=== PATIENT | female | born 1945 | race Caucasian/White ===

== ENCOUNTER → 2017-06-16 | Outpatient (CLI) | payer MEDICARE, OTHER ==
[~2017-06-16] MED LIST: ALLERGY MED OTC PO; ASPIR 8181 MG PO; ASPIRIN81 MG PO; ATORVASTATIN CA20 MG PO; CALTRATE PLUS1 EACH PO; FOLIC ACID20 MG PO; GABAPENTIN100 MG PO; HAIR, SKIN & N1 EACH PO; LASIX20 MG PO; MECLIZINE HCL12.5 MG PO; METOPROLOL TART25 MG PO; METOPROLOL TART50 MG PO; MUCUS PO; NEXIUM PO; NEXIUM40 MG PO; PLAVIX75 MG PO; PREDNISONE5 MG PO; SUPER B COMPLE150 MG PO; VITAMIN D-32000 UNIT PO
[2017-06-16 10:33] LABS: BASOPHILS # (AUTO) 0.1 (0.0-0.1); BASOPHILS % 0.3 % (0.0-1.0); EOSINOPHILS # (AUTO) 0.2 (0.0-0.4); EOSINOPHILS % 1.3 % (0.0-6.0); HEMATOCRIT 36.1 % (34.2-44.1); HEMOGLOBIN 12.6 g/dL (12.0-16.0); LYMPHOCYTES # (AUTO) 3.7 (1.0-3.2); LYMPHOCYTES % 21.3 % (18.0-39.1); MEAN CORPUSCULAR HEMOGLOBIN 33.3 pg (28-32); MEAN CORPUSCULAR HGB CONC 34.9 g/dL (31-35); MEAN CORPUSCULAR VOLUME 95.5 fL (81-99); MONOCYTES # (AUTO) 0.8 (0.2-0.8); MONOCYTES % 4.7 % (4.4-11.3); NEUTROPHILS # (AUTO) 12.5 (2.1-6.9); PLATELET COUNT 282 x10e3/uL (140-360); RED BLOOD COUNT 3.78 x10e6/uL (3.6-5.1); RED CELL DISTRIBUTION WIDTH 13.2 % (11.7-14.4)
== END ==
LOC: LAB 10:17
PROVIDERS: ATTEND Internal Medicine
DX: D72.829 Elevated white blood cell count, unspecified (principal)
CPT/HCPCS: 36415; 85025

== ENCOUNTER → 2017-10-28 | Outpatient (CLI) | payer MEDICARE, OTHER ==
[~2017-10-28] MED LIST changes: +SINCALIDE 3 MCG/VIAL INJ ONE
--- NOTE | 2017-10-28 19:54 | Diagnostic Imaging Report ---
Hepatobiliary Scan with Gallbladder Ejection Fraction Clinical information: 72 F with abdominal pain and bloating Report: Following intravenous administration of 6 millicuries of Tc-99m mebrofenin, dynamic images of the abdomen in the anterior projection were obtained through 30 minutes. Sincalide (CCK analog) 1.0 micrograms was administered intravenously over 30 minutes with additional imaging for determination of gallbladder ejection fraction. Perfusion to the liver is normal. Extraction of tracer from the blood pool by the liver parenchyma is normal. Tracer is seen promptly within the biliary tract. The gallbladder begins to fill by 8 minutes post-injection of tracer and fills adequately. Tracer is seen in the small bowel by 14 minutes. The gallbladder ejection fraction with administration of sincalide is 91% (normal greater than 40%). Impression: 1. Filling of the gallbladder excludes the diagnosis of acute cystic duct obstruction/acute cholecystitis. 2. Normal gallbladder ejection fraction of 91% does not support the clinical diagnosis of chronic cholecystitis/gallbladder dyskinesia. 3. Prior study of 05/07/2016 was also normal with a gallbladder ejection fraction of 88%. Signed by: Dr. Mattie Harper M.D. on 10/28/2017 7:50 PM
== END ==
LOC: MAMMO 10:14
PROVIDERS: ATTEND Internal Medicine
DX: Z12.31 Encounter for screening mammogram for malignant neoplasm of breast (principal); R14.0 Abdominal distension (gaseous)
CPT/HCPCS: 77067; 78227; A9537; J2805

== ENCOUNTER 2018-01-10 15:00 | Outpatient (RCR) | payer MEDICARE, OTHER ==
[~2018-01-10 15:00] MED LIST changes: -SINCALIDE 3 MCG/VIAL INJ ONE
[2018-01-19] MEDS ORDERED: PROLIA60 MG/1 ML SC (11:17)
== END 2018-01-20 ==
LOC: PT 15:00
PROVIDERS: ATTEND Specialist
DX: M25.551 Pain in right hip (principal); M71.551 Other bursitis, not elsewhere classified, right hip
CPT/HCPCS: 97110 ×7; 97162; G8978; G8979

== ENCOUNTER 2018-01-19 08:27 | Inpatient (IN) | payer MEDICARE, OTHER ==
[~2018-01-19] VITALS: Ht 160 cm; Wt 50.9 kg
--- OUTSIDE RECORDS SUMMARY | 2018-01-19 08:32 | XMS REPORT | Summary of Care ---
Author Organization Unknown Address Unknown Phone Unavailable Encounter SHIRA Jones(DOMINIC) [id number] Date(s): 03/31/14 - 03/31/14 [facility] [address] [place], [place] [id number] [place] [address] Discharge Diagnosis: Acute hip pain Discharge Disposition: Home Physician Attending: Leilani Cortes DO Reason for Visit PAIN Vital Signs 1 2 3 Most recent to oldest [Reference Range]: 160.02 cm (03/31/14 4:39 PM) Height 98.4 DegF (03/31/14 4:39 PM) Temperature Oral [96.4-99.1 DegF] 135 mmHg (03/31/14 9:48 PM) 125 mmHg (03/31/14 6:31 PM) 109 mmHg (03/31/14 4:39 PM) Systolic Blood Pressure [90-140 mmHg] 82 mmHg (03/31/14 9:48 PM) 69 mmHg (03/31/14 6:31 PM) 68 mmHg (03/31/14 4:39 PM) Diastolic Blood Pressure [60-90 mmHg] 18 BRMIN (03/31/14 9:48 PM) 18 BRMIN (03/31/14 6:31 PM) 20 BRMIN (03/31/14 4:39 PM) Respiratory Rate [14-20 BRMIN] 74 bpm (03/31/14 9:48 PM) 96 bpm (03/31/14 4:39 PM) Peripheral Pulse Rate [60-100 bpm] 40.909 kg (03/31/14 4:39 PM) Weight 15.98 m2 (03/31/14 4:39 PM) Body Mass Index Problem List Condition Effective Dates Status Health Status Informant Accelerated Active essential hypertension(Confirm ed) Arthritis(Confirmed) Resolved Atherosclerosis(Conf Active irmed) COPD(Confirmed) Resolved COPD - Chronic Active obstructive pulmonary disease(Confirmed) Degenerative disc Active disease(Confirmed) Dizziness(Confirmed) Resolved Femur Resolved fracture(Confirmed)1 Fracture(Confirmed) Active History of - Active psoriasis(Confirmed) Hypertension(Confirm Resolved ed) Low back Active pain(Confirmed) Petit mal(Confirmed) Resolved Pneumothorax(Confirm Active ed) TIA(Confirmed) Active 1rt 5years ago Allergies, Adverse Reactions, Alerts Substance Reaction Severity Status NKDA Active Medications Bonnyman 10/325 oral tablet 1 tab, Route: PO, Drug Form: TAB, Dosing Weight 40.909, kg, ONCE, STAT, Start da te: 03/31/14 20:30:00, Stop date: 03/31/14 20:30:00 Start Date: 03/31/14 Stop Date: 03/31/14 Status: Completed tramadol 50 mg, 1 tab, Route: PO, Drug form: TAB, ONCE, Dosing Weight 40.909, kg, > 50 kg, Priority: STAT, Start date: 03/31/14 21:50:00, Stop date: 03/31/14 21:50:00 Notes: Not to exceed 400mg/day. (Same As: Ultram) Start Date: 03/31/14 Stop Date: 03/31/14 Status: Completed tramadol 50 mg oral tablet 50 mg=1 tab, PO, Q4H, as needed for pain, # 24 tab, 0 Refill(s) Start Date: 03/31/14 Status: Ordered Medications Administered During Your Visit No data available for this section Immunizations Vaccine Date Refusal Reason diphtheria/pertussis, acel/tetanus adult 02/28/14 diphtheria/pertussis, acel/tetanus adult 09/13/12 Hx pneumococcal vaccine 07/15/06 pneumococcal 23-valent vaccine 07/24/13 Social History Social History Type Response Alcohol Use: Current, Frequency: Daily Smoking Status Current every day smoker, Type: Cigarettes, Exposure to Tobacco Smoke None, Cigarette Smoking Last 365 Days Yes, Reg Smoking Cessation Counseling Yes1 11 pack/day
--- OUTSIDE RECORDS SUMMARY | 2018-01-19 08:32 | XMS REPORT | Summary of Care ---
Author Organization Unknown Address Unknown Phone Unavailable Encounter HQ Karen(DOMINIC) [id number] Date(s): 07/22/13 - 07/22/13 [facility] [address] Discharge Disposition: DC[facility] Physician Attending: Khang Jain MD Reason for Visit FALL Vital Signs 1 2 3 Most recent to oldest [Reference Range]: 160.02 cm (07/22/13 8:34 AM) Height 98.7 DegF (07/22/13 3:36 PM) 98.7 DegF (07/22/13 2:41 PM) 98.7 DegF (07/22/13 12:00 PM) Temperature Oral [96.4-99.1 DegF] 140 mmHg (07/22/13 3:36 PM) 145 mmHg *HI* (07/22/13 2:41 PM) 138 mmHg (07/22/13 1:45 PM) Systolic Blood Pressure [90-140 mmHg] 80 mmHg (07/22/13 3:36 PM) 85 mmHg (07/22/13 2:41 PM) 85 mmHg (07/22/13 1:45 PM) Diastolic Blood Pressure [60-90 mmHg] 18 BRMIN (07/22/13 3:36 PM) 16 BRMIN (07/22/13 2:41 PM) 16 BRMIN (07/22/13 1:45 PM) Respiratory Rate [14-20 BRMIN] 87 bpm (07/22/13 3:36 PM) 89 bpm (07/22/13 2:41 PM) 95 bpm (07/22/13 1:45 PM) Peripheral Pulse Rate [60-100 bpm] 39.545 kg (07/22/13 8:34 AM) Weight 15.44 m2 (07/22/13 8:34 AM) Body Mass Index Problem List Condition Effective Dates Status Health Status Informant Accelerated Active essential hypertension(Confirm ed) Atherosclerosis(Conf Active irmed) COPD(Confirmed) Resolved COPD - Chronic Active obstructive pulmonary disease(Confirmed) Degenerative disc Active disease(Confirmed) Dizziness(Confirmed) Resolved Femur Resolved fracture(Confirmed)1 Fracture(Confirmed) Active History of - Active psoriasis(Confirmed) Hypertension(Confirm Resolved ed) Low back Active pain(Confirmed) Petit mal(Confirmed) Resolved Pneumothorax(Confirm Active ed) TIA(Confirmed) Active 1rt 5years ago Allergies, Adverse Reactions, Alerts Substance Reaction Severity Status NKDA Active Medications morphine Sulfate 4 mg, 2 mL, Route: IVP, Drug form: INJ, ONCE, Dosing Weight 39.545, kg, Priority : STAT, Start date: 07/22/13 8:55:00, Stop date: 07/22/13 8:55:00 Notes: (Same as:MORPhine Sulfate) Start Date: 07/22/13 Stop Date: 07/22/13 Status: Completed morphine Sulfate 4 mg, Route: IVP, Drug form: INJ, ONCE, Dosing Weight 39.545, kg, Priority: STAT , Start date: 07/22/13 15:25:00, Stop date: 07/22/13 15:25:00 Start Date: 07/22/13 Stop Date: 07/22/13 Status: Completed Saline Flush 0.9% 5 mL, Route: IVP, Drug Form: INJ, Dosing Weight 39.545, kg, Q8H, PRN Line Flush, Start date: 07/22/13 9:55:00, Duration: 30 day, Stop date: 08/21/13 9:54:00, 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 Special Instructions: Administer at least once every 8 hours Notes: (Same as: BD Posiflush) Start Date: 07/22/13 Stop Date: 07/22/13 Status: Discontinued Zofran 4 mg, 2 mL, Route: IVP, Drug form: INJ, ONCE, Dosing Weight 39.545, kg, Priority : STAT, Start date: 07/22/13 8:55:00, Stop date: 07/22/13 8:55:00 Notes: (Same as: Zofran) Start Date: 07/22/13 Stop Date: 07/22/13 Status: Completed Zofran 4 mg, Route: IVP, Drug form: INJ, ONCE, Dosing Weight 39.545, kg, Priority: STAT , Start date: 07/22/13 15:26:00, Stop date: 07/22/13 15:26:00 Start Date: 07/22/13 Stop Date: 07/22/13 Status: Completed Results ELECTROLYTES Most recent to 1 oldest [Reference Range]: Sodium Lvl [135-145 135 mEq/L mEq/L] (07/22/13 8:46 AM) Potassium Lvl 4.0 mEq/L [3.5-5.1 mEq/L] (07/22/13 8:46 AM) Chloride Lvl [95-109 99 mEq/L mEq/L] (07/22/13 8:46 AM) CO2 [24-32 mEq/L] 27 mEq/L (07/22/13 8:46 AM) AGAP [10.0-20.0 13.0 mEq/L mEq/L] (07/22/13 8:46 AM) CHEM PANEL Most recent to 1 oldest [Reference Range]: Creatinine Lvl 0.6 mg/dL [0.5-1.4 mg/dL] (07/22/13 8:46 AM) eGFR 93 mL/min/1.73m2 1 *NA* (07/22/13 8:46 AM) BUN [7-22 mg/dL] 17 mg/dL (07/22/13 8:46 AM) B/C Ratio [6-25] 28 *HI* (07/22/13 8:46 AM) Glucose Lvl [70-99 81 mg/dL 2 mg/dL] (07/22/13 8:46 AM) Total Protein 6.5 g/dL [6.4-8.4 g/dL] (07/22/13 8:46 AM) Albumin Lvl [3.5-5.0 2.8 g/dL g/dL] *LOW* (07/22/13 8:46 AM) Globulin [2.0-4.0 3.7 g/dL g/dL] (07/22/13 8:46 AM) A/G Ratio [0.7-1.6] 0.8 (07/22/13 8:46 AM) Calcium Lvl 8.3 mg/dL [8.5-10.5 mg/dL] *LOW* (07/22/13 8:46 AM) Phosphorus [2.5-4.5 3.0 mg/dL mg/dL] (07/22/13 8:46 AM) Magnesium Lvl 1.4 mg/dL [1.8-2.4 mg/dL] *LOW* (07/22/13 8:46 AM) ALT [0-65 unit/L] 16 unit/L (07/22/13 8:46 AM) AST [0-37 unit/L] 12 unit/L (07/22/13 8:46 AM) Alk Phos [39-136 124 unit/L unit/L] (07/22/13 8:46 AM) Bili Total [0.2-1.3 0.3 mg/dL mg/dL] (07/22/13 8:46 AM) 1Result Comment: The eGFR is calculated using the CKD-EPI formula. In most young, healthy individuals the eGFR will be >90 mL/min/1.73m2. The eGFR declines with age. An eGFR of 60-89 may be normal in some populations, particularly the elderly, for whom the CKD-EPI formula has not been extensively validated. Use of the eGFR is not recommended in the following populations: Individuals with unstable creatinine concentrations, including patients and those with serious co-morbid conditions. Patients with extremes in muscle mass or diet. The data above are obtained from the National Kidney Disease Education Program ( NKDEP) which additionally recommends that when the eGFR is used in patients with extremes of body mass index for purposes of drug dosing, the eGFR should be mul tiplied by the estimated BMI. 2Interpretive Data: Adult reference range values reflect the clinical guidelines of the [place] [employer]. CARDIAC ENZYMES Most recent to 1 oldest [Reference Range]: Total CK [12-191 28 unit/L unit/L] (07/22/13 8:46 AM) CK MB [0.5-3.6 1.0 ng/mL ng/mL] (07/22/13 8:46 AM) CK MB Index 3.6 [0.0-2.5] *HI* (07/22/13 8:46 AM) Troponin-I <0.02 ng/mL [0.00-0.40 ng/mL] (07/22/13 8:46 AM) HEMATOLOGY Most recent to 1 oldest [Reference Range]: WBC [3.7-10.4 K/CMM] 11.2 K/CMM *HI* (07/22/13 8:46 AM) RBC [4.20-5.40 3.33 M/CMM M/CMM] *LOW* (07/22/13 8:46 AM) Hgb [12.0-16.0 g/dL] 11.5 g/dL *LOW* (07/22/13 8:46 AM) Hct [36.0-48.0 %] 34.6 % *LOW* (07/22/13 8:46 AM) MCV [81.0-99.0 fL] 104.0 fL *HI* (07/22/13 8:46 AM) MCH [27.0-31.0 pg] 34.5 pg *HI* (07/22/13 8:46 AM) MCHC [32.0-36.0 33.2 g/dL g/dL] (07/22/13 8:46 AM) RDW [11.5-14.5 %] 14.2 % (07/22/13 8:46 AM) Platelet [133-450 292 K/CMM K/CMM] (07/22/13 8:46 AM) MPV [7.4-10.4 fL] 7.8 fL (07/22/13 8:46 AM) Segs [45.0-75.0 %] 80.1 % *HI* (07/22/13 8:46 AM) Lymphocytes 16.6 % [20.0-40.0 %] *LOW* (07/22/13 8:46 AM) Monocytes [2.0-12.0 2.9 % %] (07/22/13 8:46 AM) Eosinophils [0.0-4.0 0.1 % %] (07/22/13 8:46 AM) Basophils [0.0-1.0 0.3 % %] (07/22/13 8:46 AM) Segs-Bands # 8.9 K/CMM [1.5-8.1 K/CMM] *HI* (07/22/13 8:46 AM) Lymphocytes # 1.8 K/CMM [1.0-5.5 K/CMM] (07/22/13 8:46 AM) Monocytes # [0.0-0.8 0.3 K/CMM K/CMM] (07/22/13 8:46 AM) Eosinophils # 0.0 K/CMM [0.0-0.5 K/CMM] (07/22/13 8:46 AM) Basophils # [0.0-0.2 0.0 K/CMM K/CMM] (07/22/13 8:46 AM) PT [12.0-14.7 11.4 seconds seconds] *LOW* (07/22/13 8:46 AM) INR [0.85-1.17] 0.83 3 *LOW* (07/22/13 8:46 AM) PTT [22.9-35.8 31.8 seconds 4 seconds] (07/22/13 8:46 AM) 3Interpretive Data: RECOMMENDED RANGES FOR PROTIME INR: 2.0-3.0 for most medical and surgical thromboembolic states. 2.5-3.5 for artificial heart valves and recurrent embolism. INR SHOULD BE USED ONLY FOR PATIENTS ON STABLE ANTICOAGULANT THERAPY. 4Interpretive Data: Heparin Therapeutic Range: 57 - 92 Seconds Medications Administered During Your Visit No data available for this section Immunizations Vaccine Date Refusal Reason diphtheria/pertussis, acel/tetanus adult 09/13/12 Hx pneumococcal vaccine 07/15/06 pneumococcal 23-valent vaccine 07/24/13 Procedures Procedure Type Body Site Date of Procedure Related Diagnosis Abdominal hysterectomy Social History Social History Type Response Alcohol Use: Current, Frequency: Daily Smoking Status Current every day smoker, Type: Cigarettes, Exposure to Tobacco Smoke None, Cigarette Smoking Last 365 Days Yes, Reg Smoking Cessation Counseling Yes1 11 pack/day
--- OUTSIDE RECORDS SUMMARY | 2018-01-19 08:32 | XMS REPORT | CCD ---
Author Author Auto Generated Organization [facility] Address Unknown Phone Unavailable Care Team Providers Care Typing Secretary Name Role Phone Luke Brothers CP Allergies, Adverse Reactions, Alerts Substance Reaction Status NKDA Active Problem List Condition Effective Dates Status Accelerated essential hypertension Active Atherosclerosis Active COPD - Chronic obstructive pulmonary disease Active Degenerative disc disease Active Fracture Active History of - psoriasis Active Hypertension Resolved Low back pain Active Pneumothorax Active TIA Active Medications Medication Instructions Start Date End Date Status thiamine 100 mg oral 100 mg, 1 tab, PO, Daily, 30 tab, 09/14/2012 Ordered tablet Substitution Allowed, TAB enoxaparin 40 mg, 0.4 mL, Route: SUB-Q, Drug 09/13/2012 09/14/2012 Discontinued form: INJ, [id number], Dosing Weight 42.1, kg, Start date: 09/13/12 13:00:00, Duration: 30 day, Stop date: 10/12/12 13:00:00 potassium chloride 40 mEq, 30 mL, Route: PO, Drug 09/14/2012 09/14/2012 Completed form: LIQ, ONCE, Dosing Weight 42.1, kg, Start date: 09/14/12 12:29:00, Stop date: 09/14/12 12:29:00 Sodium Chloride 0.9% 1,000 mL, Rate: 1,000 ml/hr, Infuse 09/13/2012 09/13/2012 Completed (Bolus) IV 1000 mL over: 1 hr, Route: IV, Dosing Weight 36.364 kg, Total Volume: 1,000, Priority: STAT, Start date: 09/13/12 0:32:00, Duration: 1 doses or times, Stop date: 09/13/12 1:31:00, Bolus Dose Bolus Dose ondansetron 4 mg, Route: IVP, ONCE, Dosing 09/13/2012 09/13/2012 Completed Weight 36.364, kg, Priority: STAT, Start date: 09/13/12 0:03:00, Stop date: 09/13/12 0:03:00 Saline Flush 0.9% 5 mL, Route: IVP, Drug Form: INJ, 09/13/2012 09/13/2012 Discontinued Dosing Weight 36.364, kg, PRN, PRN Line Flush, Start date: 09/13/12 0:03:00, Duration: 30 day, Stop date: 10/13/12 0:02:00 predniSONE 5 mg, 1 tab, Route: PO, Drug form: 09/13/2012 09/14/2012 Discontinued TAB, Breakfast, Dosing Weight 42.1, kg, Start date: 09/13/12 13:00:00, Duration: 30 day, Stop date: 10/13/12 8:00:00 tetanus/diphtheria/p 0.5 ml, Route: IM, Drug Form: INJ, 09/12/2012 09/13/2012 Completed ertussis, acel Dosing Weight 36.364, kg, ONCE, (Tdap) 5 units-2.5 Start date: 09/12/12 22:54:00, Stop units-18.5 mcg/0.5 date: 09/12/12 22:54:00 mL intramuscular suspensio lidocaine-epi 1 ml, Route: SUB-Q, Drug Form: INJ, 09/12/2012 09/13/2012 Completed 1%-[id number] Dosing Weight 36.364, kg, ONCE, STAT, Start date: 09/12/12 22:54:00, Stop date: 09/12/12 22:54:00 metoprolol extended 25 mg, 1 tab, Route: PO, Drug form: 09/14/2012 09/14/2012 Discontinued release ERTAB, Daily, Start date: 09/14/12 9:00:00, Duration: 30 day, Stop date: 10/13/12 9:00:00 multivitamin 1 tab, Route: PO, Drug Form: TAB, 09/13/2012 09/14/2012 Discontinued Dosing Weight 42.1, kg, Daily, Start date: 09/13/12 13:00:00, Duration: 30 day, Stop date: 10/13/12 9:00:00 thiamine 100 mg, 1 tab, Route: PO, Drug 09/13/2012 09/14/2012 Discontinued form: TAB, Daily, Dosing Weight 42.1, kg, Start date: 09/13/12 13:00:00, Duration: 30 day, Stop date: 10/13/12 9:00:00 folic acid 1 mg, 1 tab, Route: PO, Drug form: 09/13/2012 09/14/2012 Discontinued TAB, Daily, Dosing Weight 42.1, kg, Start date: 09/13/12 13:00:00, Duration: 30 day, Stop date: 10/13/12 9:00:00 cyanocobalamin 2,000 microgram, 4 tab, Route: PO, 09/13/2012 09/14/2012 Discontinued Drug form: TAB, QPM, Dosing Weight 42.1, kg, Start date: 09/13/12 17:00:00, Duration: 30 day, Stop date: 10/12/12 17:00:00 aspirin 81 mg, 1 tab, Route: PO, Drug form: 09/13/2012 09/14/2012 Discontinued CHEWTAB, Dinner, Dosing Weight 42.1, kg, Start date: 09/13/12 17:00:00, Duration: 30 day, Stop date: 10/12/12 17:00:00 nitroglycerin 0.4 mg 0.4 mg, 1 tab, Route: SL, Drug 09/13/2012 09/14/2012 Discontinued sublingual tablet form: TAB, Q5Min, PRN Chest Pain, Start date: 09/13/12 20:06:00, Duration: 30 day, Stop date: 10/13/12 20:05:00 atropine 0.5 mg, 5 mL, Route: IVP, Drug 09/13/2012 09/14/2012 Discontinued form: INJ, PRN, PRN Bradycardia, Start date: 09/13/12 20:06:00, Duration: 30 day, Stop date: 10/13/12 20:05:00 Tylenol 650 mg, 2 tab, Route: PO, Drug 09/13/2012 09/14/2012 Discontinued form: TAB, Q6H, Dosing Weight 42.1, kg, PRN Pain, Start date: 09/13/12 12:49:00, Duration: 30 day, Stop date: 10/13/12 12:48:00 Reading 5/325 oral 1 tab, Route: PO, Drug Form: TAB, 09/13/2012 09/14/2012 Discontinued tablet Dosing Weight 42.1, kg, Q6H, PRN Pain, Start date: 09/13/12 12:49:00, Duration: 30 day, Stop date: 10/13/12 12:48:00 Saline Flush 0.9% 5 ml, Route: IVP, Drug Form: INJ, 09/13/2012 09/14/2012 Discontinued Dosing Weight 36.364, kg, PRN, PRN Line Flush, Start date: 09/13/12 5:15:00, Duration: 30 day, Stop date: 10/13/12 5:14:00 Dextrose 5% with 1,000 mL, Rate: 125 ml/hr, Infuse 09/13/2012 09/14/2012 Discontinued 0.45% NaCl IV 1,000 over: 8 hr, Route: IV, Dosing mL Weight 36.364 kg, Total Volume: 1,000, Start date: 09/13/12 5:15:00, Duration: 30 day, Stop date: 10/13/12 5:14:00 ondansetron 4 mg, 2 mL, Route: IVP, Drug form: 09/13/2012 09/14/2012 Discontinued INJ, Q8H, Dosing Weight 36.364, kg, PRN Nausea & Vomiting, Start date: 09/13/12 5:15:00, Duration: 30 day, Stop date: 10/13/12 5:14:00 docusate 100 mg, 1 cap, Route: PO, Drug 09/13/2012 09/14/2012 Discontinued form: CAP, BID, Dosing Weight 36.364, kg, PRN Constipation, Start date: 09/13/12 5:15:00, Duration: 30 day, Stop date: 10/13/12 5:14:00 morphine Sulfate 2 mg, 1 mL, Route: IVP, Drug form: 09/13/2012 09/14/2012 Discontinued INJ, Q3H, Dosing Weight 36.364, kg, PRN Pain Score 4-6, Start date: 09/13/12 5:15:00, Duration: 30 day, Stop date: 10/13/12 5:14:00 Sodium Chloride 0.9% 1,000 mL, Rate: 1,000 ml/hr, Infuse 09/13/2012 09/13/2012 Completed (Bolus) IV 1000 mL over: 1 hr, Route: IV, Dosing Weight 36.364 kg, Total Volume: 1,000, Priority: STAT, Start date: 09/13/12 3:41:00, Duration: 1 doses or times, Stop date: 09/13/12 4:40:00, Bolus Dose Bolus Dose Immunizations Vaccine Date Status diphtheria/pertussis, acel/tetanus adult 09/13/2012 Auth (Verified) Hx pneumococcal vaccine 07/15/2006 Auth (Verified) Vital Signs Most recent to oldest [Reference Range]: 1 2 3 Height 160.02 cm (09/13/2012 05:00:00) 157.48 cm (09/12/2012 22:33:00) Temperature Oral [96.4-99.1 DegF] 97.9 DegF (09/14/2012 16:01:00) 97.6 DegF (09/14/2012 11:39:00) 98.7 DegF (09/14/2012 08:10:00) Systolic Blood Pressure [90-140 mmHg] 126 mmHg (09/14/2012 16:01:00) 124 mmHg (09/14/2012 11:39:00) 130 mmHg (09/14/2012 08:10:00) Diastolic Blood Pressure [60-90 mmHg] 72 mmHg (09/14/2012 16:01:00) 69 mmHg (09/14/2012 11:39:00) 73 mmHg (09/14/2012 08:10:00) Respiratory Rate [14-20 BRMIN] 18 BRMIN (09/14/2012 16:01:00) 18 BRMIN (09/14/2012 11:39:00) 16 BRMIN (09/14/2012 08:35:00) Peripheral Pulse Rate [60-100 bpm] 71 bpm (09/14/2012 16:01:00) 67 bpm (09/14/2012 11:39:00) 65 bpm (09/14/2012 08:10:00) Weight 42.1 kg (09/13/2012 05:00:00) 36.364 kg (09/12/2012 22:33:00) Results URINALYSIS Most recent to oldest [Reference Range]: 1 2 UA Turbidity [Clear] Clear (09/13/2012 01:50:00) UA Color [Yellow] Yellow *NA* (09/13/2012 01:50:00) UA pH [5.0-8.0] 6.0 (09/13/2012 01:50:00) UA Spec Grav [<=1.030] <=1.005 *NA* (09/13/2012 01:50:00) UA Glucose [Negative] Negative (09/13/2012 01:50:00) UA Blood [Negative] Negative (09/13/2012 01:50:00) UA Ketones [Negative] Negative *NA* (09/13/2012 01:50:00) UA Protein [Negative] Negative (09/13/2012 01:50:00) UA Urobilinogen [0.1-1.0 EU/dL] 0.2 EU/dL (09/13/2012 01:50:00) UA Bili [Negative] Negative *NA* (09/13/2012 01:50:00) UA Leuk Est [Negative] Negative (09/13/2012 01:50:00) UA Nitrite [Negative] Negative (09/13/2012 01:50:00) CHEMISTRY Most recent to oldest [Reference Range]: 1 2 Sodium Lvl [135-145 mEq/L] 142 mEq/L (09/14/2012 06:43:00) 140 mEq/L (09/13/2012 00:30:00) Potassium Lvl [3.5-5.1 mEq/L] 3.3 mEq/L *LOW* (09/14/2012 06:43:00) 4.6 mEq/L (09/13/2012 00:30:00) Chloride Lvl [95-109 mEq/L] 105 mEq/L (09/14/2012 06:43:00) 103 mEq/L (09/13/2012 00:30:00) CO2 [24-32 mEq/L] 29 mEq/L (09/14/2012 06:43:00) 25 mEq/L (09/13/2012 00:30:00) AGAP [10.0-20.0 mEq/L] 11.3 mEq/L (09/14/2012 06:43:00) 16.6 mEq/L (09/13/2012 00:30:00) Creatinine Lvl [0.5-1.4 mg/dL] 0.7 mg/dL (09/14/2012 06:43:00) 0.6 mg/dL (09/13/2012 00:30:00) eGFR 89 mL/min/1.73m2 1 *NA* (09/14/2012:43:00) 93 mL/min/1.73m2 2 *NA* (09/13/2012 00:30:00) BUN [7-22 mg/dL] 8 mg/dL (09/14/2012 06:43:00) 16 mg/dL (09/13/2012 00:30:00) B/C Ratio [6-25] 27 *HI* (09/13/2012 00:30:00) Glucose Lvl [70-99 mg/dL] 119 mg/dL 3 *HI* (09/14/2012 06:43:00) 94 mg/dL 4 (09/13/2012 00:30:00) Total Protein [6.4-8.4 g/dL] 6.7 g/dL (09/13/2012 00:30:00) Albumin Lvl [3.5-5.0 g/dL] 3.8 g/dL (09/13/2012 00:30:00) Globulin [2.0-4.0 g/dL] 2.9 g/dL (09/13/2012 00:30:00) A/G Ratio [0.7-1.6] 1.3 (09/13/2012 00:30:00) Calcium Lvl [8.5-10.5 mg/dL] 7.7 mg/dL *LOW* (09/14/2012:43:00) 8.7 mg/dL (09/13/2012 00:30:00) ALT [0-65 unit/L] 57 unit/L (09/13/2012 00:30:00) AST [0-37 unit/L] 59 unit/L *HI* (09/13/2012 00:30:00) Alk Phos [39-136 unit/L] 121 unit/L (09/13/2012 00:30:00) Bili Total [0.2-1.3 mg/dL] 0.6 mg/dL (09/13/2012 00:30:00) 1Result Comment: The eGFR is calculated using [...] be mul tiplied by the estimated BMI. 2Result Comment: The eGFR is calculated using the [...] be mul tiplied by the estimated BMI. 3Interpretive Data: Adult reference range values reflect the clinical guidelines of the [place] [employer]. 4Interpretive Data: Adult reference range values reflect the clinical guidelines of the [place] [employer]. HEMATOLOGY Most recent to oldest [Reference Range]: 1 2 WBC [3.7-10.4 K/CMM] 5.8 K/CMM (09/14/2012 06:43:00) 6.7 K/CMM (09/13/2012 00:30:00) RBC [4.20-5.40 M/CMM] 3.01 M/CMM *LOW* (09/14/2012 06:43:00) 3.92 M/CMM *LOW* (09/13/2012 00:30:00) Hgb [12.0-16.0 g/dL] 10.6 g/dL *LOW* (09/14/2012 06:43:00) 13.8 g/dL (09/13/2012 00:30:00) Hct [36.0-48.0 %] 32.1 % *LOW* (09/14/2012 06:43:00) 40.8 % (09/13/2012 00:30:00) MCV [81.0-99.0 fL] 106.5 fL *HI* (09/14/2012 06:43:00) 104.2 fL *HI* (09/13/2012 00:30:00) MCH [27.0-31.0 pg] 35.3 pg *HI* (09/14/2012 06:43:00) 35.1 pg *HI* (09/13/2012 00:30:00) MCHC [32.0-36.0 g/dL] 33.2 g/dL (09/14/2012 06:43:00) 33.7 g/dL (09/13/2012 00:30:00) RDW [11.5-14.5 %] 14.4 % (09/14/2012 06:43:00) 14.5 % (09/13/2012 00:30:00) Platelet [133-450 K/CMM] 165 K/CMM (09/14/2012 06:43:00) 254 K/CMM (09/13/2012 00:30:00) MPV [7.4-10.4 fL] 8.4 fL (09/14/2012 06:43:00) 8.9 fL (09/13/2012 00:30:00) Segs [45.0-75.0 %] 60.9 % (09/14/2012 06:43:00) 78.7 % *HI* (09/13/2012 00:30:00) Lymphocytes [20.0-40.0 %] 30.1 % (09/14/2012 06:43:00) 19.7 % *LOW* (09/13/2012 00:30:00) Monocytes [2.0-12.0 %] 7.8 % (09/14/2012 06:43:00) 1.2 % *LOW* (09/13/2012 00:30:00) Eosinophils [0.0-4.0 %] 1.0 % (09/14/2012 06:43:00) 0.4 % (09/13/2012 00:30:00) Basophils [0.0-1.0 %] 0.2 % (09/14/2012 06:43:00) 0.0 % (09/13/2012 00:30:00) Segs-Bands # [1.5-8.1 K/CMM] 3.5 K/CMM (09/14/2012 06:43:00) 5.2 K/CMM (09/13/2012 00:30:00) Lymphocytes # [1.0-5.5 K/CMM] 1.7 K/CMM (09/14/2012 06:43:00) 1.3 K/CMM (09/13/2012 00:30:00) Monocytes # [0.0-0.8 K/CMM] 0.4 K/CMM (09/14/2012 06:43:00) 0.1 K/CMM (09/13/2012 00:30:00) Eosinophils # [0.0-0.5 K/CMM] 0.1 K/CMM (09/14/2012 06:43:00) 0.0 K/CMM (09/13/2012 00:30:00) Basophils # [0.0-0.2 K/CMM] 0.0 K/CMM (09/14/2012 06:43:00) 0.0 K/CMM (09/13/2012 00:30:00) PT [12.0-14.7 seconds] 11.8 seconds *LOW* (09/13/2012 00:30:00) INR [0.85-1.17] 0.85 5 (09/13/2012 00:30:00) PTT [22.9-35.8 seconds] 28.7 seconds 6 (09/13/2012 00:30:00) 5Interpretive Data: RECOMMENDED RANGES FOR PROTIME INR: 2.0-3.0 for most medical and surgical thromboembolic states. 2.5-3.5 for artificial heart valves and recurrent embolism. INR SHOULD BE USED ONLY FOR PATIENTS ON STABLE ANTICOAGULANT THERAPY. 6Interpretive Data: Heparin Therapeutic Range: 57 - 92 Seconds
--- OUTSIDE RECORDS SUMMARY | 2018-01-19 08:32 | XMS REPORT | Summary of Care ---
Author Organization Unknown Address Unknown Phone Unavailable Encounter SHIRA Jones(DOMINIC) [id number] Date(s): 02/28/14 - 03/01/14 [facility] [address] [place], [place] [id number] [place] [address] Discharge Diagnosis: Fall Discharge Diagnosis: Nasal laceration Discharge Disposition: Home Physician Attending: Angel Jose MD Reason for Visit FALL Vital Signs Most recent to 1 2 oldest [Reference Range]: Height 160.02 cm (02/28/14 9:43 PM) Temperature Oral 97.7 DegF 97.5 DegF [96.4-99.1 DegF] (03/01/14 12:00 AM) (02/28/14 9:43 PM) Systolic Blood 108 mmHg 96 mmHg Pressure [90-140 (03/01/14 12:00 AM) (02/28/14 9:43 PM) mmHg] Diastolic Blood 66 mmHg 60 mmHg Pressure [60-90 (03/01/14 12:00 AM) (02/28/14 9:43 PM) mmHg] Respiratory Rate 18 BRMIN 18 BRMIN [14-20 BRMIN] (03/01/14 12:00 AM) (02/28/14 9:43 PM) Peripheral Pulse 71 bpm 76 bpm Rate [60-100 bpm] (03/01/14 12:00 AM) (02/28/14 9:43 PM) Weight 50 kg (02/28/14 9:43 PM) Body Mass Index 19.53 m2 (02/28/14 9:43 PM) Problem List Condition Effective Dates Status Health [...] Substance Reaction Severity Status NKDA Active Medications Tylenol 650 mg, 2 tab, Route: PO, Drug form: TAB, ONCE, Dosing Weight 50, kg, Priority: STAT, Start date: 02/28/14 22:39:00, Stop date: 02/28/14 22:39:00 Notes: Do not exceed 4 gm/day. (Same as: Tylenol) Start Date: 02/28/14 Stop Date: 02/28/14 Status: Completed Medications Administered During Your Visit No data [...]
--- OUTSIDE RECORDS SUMMARY | 2018-01-19 08:32 | XMS REPORT | Summary of Care ---
Author Organization Unknown Address Unknown Phone Unavailable Encounter HQ Karen(DOMINIC) [id number] Date(s): 07/22/13 - 07/27/[address] Discharge Disposition: DC/DISC TO REHAB Physician Attending: Mega Clarke MD Physician Admitting: Mega Clarke MD Physician_Referring: Jason Hernandez MD Reason for Visit PELVIC FRACUTRE W/ACETABULAR INVOLVEMENT Vital Signs 1 2 3 Most recent to oldest [Reference Range]: 160.02 cm (07/22/13 10:24 PM) 160.02 cm (07/22/13 4:32 PM) Height 98.1 DegF (07/27/13 7:58 PM) 98.1 DegF (07/27/13 4:20 PM) 97.2 DegF (07/27/13 3:30 AM) Temperature Oral [96.4-99.1 DegF] 117 mmHg (07/27/13 7:58 PM) 109 mmHg (07/27/13 4:20 PM) 120 mmHg (07/27/13 11:59 AM) Systolic Blood Pressure [90-140 mmHg] 62 mmHg (07/27/13 7:58 PM) 69 mmHg (07/27/13 4:20 PM) 71 mmHg (07/27/13 11:59 AM) Diastolic Blood Pressure [60-90 mmHg] 18 BRMIN (07/27/13 7:58 PM) 18 BRMIN (07/27/13 4:20 PM) 18 BRMIN (07/27/13 11:59 AM) Respiratory Rate [14-20 BRMIN] 101 bpm *HI* (07/27/13 7:58 PM) 86 bpm (07/27/13 4:20 PM) 80 bpm (07/27/13 11:59 AM) Peripheral Pulse Rate [60-100 bpm] 39.545 kg (07/22/13 10:24 PM) 36.364 kg (07/22/13 4:32 PM) Weight 15.44 m2 (07/22/13 10:24 PM) 14.2 m2 (07/22/13 4:32 PM) Body Mass Index Problem List Condition [...] Substance Reaction Severity Status NKDA Active Medications acetaminophen 650 mg, 20.3 mL, Route: PO, Drug form: LIQ, Q4H, Dosing Weight 39.545, kg, PRN F ever, Start date: 07/22/13 22:46:00, Duration: 30 day, Stop date: 08/21/13 22:45 :00 Notes: Max whzmostwjsjqm=2902kg/day (4 gm/day). (Same as: Tylenol) Start Date: 07/22/13 Stop Date: 07/27/13 Status: Discontinued acetaminophen-hydrocodone 325 mg-10 mg oral tablet 1 tab, Route: PO, Drug Form: TAB, Dosing Weight 39.545, kg, Q4H, PRN Pain Score 4-6, Start date: 07/22/13 22:46:00, Duration: 30 day, Stop date: 08/21/13 22:45: 00 Notes: Do not exceed 4gm/day of acetaminophen. (Same as: [place] 325/10) Start Date: 07/22/13 Stop Date: 07/27/13 Status: Discontinued acetaminophen-hydrocodone 325 mg-10 mg oral tablet 1 tab, PO, Q4H, Pain Score 4-6, # 24 tab, 0 Refill(s) Start Date: 07/27/13 Status: Ordered acetaminophen-hydrocodone 325 mg-5 mg oral tablet 1 tab, Route: PO, Drug Form: TAB, Dosing Weight 39.545, kg, Q4H, PRN Pain Score 1-3, Start date: 07/22/13 22:46:00, Duration: 30 day, Stop date: 08/21/13 22:45: 00 Notes: (Same as: [place] 325/5) Do not exceed 4gm/day of acetaminophen. Start Date: 07/22/13 Stop Date: 07/27/13 Status: Discontinued acetaminophen-hydrocodone 325 mg-5 mg oral tablet 1 tab, PO, Q4H, Pain Score 1-3, # 24 tab, 0 Refill(s) Start Date: 07/27/13 Status: Ordered aspirin 81 mg, 1 tab, Route: PO, Drug form: CHEWTAB, Daily, Dosing Weight 39.545, kg, St art date: 07/23/13 9:00:00, Duration: 30 day, Stop date: 08/21/13 9:00:00 Notes: Take with food. Start Date: 07/23/13 Stop Date: 07/27/13 Status: Discontinued atorvastatin 20 mg oral tablet 20 mg=1 tab, PO, Bedtime, # 30 tab, 0 Refill(s) Start Date: 07/27/13 Stop Date: 08/26/13 Status: Ordered benzonatate 100 mg oral capsule 100 mg=1 cap, PO, TID, Cough, # 15 cap, 0 Refill(s) Start Date: 07/27/13 Stop Date: 08/01/13 Status: Ordered calcium-vitamin D 500 mg-400 intl units oral tablet, chewable 1 tab, Route: CHEW, Drug Form: CHEWTAB, Dosing Weight 39.545, kg, BID, NOW, Star t date: 07/24/13 9:28:00, Duration: 30 day, Stop date: 08/23/13 9:00:00 Notes: (calcium carbonate-vit D 500mg-400unit chew TAB) Same as: [place] 500+D Start Date: 07/24/13 Stop Date: 07/27/13 Status: Discontinued calcium-vitamin D 500 mg-400 intl units oral tablet, chewable 1 tab, CHEW, BID, # 60 tab, 0 Refill(s) Start Date: 07/27/13 Stop Date: 08/26/13 Status: Ordered cyanocobalamin 2,000 microgram, 2 tab, Route: PO, Drug form: TAB, Daily, Dosing Weight 39.545, kg, Start date: 07/23/13 9:00:00, Duration: 30 day, Stop date: 08/21/13 9:00:00 Notes: (Same As: Vitamin B-12) Start Date: 07/23/13 Stop Date: 07/27/13 Status: Discontinued DuoNeb inhalation solution 3 ml, Route: INHALATION, Drug Form: SOLN, Dosing Weight 39.545, kg, PRN, PRN Res piratory Protocol, Start date: 07/22/13 22:52:00, Duration: 30 day, Stop date: 0 08/21/13 22:51:00 Notes: (Same as: Duoneb) Start Date: 07/22/13 Stop Date: 07/27/13 Status: Discontinued DuoNeb inhalation solution 3 mL, INHALATION, PRN, Respiratory Protocol, # 90 mL, 0 Refill(s) Start Date: 07/27/13 Stop Date: 08/26/13 Status: Ordered enoxaparin 40 mg, 0.4 mL, Route: SUB-Q, Drug form: INJ, [id number], Dosing Weight 39.545, kg, Start date: 07/22/13 23:00:00, Duration: 30 day, Stop date: 08/20/13 23:00:00 Notes: (Same as: Lovenox) Start Date: 07/22/13 Stop Date: 07/27/13 Status: Discontinued ergocalciferol 50,000 IntlUnit, 1 cap, Route: PO, Drug form: CAP, QThu, Dosing Weight 39.545, k g, Start date: 07/27/13 8:00:00, Duration: 30 day, Stop date: 08/23/13 9:00:00 Notes: (Same as: Vitamin D) "Do Not Crush" Start Date: 07/27/13 Stop Date: 07/27/13 Status: Discontinued ergocalciferol 50,000 IntlUnit, 1 cap, Route: PO, Drug form: CAP, Daily, Dosing Weight 39.545, kg, Start date: 07/26/13 9:00:00, Duration: 30 day, Stop date: 08/24/13 9:00:00 Notes: (Same as: Vitamin D) "Do Not Crush" Start Date: 07/26/13 Stop Date: 07/27/13 Status: Discontinued folic acid 1 mg, 1 tab, Route: PO, Drug form: TAB, Daily, Dosing Weight 39.545, kg, Start d ate: 07/23/13 9:00:00, Duration: 30 day, Stop date: 08/21/13 9:00:00 Notes: (Same as: Folvite) Start Date: 07/23/13 Stop Date: 07/27/13 Status: Discontinued glycerin adult rectal suppository 1 supp, Route: PA, Drug Form: SUPP, Dosing Weight 39.545, kg, Daily, PRN Constip ation, Start date: 07/26/13 4:52:00, Duration: 30 day, Stop date: 08/25/13 4:51: 00 Start Date: 07/26/13 Stop Date: 07/27/13 Status: Discontinued lactulose 10 g/15 mL oral syrup 10 gm, 15 mL, Route: PO, Drug Form: SYRP, Dosing Weight 39.545, kg, Daily, Start date: 07/25/13 16:34:00, Duration: 30 day, Stop date: 08/24/13 9:00:00 Notes: (Same as:Chronulac) Start Date: 07/25/13 Stop Date: 07/27/13 Status: Discontinued Lipitor 20 mg, 1 tab, Route: PO, Drug form: TAB, Bedtime, Dosing Weight 39.545, kg, Star t date: 07/23/13 21:00:00, Duration: 30 day, Stop date: 08/21/13 21:00:00 Notes: (Same As: Lipitor) Start Date: 07/23/13 Stop Date: 07/27/13 Status: Discontinued magnesium sulfate 2 gm, 50 mL, Route: IVPB, Drug form: INJ, Q2H, Dosing Weight 39.545, kg, Total d ose=6 gm, Start date: 07/24/13 8:00:00, Duration: 3 doses or times, Stop date: 0 07/24/13 12:00:00 Start Date: 07/24/13 Stop Date: 07/24/13 Status: Completed molasses 240 mL, Route: PA, Drug Form: SYRP, Dosing Weight 39.545, kg, ONCE, Milk of Mola sses Enema, Start date: 07/26/13 15:15:00, Duration: 1 doses or times, Stop date : 07/26/13 15:15:00 Notes: (Same as:Molasses) Start Date: 07/26/13 Stop Date: 07/26/13 Status: Completed morphine Sulfate 4 mg, 1 mL, Route: IVP, Drug form: INJ, ONCE, Dosing Weight 36.364, kg, Priority : STAT, Start date: 07/22/13 19:39:00, Stop date: 07/22/13 19:39:00 Notes: (Same as:MORPhine Sulfate) Start Date: 07/22/13 Stop Date: 07/22/13 Status: Completed morphine Sulfate 2 mg, 1 mL, Route: IVP, Drug form: INJ, Q3H, Dosing Weight 39.545, kg, PRN Pain, Start date: 07/22/13 22:46:00, Duration: 30 day, Stop date: 08/21/13 22:45:00, pain 7-10 Notes: (Same as:MORPhine Sulfate) Start Date: 07/22/13 Stop Date: 07/27/13 Status: Discontinued multivitamin 1 tab, Route: PO, Drug Form: TAB, Dosing Weight 39.545, kg, Daily, Start date: 0 07/23/13 9:00:00, Duration: 30 day, Stop date: 08/21/13 9:00:00 Notes: (Same as:Thera) Take with food. Start Date: 07/23/13 Stop Date: 07/27/13 Status: Discontinued Omnipaque 350mg/ml 86 mL, Route: IVP, Drug Form: SOLN, Dosing Weight 36.364, kg, ONCALL, STAT, Star t date: 07/22/13 19:09:00, Duration: 1 doses or times, Dose=2.2ml/kg, Max dose= 100ml -- "To be infused by Radiology Staff ONLY" Special Instructions: Dose=2.2ml/kg, Max tukn=445bl -- "To be infused by Radiol ogy Staff ONLY" Start Date: 07/22/13 Stop Date: 07/22/13 Status: Completed ondansetron 4 mg, 2 mL, Route: IVP, Drug form: INJ, Q8H, Dosing Weight 39.545, kg, PRN Nause a & Vomiting, Start date: 07/22/13 22:46:00, Duration: 30 day, Stop date: 08/21/13 22:45:00 Notes: (Same as: Zofran) Start Date: 07/22/13 Stop Date: 07/27/13 Status: Discontinued pneumococcal 23-valent vaccine 0.5 ml, Route: IM, Drug Form: INJ, Daily, Start date: 07/23/13 9:00:00, Duration : 1 doses or times, Stop date: 07/23/13 9:00:00 Notes: (Same as: Pneumovax 23) Refrigerate Start Date: 07/23/13 Stop Date: 07/23/13 Status: Completed predniSONE 5 mg, 1 tab, Route: PO, Drug form: TAB, Daily, Dosing Weight 39.545, kg, Start d ate: 07/23/13 9:00:00, Duration: 30 day, Stop date: 08/21/13 9:00:00 Notes: Take with food. Start Date: 07/23/13 Stop Date: 07/27/13 Status: Discontinued Reglan 5 mg oral tablet 5 mg, 1 tab, Route: PO, Drug form: TAB, ONCE, Dosing Weight 39.545, kg, Start da te: 07/26/13 4:52:00, Stop date: 07/26/13 4:52:00 Notes: (Same as: Reglan) Take 30 min before meals Start Date: 07/26/13 Stop Date: 07/26/13 Status: Completed senna 8.6 mg, 1 tab, Route: PO, Drug Form: TAB, Dosing Weight 39.545, kg, BID, Start d ate: 07/26/13 9:00:00, Duration: 30 day, Stop date: 08/24/13 17:00:00 Notes: (Same as: Senokot) Start Date: 07/26/13 Stop Date: 07/27/13 Status: Discontinued Sodium Chloride 0.9% IV 1,000 mL + M.V.I.-12 10 mL Daily + folic acid IV 1 mg Da shahbaz + thiamine IV 1 1,000 mL, Rate: 100 ml/hr, Infuse over: 10.1 hr, Route: IV, Dosing Weight 39.545 kg, Total Volume: 1,011.2, Start date: 07/22/13 23:33:00, Duration: 10 hr, Stop date: 07/23/13 9:32:00 Start Date: 07/22/13 Stop Date: 07/23/13 Status: Completed Tessalon Perles 100 mg, 1 cap, Route: PO, Drug form: CAP, TID, Dosing Weight 39.545, kg, PRN Cou gh, Start date: 07/25/13 14:52:00, Duration: 30 day, Stop date: 08/24/13 14:51:0 0 Notes: (Same As: Tessalon Perles)"Do Not Crush" Start Date: 07/25/13 Stop Date: 07/27/13 Status: Discontinued thiamine 100 mg, 1 tab, Route: PO, Drug form: TAB, Daily, Dosing Weight 39.545, kg, Start date: 07/23/13 9:00:00, Duration: 30 day, Stop date: 08/21/13 9:00:00 Notes: (Same As: Vitamin B1) Start Date: 07/23/13 Stop Date: 07/27/13 Status: Discontinued thiamine 100 mg oral tablet 100 mg=1 tab, PO, Daily, # 7 tab, 0 Refill(s) Start Date: 07/27/13 Stop Date: 08/03/13 Status: Ordered Vitamin D 50,000 intl units oral capsule 50,000 IntlUnit=1 cap, PO, qWeek, # 8 cap, 0 Refill(s) Start Date: 07/27/13 Status: Ordered Zofran 4 mg, 2 mL, Route: IVP, Drug form: INJ, ONCE, Dosing Weight 36.364, kg, Priority : STAT, Start date: 07/22/13 19:39:00, Stop date: 07/22/13 19:39:00 Notes: (Same as: Zofran) Start Date: 07/22/13 Stop Date: 07/22/13 Status: Completed Results BLOOD BANK RESULTS Most recent to 1 2 oldest [Reference Range]: ABO/Rh O POS *Unknown* (07/22/13 8:12 PM) Antibody Scrn Negative (07/22/13 8:12 PM) ELECTROLYTES Most recent to 1 2 oldest [Reference Range]: Sodium Lvl [135-145 139 mEq/L 134 mEq/L mEq/L] (07/25/13 1:07 AM) *LOW* (07/22/13 8:11 PM) Potassium Lvl 3.5 mEq/L 4.6 mEq/L 1 [3.5-5.1 mEq/L] (07/25/13 1:07 AM) (07/22/13 8:11 PM) Chloride Lvl [95-109 97 mEq/L 100 mEq/L mEq/L] (07/25/13 1:07 AM) (07/22/13 8:11 PM) CO2 [24-32 mEq/L] 30 mEq/L 30 mEq/L (07/25/13 1:07 AM) (07/22/13 8:11 PM) AGAP [10.0-20.0 15.5 mEq/L 8.6 mEq/L mEq/L] (07/25/13 1:07 AM) *LOW* (07/22/13 8:11 PM) 1Result Comment: slight hemolysis CHEM PANEL Most recent to 1 2 oldest [Reference Range]: Creatinine Lvl 0.5 mg/dL 0.5 mg/dL [0.5-1.4 mg/dL] (07/25/13 1:07 AM) (07/22/13 8:11 PM) eGFR 98 mL/min/1.73m2 2 98 mL/min/1.73m2 3 *NA* *NA* (07/25/13 1:07 AM) (07/22/13 8:11 PM) BUN [7-22 mg/dL] 12 mg/dL 15 mg/dL (07/25/13 1:07 AM) (07/22/13 8:11 PM) Glucose Lvl [70-99 70 mg/dL 4 95 mg/dL 5 mg/dL] (07/25/13 1:07 AM) (07/22/13 8:11 PM) Calcium Lvl 8.5 mg/dL 8.3 mg/dL [8.5-10.5 mg/dL] (07/25/13 1:07 AM) *LOW* (07/22/13 8:11 PM) Phosphorus [2.5-4.5 3.4 mg/dL mg/dL] (07/24/13 3:13 AM) Magnesium Lvl 1.9 mg/dL 1.3 mg/dL [1.8-2.4 mg/dL] (07/25/13 1:07 AM) *LOW* (07/24/13 3:13 AM) Lactic Acid Lvl 0.7 mMol/L [0.5-2.2 mMol/L] (07/22/13 8:11 PM) Vitamin D, 25-OH, <13 ng/mL 6 Total [30-100 ng/mL] *LOW* (07/24/13 3:13 AM) AlkPhos Bone 23.0 microgram/Liter 7 [5.6-29.0 *NA* microgram/Liter] (07/24/13 3:13 AM) 2Result Comment: The eGFR is calculated using [...] be mul tiplied by the estimated BMI. 3Result Comment: The eGFR is calculated using the [...] be mul tiplied by the estimated BMI. 4Interpretive Data: Adult reference range values reflect the clinical guidelines of the [place] [employer]. 5Interpretive Data: Adult reference range values reflect the clinical guidelines of the [place] [employer]. 6Interpretive Data: Reference range is based on recommendations in the Endocrine Society Clinical Practice Guideline (J Clin Endocrinol Metab 2011;96:8824-3566) 7Result Comment: Test Performed at: [facility] [id number] [place] [address] Gricelda Serna MD, PhD THYROID PANEL Most recent to 1 2 oldest [Reference Range]: TSH [0.360-3.740 2.730 uIU/mL uIU/mL] (07/24/13 3:13 AM) PARATHYROID PROFILE Most recent to 1 2 oldest [Reference Range]: PTH Intact 25.7 pg/mL [11.1-79.5 pg/mL] (07/24/13 3:13 AM) URINE CHEM Most recent to 02 22 oldest [Reference Range]: U N-Telopeptide 69 8 (NTx) *NA* (07/24/13 2:00 AM) U Creat mg/dL 110 mg/dL 9 [20-320 mg/dL] *NA* (07/24/13 2:00 AM) 8Result Comment: Adult Female Reference Range for Collagen Cross- Linked N-Telopeptide (NTx), Random Urine Premenopausal: 4-64 nmol BCE/mmol creat Results are primarily used for monitoring the response to therapy. A value within the premenopausal reference range does not rule out osteoporosis nor the need for therapy. 9Result Comment: Test Performed at: [facility] [id number] [place] [address] Gricelda Serna MD, PhD IMMUNOLOGY Most recent to 1 2 oldest [Reference Range]: [facility]-Hep C Ab Negative [Negative] *NA* (07/26/13 6:00 AM) HEMATOLOGY Most recent to 1 2 oldest [Reference Range]: WBC [3.7-10.4 K/CMM] 14.7 K/CMM 11.4 K/CMM *HI* *HI* (07/25/13 1:07 AM) (07/22/13 8:24 PM) RBC [4.20-5.40 3.22 M/CMM 3.26 M/CMM M/CMM] *LOW* *LOW* (07/25/13 1:07 AM) (07/22/13 8:24 PM) Hgb [12.0-16.0 g/dL] 11.2 g/dL 11.3 g/dL *LOW* *LOW* (07/25/13 1:07 AM) (07/22/13 8:24 PM) Hct [36.0-48.0 %] 33.5 % 33.1 % *LOW* *LOW* (07/25/13 1:07 AM) (07/22/13 8:24 PM) MCV [81.0-99.0 fL] 104.2 fL 101.7 fL *HI* *HI* (07/25/13 1:07 AM) (07/22/13 8:24 PM) MCH [27.0-31.0 pg] 34.8 pg 34.6 pg *HI* *HI* (07/25/13 1:07 AM) (07/22/13 8:24 PM) MCHC [32.0-36.0 33.4 g/dL 34.0 g/dL g/dL] (07/25/13 1:07 AM) (07/22/13 8:24 PM) RDW [11.5-14.5 %] 13.4 % 13.0 % (07/25/13 1:07 AM) (07/22/13 8:24 PM) Platelet [133-450 260 K/CMM 229 K/CMM K/CMM] (07/25/13 1:07 AM) (07/22/13 8:24 PM) MPV [7.4-10.4 fL] 8.2 fL 7.6 fL (07/25/13 1:07 AM) (07/22/13 8:24 PM) Segs [45.0-75.0 %] 84.6 % 84.0 % *HI* *HI* (07/25/13 1:07 AM) (07/22/13 8:24 PM) Lymphocytes 9.5 % 10.5 % [20.0-40.0 %] *LOW* *LOW* (07/25/13 1:07 AM) (07/22/13 8:24 PM) Monocytes [2.0-12.0 5.3 % 4.1 % %] (07/25/13 1:07 AM) (07/22/13 8:24 PM) Eosinophils [0.0-4.0 0.3 % 0.5 % %] (07/25/13 1:07 AM) (07/22/13 8:24 PM) Basophils [0.0-1.0 0.3 % 0.9 % %] (07/25/13 1:07 AM) (07/22/13 8:24 PM) Segs-Bands # 12.4 K/CMM 9.5 K/CMM [1.5-8.1 K/CMM] *HI* *HI* (07/25/13 1:07 AM) (07/22/13 8:24 PM) Lymphocytes # 1.4 K/CMM 1.2 K/CMM [1.0-5.5 K/CMM] (07/25/13 1:07 AM) (07/22/13 8:24 PM) Monocytes # [0.0-0.8 0.8 K/CMM 0.5 K/CMM K/CMM] (07/25/13 1:07 AM) (07/22/13 8:24 PM) Eosinophils # 0.1 K/CMM [0.0-0.5 K/CMM] (07/22/13 8:24 PM) Basophils # [0.0-0.2 0.1 K/CMM K/CMM] (07/22/13 8:24 PM) Macrocyte [None 2+ 1+ Seen] *ABN* *ABN* (07/25/13 1:07 AM) (07/22/13 8:24 PM) Plt Morph Normal (07/22/13 8:24 PM) PT [12.0-14.7 11.8 seconds seconds] *LOW* (07/22/13 8:11 PM) INR [0.85-1.17] 0.87 10 (07/22/13 8:11 PM) PTT [22.9-35.8 28.6 seconds 11 seconds] (07/22/13 8:11 PM) 10Interpretive Data: RECOMMENDED RANGES FOR PROTIME INR: 2.0-3.0 for most medical and surgical thromboembolic states. 2.5-3.5 for artificial heart valves and recurrent embolism. INR SHOULD BE USED ONLY FOR PATIENTS ON STABLE ANTICOAGULANT THERAPY. 11Interpretive Data: Heparin Therapeutic Range: 57 - 92 [...] Reg Smoking Cessation Counseling Yes1 11 pack/day Assessment and Plan Extracted from: Title: Ortho Progress Note Author: Viet Oglesby MD Date: 07/27/13 Stable on floor. No new issues LLE: - SILT - 2+DP - +EHLFHL - no pain in hip at rest, pain with ROM A/P: 68 yo F with L inf ramus, acetabular, and S2 fractures - new films show satisfactory alignment- she will be managed nonop - we will continue to monitor this patient while in house Addendum Follow up with Dr. Valverde 7-10 days after discharge. by Viet Oglesby MD on 07/27/2013 11:33 Extracted from: Title: [facility] H&P Author: Mahamed Edwards DO Date: 07/22/13 Date of admission: 07/22/13 Reason for admission: L acetabular fracture CC: I couldn't walk today Attending: Gricelda Sims HPI: Patient is a 68 year old C female with PMH psoriatic arthritis, COPD, TIA, HTN, seizure disorder and a history of malignant melanoma who presented to ED 2/2 inability to walk and was found to have a L acetabular fracture. Patient states she fell approximately 2 weeks ago and since that time has been using a walker to ambulate. Patient is unsure how she fell, but has a history of dizzy spells. Patietn denies LOC. Since that fall, patient has had L buttocks pain that is constant and rated @ 3/10, however, significantly worse when ambulating or moving. On day of admission, patient states she was unable to ambulate so she came to ED. Gen: no fatigue, weakness, fever or chills, 40 lb weight loss over 18 months Skin: no skin, hair or nail changes Head: no headache, nausea, vomiting or trauma Eyes: no visual changes Ears: no changes in hearing, no tinnitues Mouth/throat/neck: no bleeding gums, hoarseness or sore throat Cardiac: no angina, palpitations, RAPHAEL, orthopnea, PND or edema Respiratory: + SOB (chronic), no wheezing, cough, hemoptysis or sputum production GI: no change in appetite, no N/V, no indigestion, no dysphagia, no changes in bowel habits : no frequency, hesitancy, urgency, polyuria, polydypsia, nocturia or hematiuria MELANIA: pain L hip, decreased ROM L leg Neuro: no loss in sensation, no numbness / tingling / weakness Heme: no easy bruising / bleeding, no petechiae, no purpura Endo: no heat / cold intolerance, no excessive sweating, no polyuria / polydipsia Psych: no change in mood, no anxiety, no depression, no changes in memory PMH: psoriatic arthritis COPD TIA HTN Seizure disorder melanoma PSH: Hysterectomy L hip replacement lumpectomy fibroid removal All: NKDA Social: Frequent EtOH 1 ppd x 58 years no drug use FH: Mom - breast CA Meds: See MAR Patient is largely non-comopliant with medications PE: VitalsTmp(F)Tmp(C)[id number] 07/22 19:23 154/83---[id number] 2.0L/m--- 07/22 19:02 140/78---[id number]------ 07/22 17:42 127/[id number]------ 07/22 17:16 135/80---[id number]------ 07/22 16:3298.036.35vvzk168/82---[id number]------ 24 Hr Tmax: 98.0F (36.67c) at 07/22 16:3224 Hr Tmin: 98.0F (36.67c) at 07/22 16:32 36 Hr Tmax: 98.0F (36.67c) at 07/22 16:3236 Hr Tmin: 98.0F (36.67c) at 07/22 16:32 Vital Signs are the last 5 in the past 48 hours. Weights are the last 5 in 60 days, plus initial. Gen: NAD, A&O x 3, cachectic Head: NC/AT Eyes: PERRLA, EOMI, no icterus Mouth: dry MM, poor dentition, no E/E Heart: RRR, no R/G/M Lungs: CTAB, no W/R/R Abd: soft / NT / ND, + BS Ext: no C/C/E, LLE painful with active / passive ROM Neuro: CN 2-12 grossly intact Skin: lesion on R hip which patient states is due to psoriatic arthritis 36hr Labs 07/23 2023 WBC11.4 H RBC3.26 L Hgb11.3 L Hct33.1 L TJT388.7 H MCH34.6 H MCHC34.0 RDW13.0 Rhrjbreq376 MPV7.6 Segs84.0 H Monocytes4.1 Fsepucudzoj99.5 L Eosinophils0.5 Basophils0.9 Segs-Bands #9.5 H Lymphocytes #1.2 Monocytes #0.5 Eosinophils #0.1 Basophils #0.1 Plt MorphNormal Macrocyte1+ 07/23 2011 ABO/RhO POS Antibody ScrnNegative 07/22 2010 Temp Ven37.0 pH Ven7.36 pCO2 Ven53 H pO2 Ven66 H HCO3 Ven30 H BE Ven3 H O2 Sat Ven91.9 H 07/22 2010 Glucose Lvl95 BUN15 Creatinine Lvl0.5 Sodium Ult610 L Potassium Lvl4.6 Chloride Bll687 CO230 AGAP8.6 L Calcium Lvl8.3 L eGFR98 Lactic Acid Lvl0.7 PT11.8 L INR0.87 PTT28.6 There are reticulonodular opacities in the left upper lobe, right upper lobe described on the prior CAT scan in the setting of severe emphysema. Nonemergent chest ct without contrast is recommended to evaluate. The heart and pulmonary vasculature are normal. There is no pneumothorax, the pulmonary vasculature is normal. IMPRESSION: 1. Osteopenia. 2. There is no acute osseous abnormality of the left knee. 3. Chondrocalcinosis. 4. There is no acute abnormality of the left femur. 5. Previous left total hip arthroplasty. 6. Advanced atherosclerosis. Comminuted left inferior pubic rami fracture is noted. The left superior pubic rami appears intact. A medial left acetabular wall fracture is noted of undetermined age. There is a left hip replacement. There is generalized osteopenia. Impacted left inferior pubic rami fracture is noted with comminution. There is fracture of the left medial wall of the acetabulum. Left superior pubic rami, bilateral pubic rami appear preserved. No definite right hip abnormality is identified. IMPRESSION: 1. Left inferior pubic rami fracture. 2. Left medial acetabular wall fracture. 3. Left hip placement. 4. Bladder distention. 5. L4-L5 spondylosis. IMPRESSION: 1. Redemonstration of a left inferior pubic rami comminuted fracture and anterior column acetabular wall fracture. The patient is status post left total hip arthroplasty. 2. Acute sacral fracture involving the anterior cortex of S2, best seen on sagittal images. 3. Acute T11 vertebral wedge fracture on chronic degenerative disc disease at T10-T11. 4. L4-L5 spondylosis. 5. Grossly severely distended bladder. 6. Nonspecific circumferential thickening of the gastric antum wall. 7. Low density lesion in the posterior right lobe of the liver and within the spleen are simple cysts. 8. Sigmoid colon diverticulosis without diverticulitis. 9. Emphysematous changes within the lungs. 10. Severe atherosclerotic disease involving the infrarenal aorta in a aortoiliac distribution. A/P: Patient is a 68 year old C female with PMH psoriatic arthritis, COPD, TIA, HTN, seizure disorder and a history of malignant melanoma who is admitted for L acetabular fracture. 1) L acetabular fracture / inferior pubic rami fracture- ortho is unsure @ this time whether or not there will be a surgical intervention, however, at this time it appears unlikely. Will keep patient NPO and F/U ortho recs in AM after staffed. 2) Reticulonodular opacities in Left and right upper lobe - patient will need outpatient chest CT. 3) Acute pain 2/2 trauma - norco / morphine PRN 4) COPD without evidence of excacerbation - duonebs PRN. 5) History of TIA v CVA - ASA / statin for secondary prevention of stroke. 6) Alcohol abuse - MVI / folic acid / thiamine daily in addition to banana bag. 7) History of seizures - not currently on AED. Continue to monitor DVT ppx - lovenox Anticipated LOS is 1-2 MN, however, if patient has surgery, LOS > 3 MN MHUTS is primary. Please page [phone] with any further questions. Addendum Weight loss - outpatient PAP / mammogram by Mahamed Edwards DO on 07/22/2013 23:40 Addendum I have seen and examined the patient. I agree with the history, physical, and plan as by stated below by Dr. Edwards. Tricia, Patient has a pathological fracture likely secondary to osteoporosis. Will order bone Mega Tanvir turnover markers. Patient will likely need calcium and vitamin D. Non operative per MD on ortho. PT/OT. Pain control. 07/23/2013 14:18
--- OUTSIDE RECORDS SUMMARY | 2018-01-19 08:32 | XMS REPORT | Continuity of Care Document ---
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---ATHEROSCLE Active 01/29/2016 [facility] CCL/RIGHT LEG PRODUCTION OR PLANT ENGINEER/DX: I70.25---ATHEROSCL Active 01/21/2016 [facility] Discharge Diagnosis: Acute hip pain 03/31/2014 04/02/2014 [facility] PAIN Active 03/31/2014 [facility] Discharge Diagnosis: Fall 02/28/2014 03/03/2014 [facility] Discharge Diagnosis: Nasal laceration 02/28/2014 03/03/2014 [facility] FALL Active 02/28/2014 [facility] PELVIC FRACUTRE W/ACETABULAR INVOLVEMENT Active 07/22/2013 [facility] HYPOTENSION Active 09/12/2012 [facility] RIB FX W/ PNEUMOTHORAX, ACUTE ALCOHOL INTOXICATION Active 09/30/2011 [facility] HEAD LACERATION Active 09/30/2011 [facility] 185 Active 09/22/2011 [facility] Accelerated essential hypertension [facility] COPD - Chronic [facility] disease [facility]10[facility] Degenerative [facility] disease Active [facility]/10[facility] D[facility]iness [facility]/10[facility] Femur fracture<sup>1</sup> Resolved Problem 06/10/2017 [facility] of - [facility] Hypertension Resolved Problem 06/10/2017 [facility] Low back pain Active Problem 06/10/2017 [facility] Petit mal Resolved Problem 06/10/2017 [facility] Pneumothorax Active Problem 06/10/2017 [facility] TIA Active Problem 06/10/2017 [facility] Accelerated essential hypertension Active Problem 09/16/2012 [facility] COPD - Chronic obstructive pulmonary disease Active Problem 09/16/2012 [place] Fract[place] Active Problem 09/16/2012 [facility] Pneumothorax Active Problem 09/16/2012 [facility] Atherosclerosis Active Problem 04/02/2014 [facility] Fracture Active Problem 04/02/2014 [facility] Atherosclerosis Active Problem 09/16/2012 [facility] Degenerative disc disease Active Problem 09/16/2012 [facility] History of - psoriasis Active Problem 09/16/2012 [facility] Hypertension Resolved Problem 09/16/2012 [facility] Low back pain Active Problem 09/16/2012 [facility] TIA Active Problem 09/16/2012 [facility] NONE Active [facility] FX EIGHT/MORE RIB-CLOSED Active [facility] HYPOTENSION NEC Active [facility] PELVIC FRACTURE NEC-CLOS Active [facility] Medications Medication Details Route Status Patient Instructions Ordering Provider Order Date Source Folic Acid 0.8 mg, 2 tab, Route: PO, Drug form: TAB, Daily, Dosing Weight 48.636, kg, Start date: 02/06/16 9:00:00 JUKEBOX CHECKER, Duration: 30 day, Stop date: 03/06/16 9:00:00 JUKEBOX CHECKER Inactive 02/06/2016 [facility] Esomeprazole 40 mg, 1 cap, Route: PO, Drug form: ECCAP, Daily, Dosing Weight 48.636, kg, Start date: 02/06/16 9:00:00 JUKEBOX CHECKER, Duration: 30 day, Stop date: 03/06/16 9:00:00 CSTNotes: (Same as: NexIUM) "Do Not Crush" Non-Formulary Inactive 02/06/2016 [facility] Vitamin B 12 2,000 microgram, 2 tab, Route: PO, Drug form: TAB, Daily, Dosing Weight 48.636, kg, Start date: 02/06/16 9:00:00 JUKEBOX CHECKER, Duration: 30 day, Stop date: 03/06/16 9:00:00 CSTNotes: (Same As: Vitamin B-12) Inactive 02/06/2016 [facility] Plavix 75 mg, 1 tab, Route: PO, Drug form: TAB, Daily, Dosing Weight 48.636, kg, Start date: 02/06/16 9:00:00 JUKEBOX CHECKER, Duration: 30 day, Stop date: 03/06/16 9:00:00 CSTNotes: (Same As: Plavix) Inactive 02/06/2016 [facility] Aspirin 81 mg, 1 tab, Route: PO, Drug form: ECTAB, Daily, Dosing Weight 48.636, kg, Start date: 02/06/16 9:00:00 JUKEBOX CHECKER, Duration: 30 day, Stop date: 03/06/16 9:00:00 CSTNotes: Do not crush or chew. (Same As: Ecotrin) Inactive 02/06/2016 [facility] atorvastatin 40 mg, 1 tab, Route: PO, Drug form: TAB, Bedtime, Dosing Weight 48.636, kg, Start date: 02/05/16 21:00:00 JUKEBOX CHECKER, Duration: 30 day, Stop date: 03/05/16 21:00:00 CSTNotes: (Same as: Lipitor) No Longer Active 02/06/2016 [facility] Saline Flush 0.9% 10 ml, Route: IVP, Drug Form: INJ, Dosing Weight 48.636, kg, Q12H, Start date: 02/05/16 21:00:00 JUKEBOX CHECKER, Duration: 30 day, Stop date: 03/06/16 9:00:00 CSTNotes: (Same as: BD Posiflush) No Longer Active 02/06/2016 [facility] Saline Flush 0.9% 10 ml, Route: IVP, Drug Form: INJ, Dosing Weight 48.636, kg, PRN, PRN Line Flush, Start date: 02/05/16 14:05:00 JUKEBOX CHECKER, Duration: 30 day, Stop date: 03/06/16 14:04:00 CSTNotes: (Same as: BD Posiflush) No Longer Active 02/05/2016 [facility] Nitroglycerin 0.4 mg, 1 tab, Route: SL, Drug form: TAB, Q5Min, Dosing Weight 48.636, kg, PRN Chest Pain, Start date: 02/05/16 14:05:00 JUKEBOX CHECKER, Duration: 3 doses or times, Stop date: Limited # of timesNotes: (Same as: Nitroquick, Nitrostat) "Do Not Crush" Sublingual tablet No Longer Active 02/05/2016 [facility] Acetaminophen 325 MG / Hydrocodone Bitartrate 5 MG Oral Tablet 1 tab, Route: PO, Drug Form: TAB, Dosing Weight 48.636, kg, Q4H, PRN Pain Score 4-6, Start date: 02/05/16 14:05:00 JUKEBOX CHECKER, Duration: 30 day, Stop date: 03/06/16 14:04:00 CSTNotes: (Same as: [place] 325/5) Do not exceed 4gm/day of acetaminophen. No Longer Active 02/05/2016 [facility] Morphine 2 mg, 1 mL, Route: IVP, Drug form: INJ, Q2H, Dosing Weight 48.636, kg, PRN Pain Score 4-6, Start date: 02/05/16 14:05:00 JUKEBOX CHECKER, Duration: 30 day, Stop date: 03/06/16 14:04:00 CSTNotes: (Same as:MORPhine Sulfate) No Longer Active 02/05/2016 [facility] Sodium Chloride 0.154 MEQ/ML Injectable Solution 250 mL, Infuse Over: 1 hr, Route: IV, ONCALL, Priority: Routine, Dosing Weight 48.636 kg, Start date: 02/05/16 9:00:00 JUKEBOX CHECKER, Duration: 1 doses or times Inactive 02/05/2016 [facility] Sodium Chloride 0.154 MEQ/ML Injectable Solution 750 mL, Rate: 75 ml/hr, Infuse over: 10 hr, Route: IV, Dosing Weight 48.636 kg, Total Volume: 750, Start date: 02/05/16 8:39:00 JUKEBOX CHECKER, Duration: 24 hr, Stop date: 02/06/16 8:38:00 JUKEBOX CHECKER No Longer Active 02/05/2016 [facility] Prednisone 2.5 mg, 1 tab, Route: PO, Drug form: TAB, Daily, Dosing Weight 46.818, kg, Start date: 01/30/16 9:00:00 JUKEBOX CHECKER, Duration: 30 day, Stop date: 02/28/16 9:00:00 CSTNotes: Take with food. Inactive 01/30/2016 [facility] Vitamin B 12 2,000 microgram, 2 tab, Route: PO, Drug form: TAB, Daily, Dosing Weight 46.818, kg, Start date: 01/30/16 9:00:00 JUKEBOX CHECKER, Duration: 30 day, Stop date: 02/28/16 9:00:00 CSTNotes: (Same As: Vitamin B-12) Inactive 01/30/2016 [facility] Folic Acid 0.8 mg, 2 tab, Route: PO, Drug form: TAB, Daily, Dosing Weight 46.818, kg, Start date: 01/30/16 9:00:00 JUKEBOX CHECKER, Duration: 30 day, Stop date: 02/28/16 9:00:00 JUKEBOX CHECKER Inactive 01/30/2016 [facility] Esomeprazole 40 mg, Route: PO, Drug form: ECCAP, Daily, Dosing Weight 46.818, kg, Start date: 01/30/16 9:00:00 JUKEBOX CHECKER, Duration: 30 day, Stop date: 02/28/16 9:00:00 JUKEBOX CHECKER No Longer Active 01/30/2016 [facility] Plavix 75 mg, 1 tab, Route: PO, Drug form: TAB, Daily, Dosing Weight 46.818, kg, Start date: 01/30/16 9:00:00 JUKEBOX CHECKER, Duration: 30 day, Stop date: 02/28/16 9:00:00 CSTNotes: (Same As: Plavix) Inactive 01/30/2016 [facility] Aspirin 81 mg, 1 tab, Route: PO, Drug form: CHEWTAB, Daily, Dosing Weight 46.818, kg, Start date: 01/30/16 9:00:00 JUKEBOX CHECKER, Duration: 30 day, Stop date: 02/28/16 9:00:00 CSTNotes: Take with food. Inactive 01/30/2016 [facility] atorvastatin 40 mg, 1 tab, Route: PO, Drug form: TAB, Bedtime, Dosing Weight 46.818, kg, Start date: 01/29/16 21:00:00 JUKEBOX CHECKER, Duration: 30 day, Stop date: 02/27/16 21:00:00 CSTNotes: (Same as: Lipitor) No Longer Active 01/30/2016 [facility] Docusate Sodium 100 MG Oral Capsule 100 mg, 1 cap, Route: PO, Drug form: CAP, Q12H, Dosing Weight 46.818, kg, Start date: 01/29/16 21:00:00 JUKEBOX CHECKER, Duration: 30 day, Stop date: 02/28/16 9:00:00 CSTNotes: (Same as: Colace) (Do Not Crush) No Longer Active 01/30/2016 [facility] Protonix 40 mg, 1 tab, Route: PO, Drug form: ECTAB, Before Dinner, Start date: 01/29/16 16:30:00 JUKEBOX CHECKER, Duration: 30 day, Stop date: 02/27/16 16:30:00 CSTNotes: Tablet should not be chewed or crushed. (Same as: Protonix) No Longer Active 01/29/2016 [facility] Nitroglycerin 0.4 mg, 1 tab, Route: SL, Drug form: TAB, Q5Min, Dosing Weight 46.818, kg, PRN Chest Pain, Start date: 01/29/16 10:49:00 JUKEBOX CHECKER, Duration: 3 doses or times, Stop date: 01/29/16 17:00:00 CSTNotes: (Same as:Nitroquick, Nitrostat) "Do Not Crush" Sublingual tablet Inactive 01/29/2016 [facility] Ondansetron 4 mg, 1 tab, Route: PO, Drug form: TAB, Q8H, Dosing Weight 46.818, kg, PRN Nausea & Vomiting, Start date: 01/29/16 10:49:00 JUKEBOX CHECKER, Duration: 30 day, Stop date: 02/28/16 10:48:00 CSTNotes: (Same as: Zofran) No Longer Active 01/29/2016 [facility] Sodium Chloride 0.154 MEQ/ML Injectable Solution 750 mL, Rate: 75 ml/hr, Infuse over: 10 hr, Route: IV, Dosing Weight 46.818 kg, Total Volume: 750, Start date: 01/29/16 10:49:00 JUKEBOX CHECKER, Duration: 10 hr, Stop date: 01/29/16 20:48:00 JUKEBOX CHECKER Inactive 01/29/2016 [facility] Esomeprazole 40 MG Enteric Coated Capsule 40 mg=1 cap, PO, Daily, # 90 cap, 0 Refill(s) Active 01/29/2016 [facility] clopidogrel 75 MG Oral Tablet [Plavix] 75 mg=1 tab, PO, Daily, # 90 tab, 0 Refill(s) Active 01/29/2016 [facility] predniSONE 2.5 mg oral tablet 2.5 mg=1 tab, PO, Daily, # 10 tab, 0 Refill(s) Active 01/29/2016 [facility] gabapentin 100 MG Oral Capsule 100 mg=1 cap, PO, PRN, 0 Refill(s) Active 01/29/2016 [facility] 1 ML denosumab 60 MG/ML Prefilled Syringe [Prolia] 60 mg=1 mL, SUB-Q, ONCE, Repeat every 6 months, # 1 mL, 0 Refill(s) Active 01/29/2016 [facility] atorvastatin 40 mg oral tablet 40 mg=1 tab, PO, Bedtime, # 90 tab, 1 Refill(s) Active 01/29/2016 [facility] sodium chloride 0.9% 1000 ml INJ 1,000 mL 1,000 mL, Rate: 75 ml/hr, Infuse over: 13.3 hr, Route: IV, Dosing Weight 46.818 kg, Total Volume: 1,000, Start date: 01/29/16 6:44:00 JUKEBOX CHECKER, Duration: 30 day, Stop date: 02/28/16 6:43:00 JUKEBOX CHECKER No Longer Active 01/29/2016 [facility] Tramadol 50 mg, 1 tab, Route: PO, Drug form: TAB, ONCE, Dosing Weight 40.909, kg, > 50 kg, Priority: STAT, Start date: 03/31/14 21:50:00, Stop date: 03/31/14 21:50:00Notes: Not to exceed 400mg/day. (Same As: Ultram) Inactive 04/01/2014 [facility] tramadol hydrochloride 50 MG Oral Tablet 50 mg=1 tab, PO, Q4H, as needed for pain, # 24 tab, 0 Refill(s) Active 04/01/2014 [facility] Acetaminophen 325 MG / Hydrocodone Bitartrate 10 MG Oral Tablet [[place] 10/325] 1 tab, Route: PO, Drug Form: TAB, Dosing Weight 40.909, kg, ONCE, STAT, Start date: 03/31/14 20:30:00, Stop date: 03/31/14 20:30:00 Inactive 04/01/2014 [facility] Tylenol 650 mg, 2 tab, Route: PO, Drug form: TAB, ONCE, Dosing Weight 50, kg, Priority: STAT, Start date: 02/28/14 22:39:00, Stop date: 02/28/14 22:39:00Notes: Do not exceed 4 gm/day. (Same as: Tylenol) Inactive 03/01/2014 [facility] thiamine 100 mg oral tablet 100 mg=1 tab, PO, Daily, # 7 tab, 0 Refill(s) Active 07/27/2013 [facility] Vitamin D 50,000 intl units oral capsule 50,000 IntlUnit=1 cap, PO, qWeek, # 8 cap, 0 Refill(s) Active 07/27/2013 [facility] Calcium Carbonate 1250 MG / Cholecalciferol 400 UNT Chewable Tablet 1 tab, CHEW, BID, # 60 tab, 0 Refill(s) Active 07/27/2013 [facility] benzonatate 100 mg oral capsule 100 mg=1 cap, PO, TID, Cough, # 15 cap, 0 Refill(s) Active 07/27/2013 [facility] atorvastatin 20 mg oral tablet 20 mg=1 tab, PO, Bedtime, # 30 tab, 0 Refill(s) Active 07/27/2013 [facility] Albuterol 0.833 MG/ML / Ipratropium [place] 0.167 MG/ML Inhalant Solution [DuoNeb] 3 mL, INHALATION, PRN, Respiratory Protocol, # 90 mL, 0 Refill(s) Active 07/27/2013 [facility] Acetaminophen 325 MG / Hydrocodone Bitartrate 5 MG Oral Tablet 1 tab, PO, Q4H, Pain Score 1-3, # 24 tab, 0 Refill(s) Active 07/27/2013 [facility] Acetaminophen 325 MG / Hydrocodone Bitartrate 10 MG Oral Tablet 1 tab, PO, Q4H, Pain Score 4-6, # 24 tab, 0 Refill(s) Active 07/27/2013 [facility] Vitamin D 50,000 IntlUnit, 1 cap, Route: PO, Drug form: CAP, QThu, Dosing Weight 39.545, kg, Start date: 07/27/13 8:00:00, Duration: 30 day, Stop date: 08/23/13 9:00:00Notes: (Same as: Vitamin D) "Do Not Crush" Inactive 07/27/2013 [facility] molasses 240 mL, Route: NM, Drug Form: SYRP, Dosing Weight 39.545, kg, ONCE, Milk of Molasses Enema, Start date: 07/26/13 15:15:00, Duration: 1 doses or times, Stop date: 07/26/13 15:15:00Notes: (Same as:Mola sses) Inactive 07/26/2013 [facility] Vitamin D 50,000 IntlUnit, 1 cap, Route: PO, Drug form: CAP, Daily, Dosing Weight 39.545, kg, Start date: 07/26/13 9:00:00, Duration: 30 day, Stop date: 08/24/13 9:00:00Notes: (Same as: Vitamin D) "Do Not Crush" No Longer Active 07/26/2013 [facility] sennosides, MCFP 8.6 mg, 1 tab, Route: PO, Drug Form: TAB, Dosing Weight 39.545, kg, BID, Start date: 07/26/13 9:00:00, Duration: 30 day, Stop date: 08/24/13 17:00:00Notes: (Same as: Senokot) No Longer Active 07/26/2013 [facility] Glycerin 1610 MG Rectal Suppository 1 supp, Route: NM, Drug Form: SUPP, Dosing Weight 39.545, kg, Daily, PRN Constipation, Start date: 07/26/13 4:52:00, Duration: 30 day, Stop date: 08/25/13 4:51:00 No Longer Active 07/26/2013 [facility] Metoclopramide 5 MG Oral Tablet [Reglan] 5 mg, 1 tab, Route: PO, Drug form: TAB, ONCE, Dosing Weight 39.545, kg, Start date: 07/26/13 4:52:00, Stop date: 07/26/13 4:52:00Notes: (Same as: Reglan) Take 30 min before meals Inactive 07/26/2013 [facility] Lactulose 667 MG/ML Oral Solution 10 gm, 15 mL, Route: PO, Drug Form: SYRP, Dosing Weight 39.545, kg, Daily, Start date: 07/25/13 16:34:00, Duration: 30 day, Stop date: 08/24/13 9:00:00Notes: (Same as:Chronulac) No Longer Active 07/25/2013 [facility] Tessalon Perles 100 mg, 1 cap, Route: PO, Drug form: CAP, TID, Dosing Weight 39.545, kg, PRN Cough, Start date: 07/25/13 14:52:00, Duration: 30 day, Stop date: 08/24/13 14:51:00Notes: (Same As: Tessalon Perles) "Do Not Crush" No Longer Active 07/25/2013 [facility] Calcium Carbonate 1250 MG / Cholecalciferol 400 UNT Chewable Tablet 1 tab, Route: CHEW, Drug Form: CHEWTAB, Dosing Weight 39.545, kg, BID, NOW, Start date: 07/24/13 9:28:00, Duration: 30 day, Stop date: 08/23/13 9:00:00Notes: (calcium carbonate-vit D 500mg-400unit chew TAB) Same as: Oscal 500+D No Longer Active 07/24/2013 [facility] Magnesium Sulfate 2 gm, 50 mL, Route: IVPB, Drug form: INJ, Q2H, Dosing Weight 39.545, kg, Total dose=6 gm, Start date: 07/24/13 8:00:00, Duration: 3 doses or times, Stop date: 07/24/13 12:00:00 Inactive 07/24/2013 [facility] Lipitor 20 mg, 1 tab, Route: PO, Drug form: TAB, Bedtime, Dosing Weight 39.545, kg, Start date: 07/23/13 21:00:00, Duration: 30 day, Stop date: 08/21/13 21:00:00Notes: (Same As: Lipitor) No Longer Active 07/24/2013 [facility] Thiamine 100 mg, 1 tab, Route: PO, Drug form: TAB, Daily, Dosing Weight 39.545, kg, Start date: 07/23/13 9:00:00, Duration: 30 day, Stop date: 08/21/13 9:00:00Notes: (Same As: Vitamin B1) No Longer Active 07/23/2013 [facility] Folic Acid 1 mg, 1 tab, Route: PO, Drug form: TAB, Daily, Dosing Weight 39.545, kg, Start date: 07/23/13 9:00:00, Duration: 30 day, Stop date: 08/21/13 9:00:00Notes: (Same as: Folvite) No Longer Active 07/23/2013 [facility] Ascorbic Acid / Biotin / Folic Acid / Niacin / pantothenate / pyridoxine / Riboflavin / Thiamine / Vitamin B 12 1 tab, Route: PO, Drug Form: TAB, Dosing Weight 39.545, kg, Daily, Start date: 07/23/13 9:00:00, Duration: 30 day, Stop date: 08/21/13 9:00:00Notes: (Same as:Thera) Take with food. No Longer Active 07/23/2013 [facility] pneumococcal capsular polysaccharide type 1 vaccine / pneumococcal capsular polysaccharide type 10A vaccine / pneumococcal capsular polysaccharide type 11A vaccine / pneumococcal capsular polysaccharide type 12F vaccine / pneumococcal capsular polysacchar 0.5 ml, Route: IM, Drug Form: INJ, Daily, Start date: 07/23/13 9:00:00, Duration: 1 doses or times, Stop date: 07/23/13 9:00:00Notes: (Same as: Pneumovax 23) Refrigerate Inactive 07/23/2013 [facility] Prednisone 5 mg, 1 tab, Route: PO, Drug form: TAB, Daily, Dosing Weight 39.545, kg, Start date: 07/23/13 9:00:00, Duration: 30 day, Stop date: 08/21/13 9:00:00Notes: Take with food. No Longer Active 07/23/2013 [facility] Vitamin B 12 2,000 microgram, 2 tab, Route: PO, Drug form: TAB, Daily, Dosing Weight 39.545, kg, Start date: 07/23/13 9:00:00, Duration: 30 day, Stop date: 08/21/13 9:00:00Notes: (Same As: Vitamin B-12) No Longer Active 07/23/2013 [facility] Aspirin / Calcium Carbonate 81 mg, 1 tab, Route: PO, Drug form: CHEWTAB, Daily, Dosing Weight 39.545, kg, Start date: 07/23/13 9:00:00, Duration: 30 day, Stop date: 08/21/13 9:00:00Notes: Take with food. No Longer Active 07/23/2013 [facility] Sodium Chloride 0.154 MEQ/ML Injectable Solution 1,000 mL, Rate: 100 ml/hr, Infuse over: 10.1 hr, Route: IV, Dosing Weight 39.545 kg, Total Volume: 1,011.2, Start date: 07/22/13 23:33:00, Duration: 10 hr, Stop date: 07/23/13 9:32:00 No Longer Active 07/23/2013 [facility] Enoxaparin 40 mg, 0.4 mL, Route: SUB-Q, Drug form: INJ, [id number], Dosing Weight 39.545, kg, Start date: 07/22/13 23:00:00, Duration: 30 day, Stop date: 08/20/13 23:00:00Notes: (Same as: Lovenox) No Longer Active 07/23/2013 [facility] Albuterol 0.833 MG/ML / Ipratropium [place] 0.167 MG/ML Inhalant Solution [DuoNeb] 3 ml, Route: INHALATION, Drug Form: SOLN, Dosing Weight 39.545, kg, PRN, PRN Respiratory Protocol, Start date: 07/22/13 22:52:00, Duration: 30 day, Stop date: 08/21/13 22:51:00Notes: (Same as: Duoneb) No Longer Active 07/23/2013 [facility] Acetaminophen 325 MG / Hydrocodone Bitartrate 10 MG Oral Tablet 1 tab, Route: PO, Drug Form: TAB, Dosing Weight 39.545, kg, Q4H, PRN Pain Score 4-6, Start date: 07/22/13 22:46:00, Duration: 30 day, Stop date: 08/21/13 22:45:00Notes: Do not exceed 4gm/day of acetaminophen. (Same as: [place] 325/10) No Longer Active 07/23/2013 [facility] Ondansetron 4 mg, 2 mL, Route: IVP, Drug form: INJ, Q8H, Dosing Weight 39.545, kg, PRN Nausea & Vomiting, Start date: 07/22/13 22:46:00, Duration: 30 day, Stop date: 08/21/13 22:45:00Notes: (Same as: Zofran) No Longer Active 07/23/2013 [facility] Morphine 2 mg, 1 mL, Route: IVP, Drug form: INJ, Q3H, Dosing Weight 39.545, kg, PRN Pain, Start date: 07/22/13 22:46:00, Duration: 30 day, Stop date: 08/21/13 22:45:00, pain 7-10Notes: (Same as:MORPhine Sulfate) No Longer Active 07/23/2013 [facility] Acetaminophen 650 mg, 20.3 mL, Route: PO, Drug form: LIQ, Q4H, Dosing Weight 39.545, kg, PRN Fever, Start date: 07/22/13 22:46:00, Duration: 30 day, Stop date: 08/21/13 22:45:00Notes: Max [id number]/day (4 gm/day). (Same as: Tylenol) No Longer Active 07/23/2013 [facility] Acetaminophen 325 MG / Hydrocodone Bitartrate 5 MG Oral Tablet 1 tab, Route: PO, Drug Form: TAB, Dosing Weight 39.545, kg, Q4H, PRN Pain Score 1-3, Start date: 07/22/13 22:46:00, Duration: 30 day, Stop date: 08/21/13 22:45:00Notes: (Same as: [place] 325/5) Do not exceed 4gm/day of acetaminophen. No Longer Active 07/23/2013 [facility] Zofran 4 mg, 2 mL, Route: IVP, Drug form: INJ, ONCE, Dosing Weight 36.364, kg, Priority: STAT, Start date: 07/22/13 19:39:00, Stop date: 07/22/13 19:39:00Notes: (Same as: Zofran) Inactive 07/23/2013 [facility] Morphine 4 mg, 1 mL, Route: IVP, Drug form: INJ, ONCE, Dosing Weight 36.364, kg, Priority: STAT, Start date: 07/22/13 19:39:00, Stop date: 07/22/13 19:39:00Notes: (Same as:MORPhine Sulfate) Inactive 07/23/2013 [facility] Iohexol 86 mL, Route: IVP, Drug Form: SOLN, Dosing Weight 36.364, kg, ONCALL, STAT, Start date: 07/22/13 19:09:00, Duration: 1 doses or times, Dose=2.2ml/kg, Max [id number] -- "To be infused by Radiology Staff ONLY"Special Instructions: Dose=2.2ml/kg, Max [id number] -- "To be infused by Radiology Staff ONLY" Inactive 07/23/2013 [facility] Zofran 4 mg, Route: IVP, Drug form: INJ, ONCE, Dosing Weight 39.545, kg, Priority: STAT, Start date: 07/22/13 15:26:00, Stop date: 07/22/13 15:26:00 Inactive 07/22/2013 [facility] Morphine 4 mg, Route: IVP, Drug form: INJ, ONCE, Dosing Weight 39.545, kg, Priority: STAT, Start date: 07/22/13 15:25:00, Stop date: 07/22/13 15:25:00 Inactive 07/22/2013 [facility] Saline Flush 0.9% 5 mL, Route: IVP, Drug Form: INJ, Dosing Weight 39.545, kg, Q8H, PRN Line Flush, Start date: 07/22/13 9:55:00, Duration: 30 day, Stop date: 08/21/13 9:54:00, Administer at least once every 8 hoursSpe cial Instructions: Administer at least once every 8 hoursNotes: (Same as: BD Posiflush) Inactive 07/22/2013 [facility] Zofran 4 mg, 2 mL, Route: IVP, Drug form: INJ, ONCE, Dosing Weight 39.545, kg, Priority: STAT, Start date: 07/22/13 8:55:00, Stop date: 07/22/13 8:55:00Notes: (Same as: Zofran) Inactive 07/22/2013 [facility] Morphine 4 mg, 2 mL, Route: IVP, Drug form: INJ, ONCE, Dosing Weight 39.545, kg, Priority: STAT, Start date: 07/22/13 8:55:00, Stop date: 07/22/13 8:55:00Notes: (Same as:MORPhine Sulfate) Inactive 07/22/2013 [facility] thiamine 100 mg oral tablet 100 mg, 1 tab, PO, Daily, 30 tab, Substitution Allowed, TAB PO Active [facility] [place] 09/14/2012 [facility] potassium chloride 40 mEq, 30 mL, Route: PO, Drug form: LIQ, ONCE, Dosing Weight 42.1, kg, Start date: 09/14/12 12:29:00, Stop date: 09/14/12 12:29:00 PO No Longer Active [facility] [place] 09/14[place]2012 [facility] metoprolol extended release 25 mg, 1 tab, Route: PO, Drug form: ERTAB, Daily, Start date: 09/14/12 9:00:00, Duration: 30 day, Stop date: 10/13/12 9:00:00 PO No Longer Active [facility] [place] 09/14/2012 [facility] nitroglycerin 0.4 mg sublingual tablet 0.4 mg, 1 tab, Route: SL, Drug form: TAB, Q5Min, PRN Chest Pain, Start date: 09/13/12 20:06:00, Duration: 30 day, Stop date: 10/13/12 20:05:00 SL No Longer Active [facility] [place] 09/14/2012 [facility] atropine 0.5 mg, 5 mL, Route: IVP, Drug form: INJ, PRN, PRN Bradycardia, Start date: 09/13/12 20:06:00, Duration: 30 day, Stop date: 10/13/12 20:05:00 IVP No Longer Active [facility] [place] 09/14/2012 [facility] cyanocobalamin 2,000 microgram, 4 tab, Route: PO, Drug form: TAB, QPM, Dosing Weight 42.1, kg, Start date: 09/13/12 17:00:00, Duration: 30 day, Stop date: 10/12/12 17:00:00 PO No Longer Active [facility] 09/13/2012 [facility] aspirin 81 mg, 1 tab, Route: PO, Drug form: CHEWTAB, Dinner, Dosing Weight 42.1, kg, Start date: 09/13/12 17:00:00, Duration: 30 day, Stop date: 10/12/12 17:00:00 PO No Longer Active [facility]ir 09/13/2012 [facility] enoxaparin 40 mg, 0.4 mL, Route: SUB-Q, Drug form: INJ, [id number], Dosing Weight 42.1, kg, Start date: 09/13/12 13:00:00, Duration: 30 day, Stop date: 10/12/12 13:00:00 SUB-Q No Longer Active [facility] 09/13/2012 [facility] predniSONE 5 mg, 1 tab, Route: PO, Drug form: TAB, Breakfast, Dosing Weight 42.1, kg, Start date: 09/13/12 13:00:00, Duration: 30 day, Stop date: 10/13/12 8:00:00 PO No Longer Active [facility] 09/13/2012 [facility] multivitamin 1 tab, Route: PO, Drug Form: TAB, Dosing Weight 42.1, kg, Daily, Start date: 09/13/12 13:00:00, Duration: 30 day, Stop date: 10/13/12 9:00:00 PO No Longer Active [facility]ir 09/13/2012 [facility] thiamine 100 mg, 1 tab, Route: PO, Drug form: TAB, Daily, Dosing Weight 42.1, kg, Start date: 09/13/12 13:00:00, Duration: 30 day, Stop date: 10/13/12 9:00:00 PO No Longer Active Nasir 09/13/2012 [facility] folic acid 1 mg, 1 tab, Route: PO, Drug form: TAB, Daily, Dosing Weight 42.1, kg, Start date: 09/13/12 13:00:00, Duration: 30 day, Stop date: 10/13/12 9:00:00 PO No Longer Active [facility] 09/13/2012 [facility] Tylenol 650 mg, 2 tab, Route: PO, Drug form: TAB, Q6H, Dosing Weight 42.1, kg, PRN Pain, Start date: 09/13/12 12:49:00, Duration: 30 day, Stop date: 10/13/12 12:48:00 PO No Longer Active Nasir 09/13/2012 [facility] [place] 5/325 oral tablet 1 tab, Route: PO, Drug Form: TAB, Dosing Weight 42.1, kg, Q6H, PRN Pain, Start date: 09/13/12 12:49:00, Duration: 30 day, Stop date: 10/13/12 12:48:00 PO No Longer Active Nasir 09/13/2012 [facility] Saline Flush 0.9% 5 ml, Route: IVP, Drug Form: INJ, Dosing Weight 36.364, kg, PRN, PRN Line Flush, Start date: 09/13/12 5:15:00, Duration: 30 day, Stop date: 10/13/12 5:14:00 IVP No Longer Active [place] 09/13/2012 [facility] Dextrose 5% with 0.45% NaCl IV 1,000 mL 1,000 mL, Rate: 125 ml/hr, Infuse over: 8 hr, Route: IV, Dosing Weight 36.364 kg, Total Volume: 1,000, Start date: 09/13/12 5:15:00, Duration: 30 day, Stop date: 10/13/12 5:14:00 IV No Longer Active [place] 09/13/2012 [facility] ondansetron 4 mg, 2 mL, Route: IVP, Drug form: INJ, Q8H, Dosing Weight 36.364, kg, PRN Nausea & Vomiting, Start date: 09/13/12 5:15:00, Duration: 30 day, Stop date: 10/13/12 5:14:00 IVP No Longer Active [place] 09/13/2012 [facility] docusate 100 mg, 1 cap, Route: PO, Drug form: CAP, BID, Dosing Weight 36.364, kg, PRN Constipation, Start date: 09/13/12 5:15:00, Duration: 30 day, Stop date: 10/13/12 5:14:00 PO No Longer Active [place] 09/13/2012 [facility] morphine Sulfate 2 mg, 1 mL, Route: IVP, Drug form: INJ, Q3H, Dosing Weight 36.364, kg, PRN Pain Score 4-6, Start date: 09/13/12 5:15:00, Duration: 30 day, Stop date: 10/13/12 5:14:00 [facility] Sodium Chloride 0.9% (Bolus) IV 1000 mL 1,000 mL, Rate: 1,000 ml/hr, Infuse over: 1 hr, Route: IV, Dosing Weight 36.364 kg, Total Volume: 1,000, Priority: STAT, Start date: 09/13/12 3:41:00, Duration: 1 doses or times, Stop date: 09/13/12 4:40:00, Bolus DoseBolus Dose IV No Longer Active Ava 09/13/2012 [facility] Sodium Chloride 0.9% (Bolus) IV 1000 mL 1,000 mL, Rate: 1,000 ml/hr, Infuse over: 1 hr, Route: IV, Dosing Weight 36.364 kg, Total Volume: 1,000, Priority: STAT, Start date: 09/13/12 0:32:00, Duration: 1 doses or times, Stop date: 09/13/12 1:31:00, Bolus DoseBolus Dose IV No Longer Active Ava 09/13/2012 [facility] ondansetron 4 mg, Route: IVP, ONCE, Dosing Weight 36.364, kg, Priority: STAT, Start date: 09/13/12 0:03:00, Stop date: 09/13/12 0:03:00 IVP No Longer Active Ava 09/13/2012 [facility] Saline Flush 0.9% 5 mL, Route: IVP, Drug Form: INJ, Dosing Weight 36.364, kg, PRN, PRN Line Flush, Start date: 09/13/12 0:03:00, Duration: 30 day, Stop date: 10/13/12 0:02:00 [facility] [place] [facility] tetanus/diphtheria/pertussis, acel (Tdap) 5 units-2.5 units-18.5 mcg/0.5 mL intramuscular suspensio 0.5 ml, Route: IM, Drug Form: INJ, Dosing Weight 36.364, kg, ONCE, Start date: 09/12/12 22:54:00, Stop date: 09/12/12 22:54:00 IM No Longer Active Rice 09/13/2012 [facility] lidocaine-epi 1%-1:[id number] 1 ml, Route: SUB-Q, Drug Form: INJ, Dosing Weight 36.364, kg, ONCE, STAT, Start date: 09/12/12 22:54:00, Stop date: 09/12/12 22:54:00 SUB-Q No Longer Active [facility] 09/13/2012 [facility] [place] 5/325 oral tablet 1-2 tab, PO, Q4-6H, PRN, 30 tab, Pain, Substitution Allowed, Maintenance PO Active [facility] 10/12/2011 [facility] Lovenox 40 mg, 0.4 mL, Route: SUB-Q, Drug form: INJ, Q24H, kg, Start date: 10/10/11 12:00:00, Duration: 30 day, Stop date: 11/08/11 12:00:00 SUB-Q No Longer Active [facility] 10/10/2011 [facility] Dulcolax Laxative 5 mg, 1 tab, Route: PO, Drug form: ECTAB, Q6H, kg, PRN Constipation, Start date: 10/07/11 10:35:00, Duration: 30 day, Stop date: 11/06/11 10:34:00 PO No Longer Active [facility] 10/07/2011 [facility] Xopenex 0.63 mg, 3 mL, Route: NEB, Drug form: SOLN, RQ4H, PRN Shortness of breath, Priority: Routine, Start date: 10/02/11 14:21:00, Duration: 30 day, Stop date: 11/01/11 14:20:00 NEB No Longer Active [facility] 10/02/2011 [facility] Vitamin B1 100 mg, 1 tab, Route: PO, Drug form: TAB, Daily, Start date: 10/02/11 9:00:00, Duration: 30 day, Stop date: 10/31/11 9:00:00 PO No Longer Active [place] 10/02/2011 [facility] predniSONE 5 mg, 1 tab, Route: PO, Drug form: TAB, Daily, Start date: 10/02/11 9:00:00, Duration: 30 day, Stop date: 10/31/11 9:00:00 PO No Longer Active [place] 10/02/2011 [facility] multivitamin 1 tab, Route: PO, Drug Form: TAB, Daily, Start date: 10/02/11 9:00:00, Duration: 30 day, Stop date: 10/31/11 9:00:00 PO No Longer Active [place] 10/02/2011 [facility] folic acid 1 mg oral tablet 1 mg, 1 tab, Route: PO, Drug form: TAB, Daily, Start date: 10/02/11 9:00:00, Duration: 30 day, Stop date: 10/31/11 9:00:00 PO No Longer Active [place] 10/02/2011 [facility] predniSONE 5 mg, 1 tab, Route: PO, Drug form: TAB, ONCE, Start date: 10/01/11 18:32:00, Stop date: 10/01/11 18:32:00 [facility] Ativan 1 mg, 0.5 mL, Route: IV, Drug form: INJ, Q6H, PRN Agitation, Start date: 10/01/11 18:28:00, Duration: 30 day, Stop date: 10/31/11 18:27:00 [facility] hydrALAZINE 10 mg, 0.5 mL, Route: IVP, Drug form: INJ, Q6H, PRN Elevated BP, Start date: 10/01/11 18:10:00, Duration: 30 day, Stop date: 10/31/11 18:09:00 IVP [facility] Mucinex 1,200 mg, PO, QID, Substitution Allowed PO Active 10/01/2011 [facility] Vitamin B-12 1000 mcg oral tablet 2,000 microgram, 2 tab, PO, Daily, Substitution Allowed PO Active 10/01/2011 [facility] folic acid 0.8 mg, PO, Daily, Substitution Allowed PO Active 10/01/2011 [facility] aspirin 81 mg, PO, Daily, Substitution Allowed PO Active 10/01/2011 [facility] predniSONE 5 mg oral tablet 5 mg, 1 tab, PO, Daily, Substitution Allowed [facility] metoprolol 25 mg oral tablet 25 mg, PO, Daily, Substitution Allowed PO Active 10/01/2011 [facility] morphine Sulfate 2 mg, 0.2 mL, Route: IVP, Drug form: INJ, Q3H, PRN Pain Score 4-6, Start date: 10/01/11 6:32:00, Stop date: 10/31/11 6:31:00 IVP No Longer Active [facility] 10/01/2011 [facility] ondansetron 4 mg, 2 mL, Route: IVP, Drug form: INJ, Q6H, PRN Nausea & Vomiting, Start date: 10/01/11 6:32:00, Duration: 30 day, Stop date: 10/31/11 6:31:00 IVP No Longer Active [facility] 10/01/2011 [facility] Sodium Chloride 0.9% IV 1,000 mL + folic acid IV 1 mg Daily + thiamine IV 100 mg Daily 1,000 mL, Rate: 100 ml/hr, Infuse over: 10 hr, Route: IV, Dosing Weight 39.091 kg, Total Volume: 1,001.2, Start date: 10/01/11 6:32:00, Duration: 3 day, Stop date: 10/04/11 6:31:00 IV No Longer Active [facility] 10/01/2011 [facility] cefazolin + Sodium Chloride 0.9% IV 100 mL 1 gm, Route: IVPB, ABXQ8H, Priority: STAT, Start date: 10/01/11 6:32:00, Stop date: 10/30/11 17:00:00 IVPB No Longer Active [facility] 10/01/2011 [facility] morphine Sulfate 2 mg, Route: IVP, ONCE, Start date: 10/01/11 5:55:00, Stop date: 10/01/11 5:55:00 IVP No Longer Active [facility] 10/01/2011 [facility] cefazolin 1 gm, Route: IVPB, ONCE, Priority: STAT, Start date: 10/01/11 4:32:00, Stop date: 10/01/11 4:32:00 IVPB No Longer Active [facility] 10/01/2011 [facility] lidocaine 1% 1 inj, Route: SUB-Q, ONCE, STAT, Start date: 10/01/11 1:53:00, Stop date: 10/01/11 1:53:00 SUB-Q No Longer Active [place] 10/01/2011 [facility] Sodium Chloride 0.9% (Bolus) IV 500 mL 500 mL, Rate: 500 ml/hr, Infuse over: 1 hr, Route: IV, Dosing Weight 39.091 kg, Total Volume: 500, Bolus Dose, Priority: STAT, Start date: 09/30/11 23:35:00, Duration: 1 doses or times, Stop date: 10/01/11 0:34:00 IV No Longer Active [place] 10/01/2011 [facility] Allergies, Adverse Reactions, Alerts Substance Category Reaction Severity Reaction type Status Date Reported Comments Source Immunizations Immunization Date Given Site Status Last Updated Comments Source diphtheria/pertussis, acel/tetanus adult 03/01/2014 Left deltoid completed [facility] pneumococcal 23-valent vaccine 07/24/2013 Left deltoid completed [place] [facility] diphtheria/pertussis, acel/tetanus adult 09/13/2012 Left gluteus medius completed [facility] diphtheria/pertussis, acel/tetanus adult 09/13/2012 completed Do [facility] Hx pneumococcal vaccine 07/15/2006 Left Arm completed [facility] Hx pneumococcal vaccine 07/15/2006 completed Ortiz [facility] Results Order Name Results Value Reference Range Date Interpretation Comments Source Pelvis w/wo contrast MRI Pelvis w/wo contrast MRI Exam: MRI pelvis with and without contrast Reason for Exam: R19.00 Intra-abdominal and pelvic swelling, mass and lump, unspecified site - R19.00 Intra-abdominal and pelvic swelling, mass and lump, unspecified site Comparison Exam: CT scan 07/22/2013 Technique: Multiplanar and multisequence imaging was performed of the pelvis. T1 and T2-weighted images were acquired with and without injection of 10 cc Dotarem IV. Discussion: Patient is status post hysterectomy and bilateral oophorectomy by history. No abnormal soft tissue masses or fluid collections seen within the pelvis. Bladder is unremarkable. No dilated loops of bowel. Scattered diverticuli seen within the large bowel, without evidence to suggest acute diverticulitis. No ventral or inguinal hernias identified. Patient is status post left hip arthroplasty, resulting in severe susceptibility artifact. Degenerative changes are seen at the L4/L5 level. Impression: 1. No abnormal soft tissue masses or fluid collections seen within the pelvis. No ventral or inguinal hernias identified. 2017 - - Read by: Jf Salgado MD Dictated Date/time: 03/07/17 09:04 Electronically Signed by: Jf Salgado MD 03/07/17 09:12 FINAL REPORT ANA Mathias HEMATOLOGY POC Activated Clotting Time 213 s 02/05/2016 [facility] HEMATOLOGY POC Activated Clotting Time 253 s 02/05/2016 [facility] HEMATOLOGY POC Activated Clotting Time 325 s 02/05/2016 [facility] BLOOD BANK RESULTS ABO/Rh O POS 02/05/2016 [facility] BLOOD BANK RESULTS Antibody Scrn Negative (02/05/16 6:47 AM) 02/05/2016 [facility] CHEM PANEL Magnesium Lvl 1.7 mg/dL 1.8 - 2.4 02/05/2016 [facility] CHEM PANEL eGFR 83 mL/min/1.73m2 02/05/2016 Result Comment: The eGFR is calculated using the [...] from the National Kidney Disease Education Program (NKDEP) which additionally recommends that when the eGFR is used in patients with extremes of body mass index for purposes of drug dosing, the eGFR should be multiplied by the estimated BMI. [facility] CHEM PANEL CO2 31 meq/L 24 - 32 02/05/2016 [facility] CHEM PANEL Potassium Lvl 3.5 meq/L 3.5 - 5.1 02/05/2016 [facility] CHEM PANEL Calcium Lvl 9.1 mg/dL 8.5 - 10.5 02/05/2016 [facility] CHEM PANEL Chloride Lvl 103 meq/L 95 - 109 02/05/2016 [facility] CHEM PANEL Sodium Lvl 143 meq/L 135 - 145 02/05/2016 [facility] CHEM PANEL Creatinine Lvl 0.73 mg/dL 0.50 - 1.40 02/05/2016 [facility] CHEM PANEL Glucose Lvl 123 mg/dL 70 - 99 02/05/2016 [facility] CHEM PANEL BUN 20 mg/dL 7 - 22 02/05/2016 [facility] CHEM PANEL AGAP 12.5 meq/L 10.0 - 20.0 02/05/2016 [facility] CHEM PANEL Phosphorus 3.7 mg/dL 2.5 - 4.5 02/05/2016 [facility] HEMATOLOGY PTT 30.5 s 22.9 - 35.8 02/05/2016 [facility] HEMATOLOGY PT 13.0 s 12.0 - 14.7 02/05/2016 [facility] HEMATOLOGY INR 0.96 0.85 - 1.17 02/05/2016 [facility] HEMATOLOGY Segs-Bands # 6.1 K/CMM 1.5 - 8.1 02/05/2016 [facility] HEMATOLOGY Basophils 0.8 % 0.0 - 1.0 02/05/2016 [facility] HEMATOLOGY Eosinophils # 0.2 K/CMM 0.0 - 0.5 02/05/2016 [facility] HEMATOLOGY Monocytes # 0.8 K/CMM 0.0 - 0.8 02/05/2016 [facility] HEMATOLOGY Lymphocytes # 2.9 K/CMM 1.0 - 5.5 02/05/2016 [facility] HEMATOLOGY Lymphocytes 29.1 % 20.0 - 40.0 02/05/2016 [facility] HEMATOLOGY Segs 60.6 % 45.0 - 75.0 02/05/2016 [facility] HEMATOLOGY Eosinophils 1.9 % 0.0 - 4.0 02/05/2016 [facility] HEMATOLOGY Monocytes 7.6 % 2.0 - 12.0 02/05/2016 [facility] HEMATOLOGY Basophils # 0.1 K/CMM 0.0 - 0.2 02/05/2016 [facility] HEMATOLOGY MPV 7.8 fL 7.4 - 10.4 02/05/2016 [facility] HEMATOLOGY MCH 33.2 pg 27.0 - 31.0 02/05/2016 [facility] HEMATOLOGY MCHC 34.0 g/dL 32.0 - 36.0 02/05/2016 [facility] HEMATOLOGY Platelet 319 K/CMM 133 - 450 02/05/2016 [facility] HEMATOLOGY RDW 13.2 % 11.5 - 14.5 02/05/2016 [facility] HEMATOLOGY Hct 37.2 % 36.0 - 48.0 02/05/2016 [facility] HEMATOLOGY MCV 97.5 fL 80.0 - 98.0 02/05/2016 [facility] HEMATOLOGY RBC 3.82 M/CMM 4.20 - 5.40 02/05/2016 [facility] HEMATOLOGY Hgb 12.7 g/dL 12.0 - 16.0 02/05/2016 [facility] HEMATOLOGY WBC 10.0 K/CMM 3.7 - 10.4 02/05/2016 [facility] CHEM PANEL eGFR 93 mL/min/1.73m2 01/30/2016 Result Comment: The eGFR is calculated using the [...] from the National Kidney Disease Education Program (NKDEP) which additionally recommends that when the eGFR is used in patients with extremes of body mass index for purposes of drug dosing, the eGFR should be multiplied by the estimated BMI. [facility] CHEM PANEL Creatinine Lvl 0.57 mg/dL 0.50 - 1.40 01/30/2016 [facility] HEMATOLOGY Hgb 11.4 g/dL 12.0 - 16.0 01/30/2016 [facility] HEMATOLOGY Hct 33.1 % 36.0 - 48.0 01/30/2016 [facility] BLOOD BANK RESULTS Antibody Scrn Negative (01/29/16 7:04 AM) 01/29/2016 [facility] BLOOD BANK RESULTS ABO/Rh O POS 01/29/2016 [facility] CHEM PANEL Phosphorus 3.4 mg/dL 2.5 - 4.5 01/29/2016 [facility] CHEM PANEL Magnesium Lvl 1.5 mg/dL 1.8 - 2.4 01/29/2016 [facility] ELECTROLYTES AGAP 12.4 meq/L 10.0 - 20.0 01/29/2016 [facility] ELECTROLYTES eGFR 84 mL/min/1.73m2 01/29/2016 Result Comment: The eGFR is calculated using the [...] from the National Kidney Disease Education Program (NKDEP) which additionally recommends that when the eGFR is used in patients with extremes of body mass index for purposes of drug dosing, the eGFR should be multiplied by the estimated BMI. [facility] ELECTROLYTES Calcium Lvl 9.0 mg/dL 8.5 - 10.5 01/29/2016 [facility] ELECTROLYTES CO2 29 meq/L 24 - 32 01/29/2016 [facility] ELECTROLYTES Sodium Lvl 141 meq/L 135 - 145 01/29/2016 [facility] ELECTROLYTES BUN 19 mg/dL 7 - 22 01/29/2016 [facility] ELECTROLYTES Creatinine Lvl 0.72 mg/dL 0.50 - 1.40 01/29/2016 [facility] ELECTROLYTES Potassium Lvl 3.4 meq/L 3.5 - 5.1 01/29/2016 [facility] ELECTROLYTES Chloride Lvl 103 meq/L 95 - 109 01/29/2016 [facility] ELECTROLYTES Glucose Lvl 114 mg/dL 70 - 99 01/29/2016 [facility] [facility] HEMATOLOGY MPV 7.7 fL 7.4 - 10.4 01/29/2016 [facility] HEMATOLOGY Platelet 280 K/CMM 133 - 450 01/29/2016 [facility] HEMATOLOGY MCH 33.3 pg 27.0 - 31.0 01/29/2016 [facility] HEMATOLOGY MCV 97.8 fL 80.0 - 98.0 01/29/2016 [facility] HEMATOLOGY Hct 38.8 % 36.0 - 48.0 01/29/2016 [facility] HEMATOLOGY MCHC 34.1 g/dL 32.0 - 36.0 01/29/2016 [facility] HEMATOLOGY RDW 13.3 % 11.5 - 14.5 01/29/2016 [facility] HEMATOLOGY WBC 9.0 K/CMM 3.7 - 10.4 01/29/2016 [facility] HEMATOLOGY Hgb 13.2 g/dL 12.0 - 16.0 01/29/2016 [facility] HEMATOLOGY RBC 3.96 M/CMM 4.20 - 5.40 01/29/2016 [facility] HEMATOLOGY PTT 28.1 s 22.9 - 35.8 01/29/2016 [facility] HEMATOLOGY PT 12.7 s 12.0 - 14.7 01/29/2016 [facility] HEMATOLOGY INR 0.93 0.85 - 1.17 01/29/2016 [facility] HEMATOLOGY Eosinophils 2.2 % 0.0 - 4.0 01/29/2016 [facility] HEMATOLOGY Monocytes 6.5 % 2.0 - 12.0 01/29/2016 [facility] HEMATOLOGY Basophils 0.5 % 0.0 - 1.0 01/29/2016 [facility] HEMATOLOGY Segs-Bands # 5.3 K/CMM 1.5 - 8.1 01/29/2016 [facility] HEMATOLOGY Eosinophils # 0.2 K/CMM 0.0 - 0.5 01/29/2016 [facility] HEMATOLOGY Monocytes # 0.6 K/CMM 0.0 - 0.8 01/29/2016 [facility] HEMATOLOGY Lymphocytes # 2.9 K/CMM 1.0 - 5.5 01/29/2016 [facility] HEMATOLOGY Lymphocytes 32.0 % 20.0 - 40.0 01/29/2016 [facility] HEMATOLOGY Segs 58.8 % 45.0 - 75.0 01/29/2016 [facility] Spine lumbar 2 or 3 views DX Spine lumbar 2 or 3 views DX EXAM: LUMBAR SPINE 2 VIEWS DATE: Mar 31, 2014 08:24:00 PM INDICATION: Backache COMPARISON: CT abdomen pelvis 07/22/2013. TECHNIQUE: AP and lateral radiographs of the lumbar spine FINDINGS: No lumbar spine fracture, malalignment or other bony abnormality is identified. Anterior wedge compression deformity of the T11 vertebral body is again seen. Grade 1 anterolisthesis of S1 over S2 is again seen. L4-L5 advanced degenerative disc disease is seen. L3-S1 facet arthropathy is noted. The bones are diffusely osteopenic. Vascular calcifications are present. The soft tissues are unremarkable. IMPRESSION: 1.No acute fracture or malalignment SL: 03/31/2014 - - Read by: Cami Emerson MD Dictated Date/time: 03/31/14 20:29 Electronically Signed by: Cami Emerson MD 03/31/14 20:31 FINAL REPORT [facility] Hip wo contrast CT Hip wo contrast CT EXAM: CT Hip without contrast DATE: Mar 31, 2014 07:45:00 PM INDICATION: Pain from a fall COMPARISON: CT abdomen pelvis 07/22/2013. Pelvis x-ray 07/26/2013. TECHNIQUE: Multiple images axial images of the pelvis and right hip are done without contrast administration. Axial, coronal, and sagittal reformats are provided. FINDINGS: No acute fracture or malalignment is seen. Healed fractures of the left inferior pubic ramus and left medial acetabular wall are seen. Minimal grade 1 anterolisthesis of S1 over S2 is again seen with a chronic fracture of the S2 anterior cortex. Right hip joint space narrowing is seen with subchondral sclerosis and cystic changes. The right hip joint is maintained. A small right hip joint effusion is present. Bilateral sacroiliac joints are symmetric. No widening of the symphysis pubis is seen. Images of the pelvis demonstrate sigmoid colon diverticula without evidence of diverticulitis. The imaged large and small bowel are normal in caliber. The appendix is normal. The urinary bladder is grossly within normal limits. No lymphadenopathy is seen. No free air or fluid is identified. Vascular calcium present. IMPRESSION: 1. No acute fracture or malalignment. 2. 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 Small right hip joint effusion, new since prior examination. 3. Chronic fractures of the medial acetabular wall, anterior column, inferior pubic ramus, and S2 level seen 4. Sigmoid colon diverticulosis without diverticulitis SL: 03/31/2014 - - Read by: Cami Emerson MD Dictated Date/time: 03/31/14 20:58 Electronically Signed by: Cami Emerson MD 03/31/14 21:08 FINAL REPORT [facility] Spine cervical wo contrast CT Spine cervical wo contrast CT CT CERVICAL SPINE WITHOUT CONTRAST: CLINICAL HISTORY: Cervical pain after trauma. TECHNIQUE AND FINDINGS: Multiple contiguous transaxial noncontrast CT images were obtained through the cervical spine. Additionally, sagittal and coronal reformatted images were prepared. COMPARISON: No prior similar examinations are available for comparison. Mild cervical hyperlordosis is seen along with mild to moderate spondylosis, facet arthrosis, and uncovertebral hypertrophy. No acute fracture, dislocation, or focal osseous lesion is appreciated. Small well-corticated osseous densities seen at the atlantodental joint appear to represent old avulsion fractures or degenerative change considering lack of soft tissue thickening. Moderate spinal canal narrowing and moderate to severe neural foraminal narrowing at C5-C6. The prevertebral soft tissue thickness is normal. Pleural/parenchymal scarring in both lung apices. IMPRESSION: Negative cervical spine. SL:17 02/28/2014 - - Read by: Edi Washburn MD Dictated Date/time: 02/28/14 23:31 Electronically Signed by: Edi Washburn MD 02/28/14 23:35 FINAL REPORT [facility] Brain wo contrast CT Brain wo contrast CT CT Head no Contrast: COMPARISON: 07/22/2013 CLINICAL HX: Head trauma, fall TECHNIQUE: Contiguous transaxial images of the brain were performed without administration of IV contrast. FINDINGS: There is no evidence for parenchymal bleed, extra-axial collections, intracranial masses or midline shift. No displaced fractures of the calvarium or other significant bony abnormality is noted. There is moderate cerebral atrophy. Encephalomalacia is present in the left posterior parietal lobe. Areas of old ischemic change are visualized subcortical white matter of the left parietal lobe adjacent to the basal ganglion. Decreased attenuation in the periventricular white matter is likely related to chronic ischemic change from small vessel disease. No acute infarct is evident. The visualized paranasal sinuses and the mastoids are clear. IMPRESSION: No significant acute brain abnormality is noted. No significant change from previous study of 07/22/2013 SL:13 02/28/2014 - - Read by: Chilo Burns MD Dictated Date/time: 02/28/14 23:11 Electronically Signed by: Chlio Burns MD 02/28/14 23:14 FINAL REPORT [facility] Pelvis, 3 views Pelvis, 3 views EXAM: Pelvis, 3 views DATE: 07/26/2013 at 1324 hours CLINICAL INDICATION: Fracture COMPARISON: Pelvis CT from 07/22/2013 and pelvis radiograph from 07/22/2013 TECHNIQUE: AP, oblique, inlet and outlet views of the pelvis. FINDINGS: There is a left hip arthroplasty, unchanged in position. Again noted are nondisplaced fractures involving the left medial acetabulum and left inferior pubic ramus. The bones are osteopenic. Atherosclerotic calcifications are present. IMPRESSION: Unchanged left anterior column acetabular wall and left inferior pubic ramus fractures. 07/26/2013 - - This report was dictated by a Staffing Coordinator/Fellow. I have personally reviewed the images as well as the Resident's interpretation and agree with the findings. Read by: Angel Eid MD Resident: Angel Eid MD Dictated Date/time: 07/26/13 15:43 Electronically Signed by: Noel Johnson MD 07/26/13 17:17 FINAL REPORT [facility] Pelvis, 3 views Pelvis, 3 views EXAM: Pelvis, 3 views DATE: 07/26/2013 at 1324 hours CLINICAL INDICATION: Fracture COMPARISON: Pelvis CT from 07/22/2013 and pelvis radiograph from 07/22/2013 TECHNIQUE: AP, oblique, inlet and outlet views of the pelvis. FINDINGS: There is a left hip arthroplasty, unchanged in position. Again noted are nondisplaced fractures involving the left medial acetabulum and left inferior pubic ramus. The bones are osteopenic. Atherosclerotic calcifications are present. IMPRESSION: Unchanged left anterior column acetabular wall and left inferior pubic ramus fractures. 07/26/2013 - - This report was dictated by a Staffing Coordinator/Fellow. I have personally reviewed the images as well as the Resident's interpretation and agree with the findings. Read by: Angel Eid MD Resident: Angel Eid MD Dictated Date/time: 07/26/13 15:43 Electronically Signed by: Noel Johnson MD 07/26/13 17:17 FINAL REPORT [facility] IMMUNOLOGY Thornton-Hep C Ab Negative *NA* (07/26/13 6:00 AM) Negative 07/26/2013 [facility] CHEM PANEL Magnesium Lvl 1.9 mg/dL 1.8 - 2.4 07/25/2013 [facility] CHEM PANEL eGFR 98 mL/min/1.73m2 07/25/2013 2Result Comment: The eGFR is calculated using [...] from the National Kidney Disease Education Program (NKDEP) which additionally recommends that when the eGFR is used in patients with extremes of body mass index for purposes of drug dosing, the eGFR should be multiplied by the estimated BMI. [facility] CHEM PANEL Calcium Lvl 8.5 mg/dL 8.5 - 10.5 07/25/2013 [facility] CHEM PANEL CO2 30 meq/L 24 - 32 07/25/2013 [facility] CHEM PANEL Chloride Lvl 97 meq/L 95 - 109 07/25/2013 [facility] CHEM PANEL Potassium Lvl 3.5 meq/L 3.5 - 5.1 07/25/2013 [facility] CHEM PANEL Sodium Lvl 139 meq/L 135 - 145 07/25/2013 [facility] CHEM PANEL BUN 12 mg/dL 7 - 22 07/25/2013 [facility] CHEM PANEL Creatinine Lvl 0.5 mg/dL 0.5 - 1.4 07/25/2013 [facility] CHEM PANEL Glucose Lvl 70 mg/dL 70 - 99 07/25/2013 4Interpretive Data: Adult reference range values reflect the clinical guidelines of the [place] [employer]. [facility] CHEM PANEL AGAP 15.5 meq/L 10.0 - 20.0 07/25/2013 [facility] HEMATOLOGY Macrocyte 2+ *ABN* (07/25/13 1:07 AM) None Seen 07/25/2013 [facility] HEMATOLOGY Monocytes # 0.8 K/CMM 0.0 - 0.8 07/25/2013 [facility] HEMATOLOGY Segs-Bands # 12.4 K/CMM 1.5 - 8.1 07/25/2013 [facility] HEMATOLOGY Lymphocytes # 1.4 K/CMM 1.0 - 5.5 07/25/2013 [facility] HEMATOLOGY Basophils 0.3 % 0.0 - 1.0 07/25/2013 [facility] HEMATOLOGY Segs 84.6 % 45.0 - 75.0 07/25/2013 [facility] HEMATOLOGY Eosinophils 0.3 % 0.0 - 4.0 07/25/2013 [facility] HEMATOLOGY Monocytes 5.3 % 2.0 - 12.0 07/25/2013 [facility] HEMATOLOGY Lymphocytes 9.5 % 20.0 - 40.0 07/25/2013 [facility] HEMATOLOGY MCHC 33.4 g/dL 32.0 - 36.0 07/25/2013 [facility] HEMATOLOGY Hgb 11.2 g/dL 12.0 - 16.0 07/25/2013 [facility] HEMATOLOGY Hct 33.5 % 36.0 - 48.0 07/25/2013 [facility] HEMATOLOGY RBC 3.22 M/CMM 4.20 - 5.40 07/25/2013 [facility] HEMATOLOGY WBC 14.7 K/CMM 3.7 - 10.4 07/25/2013 [facility] HEMATOLOGY RDW 13.4 % 11.5 - 14.5 07/25/2013 [facility] HEMATOLOGY Platelet 260 K/CMM 133 - 450 07/25/2013 [facility] HEMATOLOGY MPV 8.2 fL 7.4 - 10.4 07/25/2013 [facility] HEMATOLOGY MCV 104.2 fL 81.0 - 99.0 07/25/2013 [facility] HEMATOLOGY MCH 34.8 pg 27.0 - 31.0 07/25/2013 [facility] CHEM PANEL Vitamin D, 25-OH, Total null 30 - 100 07/24/2013 6Interpretive Data: Reference range is based on recommendations in the Endocrine Society Clinical Practice Guideline (J Clin Endocrinol Metab 2011;96:2218-4615) [facility] CHEM PANEL AlkPhos Bone 23.0 ug/L 5.6 - 29.0 07/24/2013 7Result Comment: Test Performed at: [facility] [id number] [place] [id number] Gricelda Serna MD, PhD [facility] CHEM PANEL Magnesium Lvl 1.3 mg/dL 1.8 - 2.4 07/24/2013 [facility] CHEM PANEL Phosphorus 3.4 mg/dL 2.5 - 4.5 07/24/2013 [facility] PARATHYROID PROFILE PTH Intact 25.7 pg/mL 11.1 - 79.5 07/24/2013 [facility] THYROID PANEL TSH 2.730 uIU/mL 0.360 - 3.740 07/24/2013 [facility] URINE CHEM U N-Telopeptide (NTx) 69 07/24/2013 8Result Comment: Adult Female Reference Range for Collagen Cross- Linked N-Telopeptide (NTx), Random Urine Premenopausal: 4-64 nmol BCE/mmol creat Results are primarily used for monitoring the response to therapy. A value within the premenopausal reference range does not rule out osteoporosis nor the need for therapy. [facility] URINE CHEM U Creat mg/dL 110 mg/dL 20 - 320 07/24/2013 9Result Comment: Test Performed at: [facility] [id number] [place] [id number] Gricelda Serna MD, PhD [facility] HEMATOLOGY Lymphocytes # 1.2 K/CMM 1.0 - 5.5 07/23/2013 [facility] HEMATOLOGY Monocytes # 0.5 K/CMM 0.0 - 0.8 07/23/2013 [facility] HEMATOLOGY Macrocyte 1+ *ABN* (07/22/13 8:24 PM) None Seen 07/23/2013 [facility] HEMATOLOGY Plt Morph Normal (07/22/13 8:24 PM) 07/23/2013 [facility] HEMATOLOGY Segs 84.0 % 45.0 - 75.0 07/23/2013 [facility] HEMATOLOGY Lymphocytes 10.5 % 20.0 - 40.0 07/23/2013 [facility] HEMATOLOGY Eosinophils 0.5 % 0.0 - 4.0 07/23/2013 [facility] HEMATOLOGY Monocytes 4.1 % 2.0 - 12.0 07/23/2013 [facility] HEMATOLOGY Segs-Bands # 9.5 K/CMM 1.5 - 8.1 07/23/2013 [facility] HEMATOLOGY Basophils 0.9 % 0.0 - 1.0 07/23/2013 [facility] HEMATOLOGY Basophils # 0.1 K/CMM 0.0 - 0.2 07/23/2013 [facility] HEMATOLOGY Eosinophils # 0.1 K/CMM 0.0 - 0.5 07/23/2013 [facility] HEMATOLOGY MPV 7.6 fL 7.4 - 10.4 07/23/2013 [facility] HEMATOLOGY Platelet 229 K/CMM 133 - 450 07/23/2013 [facility] HEMATOLOGY RDW 13.0 % 11.5 - 14.5 07/23/2013 [facility] HEMATOLOGY MCH 34.6 pg 27.0 - 31.0 07/23/2013 [facility] HEMATOLOGY MCHC 34.0 g/dL 32.0 - 36.0 07/23/2013 [facility] HEMATOLOGY Hgb 11.3 g/dL 12.0 - 16.0 07/23/2013 [facility] HEMATOLOGY RBC 3.26 M/CMM 4.20 - 5.40 07/23/2013 [facility] HEMATOLOGY MCV 101.7 fL 81.0 - 99.0 07/23/2013 [facility] HEMATOLOGY Hct 33.1 % 36.0 - 48.0 07/23/2013 [facility] HEMATOLOGY WBC 11.4 K/CMM 3.7 - 10.4 07/23/2013 [facility] BLOOD BANK RESULTS Antibody Scrn Negative (07/22/13 8:12 PM) 07/23/2013 [facility] BLOOD BANK RESULTS ABO/Rh O POS 07/23/2013 [facility] CHEM PANEL Lactic Acid Lvl 0.7 mMol/L 0.5 - 2.2 07/23/2013 [facility] ELECTROLYTES AGAP 8.6 meq/L 10.0 - 20.0 07/23/2013 [facility] ELECTROLYTES eGFR 98 mL/min/1.73m2 07/23/2013 3Result Comment: The eGFR is calculated using [...] from the National Kidney Disease Education Program (NKDEP) which additionally recommends that when the eGFR is used in patients with extremes of body mass index for purposes of drug dosing, the eGFR should be multiplied by the estimated BMI. [facility] ELECTROLYTES Sodium Lvl 134 meq/L 135 - 145 07/23/2013 [facility] ELECTROLYTES Potassium Lvl 4.6 meq/L 3.5 - 5.1 07/23/2013 1Result Comment: slight hemolysis [facility] ELECTROLYTES Chloride Lvl 100 meq/L 95 - 109 07/23/2013 [facility] ELECTROLYTES CO2 30 meq/L 24 - 32 07/23/2013 [facility] ELECTROLYTES Creatinine Lvl 0.5 mg/dL 0.5 - 1.4 07/23/2013 [facility] ELECTROLYTES Glucose Lvl 95 mg/dL 70 - 99 07/23/2013 5Interpretive Data: Adult reference range values reflect the clinical guidelines of the [place] [employer]. [facility] ELECTROLYTES BUN 15 mg/dL 7 - 22 07/23/2013 [facility] ELECTROLYTES Calcium Lvl 8.3 mg/dL 8.5 - 10.5 07/23/2013 [facility] HEMATOLOGY PTT 28.6 s 22.9 - 35.8 07/23/2013 11Interpretive Data: Heparin Therapeutic Range: 57 - 92 Seconds [facility] HEMATOLOGY PT 11.8 s 12.0 - 14.7 07/23/2013 [facility] HEMATOLOGY INR 0.87 0.85 - 1.17 07/23/2013 10Interpretive Data: RECOMMENDED RANGES FOR PROTIME INR: 2.0-3.0 for most medical and surgical thromboembolic states. 2.5-3.5 for artificial heart valves and recurrent embolism. INR SHOULD BE USED ONLY FOR PATIENTS ON STABLE ANTICOAGULANT THERAPY. [facility] Spine thoracic wo contrast CT Spine thoracic wo contrast CT EXAM: CT THORACIC SPINE WITHOUT CONTRAST DATE: 2013-07-22 23:09:00 INDICATION: Fracture COMPARISON: Chest abdomen pelvis CT of September 13, 2012, abdomen/pelvis CT of 07/22/2013 at 1855 hours TECHNIQUE: Volumetric acquisition of the thoracic spine is obtained without contrast. 2mm axial, sagittal and coronal reconstructions are provided. FINDINGS: There is a T11 burst compression fracture, with up to approximately 30% anterior vertebral body height loss compared with the posterior cortex, unchanged from the abdomen/pelvis CT of 07/22/2013 by my measurement. This is new from 2012. There is 3 mm retropulsion at this level. No additional acute bony abnormality is identified. Remaining vertebral body heights are overall preserved, with multilevel Schmorl's nodes unchanged from 2013. Posterior disc osteophyte complexes are most evident at the midthoracic spine. There is no posterior element fracture, interspinous or facet widening. There are scattered vascular calcifications of aorta. There are interstitial and nodular opacities at the right lung apex, unchanged from multiple prior examinations. There is no pneumothorax. Emphysematous changes are present. IMPRESSION: Acute or subacute T11 burst compression fracture with up to 30% anterior vertebral body height loss and 3 mm retropulsion, new from 2013. No additional acute bony abnormality identified. 07/22/2013 - - Read by: Britney Moreira MD Dictated Date/time: 07/23/13 07:49 Electronically Signed by: Britney Moreira MD 07/23/13 09:32 FINAL REPORT [facility] Femur series Femur series EXAM: LEFT KNEE 3 VIEWS EXAM: LEFT FEMUR 2 VIEWS DATE: Jul 22, 2013 07:36:00 PM INDICATION: Pain from a fall COMPARISON: None. TECHNIQUE: AP, lateral and oblique radiographs of the left knee FINDINGS: The bones are osteopenic. The left knee appears intact. Chondrocalcinosis is present greatest in the lateral compartment. There is narrowing of the medial compartment associated with some marginal sclerosis of the articular surface of the femoral condyle and the medial tibial plateau. Advanced atherosclerotic calcification is present within the common femoral artery and popliteal artery as well as arteries below the trifurcation of the left lower extremity. No effusion is identified. The patient has undergone previous left total hip arthroplasty. The hardware appears intact. The left femur appears intact. IMPRESSION: 1. Osteopenia. 2. There is no acute osseous abnormality of the left knee. 3. Chondrocalcinosis. 4. There is no acute abnormality of the left femur. 5. Previous left total hip arthroplasty. 6. Advanced atherosclerosis. 07/22/2013 - - Read by: Bita Brooks MD Dictated Date/time: 07/22/13 19:42 Electronically Signed by: Bita Brooks MD 07/22/13 19:46 FINAL REPORT [facility] Knee 3 views Knee 3 views EXAM: LEFT KNEE 3 VIEWS EXAM: LEFT FEMUR 2 VIEWS DATE: Jul 22, 2013 07:36:00 PM INDICATION: Pain from a fall COMPARISON: None. TECHNIQUE: AP, lateral and oblique radiographs of the left knee FINDINGS: The bones are osteopenic. The left knee appears intact. Chondrocalcinosis is present greatest in the lateral compartment. There is narrowing of the medial compartment associated with some marginal sclerosis of the articular surface of the femoral condyle and the medial tibial plateau. Advanced atherosclerotic calcification is present within the common femoral artery and popliteal artery as well as arteries below the trifurcation of the left lower extremity. No effusion is identified. The patient has undergone previous left total hip arthroplasty. The hardware appears intact. The left femur appears intact. IMPRESSION: 1. Osteopenia. 2. There is no acute osseous abnormality of the left knee. 3. Chondrocalcinosis. 4. There is no acute abnormality of the left femur. 5. Previous left total hip arthroplasty. 6. Advanced atherosclerosis. 07/22/2013 - - Read by: Bita Brooks MD Dictated Date/time: 07/22/13 19:42 Electronically Signed by: Bita Brooks MD 07/22/13 19:46 FINAL REPORT [facility] Abdomen/Pelvis w IV contrast CT Abdomen/Pelvis w IV contrast CT EXAM: CT ABDOMEN WITH IV CONTRAST EXAM: CT PELVIS WITH IV CONTRAST DATE: Jul 22, 2013 07:11:00 PM INDICATION: Trauma, multiple recent falls over last week. TECHNIQUE: Following intravenous administration of 86 cc of Visipaque, CT of the abdomen and pelvis was performed. Oral contrast was not administered. Sagittal and coronal reformations were provided. 3-D reconstructions were provided. COMPARISON: CT pelvis without contrast 07/22/2013 at 1056 hours. FINDINGS: LOWER LUNGS: Emphysematous changes are present in the lower lungs. No pleural effusion is seen. The heart appears normal. LIVER AND BILIARY SYSTEM: The liver is normal in size and attenuation. Focal fatty infiltration is present adjacent to the falciform ligament. A hypodense subcentimeter lesion within the posterior right lobe of the liver is likely a simple cyst. The gallbladder is normal. SPLEEN: Small subcentimeter hypodense lesion likely represents a simple cyst. PANCREAS: Normal, with mild pancreatic ductal dilation. ADRENAL GLANDS: Normal. KIDNEYS, URETERS, AND BLADDER: The kidneys and ureters are normal. The bladder is grossly distended. BOWEL: There is mild thickening of the gastric antrum. Loops of small bowel appear normal. Diverticulosis is present in the sigmoid colon without evidence of diverticulitis. APPENDIX: Not visualized but no secondary signs of appendicitis are present. PERITONEAL CAVITY: No free intraperitoneal or fluid is identified. Normal. ABDOMINAL WALL: Normal. OSSEOUS STRUCTURES: A left inferior pubic rami comminuted fracture is present. The medial wall of the left acetabulum is fractured. A left total hip arthroplasty is in place. No there are lucencies identified. Diffuse osteopenia is present. On the sagittal images, there is a cortical step- off of the anterior S2 vertebral body representing a sacral fracture. L4-L5 spondylosis is again seen. A T11 wedge fracture likely acute or subacute ,given recent falls, is present . There is less than 15 % loss of vertebral body height. This is superimposed on T10-T11 degenerative disease. Coccyx angular deformity is likely chronic. Dr. Smart notified of these findings. IMPRESSION: 1. Redemonstration of a left inferior pubic rami comminuted fracture and anterior column acetabular wall fracture. The patient is status post left total hip arthroplasty. 2. Acute sacral fracture involving the anterior cortex of S2. 3. Acute/ subacute T11 vertebral wedge fracture superimposed on chronic degenerative disc disease at T10-T11. 4. L4-L5 spondylosis. 5. Grossly severely distended bladder. 6. Nonspecific circumferential thickening of the gastric antral wall. 7. Low density lesion in the posterior right lobe of the liver and within the spleen are simple cysts. 8. Sigmoid colon diverticulosis without diverticulitis. 9. Emphysematous changes within the lungs. 10. Severe atherosclerotic disease involving the infrarenal aorta and in an aortoiliac distribution. 07/22/2013 - - This report was dictated by a Staffing Coordinator/Fellow. I have personally reviewed the images as well as the Resident's interpretation and agree with the findings. Read by: Steven Foley MD Resident: Steven Foley MD Dictated Date/time: 07/22/13 20:05 Electronically Signed by: Bita Brooks MD 07/22/13 23:52 FINAL REPORT [facility] Brain wo contrast CT Brain wo contrast CT CT SCAN OF THE BRAIN DATE: 07/22/2013 at 6:54 p.m. Comparison studies: 09/12/2012. CLINICAL INFORMATION: Confusion. TECHNIQUE: Routine axial images of the brain were obtained in the unenhanced mode. FINDINGS: The brain is morphologically normal. Low density encephalomalacia is again noted with the left occipital pole consistent with an old left [employer]AV[employer]CRIPT [employer]INEER territory infarct. There are no acute hemorrhages or infarcts. The aguilera/white interfaces are otherwise well defined. Low density is noted within the periventricular and subcortical white matter consistent with chronic small vessel ischemic disease. There is prominence of the cortical sulci, fissures, cisterns and ventricles consistent with cortical atrophy appropriate for the patient's age of 68 years. There are no mass lesions or extra-axial collections. There are no acute bony abnormalities. The calvarium is intact. Atherosclerotic calcification is noted within the kerns of the vertebral and cavernous internal carotid arteries bilaterally. IMPRESSION: 1. No acute intracranial abnormality. 2. 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 3. White matter hypodensity consistent with chronic small vessel ischemic disease. 4. Age-related volume loss. 5. Arterial atherosclerosis. 07/22/2013 - - Read by: Javier Bowers MD Dictated Date/time: 07/23/13 02:08 Electronically Signed by: Javier Bowers MD 07/23/13 02:12 FINAL REPORT [facility] CARDIAC ENZYMES CK MB Index 3.6 0.0 - 2.5 07/22/2013 [facility] CARDIAC ENZYMES Total CK 28 unit/L 12 - 191 07/22/2013 [facility] CARDIAC ENZYMES Troponin-I null 0.00 - 0.40 07/22/2013 [facility] CARDIAC ENZYMES CK MB 1.0 ng/mL 0.5 - 3.6 07/22/2013 [facility] CHEM PANEL eGFR 93 mL/min/1.73m2 07/22/2013 1Result Comment: The eGFR is calculated using [...] from the National Kidney Disease Education Program (NKDEP) which additionally recommends that when the eGFR is used in patients with extremes of body mass index for purposes of drug dosing, the eGFR should be multiplied by the estimated BMI. [facility] CHEM PANEL ALT 16 unit/L 0 - 65 07/22/2013 [facility] CHEM PANEL AST 12 unit/L 0 - 37 07/22/2013 [facility] CHEM PANEL Alk Phos 124 unit/L 39 - 136 07/22/2013 [facility] CHEM PANEL B/C Ratio 28 6 - 25 07/22/2013 [facility] CHEM PANEL Globulin 3.7 g/dL 2.0 - 4.0 07/22/2013 [facility] CHEM PANEL A/G Ratio 0.8 0.7 - 1.6 07/22/2013 [facility] CHEM PANEL Bili Total 0.3 mg/dL 0.2 - 1.3 07/22/2013 [facility] CHEM PANEL AGAP 13.0 meq/L 10.0 - 20.0 07/22/2013 [facility] CHEM PANEL Sodium Lvl 135 meq/L 135 - 145 07/22/2013 [facility] CHEM PANEL Calcium Lvl 8.3 mg/dL 8.5 - 10.5 07/22/2013 [facility] CHEM PANEL Total Protein 6.5 g/dL 6.4 - 8.4 07/22/2013 [facility] CHEM PANEL Albumin Lvl 2.8 g/dL 3.5 - 5.0 07/22/2013 [facility] CHEM PANEL CO2 27 meq/L 24 - 32 07/22/2013 [facility] CHEM PANEL Chloride Lvl 99 meq/L 95 - 109 07/22/2013 [facility] CHEM PANEL Potassium Lvl 4.0 meq/L 3.5 - 5.1 07/22/2013 [facility] CHEM PANEL Creatinine Lvl 0.6 mg/dL 0.5 - 1.4 07/22/2013 [facility] CHEM PANEL BUN 17 mg/dL 7 - 22 07/22/2013 [facility] CHEM PANEL Glucose Lvl 81 mg/dL 70 - 99 07/22/2013 2Interpretive Data: Adult reference range values reflect the clinical guidelines of the [place] [employer]. [facility] CHEM PANEL Magnesium Lvl 1.4 mg/dL 1.8 - 2.4 07/22/2013 [facility] CHEM PANEL Phosphorus 3.0 mg/dL 2.5 - 4.5 07/22/2013 [facility] HEMATOLOGY Monocytes # 0.3 K/CMM 0.0 - 0.8 07/22/2013 [facility] HEMATOLOGY Lymphocytes # 1.8 K/CMM 1.0 - 5.5 07/22/2013 [facility] HEMATOLOGY Basophils # 0.0 K/CMM 0.0 - 0.2 07/22/2013 [facility] HEMATOLOGY Eosinophils # 0.0 K/CMM 0.0 - 0.5 07/22/2013 [facility] HEMATOLOGY Segs 80.1 % 45.0 - 75.0 07/22/2013 [facility] Lymphocytes 16.6 % 20.0 - 40.0 07/22/2013 [facility] Eosinophils 0.1 % 0.0 - 4.0 07/22/2013 [facility] Monocytes 2.9 % 2.0 - 12.0 07/22/2013 [facility] Basophils 0.3 % 0.0 - 1.0 07/22/2013 [facility] Segs-Bands # 8.9 K/CMM 1.5 - 8.1 07/22/2013 [facility] WBC 11.2 K/CMM 3.7 - 10.4 07/22/2013 [facility] RBC 3.33 M/CMM 4.20 - 5.40 07/22/2013 [facility] Hgb 11.5 g/dL 12.0 - 16.0 07/22/2013 [facility] RDW 14.2 % 11.5 - 14.5 07/22/2013 [facility] Platelet 292 K/CMM 133 - 450 07/22/2013 [facility] MPV 7.8 fL 7.4 - 10.4 07/22/2013 [facility] Hct 34.6 % 36.0 - 48.0 07/22/2013 [facility] MCV 104.0 fL 81.0 - 99.0 07/22/2013 [facility] MCH 34.5 pg 27.0 - 31.0 07/22/2013 [facility] MCHC 33.2 g/dL 32.0 - 36.0 07/22/2013 [facility] PTT 31.8 s 22.9 - 35.8 07/22/2013 4Interpretive Data: Heparin Therapeutic Range: 57 - 92 Seconds [facility] INR 0.83 0.85 - 1.17 07/22/2013 3Interpretive Data: RECOMMENDED RANGES FOR PROTIME INR: 2.0-3.0 for most medical and surgical thromboembolic states. 2.5-3.5 for artificial heart valves and recurrent embolism. INR SHOULD BE USED ONLY FOR PATIENTS ON STABLE ANTICOAGULANT THERAPY. [facility] HEMATOLOGY PT 11.4 s 12.0 - 14.7 07/22/2013 [facility] Pelvis wo IV contrast CT Pelvis wo IV contrast CT PROCEDURE: Pelvis wo contrast CT REASON FOR EXAM: See Clinic Indication CLINICAL INFORMATION Abdominal pain, acute COMPARISON: CAT scan 09/13/2012. 10/01/2011. There is a complete left hip replacement. There is a comminuted impacted fracture of the left inferior pubic rami in the setting of generalized osteopenia. Fracture of the left medial acetabular wall is noted. The right inferior pubic rami, pubic symphysis, bilateral superior pubic rami are preserved. L4-L5 spondylosis. The bladder is markedly distended. Sigmoid diverticulosis is incompletely visualized. Streak artifact from the patient's hip replacement limits evaluation of detail. IMPRESSION: 1. Left inferior pubic rami fracture. 2. Left medial acetabular wall fracture. 3. Left hip placement. 4. Bladder distention. 5. L4-L5 spondylosis. SL: 07/22/2013 - - Read by: Naresh Boo MD Dictated Date/time: 07/22/13 11:56 Electronically Signed by: Naresh Boo MD 07/22/13 12:22 FINAL REPORT [facility] Pelvis AP Pelvis AP PROCEDURE: Pelvis AP REASON FOR EXAM: See Clinic Indication CLINICAL INFORMATION Fracture COMPARISON: CAT scan 09/13/2012. Impacted left inferior pubic rami fracture is noted with comminution. There is fracture of the left medial wall of the acetabulum. Left superior pubic rami, bilateral pubic rami appear preserved. No definite right hip abnormality is identified. These findings were communicated to Dr. Hernandez at 10:46 a.m. SL: 07/22/2013 - - Read by: Naresh Boo MD Dictated Date/time: 07/22/13 10:41 Electronically Signed by: Naresh Boo MD 07/22/13 10:47 FINAL REPORT [facility] Chest 1view Chest 1view PROCEDURE: Chest 1view REASON FOR EXAM: See Clinic Indication CLINICAL INFORMATION Chest pain COMPARISON: 09/2011 multiple x-rays. CAT scan 08/2012. There are reticulonodular opacities in the left upper lobe, right upper lobe described on the prior CAT scan in the setting of severe emphysema. Nonemergent chest ct without contrast is recommended to evaluate. The heart and pulmonary vasculature are normal. There is no pneumothorax, the pulmonary vasculature is normal. These findings were communicated to Dr. Hernandez at 10:46 a.m. SL: 07/22/2013 - - Read by: Naresh Boo MD Dictated Date/time: 07/22/13 10:38 Electronically Signed by: Naresh Boo MD 07/22/13 10:48 FINAL REPORT [facility] Hip min 2 views Hip min 2 views PROCEDURE: Hip min 2 views REASON FOR EXAM: See Clinic Indication CLINICAL INFORMATION Pain, Trauma COMPARISON: None. Two views left. Comminuted left inferior pubic rami fracture is noted. The left superior pubic rami appears intact. A medial left acetabular wall fracture is noted of undetermined age. There is a left hip replacement. There is generalized osteopenia. These findings were communicated to Dr. Hernandez at 10:46 a.m. SL: 07/22/2013 - - Read by: Naresh Boo MD Dictated Date/time: 07/22/13 10:43 Electronically Signed by: Naresh Boo MD 07/22/13 10:47 FINAL REPORT [facility] CHEMISTRY AGAP 11.3 meq/L 10.0 - 20.0 09/14/2012 Normal [facility] CHEMISTRY Chloride Lvl 105 meq/L 95 - 109 09/14/2012 Normal [facility] CHEMISTRY Sodium Lvl 142 meq/L 135 - 145 09/14/2012 Normal [facility] CHEMISTRY Potassium Lvl 3.3 meq/L 3.5 - 5.1 09/14/2012 LOW [facility] CHEMISTRY eGFR 89 mL/min/1.73m2 09/14/2012 NA 1Result Comment: The eGFR is calculated using [...] from the National Kidney Disease Education Program (NKDEP) which additionally recommends that when the eGFR is used in patients with extremes of body mass index for purposes of drug dosing, the eGFR should be multiplied by the estimated BMI. [facility] CHEMISTRY BUN 8 mg/dL 7 - 22 09/14/2012 Normal [facility] CHEMISTRY Calcium Lvl 7.7 mg/dL 8.5 - 10.5 09/14/2012 LOW [facility] CHEMISTRY Creatinine Lvl 0.7 mg/dL 0.5 - 1.4 09/14/2012 Normal [facility] CHEMISTRY CO2 29 meq/L 24 - 32 09/14/2012 Normal [facility] CHEMISTRY Glucose Lvl 119 mg/dL 70 - 99 09/14/2012 [place] 3Interpretive Data: Adult reference range values reflect the clinical guidelines of the [place] [employer]. [facility] HEMATOLOGY Monocytes # 0.4 K/CMM 0.0 - 0.8 09/14/2012 Normal [facility] HEMATOLOGY Segs-Bands # 3.5 K/CMM 1.5 - 8.1 09/14/2012 Normal [facility] HEMATOLOGY Lymphocytes # 1.7 K/CMM 1.0 - 5.5 09/14/2012 Normal [facility] HEMATOLOGY Eosinophils # 0.1 K/CMM 0.0 - 0.5 09/14/2012 Normal [facility] HEMATOLOGY Basophils # 0.0 K/CMM 0.0 - 0.2 09/14/2012 Normal [facility] HEMATOLOGY Basophils 0.2 % 0.0 - 1.0 09/14/2012 Normal [facility] HEMATOLOGY Segs 60.9 % 45.0 - 75.0 09/14/2012 Normal [facility] HEMATOLOGY Monocytes 7.8 % 2.0 - 12.0 09/14/2012 Normal [facility] HEMATOLOGY Eosinophils 1.0 % 0.0 - 4.0 09/14/2012 Normal [facility] HEMATOLOGY Lymphocytes 30.1 % 20.0 - 40.0 09/14/2012 Normal [facility] HEMATOLOGY MCHC 33.2 g/dL 32.0 - 36.0 09/14/2012 Normal [facility] HEMATOLOGY MCH 35.3 pg 27.0 - 31.0 09/14/2012 HI [facility] HEMATOLOGY Platelet 165 K/CMM 133 - 450 09/14/2012 Normal [facility] HEMATOLOGY RDW 14.4 % 11.5 - 14.5 09/14/2012 Normal [facility] HEMATOLOGY MPV 8.4 fL 7.4 - 10.4 09/14/2012 Normal [facility] HEMATOLOGY Hct 32.1 % 36.0 - 48.0 09/14/2012 LOW [facility] HEMATOLOGY Hgb 10.6 g/dL 12.0 - 16.0 09/14/2012 LOW [facility] HEMATOLOGY MCV 106.5 fL 81.0 - 99.0 09/14/2012 HI [facility] HEMATOLOGY WBC 5.8 K/CMM 3.7 - 10.4 09/14/2012 Normal [facility] HEMATOLOGY RBC 3.01 M/CMM 4.20 - 5.40 09/14/2012 LOW [facility] URINALYSIS UA Urobilinogen 0.2 EU/dL 0.1 - 1.0 09/13/2012 Normal [facility] URINALYSIS UA Blood Negative (09/13/2012 01:50:00) Negative 09/13/2012 Normal [facility] URINALYSIS UA Nitrite Negative (09/13/2012 01:50:00) Negative 09/13/2012 Normal [facility] URINALYSIS UA Leuk Est Negative (09/13/2012 01:50:00) Negative 09/13/2012 Normal [facility] URINALYSIS UA Bili Negative *NA* (09/13/2012 01:50:00) Negative 09/13/2012 NA [facility] URINALYSIS UA pH 6.0 5.0 - 8.0 09/13/2012 Normal [facility] URINALYSIS UA Spec Grav null <=1.030 09/13/2012 NA [facility] URINALYSIS UA Color Yellow *NA* (09/13/2012 01:50:00) Yellow 09/13/2012 NA [facility] URINALYSIS UA Turbidity Clear (09/13/2012 01:50:00) Clear 09/13/2012 Normal [facility] URINALYSIS UA Ketones Negative *NA* (09/13/2012 01:50:00) Negative 09/13/2012 NA [facility] URINALYSIS UA Protein Negative (09/13/2012 01:50:00) Negative 09/13/2012 Normal [facility] URINALYSIS UA Glucose Negative (09/13/2012 01:50:00) Negative 09/13/2012 Normal [facility] CHEMISTRY Sodium Lvl 140 meq/L 135 - 145 09/13/2012 Normal [facility] CHEMISTRY Potassium Lvl 4.6 meq/L 3.5 - 5.1 09/13/2012 Normal [facility] CHEMISTRY Chloride Lvl 103 meq/L 95 - 109 09/13/2012 Normal [facility] CHEMISTRY eGFR 93 mL/min/1.73m2 09/13/2012 NA 2Result Comment: The eGFR is calculated using [...] from the National Kidney Disease Education Program (NKDEP) which additionally recommends that when the eGFR is used in patients with extremes of body mass index for purposes of drug dosing, the eGFR should be multiplied by the estimated BMI. [facility] CHEMISTRY Alk Phos 121 unit/L 39 - 136 09/13/2012 Normal [facility] CHEMISTRY ALT 57 unit/L 0 - 65 09/13/2012 Normal [facility] CHEMISTRY BUN 16 mg/dL 7 - 22 09/13/2012 Normal [facility] CHEMISTRY Creatinine Lvl 0.6 mg/dL 0.5 - 1.4 09/13/2012 Normal [facility] CHEMISTRY Calcium Lvl 8.7 mg/dL 8.5 - 10.5 09/13/2012 Normal [facility] CHEMISTRY Glucose Lvl 94 mg/dL 70 - 99 09/13/2012 Normal 4Interpretive Data: Adult reference range values reflect the clinical guidelines of the [place] [employer]. [facility] CHEMISTRY CO2 25 meq/L 24 - 32 09/13/2012 Normal [facility] CHEMISTRY Albumin Lvl 3.8 g/dL 3.5 - 5.0 09/13/2012 Normal [facility] CHEMISTRY AST 59 unit/L 0 - 37 09/13/2012 HI [facility] CHEMISTRY Bili Total 0.6 mg/dL 0.2 - 1.3 09/13/2012 Normal [facility] CHEMISTRY Total Protein 6.7 g/dL 6.4 - 8.4 09/13/2012 Normal [facility] CHEMISTRY B/C Ratio 27 6 - 25 09/13/2012 HI [facility] CHEMISTRY A/G Ratio 1.3 0.7 - 1.6 09/13/2012 Normal [facility] CHEMISTRY Globulin 2.9 g/dL 2.0 - 4.0 09/13/2012 Normal [facility] CHEMISTRY AGAP 16.6 meq/L 10.0 - 20.0 09/13/2012 Normal [facility] HEMATOLOGY MCH 35.1 pg 27.0 - 31.0 09/13/2012 HI [facility] HEMATOLOGY MCV 104.2 fL 81.0 - 99.0 09/13/2012 HI [facility] HEMATOLOGY RDW 14.5 % 11.5 - 14.5 09/13/2012 Normal [facility] HEMATOLOGY MCHC 33.7 g/dL 32.0 - 36.0 09/13/2012 Normal [facility] HEMATOLOGY Hct 40.8 % 36.0 - 48.0 09/13/2012 Normal [facility] HEMATOLOGY Hgb 13.8 g/dL 12.0 - 16.0 09/13/2012 Normal [facility] HEMATOLOGY RBC 3.92 M/CMM 4.20 - 5.40 09/13/2012 LOW [facility] HEMATOLOGY WBC 6.7 K/CMM 3.7 - 10.4 09/13/2012 Normal [facility] Platelet 254 K/CMM 133 - 450 09/13/2012 Normal [facility] HEMATOLOGY MPV 8.9 fL 7.4 - 10.4 09/13/2012 Normal [facility] PTT 28.7 s 22.9 - 35.8 09/13/2012 Normal 6Interpretive Data: Heparin Therapeutic Range: 57 - 92 Seconds [facility] HEMATOLOGY PT 11.8 s 12.0 - 14.7 09/13/2012 LOW [facility] HEMATOLOGY INR 0.85 0.85 - 1.17 09/13/2012 Normal 5Interpretive Data: RECOMMENDED RANGES FOR PROTIME INR: 2.0-3.0 for most medical and surgical thromboembolic states. 2.5-3.5 for artificial heart valves and recurrent embolism. INR SHOULD BE USED ONLY FOR PATIENTS ON STABLE ANTICOAGULANT THERAPY. [facility] HEMATOLOGY Segs-Bands # 5.2 K/CMM 1.5 - 8.1 09/13/2012 Normal [facility] HEMATOLOGY Lymphocytes # 1.3 K/CMM 1.0 - 5.5 09/13/2012 Normal [facility] HEMATOLOGY Monocytes # 0.1 K/CMM 0.0 - 0.8 09/13/2012 Normal [facility] HEMATOLOGY Eosinophils # 0.0 K/CMM 0.0 - 0.5 09/13/2012 Normal [facility] HEMATOLOGY Segs 78.7 % 45.0 - 75.0 09/13/2012 [facility] HEMATOLOGY Monocytes 1.2 % 2.0 - 12.0 09/13/2012 LOW [facility] HEMATOLOGY Lymphocytes 19.7 % 20.0 - 40.0 09/13/2012 [facility] HEMATOLOGY Basophils 0.0 % 0.0 - 1.0 09/13/2012 Normal [facility] HEMATOLOGY Eosinophils 0.4 % 0.0 - 4.0 09/13/2012 Normal [facility] HEMATOLOGY Basophils # 0.0 K/CMM 0.0 - 0.2 09/13/2012 [facility] Chest/Abdomen/Pelvis w contrast CT Chest/Abdomen/Pelvis w contrast CT I.. CT SCAN of the CHEST with contrast. II. CT SCAN of the ABDOMEN with contrast. III. CT SCAN of the PELVIS with contrast. HISTORY: Trauma to chest and abdomen, chest and abdominal pain. A CT scan of the chest, abdomen, and pelvis of 10/01/[address] SCAN OF THE CHEST WITH CONTRAST. Technique: Helical CT images were obtained from the thoracic inlet to the upper abdomen following the administration of nonionic iodinated intravenous contrast. Sagittal and coronal reconstructions were provided. FINDINGS: 1. No evidence of significant acute trauma to the chest. There is no pneumothorax or pulmonary contusion. There is no hemothorax. No rib fractures or other acute osseous abnormalities are seen. 2. Chronic changes. There are mild chronic interstitial changes and emphysematous changes. There are vague parenchymal opacities in the upper lobes, greater on the left, which are unchanged, probably representing postinflammatory scarring. There also a few tiny nodular densities bilaterally which are unchanged probably representing small granulomas. 3. No evidence of an active or acute process. There are no acute infiltrates or pleural effusions. 4. The heart is normal in size. There is no pericardial effusion. 5. Extensive atherosclerotic changes involving the thoracic aorta. There is no aneurysm or dissection. 6. Very small hiatal hernia. 7. Old healed left rib fractures are noted. There also mild degenerative changes in the thoracic spine and mild thoracic scoliosis, convexity to the right. II. CT SCAN OF THE ABDOMEN WITH CONTRAST. Technique: Helical CT images were obtained from the domes the diaphragms to the iliac crests following the administration of nonionic iodinated intravenous contrast. Oral contrast was not administered. III. CT SCAN OF THE PELVIS WITH CONTRAST Technique: Helical CT images were obtained from the iliac crests to the pubic symphysis following the administration of nonionic iodinated intravenous contrast. Oral contrast was not administered. Sagittal and coronal reconstructions were provided. FINDINGS: There is no evidence of free fluid, free intraperitoneal gas or other acute intra-abdominal process. Moderate diffuse fatty changes involving the liver. The liver is otherwise unremarkable per no focal lesions are seen. The spleen, pancreas, and adrenals are normal in appearance. The kidneys show good, symmetrical, excretion without hydronephrosis. There is a small hiatal hernia. There is extensive sigmoid diverticulosis. There is no evidence of diverticulitis. The gastrointestinal structures are otherwise unremarkable. In normal appendix was visualized. Evaluation of the gastrointestinal structures is limited due to lack of oral contrast. No abdominal masses, adenopathy, ascites, or fluid collections are seen. There are extensive atherosclerotic calcifications involving abdominal aorta. There is no aneurysm or dissection. The urinary bladder is distended. The osseous structures are intact. There are scattered degenerative changes in the lumbar spine degenerative disc disease greatest at L4-L5. Also noted is a left hip prosthesis. CONCLUSION: 1. No evidence of an acute intra-abdominal process. There is no evidence of significant intra-abdominal trauma. 2. Moderate diffuse fatty change involving the liver. 3. Small hiatal hernia. 4. Extensive sigmoid diverticulosis without evidence of diverticulitis. 5. Extensive atherosclerosis. 6. Distended urinary bladder. 7. Left hip prosthesis is noted. SL: 12 Jaden Breaux M.D. 09/13/2012 - - Read by: Jaden Breaux Dictated Date/time: 09/13/12 02:15 Electronically Signed by: Jaden Breaux MD 09/13/12 02:24 FINAL REPORT [facility] lumbar 2 or 3 views Spine lumbar 2 or 3 views LUMBAR SPINE (3 views) HISTORY: Low back pain , arthritis. TECHNIQUE: The lumbar spine was evaluated in frontal and lateral projections. A lateral coned-down view the lumbosacral junction was also performed. FINDINGS: There is normal alignment and lordosis of the lumbosacral spine. The vertebral bodies are normal in height. It there are no compression deformities or destructive lesions. There is advanced degenerative disease at L4-L5 with marked to space narrowing comment vacuum disc phenomenon, mild endplate sclerosis, and mild osteophyte formation. There is mild narrowing of the L2-L3 and L3-L4 disc spaces, probably related to degenerative changes. There is minimal spurring. The remainder the levels are unremarkable. Extensive opacifications are noted involving the abdominal aorta. On the lateral view, the upper portion of the left hip prosthesis is noted. CONCLUSION: 1. Advanced degenerative disc disease at L4-L5. 2. Mild narrowing of the L2-L3 and L3-L4 disc space with minimal osteophyte formation probably related to mild degenerative disc disease. 3. No other osteoarticular abnormalities are seen. 4. Atherosclerosis. 5. Left hip prosthesis is noted. SL: 12 Jaden Breaux M.D. 09/12/2012 - - Read by: Jaden Breaux Dictated Date/time: 09/13/12 00:14 Electronically Signed by: Jaden Breaux MD 09/13/12 00:17 FINAL REPORT [facility] Brain contrast CT Brain wo contrast CT CRANIAL CT without contrast HISTORY: Head Trauma, TECHNIQUE: Helical CT images were obtained from the foramen magnum to the vertex without the use of intravenous contrast. Comparison is made to 09/30/2011. FINDINGS: There is mild atrophy. There is otherwise normal appearance of the ventricular system and extraventricular CSF spaces. There are mild symmetrical areas of decreased attenuation in the periventricular white matter consistent with microangiopathic white matter changes. There is an old left occipital infarct with encephalomalacia. The appearance is unchanged the prior study. There is no evidence of an acute intracranial process. There is no evidence of mass, midline shift, hemorrhage, extra-axial fluid collection, acute infarction, or other focal abnormal attenuation within the brain parenchyma. There is no evidence of fracture involving the calvarium. The visualized sinuses and mastoids are clear. CONCLUSION: 1. Negative for an acute intracranial process. 2. Old left occipital infarct. 3. Mild atrophy. 4. Mild microangiopathic white matter changes. Coding: Brain wo contrast CT CPT Code: 75223 SL: 12 Jaden Breaux M.D. 09/12/2012 - - Read by: Jaden Breaux Dictated Date/time: 09/12/12 23:35 Electronically Signed by: Jaden Breaux MD 09/12/12 23:37 FINAL REPORT [facility] Spine cervical wo contrast CT Spine cervical wo contrast CT CT of the CERVICAL SPINE (without contrast) HISTORY: Injury, neck pain. A prior study of 09/30/2011 was reviewed. Technique: Helical CT images at 2.5 mm intervals were obtained from the skull base to the upper thoracic spine. Sagittal and coronal reconstructions were provided. FINDINGS: The prevertebral soft tissues are normal in appearance. There is no evidence of fracture, dislocation, or acute change. There are degenerative changes in the cervical spine. C1-C2: Unremarkable. C2-C3: Minimal degenerative disc disease. There is moderate left-sided facet disease. The neural foramina are patent. The spinal canal is widely patent. C3-C4: Minimal degenerative disc disease. There is mild degenerative facet disease bilaterally. The neural foramina are patent. The spinal canal is widely patent. C4-C5: Minimal degenerative disc disease. The there is mild degenerative facet disease. The neural foramina are patent. The spinal canal is widely patent. C5-C6: Moderate degenerative disease per there is disc space narrowing and mild anterior and posterior osteophyte formation. There is minimal degenerative facet disease. There is mild to moderate narrowing of the neural foramina bilaterally. The spinal canal is normal in diameter. C6-C7: Mild degenerative disc disease. There is mild to space narrowing and mild spurring. The neural foramina are patent. The spinal canal is normal in diameter. There is no evidence of spinal stenosis. There are no destructive lesions. Mild pleural and parenchymal scarring is noted in the apices of the lungs. CONCLUSION: 1. No evidence of fracture or acute change involving the cervical spine. 2. Degenerative changes as described above. SL: 12 Jaden Breaux M.D. 09/12/2012 - - Read by: Jaden Breaux Dictated Date/time: 09/13/12 00:18 Electronically Signed by: Jaden Breaux MD 09/13/12 00:24 FINAL REPORT [facility] HEMATOLOGY Basophils # 0.0 K/CMM 0.0 - 0.2 10/07/2011 Normal [facility] HEMATOLOGY Monocytes # 0.5 K/CMM 0.0 - 0.8 10/07/2011 Normal [facility] Eosinophils # 0.1 K/CMM 0.0 - 0.5 10/07/2011 Normal [facility] Segs-Bands # 2.5 K/CMM 1.5 - 8.1 10/07/2011 Normal [facility] HEMATOLOGY Basophils 0.6 % 0.0 - 1.0 10/07/2011 Normal [facility] HEMATOLOGY Lymphocytes # 2.0 K/CMM 1.0 - 5.5 10/07/2011 Normal [facility] HEMATOLOGY Monocytes 10.1 % 2.0 - 12.0 10/07/2011 Normal [facility] HEMATOLOGY Lymphocytes 38.1 % 20.0 - 40.0 10/07/2011 Normal [facility] HEMATOLOGY Segs 49.5 % 45.0 - 75.0 10/07/2011 Normal [facility] HEMATOLOGY Eosinophils 1.7 % 0.0 - 4.0 10/07/2011 Normal [facility] HEMATOLOGY Platelet 202 K/CMM 133 - 450 10/07/2011 Normal [facility] HEMATOLOGY MPV 7.6 fL 7.4 - 10.4 10/07/2011 Normal [facility] HEMATOLOGY RDW 14.5 % 11.5 - 14.5 10/07/2011 Normal [facility] HEMATOLOGY MCHC 33.5 g/dL 32.0 - 36.0 10/07/2011 Normal [facility] HEMATOLOGY MCH 34.8 pg 27.0 - 31.0 10/07/2011 [facility] HEMATOLOGY WBC 5.1 K/CMM 3.7 - 10.4 10/07/2011 Normal [facility] HEMATOLOGY Hct 33.7 % 36.0 - 48.0 10/07/2011 LOW [facility] HEMATOLOGY MCV 104.1 fL 81.0 - 99.0 10/07/2011 [facility] HEMATOLOGY RBC 3.24 M/CMM 4.20 - 5.40 10/07/2011 LOW [facility] HEMATOLOGY Hgb 11.3 g/dL 12.0 - 16.0 10/07/2011 LOW [facility] CHEMISTRY AST 21 unit/L 0 - 37 10/03/2011 Normal [facility] CHEMISTRY Bili Total 0.4 mg/dL 0.2 - 1.3 10/03/2011 Normal [facility] CHEMISTRY Alk Phos 62 unit/L 39 - 136 10/03/2011 Normal [facility] CHEMISTRY ALT 17 unit/L 0 - 65 10/03/2011 Normal [facility] CHEMISTRY Total Protein 4.9 g/dL 6.4 - 8.4 10/03/2011 LOW [facility] CHEMISTRY Albumin Lvl 2.4 g/dL 3.5 - 5.0 10/03/2011 LOW [facility] CHEMISTRY Calcium Lvl 7.8 mg/dL 8.5 - 10.5 10/03/2011 LOW [facility] CHEMISTRY Chloride Lvl 102 meq/L 95 - 109 10/03/2011 Normal [facility] CHEMISTRY Potassium Lvl 3.5 meq/L 3.5 - 5.1 10/03/2011 Normal [facility] CHEMISTRY CO2 28 meq/L 24 - 32 10/03/2011 Normal [facility] CHEMISTRY Sodium Lvl 138 meq/L 135 - 145 10/03/2011 Normal [facility] CHEMISTRY Creatinine Lvl 0.5 mg/dL 0.5 - 1.4 10/03/2011 Normal [facility] CHEMISTRY BUN 9 mg/dL 7 - 22 10/03/2011 Normal [facility] CHEMISTRY Glucose Lvl 104 mg/dL 70 - 99 10/03/2011 HI 1Interpretive Data: Adult reference range values reflect the clinical guidelines of the [place] [employer]. [facility] CHEMISTRY A/G Ratio 1.0 0.7 - 1.6 10/03/2011 Normal [facility] CHEMISTRY Globulin 2.5 g/dL 2.0 - 4.0 10/03/2011 Normal [facility] CHEMISTRY B/C Ratio 18 6 - 25 10/03/2011 Normal [facility] CHEMISTRY AGAP 11.5 meq/L 10.0 - 20.0 10/03/2011 Normal [facility] HEMATOLOGY Basophils # 0.0 K/CMM 0.0 - 0.2 10/03/2011 Normal [facility] HEMATOLOGY Eosinophils # 0.0 K/CMM 0.0 - 0.5 10/03/2011 Normal [facility] HEMATOLOGY Monocytes # 0.2 K/CMM 0.0 - 0.8 10/03/2011 Normal [facility] HEMATOLOGY Lymphocytes # 0.8 K/CMM 1.0 - 5.5 10/03/2011 LOW [facility] HEMATOLOGY Segs-Bands # 3.8 K/CMM 1.5 - 8.1 10/03/2011 Normal [facility] HEMATOLOGY Basophils 0.2 % 0.0 - 1.0 10/03/2011 Normal [facility] HEMATOLOGY Eosinophils 1.0 % 0.0 - 4.0 10/03/2011 Normal [facility] HEMATOLOGY Monocytes 3.9 % 2.0 - 12.0 10/03/2011 Normal [facility] HEMATOLOGY Lymphocytes 17.1 % 20.0 - 40.0 10/03/2011 LOW [facility] HEMATOLOGY Segs 77.8 % 45.0 - 75.0 10/03/2011 HI [facility] HEMATOLOGY MPV 7.4 fL 7.4 - 10.4 10/03/2011 Normal [facility] HEMATOLOGY Platelet 153 K/CMM 133 - 450 10/03/2011 Normal [facility] HEMATOLOGY MCH 35.1 pg 27.0 - 31.0 10/03/2011 [facility] HEMATOLOGY RDW 14.4 % 11.5 - 14.5 10/03/2011 Normal [facility] HEMATOLOGY MCHC 33.8 g/dL 32.0 - 36.0 10/03/2011 Normal [facility] HEMATOLOGY Hct 33.9 % 36.0 - 48.0 10/03/2011 LOW [facility] HEMATOLOGY MCV 104.0 fL 81.0 - 99.0 10/03/2011 [facility] HEMATOLOGY Hgb 11.4 g/dL 12.0 - 16.0 10/03/2011 LOW [facility] HEMATOLOGY RBC 3.26 M/CMM 4.20 - 5.40 10/03/2011 LOW [facility] HEMATOLOGY WBC 4.9 K/CMM 3.7 - 10.4 10/03/2011 Normal [facility] CHEMISTRY AGAP 13.9 meq/L 10.0 - 20.0 10/01/2011 Normal [facility] CHEMISTRY CO2 28 meq/L 24 - 32 10/01/2011 Normal [facility] CHEMISTRY Calcium Lvl 8.7 mg/dL 8.5 - 10.5 10/01/2011 Normal [facility] CHEMISTRY BUN 11 mg/dL 7 - 22 10/01/2011 Normal [facility] CHEMISTRY Glucose Lvl 83 mg/dL 70 - 99 10/01/2011 Normal 2Interpretive Data: Adult reference range values reflect the clinical guidelines of the [place] [employer]. [facility] CHEMISTRY Creatinine Lvl 0.7 mg/dL 0.5 - 1.4 10/01/2011 Normal [facility] CHEMISTRY Sodium Lvl 142 meq/L 135 - 145 10/01/2011 Normal [facility] CHEMISTRY Potassium Lvl 3.9 meq/L 3.5 - 5.1 10/01/2011 Normal [facility] CHEMISTRY Chloride Lvl 104 meq/L 95 - 109 10/01/2011 Normal [facility] CHEMISTRY Etoh (%) 0.271 % 10/01/2011 CRIT 4Interpretive Data: Negative Range: <0.003% Toxic Range: >0.25% [facility] CHEMISTRY Ethanol Lvl 271 mg/dL 10/01/2011 CRIT 6Interpretive Data: Negative Range: <3 mg/dL Toxic Range: >250 mg/dL [facility] HEMATOLOGY PTT 26.9 s 22.9 - 35.8 10/01/2011 Normal 8Interpretive Data: Heparin Therapeutic Range: 57 - 92 Seconds [facility] HEMATOLOGY PT 11.3 s 12.0 - 14.7 10/01/2011 LOW [facility] HEMATOLOGY INR 0.80 0.85 - 1.17 10/01/2011 LOW 7Interpretive Data: RECOMMENDED RANGES FOR PROTIME INR: 2.0-3.0 for most medical and surgical thromboembolic states. 2.5-3.5 for artificial heart valves and recurrent embolism. INR SHOULD BE USED ONLY FOR PATIENTS ON STABLE ANTICOAGULANT THERAPY. [facility] HEMATOLOGY WBC 6.7 K/CMM 3.7 - 10.4 10/01/2011 Normal [facility] HEMATOLOGY Hct 39.5 % 36.0 - 48.0 10/01/2011 Normal [facility] HEMATOLOGY MCV 104.8 fL 81.0 - 99.0 10/01/2011 HI [facility] HEMATOLOGY MCH 35.0 pg 27.0 - 31.0 10/01/2011 [facility] HEMATOLOGY RBC 3.77 M/CMM 4.20 - 5.40 10/01/2011 LOW [facility] HEMATOLOGY Hgb 13.2 g/dL 12.0 - 16.0 10/01/2011 Normal [facility] HEMATOLOGY MPV 8.1 fL 7.4 - 10.4 10/01/2011 Normal [facility] MCHC 33.4 g/dL 32.0 - 36.0 10/01/2011 Normal [facility] HEMATOLOGY RDW 14.7 % 11.5 - 14.5 10/01/2011 [facility] HEMATOLOGY Platelet 188 K/CMM 133 - 450 10/01/2011 Normal [facility] HEMATOLOGY Lymphocytes # 2.6 K/CMM 1.0 - 5.5 10/01/2011 Normal [facility] HEMATOLOGY Segs-Bands # 3.7 K/CMM 1.5 - 8.1 10/01/2011 Normal [facility] HEMATOLOGY Eosinophils # 0.1 K/CMM 0.0 - 0.5 10/01/2011 Normal [facility] HEMATOLOGY Monocytes 4.9 % 2.0 - 12.0 10/01/2011 Normal [facility] HEMATOLOGY Lymphocytes 38.2 % 20.0 - 40.0 10/01/2011 Normal [facility] HEMATOLOGY Monocytes # 0.3 K/CMM 0.0 - 0.8 10/01/2011 Normal [facility] HEMATOLOGY Basophils # 0.0 K/CMM 0.0 - 0.2 10/01/2011 Normal [facility] HEMATOLOGY Basophils 0.3 % 0.0 - 1.0 10/01/2011 Normal [facility] HEMATOLOGY Segs 55.6 % 45.0 - 75.0 10/01/2011 Normal [facility] HEMATOLOGY Eosinophils 1.0 % 0.0 - 4.0 10/01/2011 Normal [facility] Vital Signs Vital Sign Value Date Comments Source Systolic (mm Hg) 125 02/06/2016 [facility] Diastolic (mm Hg) 62 02/06/2016 [facility] Systolic (mm Hg) 111 02/06/2016 [facility] Diastolic (mm Hg) 62 02/06/2016 [facility] Systolic (mm Hg) 120 02/05/2016 [facility] Diastolic (mm Hg) 58 02/05/2016 [facility] Temperature Oral (F) 98.0 F 02/05/2016 [facility] BMI Calculated 20.26 02/05/2016 [facility] Weight 48.636 02/05/2016 [facility] Height 154.94 cm 02/05/2016 [facility] Systolic (mm Hg) 116 01/30/2016 [facility] Diastolic (mm Hg) 59 01/30/2016 [facility] Systolic (mm Hg) 116 01/30/2016 [facility] Diastolic (mm Hg) 61 01/30/2016 [facility] Systolic (mm Hg) 115 01/30/2016 [facility] Diastolic (mm Hg) 55 01/30/2016 [facility] Temperature Oral (F) 98.1 F 01/30/2016 [facility] Height 152.4 cm 01/29/2016 [facility] Weight 46.818 01/29/2016 [facility] BMI Calculated 20.16 01/29/2016 [facility] Heart Rate 74 04/01/2014 [facility] Rate 18 04/01/2014 [facility] Systolic (mm Hg) 135 04/01/2014 [facility] Diastolic (mm Hg) 82 04/01/2014 [facility] Rate 18 04/01/2014 [facility] Systolic (mm Hg) 125 04/01/2014 [facility] Diastolic (mm Hg) 69 04/01/2014 [facility] Diastolic (mm Hg) 68 03/31/2014 [facility] Heart Rate 96 03/31/2014 [facility] Rate 20 03/31/2014 [facility] Temperature Oral (F) 98.4 F 03/31/2014 [facility] Systolic (mm Hg) 109 03/31/2014 [facility] Height 160.02 cm 03/31/2014 [facility] BMI Calculated 15.98 03/31/2014 [facility] Weight 40.909 03/31/2014 [facility] Heart Rate 71 03/01/2014 [facility] Respitory Rate 18 03/01/2014 [facility] Temperature Oral (F) 97.7 F 03/01/2014 [facility] Systolic (mm Hg) 108 03/01/2014 [facility] Diastolic (mm Hg) 66 03/01/2014 [facility] Respitory Rate 18 03/01/2014 [facility] Systolic (mm Hg) 96 03/01/2014 [facility] Diastolic (mm Hg) 60 03/01/2014 [facility] Heart Rate 76 03/01/2014 [facility] Temperature Oral (F) 97.5 F 03/01/2014 [facility] Weight 50 03/01/2014 [facility] BMI Calculated 19.53 03/01/2014 [facility] Height 160.02 cm 03/01/2014 [facility] Diastolic (mm Hg) 62 07/28/2013 [facility] Systolic (mm Hg) 117 07/28/2013 [facility] Heart Rate 101 07/28/2013 [facility] Temperature Oral (F) 98.1 F 07/28/2013 [facility] Respitory Rate 18 07/28/2013 [facility] Systolic (mm Hg) 109 07/27/2013 [facility] Diastolic (mm Hg) 69 07/27/2013 [facility] Heart Rate 86 07/27/2013 [facility] Temperature Oral (F) 98.1 F 07/27/2013 [facility] Respitory Rate 18 07/27/2013 [facility] Heart Rate 80 07/27/2013 [facility] Systolic (mm Hg) 120 07/27/2013 [facility] Respitory Rate 18 07/27/2013 [facility] Diastolic (mm Hg) 71 07/27/2013 [facility] Temperature Oral (F) 97.2 F 07/27/2013 [facility] BMI Calculated 15.44 07/23/2013 [facility] Height 160.02 cm 07/23/2013 [facility] Weight 39.545 07/23/2013 [facility] Weight 36.364 07/22/2013 [facility] Height 160.02 cm 07/22/2013 [facility] BMI Calculated 14.2 07/22/2013 [facility] Temperature Oral (F) 98.7 F 07/22/2013 [facility] Diastolic (mm Hg) 80 07/22/2013 [facility] Respitory Rate 18 07/22/2013 [facility] Heart Rate 87 07/22/2013 [facility] Systolic (mm Hg) 140 07/22/2013 [facility] Respitory Rate 16 07/22/2013 [facility] Heart Rate 89 07/22/2013 [facility] Temperature Oral (F) 98.7 F 07/22/2013 [facility] Systolic (mm Hg) 145 07/22/2013 [facility] Diastolic (mm Hg) 85 07/22/2013 [facility] Heart Rate 95 07/22/2013 [facility] Respitory Rate 16 07/22/2013 [facility] Diastolic (mm Hg) 85 07/22/2013 [facility] Systolic (mm Hg) 138 07/22/2013 [facility] Temperature Oral (F) 98.7 F 07/22/2013 [facility] BMI Calculated 15.44 07/22/2013 [facility] Height 160.02 cm 07/22/2013 [facility] Weight 39.545 07/22/2013 [facility] Heart Rate 71 09/14/2012 [facility] Systolic (mm Hg) 126 09/14/2012 [facility] Respitory Rate 18 09/14/2012 [facility] Diastolic (mm Hg) 72 09/14/2012 [facility] Temperature Oral (F) 97.9 F 09/14/2012 [facility] Respitory Rate 18 09/14/2012 [facility] Systolic (mm Hg) 124 09/14/2012 [facility] Heart Rate 67 09/14/2012 [facility] Diastolic (mm Hg) 69 09/14/2012 [facility] Temperature Oral (F) 97.6 F 09/14/2012 [facility] Respitory Rate 16 09/14/2012 [facility] Systolic (mm Hg) 130 09/14/2012 [facility] Diastolic (mm Hg) 73 09/14/2012 [facility] Heart Rate 65 09/14/2012 [facility] Temperature Oral (F) 98.7 F 09/14/2012 [facility] Weight 42.1 09/13/2012 [facility] Height 160.02 cm 09/13/2012 [facility] Weight 36.364 09/13/2012 [facility] Height 157.48 cm 09/13/2012 [facility] Temperature Oral (F) 97.7 F 10/12/2011 [facility] Heart Rate 75 10/12/2011 [facility] Systolic (mm Hg) 113 10/12/2011 [facility] Diastolic (mm Hg) 71 10/12/2011 [facility] Rate 18 10/12/2011 [facility] Diastolic (mm Hg) 78 10/12/2011 [facility] Systolic (mm Hg) 127 10/12/2011 [facility] Rate 18 10/12/2011 [facility] Heart Rate 68 10/12/2011 [facility] Temperature Oral (F) 97.6 F 10/12/2011 [facility] Diastolic (mm Hg) 72 10/12/2011 [facility] Temperature Oral (F) 97.5 F 10/12/2011 [facility] Systolic (mm Hg) 126 10/12/2011 [facility] Respitory Rate 17 10/12/2011 [facility] Heart Rate 66 10/12/2011 [facility] Height 62 10/01/2011 [facility] Weight 35.710 10/01/2011 [facility] Height 157.48 cm 10/01/2011 [facility] Height 160.02 cm 10/01/2011 [facility] Weight 39.091 10/01/2011 [facility] Encounters Location Location Details Encounter Type Encounter Number Reason For Visit Attending Provider ADM Date DC Date Status Source [facility] Inpatient [id number] [facility] 10/01/2011 10/12/2011 Active [facility] Outpatient [id number] 185 [facility] 10/15/2011 10/15/2011 Active [facility] Inpatient [id number] [facility] 09/13/2012 09/14/2012 Active [facility] [id number] Khang Jain 07/22/2013 07/22/2013 [facility] Inpatient [id number] Mega Sims Jr 07/22/2013 07/28/2013 [facility] [id number] Angel Jose 03/01/2014 03/01/2014 [facility] [id number] Leilani Cortes 03/31/2014 04/01/2014 [facility] Bedded Outpatient [id number] Abdirahman Bedolla 01/29/2016 01/30/2016 [facility] Bedded Outpatient [id number] Abdirahman Bedolla 02/05/2016 02/06/2016 [facility] [id number] Michael Hernandez 2017 03/05/2017 [facility] [place] Procedures Procedure Code Date Perfomer Comments Source Abdominal hysterectomy [id number] [facility] [place] Abdominal hysterectomy [id number] [facility] Abdominal hysterectomy [id number] [facility]
--- OUTSIDE RECORDS SUMMARY | 2018-01-19 08:32 | XMS REPORT | CCD ---
Author Author Auto Generated Organization [facility] Address Unknown Phone Unavailable Care Team Providers Care Shirring Tender Name Role Phone Nasim Padilla CP Allergies, Adverse Reactions, Alerts Substance Reaction Status NKDA Active Problem List Condition Effective Dates Status Accelerated essential hypertension Active COPD - Chronic obstructive pulmonary disease Active Fracture Active Pneumothorax Active
--- OUTSIDE RECORDS SUMMARY | 2018-01-19 08:32 | XMS REPORT | CCD ---
Author Author Auto Generated Organization [facility] Address Unknown Phone Unavailable Care Team Providers Care Rewinder Operator Helper Name Role Phone Nasim Padilla CP Allergies, Adverse Reactions, Alerts Substance Reaction Status NKDA Active Problem List Condition Effective Dates Status Accelerated essential hypertension Active COPD - Chronic obstructive pulmonary disease Active Fracture Active Pneumothorax Active Medications Medication Instructions Start Date End Date Status folic acid 0.8 mg, PO, Daily, Substitution 10/01/2011 Ordered Allowed aspirin 81 mg, PO, Daily, Substitution 10/01/2011 Ordered Allowed Vitamin B1 100 mg, 1 tab, Route: PO, Drug 10/02/2011 10/12/2011 Discontinued form: TAB, Daily, Start date: 10/02/11 9:00:00, Duration: 30 day, Stop date: 10/31/11 9:00:00 morphine Sulfate 2 mg, Route: IVP, ONCE, Start date: 10/01/2011 10/01/2011 Completed 10/01/11 5:55:00, Stop date: 10/01/11 5:55:00 morphine Sulfate 2 mg, 0.2 mL, Route: IVP, Drug 10/01/2011 10/12/2011 Discontinued form: INJ, Q3H, PRN Pain Score 4-6, Start date: 10/01/11 6:32:00, Stop date: 10/31/11 6:31:00 ondansetron 4 mg, 2 mL, Route: IVP, Drug form: 10/01/2011 10/12/2011 Discontinued INJ, Q6H, PRN Nausea & Vomiting, Start date: 10/01/11 6:32:00, Duration: 30 day, Stop date: 10/31/11 6:31:00 Ativan 1 mg, 0.5 mL, Route: IV, Drug form: 10/01/2011 10/12/2011 Discontinued INJ, Q6H, PRN Agitation, Start date: 10/01/11 18:28:00, Duration: 30 day, Stop date: 10/31/11 18:27:00 Dulcolax Laxative 5 mg, 1 tab, Route: PO, Drug form: 10/07/2011 10/12/2011 Discontinued ECTAB, Q6H, kg, PRN Constipation, Start date: 10/07/11 10:35:00, Duration: 30 day, Stop date: 11/06/11 10:34:00 Xopenex 0.63 mg, 3 mL, Route: NEB, Drug 10/02/2011 10/12/2011 Discontinued form: SOLN, RQ4H, PRN Shortness of breath, Priority: Routine, Start date: 10/02/11 14:21:00, Duration: 30 day, Stop date: 11/01/11 14:20:00 predniSONE 5 mg oral 5 mg, 1 tab, PO, Daily, 10/01/2011 Ordered tablet Substitution Allowed lidocaine 1% 1 inj, Route: SUB-Q, ONCE, STAT, 10/01/2011 10/01/2011 Completed Start date: 10/01/11 1:53:00, Stop date: 10/01/11 1:53:00 metoprolol 25 mg 25 mg, PO, Daily, Substitution 10/01/2011 Ordered oral tablet Allowed Lovenox 40 mg, 0.4 mL, Route: SUB-Q, Drug 10/10/2011 10/12/2011 Discontinued form: INJ, Q24H, kg, Start date: 10/10/11 12:00:00, Duration: 30 day, Stop date: 11/08/11 12:00:00 [place] 5/325 oral 1-2 tab, PO, Q4-6H, PRN, 30 tab, 10/12/2011 10/17/2011 Ordered tablet Pain, Substitution Allowed, Maintenance Sodium Chloride 0.9% 1,000 mL, Rate: 100 ml/hr, Infuse 10/01/2011 10/04/2011 Completed IV 1,000 mL + folic over: 10 hr, Route: IV, Dosing acid IV 1 mg Daily + Weight 39.091 kg, Total Volume: thiamine IV 100 mg 1,001.2, Start date: 10/01/11 Daily 6:32:00, Duration: 3 day, Stop date: 10/04/11 6:31:00 cefazolin 1 gm, Route: IVPB, ONCE, Priority: 10/01/2011 10/01/2011 Completed STAT, Start date: 10/01/11 4:32:00, Stop date: 10/01/11 4:32:00 cefazolin + Sodium 1 gm, Route: IVPB, ABXQ8H, 10/01/2011 10/04/2011 Discontinued Chloride 0.9% IV 100 Priority: STAT, Start date: mL 10/01/11 6:32:00, Stop date: 10/30/11 17:00:00 hydrALAZINE 10 mg, 0.5 mL, Route: IVP, Drug 10/01/2011 10/12/2011 Discontinued form: INJ, Q6H, PRN Elevated BP, Start date: 10/01/11 18:10:00, Duration: 30 day, Stop date: 10/31/11 18:09:00 predniSONE 5 mg, 1 tab, Route: PO, Drug form: 10/02/2011 10/12/2011 Discontinued TAB, Daily, Start date: 10/02/11 9:00:00, Duration: 30 day, Stop date: 10/31/11 9:00:00 Sodium Chloride 0.9% 500 mL, Rate: 500 ml/hr, Infuse 09/30/2011 10/01/2011 Completed (Bolus) IV 500 mL over: 1 hr, Route: IV, Dosing Weight 39.091 kg, Total Volume: 500, Bolus Dose, Priority: STAT, Start date: 09/30/11 23:35:00, Duration: 1 doses or times, Stop date: 10/01/11 0:34:00 predniSONE 5 mg, 1 tab, Route: PO, Drug form: 10/01/2011 10/01/2011 Completed TAB, ONCE, Start date: 10/01/11 18:32:00, Stop date: 10/01/11 18:32:00 Mucinex 1,200 mg, PO, QID, Substitution 10/01/2011 Ordered Allowed Vitamin B-12 1000 2,000 microgram, 2 tab, PO, Daily, 10/01/2011 Ordered mcg oral tablet Substitution Allowed multivitamin 1 tab, Route: PO, Drug Form: TAB, 10/02/2011 10/12/2011 Discontinued Daily, Start date: 10/02/11 9:00:00, Duration: 30 day, Stop date: 10/31/11 9:00:00 folic acid 1 mg oral 1 mg, 1 tab, Route: PO, Drug form: 10/02/2011 10/12/2011 Discontinued tablet TAB, Daily, Start date: 10/02/11 9:00:00, Duration: 30 day, Stop date: 10/31/11 9:00:00 Vital Signs Most recent to oldest [Reference Range]: 1 2 3 Height 62 inch (10/01/2011 06:46:01) Height 157.48 cm (10/01/2011 06:34:00) 160.02 cm (09/30/2011 23:08:00) Temperature Oral [96.4-99.1 DegF] 97.7 DegF (10/12/2011 12:00:00) 97.6 DegF (10/12/2011 08:00:00) 97.5 DegF (10/12/2011 04:00:00) Systolic Blood Pressure [90-140 mmHg] 113 mmHg (10/12/2011 12:00:00) 127 mmHg (10/12/2011 08:00:00) 126 mmHg (10/12/2011 04:00:00) Diastolic Blood Pressure [60-90 mmHg] 71 mmHg (10/12/2011 12:00:00) 78 mmHg (10/12/2011 08:00:00) 72 mmHg (10/12/2011 04:00:00) Respiratory Rate [14-20 BRMIN] 18 BRMIN (10/12/2011 12:00:00) 18 BRMIN (10/12/2011 08:00:00) 17 BRMIN (10/12/2011 04:00:00) Peripheral Pulse Rate [60-100 bpm] 75 bpm (10/12/2011 12:00:00) 68 bpm (10/12/2011 08:00:00) 66 bpm (10/12/2011 04:00:00) Weight 35.710 kg (10/01/2011 06:34:00) 39.091 kg (09/30/2011 23:08:00) Results CHEMISTRY Most recent to oldest [Reference Range]: 1 2 3 Sodium Lvl [135-145 mEq/L] 138 mEq/L (10/03/2011 12:03:00) 142 mEq/L (10/01/2011 00:01:00) Potassium Lvl [3.5-5.1 mEq/L] 3.5 mEq/L (10/03/2011 12:03:00) 3.9 mEq/L (10/01/2011 00:01:00) Chloride Lvl [95-109 mEq/L] 102 mEq/L (10/03/2011 12:03:00) 104 mEq/L (10/01/2011 00:01:00) CO2 [24-32 mEq/L] 28 mEq/L (10/03/2011 12:03:00) 28 mEq/L (10/01/2011 00:01:00) AGAP [10.0-20.0 mEq/L] 11.5 mEq/L (10/03/2011 12:03:00) 13.9 mEq/L (10/01/2011 00:01:00) Creatinine Lvl [0.5-1.4 mg/dL] 0.5 mg/dL (10/03/2011 12:03:00) 0.7 mg/dL (10/01/2011 00:01:00) BUN [7-22 mg/dL] 9 mg/dL (10/03/2011 12:03:00) 11 mg/dL (10/01/2011 00:01:00) B/C Ratio [6-25] 18 (10/03/2011 12:03:00) Glucose Lvl [70-99 mg/dL] 104 mg/dL 1 *HI* (10/03/2011 12:03:00) 83 mg/dL 2 (10/01/2011 00:01:00) Total Protein [6.4-8.4 g/dL] 4.9 g/dL *LOW* (10/03/2011 12:03:00) Albumin Lvl [3.5-5.0 g/dL] 2.4 g/dL *LOW* (10/03/2011 12:03:00) Globulin [2.0-4.0 g/dL] 2.5 g/dL (10/03/2011 12:03:00) A/G Ratio [0.7-1.6] 1.0 (10/03/2011 12:03:00) Calcium Lvl [8.5-10.5 mg/dL] 7.8 mg/dL *LOW* (10/03/2011 12:03:00) 8.7 mg/dL (10/01/2011 00:01:00) ALT [0-65 unit/L] 17 unit/L (10/03/2011 12:03:00) AST [0-37 unit/L] 21 unit/L (10/03/2011 12:03:00) Alk Phos [39-136 unit/L] 62 unit/L (10/03/2011 12:03:00) Bili Total [0.2-1.3 mg/dL] 0.4 mg/dL (10/03/2011 12:03:00) Etoh (%) .271 % 3, 4 *CRIT* (10/01/2011 00:01:00) Ethanol Lvl 271 mg/dL 5, 6 *CRIT* (10/01/2011 00:01:00) 1Interpretive Data: Adult reference range values reflect the clinical guidelines of the [place] [employer]. 2Interpretive Data: Adult reference range values reflect the clinical guidelines of the [place] [employer]. 3Result Comment: Critical Result(s) called to Joanna at 10/01/2011 01:15:13 CDT by sdd. Read back OK. 4Interpretive Data: Negative Range: <0.003% Toxic Range: >0.25% 5Result Comment: Critical Result(s) called to _Melonielulusanthosh at 10/01/2011 01:14:53 CDT by sdd. Read back OK. 6Interpretive Data: Negative Range: <3 mg/dL Toxic Range: >250 mg/dL HEMATOLOGY Most recent to oldest [Reference Range]: 1 2 3 WBC [3.7-10.4 K/CMM] 5.1 K/CMM (10/07/2011 05:44:00) 4.9 K/CMM (10/03/2011 12:03:00) 6.7 K/CMM (10/01/2011 00:01:00) RBC [4.20-5.40 M/CMM] 3.24 M/CMM *LOW* (10/07/2011 05:44:00) 3.26 M/CMM *LOW* (10/03/2011 12:03:00) 3.77 M/CMM *LOW* (10/01/2011 00:01:00) Hgb [12.0-16.0 g/dL] 11.3 g/dL *LOW* (10/07/2011 05:44:00) 11.4 g/dL *LOW* (10/03/2011 12:03:00) 13.2 g/dL (10/01/2011 00:01:00) Hct [36.0-48.0 %] 33.7 % *LOW* (10/07/2011 05:44:00) 33.9 % *LOW* (10/03/2011 12:03:00) 39.5 % (10/01/2011 00:01:00) MCV [81.0-99.0 fL] 104.1 fL *HI* (10/07/2011 05:44:00) 104.0 fL *HI* (10/03/2011 12:03:00) 104.8 fL *HI* (10/01/2011 00:01:00) MCH [27.0-31.0 pg] 34.8 pg *HI* (10/07/2011 05:44:00) 35.1 pg *HI* (10/03/2011 12:03:00) 35.0 pg *HI* (10/01/2011 00:01:00) MCHC [32.0-36.0 g/dL] 33.5 g/dL (10/07/2011 05:44:00) 33.8 g/dL (10/03/2011 12:03:00) 33.4 g/dL (10/01/2011 00:01:00) RDW [11.5-14.5 %] 14.5 % (10/07/2011 05:44:00) 14.4 % (10/03/2011 12:03:00) 14.7 % *HI* (10/01/2011 00:01:00) Platelet [133-450 K/CMM] 202 K/CMM (10/07/2011 05:44:00) 153 K/CMM (10/03/2011 12:03:00) 188 K/CMM (10/01/2011 00:01:00) MPV [7.4-10.4 fL] 7.6 fL (10/07/2011 05:44:00) 7.4 fL (10/03/2011 12:03:00) 8.1 fL (10/01/2011 00:01:00) Segs [45.0-75.0 %] 49.5 % (10/07/2011 05:44:00) 77.8 % *HI* (10/03/2011 12:03:00) 55.6 % (10/01/2011 00:01:00) Lymphocytes [20.0-40.0 %] 38.1 % (10/07/2011 05:44:00) 17.1 % *LOW* (10/03/2011 12:03:00) 38.2 % (10/01/2011 00:01:00) Monocytes [2.0-12.0 %] 10.1 % (10/07/2011 05:44:00) 3.9 % (10/03/2011 12:03:00) 4.9 % (10/01/2011 00:01:00) Eosinophils [0.0-4.0 %] 1.7 % (10/07/2011 05:44:00) 1.0 % (10/03/2011 12:03:00) 1.0 % (10/01/2011 00:01:00) Basophils [0.0-1.0 %] 0.6 % (10/07/2011 05:44:00) 0.2 % (10/03/2011 12:03:00) 0.3 % (10/01/2011 00:01:00) Segs-Bands # [1.5-8.1 K/CMM] 2.5 K/CMM (10/07/2011 05:44:00) 3.8 K/CMM (10/03/2011 12:03:00) 3.7 K/CMM (10/01/2011 00:01:00) Lymphocytes # [1.0-5.5 K/CMM] 2.0 K/CMM (10/07/2011 05:44:00) 0.8 K/CMM *LOW* (10/03/2011 12:03:00) 2.6 K/CMM (10/01/2011 00:01:00) Monocytes # [0.0-0.8 K/CMM] 0.5 K/CMM (10/07/2011 05:44:00) 0.2 K/CMM (10/03/2011 12:03:00) 0.3 K/CMM (10/01/2011 00:01:00) Eosinophils # [0.0-0.5 K/CMM] 0.1 K/CMM (10/07/2011 05:44:00) 0.0 K/CMM (10/03/2011 12:03:00) 0.1 K/CMM (10/01/2011 00:01:00) Basophils # [0.0-0.2 K/CMM] 0.0 K/CMM (10/07/2011 05:44:00) 0.0 K/CMM (10/03/2011 12:03:00) 0.0 K/CMM (10/01/2011 00:01:00) PT [12.0-14.7 seconds] 11.3 seconds *LOW* (10/01/2011 00:01:00) INR [0.85-1.17] 0.80 7 *LOW* (10/01/2011 00:01:00) PTT [22.9-35.8 seconds] 26.9 seconds 8 (10/01/2011 00:01:00) 7Interpretive Data: RECOMMENDED RANGES FOR PROTIME INR: 2.0-3.0 for most medical and surgical thromboembolic states. 2.5-3.5 for artificial heart valves and recurrent embolism. INR SHOULD BE USED ONLY FOR PATIENTS ON STABLE ANTICOAGULANT THERAPY. 8Interpretive Data: Heparin Therapeutic Range: 57 - 92 Seconds
--- OUTSIDE RECORDS SUMMARY | 2018-01-19 08:33 | XMS REPORT | Summary of Care ---
Author Author [facility] Organization [facility] Address Unknown Phone Unavailable Encounter HQ Saurabh_kayla(FIN) [id number] Date(s): 03/04/17 - 03/04/17 [facility] [address] [place] [phone] Discharge Disposition: Home or Self Care Attending Physician: Michael Ng MD Vital Signs No data available for this section Problem List Condition Effective Dates Status Health Status Informant Accelerated Active essential hypertension(Confirm ed) Arthritis(Confirmed) Resolved COPD(Confirmed) Resolved COPD - Chronic Active obstructive pulmonary disease(Confirmed) Degenerative disc Active disease(Confirmed) Dizziness(Confirmed) Resolved Femur Resolved fracture(Confirmed)1 History of - Active psoriasis(Confirmed) Hypertension(Confirm Resolved ed) Low back Active pain(Confirmed) Petit mal(Confirmed) Resolved Pneumothorax(Confirm Active ed) TIA(Confirmed) Active 1rt 5years ago Allergies, Adverse Reactions, Alerts Substance Reaction Severity Status NKDA Active Medications No data available for this section Results No data available for this section Immunizations Given and Recorded Vaccine Date Status Refusal Reason diphtheria/pertussis, acel/tetanus adult 02/28/14 Given diphtheria/pertussis, acel/tetanus adult 09/13/12 Given pneumococcal 23-valent vaccine 07/24/13 Given Hx pneumococcal vaccine 07/15/06 Given Procedures Procedure Date Related Diagnosis Body Site Status Abdominal hysterectomy Completed Social History Social History Type Response Alcohol Current, Frequency: Daily. Smoking Status Current every day smoker; Type: Cigarettes; Ready to change: No; Concerns about tobacco use in household: No; Exposure to Tobacco Smoke None; Cigarette Smoking Last 365 Days Yes; Reg Smoking Cessation Counseling Yes; Total pack years: 365; 1 entered on: 02/05/16 11 pack/day Assessment and Plan No data available for this section
--- OUTSIDE RECORDS SUMMARY | 2018-01-19 08:33 | XMS REPORT | Summary of Care ---
Author Author [facility] Organization [facility] Address Unknown Phone Unavailable Encounter SHIRA Jones(DOMINIC) [id number] Date(s): 02/05/16 - 02/05/16 [facility] [address] [employer] provided by [facility] [place] [address]- Discharge Disposition: Home or Self Care Attending Physician: Abdirahman Bedolla MD Admitting Physician: Abdirahman Bedolla MD Referring Physician: Abdirahman Bedolla MD Vital Signs 1 2 3 Most recent to oldest [Reference Range]: 154.94 cm (02/05/16 6:44 AM) Height 98.0 DegF (02/05/16 7:30 AM) Temperature Oral [96.4-99.1 DegF] 125/62 mmHg (02/05/16 7:00 PM) 111/62 mmHg (02/05/16 6:00 PM) 120/58 mmHg (02/05/16 5:00 PM) Blood Pressure [90-140/60-90 mmHg] 48.636 kg (02/05/16 6:44 AM) Weight 20.26 m2 (02/05/16 6:44 AM) Body Mass Index Problem List Condition [...] Substance Reaction Severity Status NKDA Active Medications acetaminophen-hydrocodone 325 mg-5 mg oral tablet 1 tab, Route: PO, Drug Form: TAB, Dosing Weight 48.636, kg, Q4H, PRN Pain Score 4-6, Start date: 02/05/16 14:05:00 ISO COORDINATOR, Duration: 30 day, Stop date: 03/06/16 14 :04:00 ISO COORDINATOR Notes: (Same as: [place] 325/5) Do not exceed 4gm/day of acetaminophen. Start Date: 02/05/16 Stop Date: 02/06/16 Status: Discontinued aspirin 81 mg, 1 tab, Route: PO, Drug form: ECTAB, Daily, Dosing Weight 48.636, kg, Star t date: 02/06/16 9:00:00 ISO COORDINATOR, Duration: 30 day, Stop date: 03/06/16 9:00:00 ISO COORDINATOR Notes: Do not crush or chew.(Same As: Ecotrin) Start Date: 02/06/16 Stop Date: 02/06/16 Status: Canceled atorvastatin 40 mg, 1 tab, Route: PO, Drug form: TAB, Bedtime, Dosing Weight 48.636, kg, Star t date: 02/05/16 21:00:00 ISO COORDINATOR, Duration: 30 day, Stop date: 03/05/16 21:00:00 CS T Notes: (Same as: Lipitor) Start Date: 02/05/16 Stop Date: 02/06/16 Status: Discontinued cyanocobalamin 2,000 microgram, 2 tab, Route: PO, Drug form: TAB, Daily, Dosing Weight 48.636, kg, Start date: 02/06/16 9:00:00 ISO COORDINATOR, Duration: 30 day, Stop date: 03/06/16 9:00 :00 ISO COORDINATOR Notes: (Same As: Vitamin B-12) Start Date: 02/06/16 Stop Date: 02/06/16 Status: Canceled esomeprazole 40 mg, 1 cap, Route: PO, Drug form: ECCAP, Daily, Dosing Weight 48.636, kg, Star t date: 02/06/16 9:00:00 ISO COORDINATOR, Duration: 30 day, Stop date: 03/06/16 9:00:00 ISO COORDINATOR Notes: (Same as: NexIUM)"Do Not Crush" Non-Formulary Start Date: 02/06/16 Stop Date: 02/06/16 Status: Canceled folic acid 0.8 mg, 2 tab, Route: PO, Drug form: TAB, Daily, Dosing Weight 48.636, kg, Start date: 02/06/16 9:00:00 ISO COORDINATOR, Duration: 30 day, Stop date: 03/06/16 9:00:00 ISO COORDINATOR Start Date: 02/06/16 Stop Date: 02/06/16 Status: Canceled morphine Sulfate 2 mg, 1 mL, Route: IVP, Drug form: INJ, Q2H, Dosing Weight 48.636, kg, PRN Pain Score 4-6, Start date: 02/05/16 14:05:00 ISO COORDINATOR, Duration: 30 day, Stop date: 03/06 14:04:00 ISO COORDINATOR Notes: (Same as:MORPhine Sulfate) Start Date: 02/05/16 Stop Date: 02/06/16 Status: Discontinued nitroglycerin SL Tab 0.4 mg, 1 tab, Route: SL, Drug form: TAB, Q5Min, Dosing Weight 48.636, kg, PRN C hest Pain, Start date: 02/05/16 14:05:00 ISO COORDINATOR, Duration: 3 doses or times, Stop d ate: Limited # of times Notes: (Same as:Nitroquick, Nitrostat)"Do Not Crush" Sublingual tablet Start Date: 02/05/16 Stop Date: 02/06/16 Status: Discontinued Plavix 75 mg, 1 tab, Route: PO, Drug form: TAB, Daily, Dosing Weight 48.636, kg, Start date: 02/06/16 9:00:00 ISO COORDINATOR, Duration: 30 day, Stop date: 03/06/16 9:00:00 ISO COORDINATOR Notes: (Same As: Plavix) Start Date: 02/06/16 Stop Date: 02/06/16 Status: Canceled Saline Flush 0.9% 10 ml, Route: IVP, Drug Form: INJ, Dosing Weight 48.636, kg, PRN, PRN Line Flush , Start date: 02/05/16 14:05:00 ISO COORDINATOR, Duration: 30 day, Stop date: 03/06/16 14:04 :00 ISO COORDINATOR Notes: (Same as: BD Posiflush) Start Date: 02/05/16 Stop Date: 02/06/16 Status: Discontinued Saline Flush 0.9% 10 ml, Route: IVP, Drug Form: INJ, Dosing Weight 48.636, kg, Q12H, Start date: 1 04/07/15 21:00:00 ISO COORDINATOR, Duration: 30 day, Stop date: 03/06/16 9:00:00 ISO COORDINATOR Notes: (Same as: BD Posiflush) Start Date: 02/05/16 Stop Date: 02/06/16 Status: Discontinued Sodium Chloride 0.9% (Bolus) IV 250 mL, Infuse Over: 1 hr, Route: IV, ONCALL, Priority: Routine, Dosing Weight 4 8.636 kg, Start date: 02/05/16 9:00:00 ISO COORDINATOR, Duration: 1 doses or times Start Date: 02/05/16 Stop Date: 02/05/16 Status: Completed sodium chloride 0.9% 1000 ml INJ 750 mL 750 mL, Rate: 75 ml/hr, Infuse over: 10 hr, Route: IV, Dosing Weight 48.636 kg, Total Volume: 750, Start date: 02/05/16 8:39:00 ISO COORDINATOR, Duration: 24 hr, Stop date: 02/06/16 8:38:00 ISO COORDINATOR Start Date: 02/05/16 Stop Date: 02/06/16 Status: Discontinued Results BLOOD BANK RESULTS 1 2 3 Most recent to oldest [Reference Range]: O POS *Unknown* (02/05/16 6:47 AM) ABO/Rh Negative (02/05/16 6:47 AM) Antibody Scrn ELECTROLYTES 1 2 3 Most recent to oldest [Reference Range]: 143 mEq/L (02/05/16 6:47 AM) Sodium Lvl [135-145 mEq/L] 3.5 mEq/L (02/05/16 6:47 AM) Potassium Lvl [3.5-5.1 mEq/L] 103 mEq/L (02/05/16 6:47 AM) Chloride Lvl [95-109 mEq/L] 31 mEq/L (02/05/16 6:47 AM) CO2 [24-32 mEq/L] 12.5 mEq/L (02/05/16 6:47 AM) AGAP [10.0-20.0 mEq/L] CHEM PANEL 1 2 3 Most recent to oldest [Reference Range]: 0.73 mg/dL (02/05/16 6:47 AM) Creatinine Lvl [0.50-1.40 mg/dL] 83 mL/min/1.73m2 1 *NA* (02/05/16 6:47 AM) eGFR 20 mg/dL (02/05/16 6:47 AM) BUN [7-22 mg/dL] 123 mg/dL *HI* (02/05/16 6:47 AM) Glucose Lvl [70-99 mg/dL] 9.1 mg/dL (02/05/16 6:47 AM) Calcium Lvl [8.5-10.5 mg/dL] 3.7 mg/dL (02/05/16 6:47 AM) Phosphorus [2.5-4.5 mg/dL] 1.7 mg/dL *LOW* (02/05/16 6:47 AM) Magnesium Lvl [1.8-2.4 mg/dL] 1Result Comment: The eGFR is calculated using [...] be mul tiplied by the estimated BMI. HEMATOLOGY 1 2 3 Most recent to oldest [Reference Range]: 10.0 K/CMM (02/05/16 6:47 AM) WBC [3.7-10.4 K/CMM] 3.82 M/CMM *LOW* (02/05/16 6:47 AM) RBC [4.20-5.40 M/CMM] 12.7 g/dL (02/05/16 6:47 AM) Hgb [12.0-16.0 g/dL] 37.2 % (02/05/16 6:47 AM) Hct [36.0-48.0 %] 97.5 fL (02/05/16 6:47 AM) MCV [80.0-98.0 fL] 33.2 pg *HI* (02/05/16 6:47 AM) MCH [27.0-31.0 pg] 34.0 g/dL (02/05/16 6:47 AM) MCHC [32.0-36.0 g/dL] 13.2 % (02/05/16 6:47 AM) RDW [11.5-14.5 %] 319 K/CMM (02/05/16 6:47 AM) Platelet [133-450 K/CMM] 7.8 fL (02/05/16 6:47 AM) MPV [7.4-10.4 fL] 60.6 % (02/05/16 6:47 AM) Segs [45.0-75.0 %] 29.1 % (02/05/16 6:47 AM) Lymphocytes [20.0-40.0 %] 7.6 % (02/05/16 6:47 AM) Monocytes [2.0-12.0 %] 1.9 % (02/05/16 6:47 AM) Eosinophils [0.0-4.0 %] 0.8 % (02/05/16 6:47 AM) Basophils [0.0-1.0 %] 6.1 K/CMM (02/05/16 6:47 AM) Segs-Bands # [1.5-8.1 K/CMM] 2.9 K/CMM (02/05/16 6:47 AM) Lymphocytes # [1.0-5.5 K/CMM] 0.8 K/CMM (02/05/16 6:47 AM) Monocytes # [0.0-0.8 K/CMM] 0.2 K/CMM (02/05/16 6:47 AM) Eosinophils # [0.0-0.5 K/CMM] 0.1 K/CMM (02/05/16 6:47 AM) Basophils # [0.0-0.2 K/CMM] 13.0 seconds (02/05/16 6:47 AM) PT [12.0-14.7 seconds] 0.96 (02/05/16 6:47 AM) INR [0.85-1.17] 213 seconds *NA* (02/05/16 2:04 PM) 253 seconds *NA* (02/05/16 1:08 PM) 325 seconds *NA* (02/05/16 11:43 AM) POC Activated Clotting Time 30.5 seconds (02/05/16 6:47 AM) PTT [22.9-35.8 seconds] Immunizations Given and Recorded Vaccine Date Status Refusal Reason diphtheria/pertussis, acel/tetanus adult 02/28/14 Given diphtheria/pertussis, acel/tetanus adult 09/13/12 Given Hx pneumococcal vaccine 07/15/06 Given pneumococcal 23-valent vaccine 07/24/13 Given Procedures Procedure Date Related Diagnosis Body Site Abdominal hysterectomy Social History Social History Type Response Alcohol Current, Frequency: Daily. Smoking Status Current every day smoker; Type: Cigarettes; Total pack years: 365; Ready to change: No; Concerns about tobacco use in household: No; Exposure to Tobacco Smoke None; Cigarette Smoking Last 365 Days Yes; Reg Smoking Cessation Counseling Yes1 11 pack/day Assessment and Plan No data available for this section
--- OUTSIDE RECORDS SUMMARY | 2018-01-19 08:33 | XMS REPORT ---
Author Author [facility] Address Unknown Phone Unavailable Care Team Providers Care Collector Of Aquarium Specimens Name Role Phone VIJAYA SOLORIO Unavailable Unavailable XIOMARA PETERSON Unavailable Unavailable Epifanio ROWE Unavailable Unavailable Problems This patient has no known problems. Allergies, Adverse Reactions, Alerts This patient has no known allergies or adverse reactions. Medications This patient has no known medications. Results Test Description Test Time Test Comments Text Results Atomic Results Result Comments HEPTOBILIARY W PHARM 2017-10-28 19:48:00 [place] [address] Patient Name: GUERO CASTELLANOS MR #: [id number] : 1945 Age/Sex: 72/F Req #: [id number] Adm Physician: Ordered by: VIJAYA SOLORIO MD Report #: [id number] Location: [facility] Room/Bed: Procedure: [id number] NM/HEPTOBILIARY W PHARM Exam Date: 10/28/17 Exam Time: 1110 REPORT STATUS: Signed Hepatobiliary Scan with Gallbladder Ejection Fraction Clinical information: 72 F with abdominal pain and bloating Report: Following intravenous administration of 6 millicuries of Tc-99m mebrofenin, dynamic images of the abdomen in the anterior projection were obtained through 30 minutes. Sincalide (CCK analog) 1.0 micrograms was administered intravenously over 30 minutes with additional imaging for determination of gallbladder ejection fraction. Perfusion to the liver is normal. Extraction of tracer from the blood pool by the liver parenchyma is normal. Tracer is seen promptly within the biliary tract. The gallbladder begins to fill by 8 minutes post-injection of tracer and fills adequately. Tracer is seen in the small bowel by 14 minutes. The gallbladder ejection fraction with administration of sincalide is 91% (normal greater than 40%). Impression: 1. Filling of the gallbladder excludes the diagnosis of acute cystic duct obstruction/acute cholecystitis. 2. Normal gallbladder ejection fraction of 91% does not support the clinical diagnosis of chronic cholecystitis/gallbladder dyskinesia. 3. Prior study of 05/07/2016 was also normal with a gallbladder ejection fraction of 88%. Signed by: Dr. Marilee Harper M.D. on 10/28/2017 7:50 PM Dictated By: MARILEE HARPER MD 49 Transcribed By: THIAGO on 10/28/171949 COPY TO: VIJAYA SOLORIO MD MAMMOGRAPHY DIGITAL SCR BILAT 2017-10-28 11:18:00 [place] [address] Patient Name: GUERO CASTELLANOS MR #: [id number] : 1945 Age/Sex: 72/F Req #: [id number] Adm Physician: Ordered by: VIJAYA SOLORIO MD Report #: [id number] Location: MAMMO Room/Bed: Procedure: [id number] MG/MAMMOGRAPHY DIGITAL SCR BILAT Exam Date: 10/28/17 Exam Time: 1019 REPORT STATUS: Signed #[id number] - [id number] #BILATERAL DIGITAL SCREENING MAMMOGRAM WITH CAD: 10/28/2017 CLINICAL: Routine screening. Comparison is made to exam dated: 12/10/2015 mammogram - [facility]. The tissue of both breasts is extremely dense, which lowers the sensitivity of mammography. Current study was also evaluated with a Computer Aided Detection (CAD) system. No new significant masses, calcifications, or other findings are seen in either breast. There are benign calcifications in both breasts. IMPRESSION: BENIGN There is no mammographic evidence of malignancy. A 1 year screening mammogram is recommended. The patient will be notified by letter of the results. Radha Thayer M.D. ks/:11/01/2017 10:45:28 Compliance Representative Dealer: Marilee PEOPLES(R)([place]), [facility] letter sent: Normal Exam Mammogram BI-RADS: 2 Benign Dictated By: RADHA THAYER MD 1045 Transcribed By: COREEN on 11/01/17 1045 COPY TO: VIJAYA SOLORIO MD SMALL BOWEL SERIES [place] [address] Patient Name: GUERO CASTELLANOS MR #: [id number] : 1945 Age/Sex: 71/F Req #: [id number] Adm Physician: Ordered by: XIOMARA PETERSON MD Report #: [id number] Location: DX Room/Bed: Procedure: [id number] DX/SMALL BOWEL SERIES Exam Date: 12/13/16 Exam Time: 1120 REPORT STATUS: Signed PROCEDURE: SMALL BOWEL SERIES INDICATION: Abdominal pain; bloating COMPARISON: None. TECHNIQUE: Single contrast small bowel follow-through was performed through 2 hours. Spot images were obtained. Fluoroscopy time: 0.3 min; Cumulative air kerma: 0.3 min. FINDINGS: Shower Attendant: Normal bowel gas pattern. Left hip arthroplasty. Degenerative change of the right hip. Degenerative disc disease. Multifocal arterial atherosclerosis. Small bowel follow-through. Total transit time is 2 hours. Small bowel mucosal contour, caliber and transit time are normal. No conspicuous ulcer, fistula or stenosis. Incidental imaging of the sigmoid demonstrates moderate diverticulosis. CONCLUSION: 1. Normal small bowel follow-through. 2. Moderate diverticulosis. Dictated by: Christine Bolivar M.D. on 12/13/2016 at 14:15 Electronically approved by: Christine Bolivar M.D. on 12/13/2016 at 14:15 Dictated By: CHRISTINE BOLIVAR MD 141 Transcribed By: RUBEN on 12/13/16 1415 COPY TO: XIOMARA PETERSON MD US PELVIS COMPLETE NON OB [place] [address] Patient Name: GUERO CASTELLANOS MR #: [id number] : 1945 Age/Sex: 71/F Req #: [id number] Adm Physician: Ordered by: XIOMARA PETERSON MD Report #: [id number] Location: Room/Bed: Procedure: [id number] US/US PELVIS COMPLETE NON OB Exam Date: 12/09/16 Exam Time: 1500 REPORT STATUS: Signed PROCEDURE: PELVIC ULTRASOUND COMPARISON: CT abdomen/pelvis 11/15/16. INDICATIONS: Abdominal Pain, Bloating TECHNIQUE: Transabdominal ultrasound the pelvis was performed utilizing grayscale transverse and sagittal images. No endovaginal images were obtained. FINDINGS: UTERUS: Absent RIGHT OVARY: Not visualized LEFT OVARY: Not visualized ADNEXA: No mass. BLADDER: Normal. There is no free fluid within the pelvis. CONCLUSION: Hysterectomy. No sonographic findings to correspond to the soft tissue mass in the right pelvis identified on CT. Consider further evaluation of the pelvis with MRI. Dictated by: Catracho Burroughs M.D. on 12/09/2016 at 16:06 Electronically approved by: Catracho Burroughs M.D. on 12/09/2016 at 16:06 Dictated By: CATRACHO BURROUGHS MD 05 Transcribed By: RUBEN on 12/09/161605 COPY TO: XIOMARA PETERSON MD CT MAXIO FAC/PARANAS WO [place] [address] Patient Name: GUERO CASTELLANOS MR #: [id number] : 1945 Age/Sex: 71/F Req #: [id number] Adm Physician: Ordered by: CARIDAD CHUA, ISRRAEL CHUA Report #: [id number] Location: CT Room/Bed: Procedure: [id number] CT/CT MAXIO FAC/PARANAS WO Exam Date: Exam Time: REPORT STATUS: Signed History: Sinusitis Comparison studies: None Technique: Axial images were obtained through the paranasal sinuses. Coronal and sagittal images reconstructed from the axial data. Intravenous contrast: None Findings: Anterior paranasal sinuses: Secretions at the right posterior ethmoid air cells and mild mucosal thickening at the bilateral maxillary sinuses inferior aspect. The remaining paranasal sinuses are clear bilaterally including the ostiomeatal units, frontonasal and sphenoethmoidal recesses. Other: Nasal vestibule and cavity: Patent Nasal septum: At midline. Agger Nasi: Clear bilaterally. Turbinates: Aerated bilaterally. Vincent cells: None Lamina papyracea: Intact. Cribriform plate: Symmetric, 5 mm below the level of the fovea ethmoidalis. Olfactory recesses: Clear Optic nerves: Not dehiscent Onodi cells: None Sphenoid sinuses: Mild mucosal thickening of the left sphenoid sinus. The lateral recesses are aerated. Sphenoid septum: Towards the left. Internal carotid arteries: Do not bulge into the sphenoid sinuses. from the sphenoid sinuses by 1 mm bone septum. Orbits: No abnormalities. Bones: No abnormalities. Temporal bones: No abnor malities. Periapical lucency at the left maxillary lateral incisor secondary to periodontal disease. Partially visualized degenerative changes at the atlantoaxial joint and mild grade 1 anterolisthesis of C4 over C5. IMPRESSION: 1. Mild nonspecific inflammatory changes of the left sphenoid sinus, bilateral maxillary sinuses and right posterior ethmoid air cells. The remaining paranasal sinuses shows no significant inflammatory changes 2. Periodontal disease at the left maxillary lateral incisor Signed by: DR Leonard Asher M.D. on 11/15/2016 5:15 PM Dictated By: LEONARD POON MD 14 Transcribed By: THIAGO on 11/15/161714 COPY TO: ISRRAEL MCLEAN CT ABDOMEN/PELVIS [place] [address] Patient Name: GUERO CASTELLANOS MR #: [id number] : 1945 Age/Sex: 71/F Req #: [id number] Adm Physician: Ordered by: XIOMARA PETERSON MD Report #: [id number] Location: CT Room/Bed: Procedure: [id number] CT/CT ABDOMEN/PELVIS W Exam Date: 11/15/16 Exam Time: 1544 REPORT STATUS: Signed PROCEDURE: CT ABDOMEN AND PELVIS WITH CONTRAST TECHNIQUE: The abdomen and pelvis were scanned utilizing a multidetector helical scanner from the diaphragm to the lesser trochanter after the IV administration of 100 cc of Isovue 370 and the oral administration of water. Coronal and sagittal multiplanar reformations were obtained. COMPARISON: MRI of the abdomen from 05/07/2016. CT of the abdomen and pelvis from 04/22/2015. INDICATIONS: ABDOMINAL PAIN FINDINGS: LOWER THORAX: Focally dilated airways in the lingula, partially visualized. HEPATOBILIARY: Diffuse hepatic steatosis. Subcentimeter hypodensity in hepatic segment (series 2, image 20) is stable and probably represents a cyst. Otherwise no focal hepatic lesions. No biliary ductal dilatation. Mild enhancement of the wall of the gallbladder fundus without wall thickening or pericholecystic fluid. This is unchanged. SPLEEN: No splenomegaly. Subcentimeter hypodensity in the superior aspect of the spleen is indeterminate, but probably represents a small cyst or hemangioma. PANCREAS: Pancreatic atrophy, but no pancreatic ductal dilatation. Unchanged 1.1 cm hypodensity in the distal pancreatic body/tail. The other previously described pancreatic lesions were better seen on MRI. ADRENALS: No adrenal nodules. KIDNEYS/URETERS: No hydronephrosis, stones, or solid mass lesions. PELVIC ORGANS/BLADDER: Evaluation of the pelvis is limited by streak artifact from left hip arthroplasty. The uterus is absent. There is a 3.0 x 2.4 cm soft tissue mass in the right hemipelvis (series 2, image 54) which is unchanged since at least 04/22/2015 PERITONEUM / RETROPERITONEUM: No free air or fluid. LYMPH NODES: No lymphadenopathy. VESSELS: Severe atherosclerotic calcification of the aorta and its branches. GI TRACT: The previously described wall thickening of the distal gastric antrum and proximal duodenum has improved. Otherwise no wall thickening or distention. No evidence of bowel obstruction. There are numerous sigmoid diverticula without evidence of acute inflammation. The appendix is normal. BONES AND SOFT TISSUES: There has been a left hip hemiarthroplasty. Multilevel degenerative changes of the thoracic and lumbar spine. Healed fracture deformities of the bilateral ischia. Healed fracture deformity of the right posterior 11th rib. Patchy sclerosis in the right superior pubic ramus, right ischium, and right proximal femur, appearing similar to 04/22/2015. IMPRESSION: 1. The previously described wall thickening of the distal gastric antrum and proximal duodenum has improved. Otherwise no bowel wall thickening. No evidence of obstruction. 2. The uterus is absent. A 3.0 cm soft tissue mass in the right hemipelvis is unchanged since at least 04/22/2015 and may represent residual ovary. Consider pelvic ultrasound for further evaluation. 3. Unchanged 1.1 cm hypodensity of the distal pancreatic body/tail. The other previously described pancreatic lesions were better characterized on prior MRI. 4. Indeterminate patchy sclerosis of the right superior pubic ramus and right ischium. This is unchanged since 04/22/2015 and may be related to old trauma or possibly Paget's disease. Dictated by: Zuleima Baldwin M.D. on 11/15/2016 at 18:06 Electronically approved by: Zuleima Baldwin M.D. on 11/15/2016 at 18:06 Dictated By: ZULEIMA BALDWIN MD 05 Transcribed By: RUBEN on 11/15/161805 COPY TO: XIOMARA PETERSON MD CHEST 2 VIEWS [place] [address] Patient Name: GUERO CASTELLANOS MR #: [id number] : 1945 Age/Sex: 71/F Req #: [id number] Adm Physician: Ordered by: KURT ROWE MD Report #: [id number] Location: ER Room/Bed: Procedure: [id number] DX/CHEST 2 VIEWS Exam Date: 11/14/16 Exam Time: 1335 REPORT STATUS: Signed EXAMINATION: PA and lateral views of the chest. COMPARISON: AP chest 06/01/2015 CLINICAL HISTORY: Status post fall right chest pain DISCUSSION: Lines/tubes: None. Lungs: The lungs are hyperinflated, consistent with COPD changes. Stable mild prominence of the interstitial markings bilaterally, likely reflecting chronic interstitial changes. There is no evidence of consolidation or pulmonary edema. Pleura: There is no pleural effusion or pneumothorax. Heart and mediastinum: Cardiomediastinal silhouette is unremarkable. Pulmonary vasculature is normal. Bones and soft tissues: No acute bony abnormalities. Stable deformities of the left eighth, ninth and 10th ribs consistent with healed fractures IMPRESSION: COPD changes, without acute cardiopulmonary abnormalities. No acute bony abnormalities Signed by: Dr. Segun Atkinson M.D. on 11/14/2016 1:48 PM Dictated By: SEGUN ATKINSON MD 1348 Transcribed By: THIAGO on 11/14/16 1348 COPY TO: KURT ROWE MD
--- OUTSIDE RECORDS SUMMARY | 2018-01-19 08:33 | XMS REPORT | Summary of Care ---
Author Author [facility] Organization [facility] Address Unknown Phone Unavailable Encounter SHIRA Jones(DOMINIC) [id number] Date(s): 01/29/16 - 01/30/16 [facility] [address] [employer] provided by [facility] [place] [address]- Discharge Disposition: Home or Self Care Attending Physician: Abdirahman Bedolla MD Admitting Physician: Abdirahman Bedolla MD Referring Physician: Abdirahman Bedolla MD Vital Signs 1 2 3 Most recent to oldest [Reference Range]: 152.4 cm (01/29/16 6:41 AM) Height 98.1 DegF (01/29/16 6:00 PM) Temperature Oral [96.4-99.1 DegF] 116/59 mmHg (01/30/16 7:00 AM) 116/61 mmHg (01/30/16 3:30 AM) 115/55 mmHg (01/30/16 2:00 AM) Blood Pressure [90-140/60-90 mmHg] 46.818 kg (01/29/16 6:41 AM) Weight 20.16 m2 (01/29/16 6:41 AM) Body Mass Index Problem List Condition [...] Substance Reaction Severity Status NKDA Active Medications aspirin 81 mg, 1 tab, Route: PO, Drug form: CHE[place]AB, Daily, Dosing Weight 46.818, kg, St art date: 01/30/16 9:00:00 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 Start Date: 01/30/16 Stop Date: 01/30/16 Status: Discontinued atorvastatin 40 mg, 1 tab, Route: PO, Drug form: TAB, Bedtime, Dosing Weight 46.818, kg, Star t date: 01/29/16 21:00:00 [employer]ROLE[employer] ENGINEERING PROFESSOR, Duration: 30 day, Stop date: 02/27/16 21:00:00 CS T Notes: (Same as: Lipitor) Start Date: 01/29/16 Stop Date: 01/30/16 Status: Discontinued atorvastatin 40 mg oral tablet 40 mg=1 tab, PO, Bedtime, # 90 tab, 1 Refill(s) Start Date: 01/29/16 Status: Ordered cyanocobalamin 2,000 microgram, 2 tab, Route: PO, Drug form: TAB, Daily, Dosing Weight 46.818, kg, Start date: 01/30/16 9:00:00 PETROLEUM ENGINEERING PROFESSOR, Duration: 30 day, Stop date: 02/28/16 9:00 :00 [employer]ROLEUM ENGINEERING PROFESSOR Notes: (Same As: Vitamin B-12) Start Date: 01/30/16 Stop Date: 01/30/16 Status: Discontinued docusate sodium 100 mg oral capsule 100 mg, 1 cap, Route: PO, Drug form: CAP, Q12H, Dosing Weight 46.818, kg, Start date: 01/29/16 21:00:00 [employer]ROLEUM ENGINEERING PROFESSOR, Duration: 30 day, Stop date: 02/28/16 9:00:00 [employer]ROLEUM ENGINEERING PROFESSOR Notes: (Same as: Colace) (Do Not Crush) Start Date: 01/29/16 Stop Date: 01/30/16 Status: Discontinued esomeprazole 40 mg, Route: PO, Drug form: ECCAP, Daily, Dosing Weight 46.818, kg, Start date: 01/30/16 9:00:00 PETROLEUM ENGINEERING PROFESSOR, Duration: 30 day, Stop date: 02/28/16 9:00:00 PETROLEUM ENGINEERING PROFESSOR Start Date: 01/30/16 Stop Date: 01/29/16 Status: Discontinued esomeprazole 40 mg oral delayed release capsule 40 mg=1 cap, PO, Daily, # 90 cap, 0 Refill(s) Start Date: 01/29/16 Status: Ordered folic acid 0.8 mg, 2 tab, Route: PO, Drug form: TAB, Daily, Dosing Weight 46.818, kg, Start date: 01/30/16 9:00:00 PETROLEUM ENGINEERING PROFESSOR, Duration: 30 day, Stop date: 02/28/16 9:00:00 PETROLEUM ENGINEERING PROFESSOR Start Date: 01/30/16 Stop Date: 01/30/16 Status: Discontinued gabapentin 100 mg oral capsule 100 mg=1 cap, PO, PRN, 0 Refill(s) Start Date: 01/29/16 Status: Ordered nitroglycerin SL Tab 0.4 mg, 1 tab, Route: SL, Drug form: TAB, Q5Min, Dosing Weight 46.818, kg, PRN C hest Pain, Start date: 01/29/16 10:49:00 [employer]ROLE[employer] ENGINEERING PROFESSOR, Duration: 3 doses or times, Stop d ate: 01/29/16 17:00:00 [employer]ROLEUM ENGINEERING PROFESSOR Notes: (Same as:Nitroquick, Nitrostat)"Do Not Crush" Sublingual tablet Start Date: 01/29/16 Stop Date: 01/29/16 Status: Completed ondansetron 4 mg, 1 tab, Route: PO, Drug form: TAB, Q8H, Dosing Weight 46.818, kg, PRN Nause a & Vomiting, Start date: 01/29/16 10:49:00 [employer]ROLE[employer] ENGINEERING PROFESSOR, Duration: 30 day, Stop date: 02/28/16 10:48:00 PETROLEUM ENGINEERING PROFESSOR Notes: (Same as: Zofran) Start Date: 01/29/16 Stop Date: 01/30/16 Status: Discontinued Plavix 75 mg, 1 tab, Route: PO, Drug form: TAB, Daily, Dosing Weight 46.818, kg, Start date: 01/30/16 9:00:00 PETROLEUM ENGINEERING PROFESSOR, Duration: 30 day, Stop date: 02/28/16 9:00:00 PETROLEUM ENGINEERING PROFESSOR Notes: (Same As: Plavix) Start Date: 01/30/16 Stop Date: 01/30/16 Status: Discontinued Plavix 75 mg oral tablet 75 mg=1 tab, PO, Daily, # 90 tab, 0 Refill(s) Start Date: 01/29/16 Status: Ordered predniSONE 2.5 mg, 1 tab, Route: PO, Drug form: TAB, Daily, Dosing Weight 46.818, kg, Start date: 01/30/16 9:00:00 PETROLEUM ENGINEERING PROFESSOR, Duration: 30 day, Stop date: 02/28/16 9:00:00 PETROLEUM ENGINEERING PROFESSOR Notes: Take with food. Start Date: 01/30/16 Stop Date: 01/30/16 Status: Discontinued predniSONE 2.5 mg oral tablet 2.5 mg=1 tab, PO, Daily, # 10 tab, 0 Refill(s) Start Date: 01/29/16 Stop Date: 02/08/16 Status: Ordered Prolia 60 mg/mL subcutaneous solution 60 mg=1 mL, SUB-Q, ONCE, Repeat every 6 months, # 1 mL, 0 Refill(s) Start Date: 01/29/16 Status: Ordered Protonix 40 mg, 1 tab, Route: PO, Drug form: ECTAB, Before Dinner, Start date: 01/29/16 1 6:30:00 PETROLEUM ENGINEERING PROFESSOR, Duration: 30 day, Stop date: 02/27/16 16:30:00 PETROLEUM ENGINEERING PROFESSOR Notes: Tablet should not be chewed or crushed.(Same as: Protonix) Start Date: 01/29/16 Stop Date: 01/30/16 Status: Discontinued sodium chloride 0.9% 1000 ml INJ 1,000 mL 1,000 mL, Rate: 75 ml/hr, Infuse over: 13.3 hr, Route: IV, Dosing Weight 46.818 kg, Total Volume: 1,000, Start date: 01/29/16 6:44:00 PETROLEUM ENGINEERING PROFESSOR, Duration: 30 day, Sto p date: 02/28/16 6:43:00 PETROLEUM ENGINEERING PROFESSOR Start Date: 01/29/16 Stop Date: 01/30/16 Status: Discontinued sodium chloride 0.9% 1000 ml INJ 750 mL 750 mL, Rate: 75 ml/hr, Infuse over: 10 hr, Route: IV, Dosing Weight 46.818 kg, Total Volume: 750, Start date: 01/29/16 10:49:00 PETROLEUM ENGINEERING PROFESSOR, Duration: 10 hr, Stop date : 01/29/16 20:48:00 PETROLEUM ENGINEERING PROFESSOR Start Date: 01/29/16 Stop Date: 01/29/16 Status: Completed Results BLOOD BANK RESULTS Most recent to 1 2 oldest [Reference Range]: ABO/Rh O POS *Unknown* (01/29/16 7:04 AM) Antibody Scrn Negative (01/29/16 7:04 AM) ELECTROLYTES Most recent to 1 2 oldest [Reference Range]: Sodium Lvl [135-145 141 mEq/L mEq/L] (01/29/16 7:04 AM) Potassium Lvl 3.4 mEq/L [3.5-5.1 mEq/L] *LOW* (01/29/16 7:04 AM) Chloride Lvl [95-109 103 mEq/L mEq/L] (01/29/16 7:04 AM) CO2 [24-32 mEq/L] 29 mEq/L (01/29/16 7:04 AM) AGAP [10.0-20.0 12.4 mEq/L mEq/L] (01/29/16 7:04 AM) CHEM PANEL Most recent to 1 2 oldest [Reference Range]: Creatinine Lvl 0.57 mg/dL 0.72 mg/dL [0.50-1.40 mg/dL] (01/30/16 3:30 AM) (01/29/16 7:04 AM) eGFR 93 mL/min/1.73m2 1 84 mL/min/1.73m2 2 *NA* *NA* (01/30/16 3:30 AM) (01/29/16 7:04 AM) BUN [7-22 mg/dL] 19 mg/dL (01/29/16 7:04 AM) Glucose Lvl [70-99 114 mg/dL mg/dL] *HI* (01/29/16 7:04 AM) Calcium Lvl 9.0 mg/dL [8.5-10.5 mg/dL] (01/29/16 7:04 AM) Phosphorus [2.5-4.5 3.4 mg/dL mg/dL] (01/29/16 7:04 AM) Magnesium Lvl 1.5 mg/dL [1.8-2.4 mg/dL] *LOW* (01/29/16 7:04 AM) 1Result Comment: The eGFR is calculated [...] mul tiplied by the estimated BMI. HEMATOLOGY Most recent to 1 2 oldest [Reference Range]: WBC [3.7-10.4 K/CMM] 9.0 K/CMM (01/29/16 7:04 AM) RBC [4.20-5.40 3.96 M/CMM M/CMM] *LOW* (01/29/16 7:04 AM) Hgb [12.0-16.0 g/dL] 11.4 g/dL 13.2 g/dL *LOW* (01/29/16 7:04 AM) (01/30/16 3:30 AM) Hct [36.0-48.0 %] 33.1 % 38.8 % *LOW* (01/29/16 7:04 AM) (01/30/16 3:30 AM) MCV [80.0-98.0 fL] 97.8 fL (01/29/16 7:04 AM) MCH [27.0-31.0 pg] 33.3 pg *HI* (01/29/16 7:04 AM) MCHC [32.0-36.0 34.1 g/dL g/dL] (01/29/16 7:04 AM) RDW [11.5-14.5 %] 13.3 % (01/29/16 7:04 AM) Platelet [133-450 280 K/CMM K/CMM] (01/29/16 7:04 AM) MPV [7.4-10.4 fL] 7.7 fL (01/29/16 7:04 AM) Segs [45.0-75.0 %] 58.8 % (01/29/16 7:04 AM) Lymphocytes 32.0 % [20.0-40.0 %] (01/29/16 7:04 AM) Monocytes [2.0-12.0 6.5 % %] (01/29/16 7:04 AM) Eosinophils [0.0-4.0 2.2 % %] (01/29/16 7:04 AM) Basophils [0.0-1.0 0.5 % %] (01/29/16 7:04 AM) Segs-Bands # 5.3 K/CMM [1.5-8.1 K/CMM] (01/29/16 7:04 AM) Lymphocytes # 2.9 K/CMM [1.0-5.5 K/CMM] (01/29/16 7:04 AM) Monocytes # [0.0-0.8 0.6 K/CMM K/CMM] (01/29/16 7:04 AM) Eosinophils # 0.2 K/CMM [0.0-0.5 K/CMM] (01/29/16 7:04 AM) PT [12.0-14.7 12.7 seconds seconds] (01/29/16 7:04 AM) INR [0.85-1.17] 0.93 (01/29/16 7:04 AM) PTT [22.9-35.8 28.1 seconds seconds] (01/29/16 7:04 AM) Immunizations Given and Recorded Vaccine Date Status Refusal Reason diphtheria/pertussis, acel/tetanus adult 02/28/14 Given diphtheria/pertussis, acel/tetanus adult 09/13/12 Given Hx pneumococcal vaccine 07/15/06 Given pneumococcal 23-valent vaccine 07/24/13 Given Procedures Procedure Date Related Diagnosis Body Site Abdominal hysterectomy Social History Social History Type Response Alcohol Current, Frequency: Daily. Smoking Status Current every day smoker; Type: Cigarettes; Total pack years: 365; Exposure to Tobacco Smoke None; Cigarette Smoking Last 365 Days Yes; Reg Smoking Cessation Counseling Yes1 11 pack/day Assessment and Plan Extracted from: Title: BREAKER UNIT ASSEMBLER of the right SFA 99% Author: Sherif Cardozo MD PHD Date: 01/29/16 stenosis DATE OF PROCEDURE: PROCEDURES PERFORMED: 1. Third order selective angiography of the right lower extremity 2. Angiography of the left lower extremity 3. Directional atherectomy of the mid right SFA 95% ulcerated calcified lesion 4. Successful balloon angioplasty with paclitaxel coated balloon of the mid right SFA 5. Ultrasound-guided access to the left femoral artery INDICATION FOR PROCEDURE: Lifestyle limiting (<25 feet) claudication in bilateral lower extremities OPERATORS: Interventional cardiology attending: Graeme Still Interventional aquatic scientist: Sherif Pagan ACCESS: 6 Taiwanese left femoral artery Pre-Procedure Diagnosis: Lifestyle limiting (<25 feet) claudication in bilateral lower extremities Post-Procedure Diagnosis: Severe peripheral vascular disease as described below including 95% ulcerated calcified lesion in the right mid SFA and 3 subtotal critical stenosis in the proximal left SFA FLUORO TIME: 24.3 minutes RADIATION DOSE: 211.14 mGy TOTAL CONTRAST USED: 125 mls of Visipaque contrast IVFs: 500 cc NS CONCLUSIONS 1. Peripheral vascular disease as described below includin. Successful balloon angioplasty with paclitaxel coated balloon of the RECOMMENDATIONS 1. Aspirin 81 mg daily life-long 2. Clopidogrel 75 mg daily for at least 6 months 3. Aggressive risk factor modification DESCRIPTION OF THE PROCEDURE The risks, benefits and objectives of the procedure were discussed with Ms Kraus in details. Patient provided both verbal and written informed consent to proceed. Conscious sedation was provided with 2 mg of Versed IV and 50 g of fentanyl IV. Lidocaine 1% was used for local anesthesia. Utilizing modified Seldinger technique, 6 Taiwanese sheath was placed into the left femoral artery utilizing a micropuncture kit - under ultrasound guidance. IV heparin was given for anticoagulation. Next a 4 Taiwanese JUSTINE catheter was advanced into the descending aorta, right common iliac artery was engaged and was advanced into the right SFA. Then 4 Taiwanese JUSTINE was advanced into the distal right common femoral artery and angiogram was obtained with runoff to the foot. Next a 6 Taiwanese JUSTINE catheter was exchanged over the wire into the 6 Taiwanese 55 cm long sheath (both note 6 Taiwanese multipurpose catheter was also utilized for additional support in addition to a stiff angled Glidewire due to significant calcifications over the bilateral iliac arteries). Then Hi-Torque was per moderate support 300 cm wire was used to wire 95% ulcerated calcified mid SFA lesion as well as 60% slightly more distal SFA lesion. A wire was passed into the peroneal artery. Then 2.5 x 20 mm cross [id number]-tnym balloon was used to predilate 95% mid SFA lesion then 6 mm Spider FX embolic protection device was passed over the whisper wire into the distal popliteal artery. Then later whisper wire was removed. After this directional atherectomy device (Turbo-hawk) was advanced to the mid SFA lesions and few passes of the Turbo-hawk were performed to treat subtotal calcified mid SFA stenosis and then more distal 60% mid SFA lesion. After this 5.0 x 120 mm drug- coated balloon was used to treat mid SFA disease. Final angiographic images were obtained. There was a reduction of mid SFA stenosis to less than 10%. There was JOHN 3 flow distally through the previously occluded right popliteal and right tibialis posterior arteries. There was no evidence of dissection, perforation, or distal embolization. All catheters and guidewires were removed. At the end of the procedure long left femoral sheath was exchanged into the 6 Taiwanese arrow flex short sheath and left lower extremity arterial angiogram was obtained via the sheath. Then the sheath was sutured in place. It will be removed in the cath laboratory technician holding area once ACT is <160. FINDINGS (pre-intervention): Right Side: There was no significant obstructive lesions in the right common iliac, right common femoral artery however all vessels were significantly calcified. There was up to 95% ulcerated heavily calcified lesion at the mid SFA and there was another one up to 60% stenosis in the mid SFA distal to the first lesion. Right popliteal artery was patent. There was evidence of three-vessel runoff to the foot with up to 70% stenosis in the proximal anterior tibial artery Left Side: There was no significant obstructive lesions in the left common iliac, left common femoral artery however all vessels were significantly calcified. There was diffuse disease with 3 lesions up to 90% stenosis in the left superficial femoral artery Dr. Abdirahman Bedolla was present for the entire procedure and performed critical portions of the procedure.
--- OUTSIDE RECORDS SUMMARY | 2018-01-19 08:33 | XMS REPORT | Summary of Care ---
Author Author [facility] [place] Organization [facility] [place] Address Unknown Phone Unavailable Encounter HQ Karen(FIN) [id number] Date(s): 03/04/17 - 03/04/17 [facility] [place] [address] [place] [address] [phone] Encounter Diagnosis Other intra-abdominal and pelvic swelling, mass and lump (Final) - 03/09/17 Discharge Disposition: Home or Self Care Attending [...]
[2018-01-19] MEDS ORDERED: METHYLPREDNISOLONE SOD SUCC 125 MG/2ML VIAL IV NR (09:00)
[2018-01-19 09:09] LABS: BASOPHILS % 0.3 % (0.0-1.0); EOSINOPHILS # (AUTO) 0.1 (0.0-0.4); EOSINOPHILS % 0.7 % (0.0-6.0); HEMATOCRIT 36.1 % (34.2-44.1); HEMOGLOBIN 12.4 g/dL (12.0-16.0); LYMPHOCYTES # (AUTO) 1.4 (1.0-3.2); LYMPHOCYTES % 11.6 % (18.0-39.1); MEAN CORPUSCULAR HGB CONC 34.3 g/dL (31-35); MONOCYTES # (AUTO) 0.5 (0.2-0.8); MONOCYTES % 4.1 % (4.4-11.3); NEUTROPHILS % 82.8 % (38.7-80.0); PLATELET COUNT 270 x10e3/uL (140-360); RED BLOOD COUNT 3.76 x10e6/uL (3.6-5.1); RED CELL DISTRIBUTION WIDTH 13.2 % (11.7-14.4)
[2018-01-19 09:33] LABS: ALANINE AMINOTRANSFERASE 13 IU/L (0-55); ALBUMIN 3.4 g/dL (3.5-5.0); ALBUMIN/GLOBULIN RATIO 1.1 (0.8-2.0); ALKALINE PHOSPHATASE 72 IU/L (40-150); ANION GAP 14.2 mmol/L (8-16); BLOOD UREA NITROGEN 20 mg/dL (7-26); BUN/CREATININE RATIO 28 (6-25); CALCIUM 9.6 mg/dL (8.4-10.2); CARBON DIOXIDE 29 mmol/L (22-29); CHLORIDE 101 mmol/L (98-107); CREATINE KINASE 37 IU/L (29-168); CREATININE, SERUM 0.72 mg/dL (0.57-1.11); EST GLOMERULAR FILTRATION RATE > 60 ML/MIN (60-); GLUCOSE 148 mg/dL (74-118); POTASSIUM 3.2 mmol/L (3.5-5.1); SODIUM 141 mmol/L (136-145)
[2018-01-19] MEDS: ALBUTEROL/IPRATROPIUM 3 ML NEB NEB SCH ×5 (09:50→21:15)
--- NOTE | 2018-01-19 10:33 | Diagnostic Imaging Report ---
PROCEDURE: Frontal and lateral views of the chest. COMPARISON: Chest radiograph 11/14/16. INDICATIONS: CHRONIC OBSTRUCTIVE PULMONARY DISEASE, SHORTNESS OF BREATH FINDINGS: Lines/tubes: None. Lungs: The lungs are hyperinflated. Chronic interstitial opacities. Mild patchy bibasilar opacities. Pleura: There is no pleural effusion or pneumothorax. Heart and mediastinum: The cardiomediastinal silhouette is unchanged. Atherosclerotic aortic calcifications. Bones: No acute bony abnormality. Healed left sided rib fractures are again noted. IMPRESSION: Emphysematous changes of the lungs with chronic appearing interstitial opacities. Mild patchy bibasilar opacities, which could represent atelectasis or patchy pneumonia in the appropriate clinical context. Follow-up chest radiograph is suggested in 6-8 weeks. Dictated by: PORTIA GUERRA M.D. on 01/19/2018 at 10:42 Electronically approved by: PORTIA GUERRA M.D. on 01/19/2018 at 10:42
[2018-01-19] MEDS ORDERED: AZITHROMYCIN 500MG/NS 250 ML 250 ML IV SCH (11:15)
[2018-01-19] MEDS ORDERED: ASPIRIN 81 MG CHEW TAB PO ONE (11:15)
[2018-01-19] MEDS ORDERED: PROLIA60 MG/1 ML SC (11:17)
[2018-01-19] MEDS: NICOTINE 21 MG/EA PATCH TOP PRN (11:32)
[2018-01-19] MEDS: CEFTRIAXONE SOD 1 GM VIAL IV SCH (11:32)
[2018-01-19] MEDS: OSELTAMIVIR PHOSPHATE 75 MG CAP PO SCH ×2 (14:20→21:58)
[2018-01-19 16:42] LABS: CREATINE KINASE MB 1.8 ng/mL (0-5.0)
[2018-01-19 17:27] VITALS: BP 126/71
[2018-01-19 18:05] VITALS: BP 126/71
[2018-01-19 20:00] VITALS: BP 128/69
--- NOTE | 2018-01-19 20:18 | Consultation ---
DATE OF CONSULTATION: January 19, 2018 PULMONARY CONSULTATION REASON FOR THE CONSULT: Shortness of breath. HISTORY OF PRESENT ILLNESS: Ms. Kraus is a 72-year-old female. She presented with worsening shortness of breath going on for last few days. Patient received flu vaccine this year. She is a smoker. She has been a smoker for 50+ years. She denies any complaints of chest pain, nausea, vomiting. She reports that she was feeling weak, lethargic and short of breath; so, she decided to come to the emergency room. REVIEW OF SYSTEMS GENERAL: Was having fever and lethargy. HEAD: Denies any head trauma. ENT: Denies any earaches, nosebleeds, throat pain. CVS: Denies any chest pain. RESPIRATORY: Shortness of breath. GI: Denies any nausea or vomiting. REST OF THE REVIEW OF SYSTEMS: Negative except as in the HPI. PAST MEDICAL HISTORY 1. Hypertension. 2. Hyperlipidemia. 3. Coronary artery disease. FAMILY AND SOCIAL HISTORY: She is a smoker. She drinks 2 to 3 glasses of wine every day. PHYSICAL EXAMINATION VITAL SIGNS: Temperature 98.9, pulse of 102, blood pressure 126/71, respiratory rate of 18. HEENT: Head atraumatic, normocephalic. NECK: Supple. CHEST: Reduced air entry and occasional wheezing. HEART: S1/S2 audible. ABDOMEN: Soft, nontender, nondistended. EXTREMITIES: No clubbing, cyanosis or edema. NEUROLOGICALLY: Awake and alert. LABS: White count of 12,000; hemoglobin 12.4; platelets 270. CHEMISTRY: Sodium 141, potassium 3.2, chloride 101, BUN 20, creatinine 0.7. AST, ALT normal. CHEST X-RAY: I have reviewed the images. Showing emphysema, large lung volumes and possibility of pneumonia. ASSESSMENT/PLAN: Ms. Kraus is a 72-year-old female. She came in with shortness of breath. Her influenza test is positive. She is a smoker, wheezing. CURRENT PROBLEMS 1. Influenza. 2. Pneumonia. 3. Chronic obstructive pulmonary disease exacerbation. PLAN 1. Continue the patient on IV Rocephin and azithromycin. 2. Nebulizer treatment as ordered. 3. I will continue the patient on Tamiflu. 4. Oxygen as needed. 5. Will closely follow. 6. If the leukocytosis is getting worse, then consider adding staph coverage as the patient can have superimposed staph infection in influenza. 7. Will hold off on the steroids for now. Thank you for this consult. Job#: [id number] EV
[2018-01-20] VITALS (7 sets, daily range): BP systolic 124–141; BP diastolic 61–64
[2018-01-20 00:55] LABS: CREATINE KINASE MB 1.6 ng/mL (0-5.0)
[2018-01-20] MEDS: ALBUTEROL/IPRATROPIUM 3 ML NEB NEB SCH ×5 (01:40→19:15)
[2018-01-20 05:32] LABS: BASOPHILS % 0.1 % (0.0-1.0); HEMATOCRIT 31.1 % (34.2-44.1); HEMOGLOBIN 10.6 g/dL (12.0-16.0); LYMPHOCYTES # (AUTO) 1.8 (1.0-3.2); LYMPHOCYTES % 8.4 % (18.0-39.1); MEAN CORPUSCULAR HEMOGLOBIN 33.1 pg (28-32); MEAN CORPUSCULAR HGB CONC 34.1 g/dL (31-35); MEAN CORPUSCULAR VOLUME 97.2 fL (81-99); MONOCYTES # (AUTO) 0.7 (0.2-0.8); MONOCYTES % 3.6 % (4.4-11.3); NEUTROPHILS # (AUTO) 18.1 (2.1-6.9); NEUTROPHILS % 86.7 % (38.7-80.0); PLATELET COUNT 246 x10e3/uL (140-360); RED CELL DISTRIBUTION WIDTH 13.3 % (11.7-14.4)
[2018-01-20 06:04] LABS: ANION GAP 12.6 mmol/L (8-16); BLOOD UREA NITROGEN 23 mg/dL (7-26); BUN/CREATININE RATIO 33 (6-25); CALCIUM 9.4 mg/dL (8.4-10.2); CARBON DIOXIDE 29 mmol/L (22-29); CHLORIDE 103 mmol/L (98-107); EST GLOMERULAR FILTRATION RATE > 60 ML/MIN (60-); GLUCOSE 183 mg/dL (74-118); POTASSIUM 3.6 mmol/L (3.5-5.1); SODIUM 141 mmol/L (136-145)
[2018-01-20] MEDS: OSELTAMIVIR PHOSPHATE 75 MG CAP PO SCH ×2 (09:50→22:12)
[2018-01-20] MEDS: NICOTINE 21 MG/EA PATCH TOP PRN (10:01)
[2018-01-20] MEDS: CEFTRIAXONE SOD 1 GM VIAL IV SCH (11:42)
[2018-01-20] MEDS: PANTOPRAZOLE SOD 40 MG TABEC PO SCH (16:29)
[2018-01-20] MEDS: METHYLPREDNISOLONE SOD SUCC 40 MG/ML VIAL IV SCH ×2 (16:29→22:12)
[2018-01-20] MEDS: BENZONATATE 100 MG CAP PO PRN (16:29)
[2018-01-20] MEDS: AZITHROMYCIN 250MG/NS 100 ML 100 ML IV SCH (16:29)
[2018-01-20] MEDS ORDERED: NON-FORMULARY MEDICATION ([Nexium] 40 MG) PO SCH (17:00)
[2018-01-20] MEDS ORDERED: ATORVASTATIN 20 MG TAB PO SCH (21:00)
[2018-01-20] MEDS: ATORVASTATIN 40 MG TAB PO SCH (22:12)
--- NOTE | 2018-01-20 23:08 | Diagnostic Imaging Report ---
EXAM: CT CHEST WO INDICATION: COPD COMPARISON: None TECHNIQUE: Multidetector CT scanning of the chest was performed. Coronal and sagittal multiplanar reformations were obtained. Dose modulation, iterative reconstruction, and/or weight based adjustment of the mA/kV was utilized to reduce the radiation dose to as low as reasonably achievable. Routine protocol performed. IV Contrast: None CTDIvol has been reviewed. It is below the limits set by the Radiation Protocol Committee (RPC). FINDINGS: LUNGS AND AIRWAYS: The trachea and bronchi are patent. Moderate bilateral bronchial thickening. Moderate centrilobular emphysema. Bilateral septal thickening. Area of architectural distortion and linear consolidation with calcification in the left posterior upper lung. Mild scarring right upper lung. Mild bronchiectasis and groundglass opacities and scarring in the lingula. Right middle lobe groundglass opacities. Right lower lobe scattered groundglass opacities and tiny centrilobular nodules. Scattered basilar pleural scarring/atelectasis. PLEURA: No effusions or pneumothorax. HEART, MEDIASTINUM, VESSELS: The heart is within normal size limits. Atherosclerotic changes of the thoracic aorta without focal aneurysm. No mediastinal lymphadenopathy. UPPER ABDOMEN: Normal MUSCULOSKELETAL: Nonspecific areas of sclerosis throughout the sternum and several ribs, without aggressive appearance, possibly from old fractures. IMPRESSION: Emphysematous changes with acute versus chronic bronchitis/bronchiolitis. Biapical pleural parenchymal scarring, much larger on the left and with some nodular components. If no priors are available for comparison, follow-up CT of the chest is recommended in 3 months to monitor stability. Signed by: Dr. Latoya Bueno M.D. on 01/20/2018 11:05 PM
[2018-01-21] VITALS: BP 134/63
[2018-01-21 03:30] VITALS: BP 127/65
[2018-01-21] MEDS: ALBUTEROL/IPRATROPIUM 3 ML NEB NEB SCH ×6 (03:30→19:50)
[2018-01-21 05:15] LABS: BASOPHILS % 0.1 % (0.0-1.0); HEMATOCRIT 33.2 % (34.2-44.1); LYMPHOCYTES # (AUTO) 0.9 (1.0-3.2); LYMPHOCYTES % 6.6 % (18.0-39.1); MEAN CORPUSCULAR HEMOGLOBIN 32.5 pg (28-32); MEAN CORPUSCULAR HGB CONC 33.1 g/dL (31-35); MEAN CORPUSCULAR VOLUME 98.2 fL (81-99); MONOCYTES # (AUTO) 0.2 (0.2-0.8); MONOCYTES % 1.3 % (4.4-11.3); NEUTROPHILS # (AUTO) 12.6 (2.1-6.9); PLATELET COUNT 265 x10e3/uL (140-360); RED BLOOD COUNT 3.38 x10e6/uL (3.6-5.1); RED CELL DISTRIBUTION WIDTH 13.4 % (11.7-14.4)
[2018-01-21 05:43] LABS: ANION GAP 13.8 mmol/L (8-16); BLOOD UREA NITROGEN 25 mg/dL (7-26); BUN/CREATININE RATIO 36 (6-25); CALCIUM 9.3 mg/dL (8.4-10.2); CARBON DIOXIDE 29 mmol/L (22-29); CHLORIDE 102 mmol/L (98-107); CREATININE, SERUM 0.69 mg/dL (0.57-1.11); EST GLOMERULAR FILTRATION RATE > 60 ML/MIN (60-); GLUCOSE 165 mg/dL (74-118); POTASSIUM 3.8 mmol/L (3.5-5.1); SODIUM 141 mmol/L (136-145)
[2018-01-21] MEDS: METHYLPREDNISOLONE SOD SUCC 40 MG/ML VIAL IV SCH ×3 (06:09→21:08)
[2018-01-21 08:00] VITALS: BP 141/76
[2018-01-21] MEDS: PANTOPRAZOLE SOD 40 MG TABEC PO SCH ×2 (08:30→16:36)
[2018-01-21] MEDS ORDERED: NON-FORMULARY MEDICATION (Calcium Carb/Vit D3/Minerals (Caltrate Plus Tablet) 1 TAB) PO SCH (09:00)
[2018-01-21] MEDS ORDERED: CHOLECALCIFEROL PO SCH (09:00)
[2018-01-21] MEDS: NICOTINE 21 MG/EA PATCH TOP PRN (09:06)
[2018-01-21] MEDS: BENZONATATE 100 MG CAP PO PRN (09:06)
[2018-01-21] MEDS: CHOLECALCIFEROL 400 UNIT TAB PO SCH (09:06)
[2018-01-21] MEDS: ASPIRIN 81 MG CHEW TAB PO SCH (09:06)
[2018-01-21] MEDS: OSELTAMIVIR PHOSPHATE 75 MG CAP PO SCH ×2 (09:06→21:00)
[2018-01-21] MEDS: OYST-CAL-D 500MG TABLET PO SCH (09:06)
[2018-01-21] MEDS: CLOPIDOGREL BISULFATE 75 MG TAB PO SCH (09:06)
[2018-01-21 12:16] VITALS: BP 137/64
[2018-01-21] MEDS: CEFTRIAXONE SOD 1 GM VIAL IV SCH (12:17)
[2018-01-21] MEDS: AZITHROMYCIN 250MG/NS 100 ML 100 ML IV SCH (16:00)
[2018-01-21 16:38] VITALS: BP 129/65
[2018-01-21 20:00] VITALS: BP 139/64
[2018-01-21] MEDS: ATORVASTATIN 40 MG TAB PO SCH (21:00)
[2018-01-22] VITALS (7 sets, daily range): BP systolic 133–164; BP diastolic 60–76
[2018-01-22] MEDS: ALBUTEROL/IPRATROPIUM 3 ML NEB NEB SCH ×7 (03:05→23:00)
[2018-01-22 05:49] LABS: BASOPHILS % 0.1 % (0.0-1.0); HEMATOCRIT 32.8 % (34.2-44.1); HEMOGLOBIN 11.1 g/dL (12.0-16.0); LYMPHOCYTES # (AUTO) 1.3 (1.0-3.2); LYMPHOCYTES % 9.7 % (18.0-39.1); MEAN CORPUSCULAR HGB CONC 33.8 g/dL (31-35); MEAN CORPUSCULAR VOLUME 97.6 fL (81-99); MONOCYTES # (AUTO) 0.4 (0.2-0.8); MONOCYTES % 2.6 % (4.4-11.3); NEUTROPHILS # (AUTO) 11.8 (2.1-6.9); NEUTROPHILS % 86.1 % (38.7-80.0); PLATELET COUNT 286 x10e3/uL (140-360); RED BLOOD COUNT 3.36 x10e6/uL (3.6-5.1); RED CELL DISTRIBUTION WIDTH 13.2 % (11.7-14.4)
[2018-01-22] MEDS: METHYLPREDNISOLONE SOD SUCC 40 MG/ML VIAL IV SCH ×3 (05:54→22:21)
[2018-01-22 06:27] LABS: ANION GAP 11.7 mmol/L (8-16); BLOOD UREA NITROGEN 25 mg/dL (7-26); BUN/CREATININE RATIO 35 (6-25); CALCIUM 9.2 mg/dL (8.4-10.2); CARBON DIOXIDE 28 mmol/L (22-29); CHLORIDE 105 mmol/L (98-107); CREATININE, SERUM 0.71 mg/dL (0.57-1.11); EST GLOMERULAR FILTRATION RATE > 60 ML/MIN (60-); GLUCOSE 169 mg/dL (74-118); POTASSIUM 3.7 mmol/L (3.5-5.1); SODIUM 141 mmol/L (136-145)
[2018-01-22] MEDS: CLOPIDOGREL BISULFATE 75 MG TAB PO SCH (09:00)
[2018-01-22] MEDS: ASPIRIN 81 MG CHEW TAB PO SCH (09:00)
[2018-01-22] MEDS: OYST-CAL-D 500MG TABLET PO SCH (09:00)
[2018-01-22] MEDS: CHOLECALCIFEROL 400 UNIT TAB PO SCH (09:00)
[2018-01-22] MEDS: PANTOPRAZOLE SOD 40 MG TABEC PO SCH ×2 (09:00→17:55)
[2018-01-22] MEDS: OSELTAMIVIR PHOSPHATE 75 MG CAP PO SCH ×2 (09:00→21:05)
[2018-01-22] MEDS: CEFTRIAXONE SOD 1 GM VIAL IV SCH (12:25)
[2018-01-22] MEDS: AZITHROMYCIN 250MG/NS 100 ML 100 ML IV SCH (14:55)
[2018-01-22] MEDS: NICOTINE 21 MG/EA PATCH TOP PRN (14:55)
[2018-01-22] MEDS: ATORVASTATIN 40 MG TAB PO SCH (21:05)
[2018-01-23] VITALS (7 sets, daily range): BP systolic 127–168; BP diastolic 59–77
[2018-01-23] MEDS: ALBUTEROL/IPRATROPIUM 3 ML NEB NEB SCH ×7 (03:00→23:23)
[2018-01-23] MEDS: METHYLPREDNISOLONE SOD SUCC 40 MG/ML VIAL IV SCH ×2 (05:31→17:00)
[2018-01-23] MEDS: PANTOPRAZOLE SOD 40 MG TABEC PO SCH ×2 (09:34→16:20)
[2018-01-23] MEDS: ASPIRIN 81 MG CHEW TAB PO SCH (09:35)
[2018-01-23] MEDS: CLOPIDOGREL BISULFATE 75 MG TAB PO SCH (09:35)
[2018-01-23] MEDS: CHOLECALCIFEROL 400 UNIT TAB PO SCH (09:35)
[2018-01-23] MEDS: OYST-CAL-D 500MG TABLET PO SCH (09:35)
[2018-01-23] MEDS: OSELTAMIVIR PHOSPHATE 75 MG CAP PO SCH ×2 (09:35→22:15)
[2018-01-23] MEDS: CEFTRIAXONE SOD 1 GM VIAL IV SCH (13:25)
[2018-01-23] MEDS ORDERED: METHYLPREDNISOLONE SOD SUCC 40 MG/ML VIAL IV SCH (14:00)
[2018-01-23] MEDS: AZITHROMYCIN 250MG/NS 100 ML 100 ML IV SCH (16:20)
[2018-01-23] MEDS: ATORVASTATIN 40 MG TAB PO SCH (22:15)
[2018-01-24] VITALS: BP 129/61
[2018-01-24] MEDS: ALBUTEROL/IPRATROPIUM 3 ML NEB NEB SCH ×5 (03:15→20:00)
[2018-01-24 04:00] VITALS: BP 138/66
[2018-01-24 08:59] VITALS: BP 148/71
[2018-01-24] MEDS: CLOPIDOGREL BISULFATE 75 MG TAB PO SCH (09:50)
[2018-01-24] MEDS: ASPIRIN 81 MG CHEW TAB PO SCH (09:50)
[2018-01-24] MEDS: OSELTAMIVIR PHOSPHATE 75 MG CAP PO SCH (09:50)
[2018-01-24] MEDS: OYST-CAL-D 500MG TABLET PO SCH (09:50)
[2018-01-24] MEDS: PANTOPRAZOLE SOD 40 MG TABEC PO SCH ×2 (09:50→16:55)
[2018-01-24] MEDS: CHOLECALCIFEROL 400 UNIT TAB PO SCH (09:50)
[2018-01-24] MEDS: METHYLPREDNISOLONE SOD SUCC 40 MG/ML VIAL IV SCH (09:50)
[2018-01-24] MEDS: CEFTRIAXONE SOD 1 GM VIAL IV SCH (12:25)
[2018-01-24 13:56] VITALS: BP 161/75
[2018-01-24 16:47] VITALS: BP 125/60
[2018-01-24] MEDS: AZITHROMYCIN 250MG/NS 100 ML 100 ML IV SCH (16:55)
[2018-01-24] MEDS: VARENICLINE 1 MG TAB PO SCH (16:55)
[2018-01-24 20:00] VITALS: BP 140/64
[2018-01-24] MEDS: ATORVASTATIN 40 MG TAB PO SCH (21:38)
[2018-01-25] VITALS (7 sets, daily range): BP systolic 110–166; BP diastolic 57–77
[2018-01-25] MEDS: ALBUTEROL/IPRATROPIUM 3 ML NEB NEB SCH ×7 (03:00→23:00)
[2018-01-25] MEDS: VARENICLINE 1 MG TAB PO SCH (08:47)
[2018-01-25] MEDS: PANTOPRAZOLE SOD 40 MG TABEC PO SCH ×2 (08:47→16:57)
[2018-01-25] MEDS: OYST-CAL-D 500MG TABLET PO SCH (08:47)
[2018-01-25] MEDS: ASPIRIN 81 MG CHEW TAB PO SCH (08:47)
[2018-01-25] MEDS: CHOLECALCIFEROL 400 UNIT TAB PO SCH (08:47)
[2018-01-25] MEDS: CLOPIDOGREL BISULFATE 75 MG TAB PO SCH (08:47)
[2018-01-25] MEDS ORDERED: PREDNISONE 20 MG TAB PO SCH (09:00)
[2018-01-25] MEDS: CEFTRIAXONE SOD 1 GM VIAL IV SCH (11:55)
[2018-01-25] MEDS: AZITHROMYCIN 250MG/NS 100 ML 100 ML IV SCH (16:57)
[2018-01-25] MEDS: ATORVASTATIN 40 MG TAB PO SCH (20:41)
[2018-01-26 00:05] VITALS: BP 136/61
[2018-01-26] MEDS: ALBUTEROL/IPRATROPIUM 3 ML NEB NEB SCH ×5 (02:50→20:20)
[2018-01-26 05:19] VITALS: BP 154/72
[2018-01-26 07:47] VITALS: BP 138/63
[2018-01-26 08:15] VITALS: BP 145/68
[2018-01-26] MEDS ORDERED: PREDNISONE 20 MG TAB PO SCH (09:00)
[2018-01-26] MEDS ORDERED: PREDNISONE 10 MG TAB PO SCH (09:00)
[2018-01-26] MEDS: PANTOPRAZOLE SOD 40 MG TABEC PO SCH ×2 (09:34→16:57)
[2018-01-26] MEDS: VARENICLINE 1 MG TAB PO SCH (09:34)
[2018-01-26] MEDS: ASPIRIN 81 MG CHEW TAB PO SCH (09:34)
[2018-01-26] MEDS: OYST-CAL-D 500MG TABLET PO SCH (09:35)
[2018-01-26] MEDS: CHOLECALCIFEROL 400 UNIT TAB PO SCH (09:35)
[2018-01-26] MEDS: CLOPIDOGREL BISULFATE 75 MG TAB PO SCH (09:35)
[2018-01-26 12:00] VITALS: BP 138/63
[2018-01-26] MEDS: AZITHROMYCIN 250MG/NS 100 ML 100 ML IV SCH (16:28)
[2018-01-26 17:31] VITALS: BP 121/53
--- NOTE | 2018-01-26 19:58 | Discharge Summary ---
CARDIOTHORACIC ICU RN: Dr. Stan Sorenson. PRIMARY CARE PHYSICIAN: Dr. Corie Forbes. CARDIOTHORACIC ICU RN: Dr. Stan Sorenson. FINAL DIAGNOSES: 1. Acute exacerbation of chronic obstructive pulmonary disease. 2. Bronchiectasis. 3. Community-acquired pneumonia. 4. Acute bronchitis. 5. Hypoxia. 6. Leukocytosis, resolved. SUMMARY: Patient is a 71-year-old female who came in with hypoxia. Patient was with acute exacerbation of COPD associated with bronchiectasis and community-acquired pneumonia. Patient had a pulmonary nodule on CT scan. The patient declined any further workup on the pulmonary nodule. She is also declining home O2 as well, but her saturation is much improved now with the treatment. The patient is otherwise stable. She will need to have a followup CT scan in approximately 3 months. The patient may need oxygen as an outpatient, but at this time she is declining. At this time, the patient stable and discharged home today. Nebulizer. DuoNeb as needed. Medrol dose elie . Hannah-Tussin AC 5 to 10 mL q.4 as needed for cough. Symbicort 160/4.5 mcg 2 puffs twice a day. Patient instructed to follow up with Dr. Morrison as an outpatient. The patient will follow up with Dr. Forbes in approximately 1 to 2 weeks. The patient is otherwise stable. She is discharged home today. Job#: [id number]
== END 2018-01-26 21:10 | disposition home health service (06) | DRG 193 ==
LOC: ER 08:27 → ERHOLD 11:06 → IMCU 17:32 → OBSVTOIN 01-20 15:27 → MED/SURG2 01-22 18:48
PROVIDERS: ADMIT Internal Medicine; ATTEND Internal Medicine
DX: J10.00 Influenza due to other identified influenza virus with unspecified type of pneumonia (principal); J96.91 Respiratory failure, unspecified with hypoxia; J47.1 Bronchiectasis with (acute) exacerbation; J44.1 Chronic obstructive pulmonary disease with (acute) exacerbation; J44.0 Chronic obstructive pulmonary disease with (acute) lower respiratory infection; F17.210 Nicotine dependence, cigarettes, uncomplicated; J20.9 Acute bronchitis, unspecified; D72.829 Elevated white blood cell count, unspecified; R91.1 Solitary pulmonary nodule; I10 Essential (primary) hypertension; E78.5 Hyperlipidemia, unspecified; I25.10 Atherosclerotic heart disease of native coronary artery without angina pectoris; M19.90 Unspecified osteoarthritis, unspecified site
CPT/HCPCS: 36415; 71046; 71250; 80048; 80053; 82550; 82553; 83605; 84484; 85025; 87040; 87400; 93005; 94640; 96376; 97139; 99284; G0378; J0456; J0696; J2920; J2930; J7512

== ENCOUNTER 2018-01-28 13:17 | Inpatient (IN) | payer MEDICARE, OTHER ==
[~2018-01-28] VITALS: Ht 157.5 cm; Wt 49.6 kg
[~2018-01-28 13:17] MED LIST changes: +PROLIA60 MG/1 ML SC
--- OUTSIDE RECORDS SUMMARY | 2018-01-28 13:22 | XMS REPORT | Continuity of Care Document ---
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---ATHEROSCL Active 01/21/2016 [facility] Discharge Diagnosis: Acute hip pain 03/31/2014 04/02/2014 [facility] PAIN Active 03/31/2014 [facility] Discharge Diagnosis: Fall 02/28/2014 03/03/2014 [facility] Discharge Diagnosis: Nasal laceration 02/28/2014 03/03/2014 [facility] FALL Active 02/28/2014 [facility] PELVIC FRACUTRE W/ACETABULAR INVOLVEMENT Active 07/22/2013 [facility] HYPOTENSION Active 09/12/2012 [facility] RIB FX W/ PNEUMOTHORAX, ACUTE ALCOHOL INTOXICATION Active 09/30/2011 [facility] HEAD LACERATION Active 09/30/2011 [facility] 185 Active 09/22/2011 [facility] Accelerated essential hypertension Active Problem 09/16/2012 [facility] COPD - Chronic obstructive pulmonary disease Active Problem 09/16/2012 [facility] Fracture Active Problem 09/16/2012 [facility] Pneumothorax Active Problem 09/16/2012 [facility] Atherosclerosis Active Problem 04/02/2014 [facility] Fracture Active Problem 04/02/2014 [facility] Atherosclerosis Active Problem 09/16/2012 [facility] Degenerative disc disease Active Problem 09/16/2012 [facility] History of - psoriasis Active Problem 09/16/2012 [facility] Hypertension Resolved Problem 09/16/2012 [facility] Low back pain Active Problem 09/16/2012 [facility] TIA Active Problem 09/16/2012 [facility] Accelerated essential hypertension Active Problem 06/10/2017 [facility], [facility] [place] Arthritis Resolved Problem 06/10/2017 [facility] [place],[facility] COPD Resolved Problem 06/10/2017 [facility] [place] COPD - Chronic obstructive pulmonary disease Active Problem 06/10/2017 [facility] [place] Degenerative disc disease Active Problem 06/10/2017 [facility] [place] Dizziness Resolved Problem 06/10/2017 [facility] [place] Femur fracture<sup>1</sup> Resolved Problem 06/10/2017 rt 5years ago [facility] [place] History of - psoriasis Active Problem 06/10/2017 [facility] [place] Hypertension Resolved Problem 06/10/2017 [facility] [place] Low back pain Active Problem 06/10/2017 [facility] [place] Petit mal Resolved Problem 06/10/2017 [facility] [place] [facility]neum[facility]orax [facility] [place] [facility] Problem 06/10/2017 [facility] [place] Accelerated essential hypertension Active Problem 02/08/2016 [facility] COPD Resolved Problem 02/08/2016 [facility] COPD - Chronic obstructive pulmonary disease Active Problem 02/08/2016 [facility] Degenerative disc disease Active Problem 02/08/2016 [facility] Dizziness Resolved Problem 02/08/2016 [facility] Femur fracture<sup>1</sup> Resolved Problem 02/08/2016 rt 5years ago [facility] History of - psoriasis Active Problem 02/08/2016 [facility] Hypertension Resolved Problem 02/08/2016 [facility] Low back pain Active Problem 02/08/2016 [facility] Petit mal Resolved Problem 02/08/2016 [facility] Pneumothorax Active Problem 02/08/2016 [facility] TIA Active Problem 02/08/2016 [facility] FX EIGHT/MORE RIB-CLOSED Active [facility] NONE Active [facility] HYPOTENSION NEC Active [facility] PELVIC FRACTURE NEC-CLOS Active [facility] Medications Medication Details Route Status Patient Instructions Ordering Provider Order Date Source Folic Acid 0.8 mg, 2 tab, Route: PO, Drug form: TAB, Daily, Dosing Weight 48.636, kg, Start date: 02/06/16 9:00:00 [employer], Duration: 30 day, Stop date: 03/06/16 9:00:00 [employer] Inactive 02/06/2016 [facility] Esomeprazole 40 mg, 1 cap, Route: PO, Drug form: ECCAP, Daily, Dosing Weight 48.636, kg, Start date: 02/06/16 9:00:00 [employer], Duration: 30 day, Stop date: 03/06/16 9:00:00 CSTNotes: (Same as: NexIUM) "Do Not Crush" Non-Formulary Inactive 02/06/2016 [facility] Vitamin B 12 2,000 microgram, 2 tab, Route: PO, Drug form: TAB, Daily, Dosing Weight 48.636, kg, Start date: 02/06/16 9:00:00 [employer], Duration: 30 day, Stop date: 03/06/16 9:00:00 CSTNotes: (Same As: Vitamin B-12) Inactive 02/06/2016 [facility] Plavix 75 mg, 1 tab, Route: PO, Drug form: TAB, Daily, Dosing Weight 48.636, kg, Start date: 02/06/16 9:00:00 [employer]EST [employer] OFF[employer]ER, Duration: 30 day, Stop date: 03/06/16 9:00:00 CSTNotes: (Same As: Plavix) Inactive 02/06/2016 [facility] Aspirin 81 mg, 1 tab, Route: PO, Drug form: ECTAB, Daily, Dosing Weight 48.636, kg, Start date: 02/06/16 9:00:00 [employer] OFF[employer]ER, Duration: 30 day, Stop date: 03/06/16 9:00:00 CSTNotes: Do not crush or chew. (Same As: Ecotrin) Inactive 02/06/2016 [facility] atorvastatin 40 mg, 1 tab, Route: PO, Drug form: TAB, Bedtime, Dosing Weight 48.636, kg, Start date: 02/05/16 21:00:00 [employer] OFF[employer]ER, Duration: 30 day, Stop date: 03/05/16 21:00:00 CSTNotes: (Same as: Lipitor) No Longer Active 02/06/2016 [facility] Saline Flush 0.9% 10 ml, Route: IVP, Drug Form: INJ, Dosing Weight 48.636, kg, Q12H, Start date: 02/05/16 21:00:00 [employer] OFF[employer]ER, Duration: 30 day, Stop date: 03/06/16 9:00:00 CSTNotes: (Same as: BD Posiflush) No Longer Active 02/06/2016 [facility] Saline Flush 0.9% 10 ml, Route: IVP, Drug Form: INJ, Dosing Weight 48.636, kg, PRN, PRN Line Flush, Start date: 02/05/16 14:05:00 [employer] OFF[employer]ER, Duration: 30 day, Stop date: 03/06/16 14:04:00 CSTNotes: (Same as: BD Posiflush) No Longer Active 02/05/2016 [facility] Nitroglycerin 0.4 mg, 1 tab, Route: SL, Drug form: TAB, Q5Min, Dosing Weight 48.636, kg, PRN Chest Pain, Start date: 02/05/16 14:05:00 [employer] OFF[employer], Duration: 3 doses or times, Stop date: Limited # of timesNotes: (Same as: Nitroquick, Nitrostat) "Do Not Crush" Sublingual tablet No Longer Active 02/05/2016 [facility] Acetaminophen 325 MG / Hydrocodone Bitartrate 5 MG Oral Tablet 1 tab, Route: PO, Drug Form: TAB, Dosing Weight 48.636, kg, Q4H, PRN Pain Score 4-6, Start date: 02/05/16 14:05:00 [employer]EST [employer] OFF[employer]ER, Duration: 30 day, Stop date: 03/06/16 14:04:00 CSTNotes: (Same as: [place] 325/5) Do not exceed 4gm/day of acetaminophen. No Longer Active 02/05/2016 [facility] Morphine 2 mg, 1 mL, Route: IVP, Drug form: INJ, Q2H, Dosing Weight 48.636, kg, PRN Pain Score 4-6, Start date: 02/05/16 14:05:00 [employer] OFF[employer], Duration: 30 day, Stop date: 03/06/16 14:04:00 CSTNotes: (Same as:MORPhine Sulfate) No Longer Active 02/05/2016 [facility] Sodium Chloride 0.154 MEQ/ML Injectable Solution 250 mL, Infuse Over: 1 hr, Route: IV, ONCALL, Priority: Routine, Dosing Weight 48.636 kg, Start date: 02/05/16 9:00:00 [employer] OFF[employer]ER, Duration: 1 doses or times Inactive 02/05/2016 [facility] Sodium Chloride 0.154 MEQ/ML Injectable Solution 750 mL, Rate: 75 ml/hr, Infuse over: 10 hr, Route: IV, Dosing Weight 48.636 kg, Total Volume: 750, Start date: 02/05/16 8:39:00 [employer] OFF[employer], Duration: 24 hr, Stop date: 02/06/16 8:38:00 [employer] OFF[employer]ER No Longer Active 02/05/2016 [facility] Prednisone 2.5 mg, 1 tab, Route: PO, Drug form: TAB, Daily, Dosing Weight 46.818, kg, Start date: 01/30/16 9:00:00 [employer] OFF[employer]ER, Duration: 30 day, Stop date: 02/28/16 9:00:00 CSTNotes: Take with food. Inactive 01/30/2016 [facility] Vitamin B 12 2,000 microgram, 2 tab, Route: PO, Drug form: TAB, Daily, Dosing Weight 46.818, kg, Start date: 01/30/16 9:00:00 [employer] OFF[employer]ER, Duration: 30 day, Stop date: 02/28/16 9:00:00 CSTNotes: (Same As: Vitamin B-12) Inactive 01/30/2016 [facility] Folic Acid 0.8 mg, 2 tab, Route: PO, Drug form: TAB, Daily, Dosing Weight 46.818, kg, Start date: 01/30/16 9:00:00 [employer] OFF[employer]ER, Duration: 30 day, Stop date: 02/28/16 9:00:00 [employer] OFF[employer]ER Inactive 01/30/2016 [facility] Esomeprazole 40 mg, Route: PO, Drug form: ECCAP, Daily, Dosing Weight 46.818, kg, Start date: 01/30/16 9:00:00 [employer] OFF[employer]ER, Duration: 30 day, Stop date: 02/28/16 9:00:00 [employer]EST [employer] OFF[employer]ER No Longer Active 01/30/2016 [facility] Plavix 75 mg, 1 tab, Route: PO, Drug form: TAB, Daily, Dosing Weight 46.818, kg, Start date: 01/30/16 9:00:00 [employer] OFF[employer]ER, Duration: 30 day, Stop date: 02/28/16 9:00:00 CSTNotes: (Same As: Plavix) Inactive 01/30/2016 [facility] Aspirin 81 mg, 1 tab, Route: PO, Drug form: CHEWTAB, Daily, Dosing Weight 46.818, kg, Start date: 01/30/16 9:00:00 [employer]EST [employer] OFF[employer]ER, Duration: 30 day, Stop date: 02/28/16 9:00:00 CSTNotes: Take with food. Inactive 01/30/2016 [facility] atorvastatin 40 mg, 1 tab, Route: PO, Drug form: TAB, Bedtime, Dosing Weight 46.818, kg, Start date: 01/29/16 21:00:00 [employer] OFF[employer]ER, Duration: 30 day, Stop date: 02/27/16 21:00:00 CSTNotes: (Same as: Lipitor) No Longer Active 01/30/2016 [facility] Docusate Sodium 100 MG Oral Capsule 100 mg, 1 cap, Route: PO, Drug form: CAP, Q12H, Dosing Weight 46.818, kg, Start date: 01/29/16 21:00:00 [employer] OFF[employer]ER, Duration: 30 day, Stop date: 02/28/16 9:00:00 CSTNotes: (Same as: Colace) (Do Not Crush) No Longer Active 01/30/2016 [facility] Protonix 40 mg, 1 tab, Route: PO, Drug form: ECTAB, Before Dinner, Start date: 01/29/16 16:30:00 [employer] OFF[employer]ER, Duration: 30 day, Stop date: 02/27/16 16:30:00 CSTNotes: Tablet should not be chewed or crushed. (Same as: Protonix) No Longer Active 01/29/2016 [facility] Nitroglycerin 0.4 mg, 1 tab, Route: SL, Drug form: TAB, Q5Min, Dosing Weight 46.818, kg, PRN Chest Pain, Start date: 01/29/16 10:49:00 [employer] OFF[employer]ER, Duration: 3 doses or times, Stop date: 01/29/16 17:00:00 CSTNotes: (Same as:Nitroquick, Nitrostat) "Do Not Crush" Sublingual tablet Inactive 01/29/2016 [facility] Ondansetron 4 mg, 1 tab, Route: PO, Drug form: TAB, Q8H, Dosing Weight 46.818, kg, PRN Nausea & Vomiting, Start date: 01/29/16 10:49:00 [employer]EST [employer] OFF[employer]ER, Duration: 30 day, Stop date: 02/28/16 10:48:00 CSTNotes: (Same as: Zofran) No Longer Active 01/29/2016 [facility] Sodium Chloride 0.154 MEQ/ML Injectable Solution 750 mL, Rate: 75 ml/hr, Infuse over: 10 hr, Route: IV, Dosing Weight 46.818 kg, Total Volume: 750, Start date: 01/29/16 10:49:00 [employer]EST [employer] OFF[employer]ER, Duration: 10 hr, Stop date: 01/29/16 20:48:00 [employer]EST [employer] OFF[employer]ER Inactive 01/29/2016 [facility] Esomeprazole 40 MG Enteric Coated Capsule 40 mg=1 cap, PO, Daily, # 90 cap, 0 Refill(s) Active 01/29/2016 [facility] clopidogrel 75 MG Oral Tablet [Plavix] 75 mg=1 tab, PO, Daily, # 90 tab, 0 Refill(s) Active 01/29/2016 [facility] predniSONE 2.5 mg oral tablet 2.5 mg=1 tab, PO, Daily, # 10 tab, 0 Refill(s) Active 01/29/2016 [facility] gabapentin 100 MG Oral Capsule 100 mg=1 cap, PO, PRN, 0 Refill(s) Active 01/29/2016 [facility] 1 ML denosumab 60 MG/ML Prefilled Syringe [Prolia] 60 mg=1 mL, SUB-Q, ONCE, Repeat every 6 months, # 1 mL, 0 Refill(s) Active 01/29/2016 [facility] atorvastatin 40 mg oral tablet 40 mg=1 tab, PO, Bedtime, # 90 tab, 1 Refill(s) Active 01/29/2016 [facility] sodium chloride 0.9% 1000 ml INJ 1,000 mL 1,000 mL, Rate: 75 ml/hr, Infuse over: 13.3 hr, Route: IV, Dosing Weight 46.818 kg, Total Volume: 1,000, Start date: 01/29/16 6:44:00 [employer]EST [employer] OFF[employer]ER, Duration: 30 day, Stop date: 02/28/16 6:43:00 [employer]EST [employer] OFFICER No Longer Active 01/29/2016 [facility] Tramadol 50 mg, 1 tab, Route: PO, Drug form: TAB, ONCE, Dosing Weight 40.909, kg, > 50 kg, Priority: STAT, Start date: 03/31/14 21:50:00, Stop date: 03/31/14 21:50:00Notes: Not to exceed 400mg/day. (Same As: Ultram) Inactive 04/01/2014 [facility] tramadol hydrochloride 50 MG Oral Tablet 50 mg=1 tab, PO, Q4H, as needed for pain, # 24 tab, 0 Refill(s) Active 04/01/2014 [facility] Acetaminophen 325 MG / Hydrocodone Bitartrate 10 MG Oral Tablet [[place] 10/325] 1 tab, Route: PO, Drug Form: TAB, Dosing Weight 40.909, kg, ONCE, STAT, Start date: 03/31/14 20:30:00, Stop date: 03/31/14 20:30:00 Inactive 04/01/2014 [facility] Tylenol 650 mg, 2 tab, Route: PO, Drug form: TAB, ONCE, Dosing Weight 50, kg, Priority: STAT, Start date: 02/28/14 22:39:00, Stop date: 02/28/14 22:39:00Notes: Do not exceed 4 gm/day. (Same as: Tylenol) Inactive 03/01/2014 [facility] thiamine 100 mg oral tablet 100 mg=1 tab, PO, Daily, # 7 tab, 0 Refill(s) Active 07/27/2013 [facility] Vitamin D 50,000 intl units oral capsule 50,000 IntlUnit=1 cap, PO, qWeek, # 8 cap, 0 Refill(s) Active 07/27/2013 [facility] Calcium Carbonate 1250 MG / Cholecalciferol 400 UNT Chewable Tablet 1 tab, CHEW, BID, # 60 tab, 0 Refill(s) Active 07/27/2013 [facility] benzonatate 100 mg oral capsule 100 mg=1 cap, PO, TID, Cough, # 15 cap, 0 Refill(s) Active 07/27/2013 [facility] atorvastatin 20 mg oral tablet 20 mg=1 tab, PO, Bedtime, # 30 tab, 0 Refill(s) Active 07/27/2013 [facility] Albuterol 0.833 MG/ML / Ipratropium [place] 0.167 MG/ML Inhalant Solution [DuoNeb] 3 mL, INHALATION, PRN, Respiratory Protocol, # 90 mL, 0 Refill(s) Active 07/27/2013 [facility] Acetaminophen 325 MG / Hydrocodone Bitartrate 5 MG Oral Tablet 1 tab, PO, Q4H, Pain Score 1-3, # 24 tab, 0 Refill(s) Active 07/27/2013 [facility] Acetaminophen 325 MG / Hydrocodone Bitartrate 10 MG Oral Tablet 1 tab, PO, Q4H, Pain Score 4-6, # 24 tab, 0 Refill(s) Active 07/27/2013 [facility] Vitamin D 50,000 IntlUnit, 1 cap, Route: PO, Drug form: CAP, QThu, Dosing Weight 39.545, kg, Start date: 07/27/13 8:00:00, Duration: 30 day, Stop date: 08/23/13 9:00:00Notes: (Same as: Vitamin D) "Do Not Crush" Inactive 07/27/2013 [facility] molasses 240 mL, Route: NJ, Drug Form: SYRP, Dosing Weight 39.545, kg, ONCE, Milk of Molasses Enema, Start date: 07/26/13 15:15:00, Duration: 1 doses or times, Stop date: 07/26/13 15:15:00Notes: (Same as:Mola sses) Inactive 07/26/2013 [facility] Vitamin D 50,000 IntlUnit, 1 cap, Route: PO, Drug form: CAP, Daily, Dosing Weight 39.545, kg, Start date: 07/26/13 9:00:00, Duration: 30 day, Stop date: 08/24/13 9:00:00Notes: (Same as: Vitamin D) "Do Not Crush" No Longer Active 07/26/2013 [facility] sennosides, [facility] 8.6 mg, 1 tab, Route: PO, Drug Form: TAB, Dosing Weight 39.545, kg, BID, Start date: 07/26/13 9:00:00, Duration: 30 day, Stop date: 08/24/13 17:00:00Notes: (Same as: Senokot) No Longer Active 07/26/2013 [facility] Glycerin 1610 MG Rectal Suppository 1 supp, Route: NJ, Drug Form: SUPP, Dosing Weight 39.545, kg, Daily, PRN Constipation, Start date: 07/26/13 4:52:00, Duration: 30 day, Stop date: 08/25/13 4:51:00 No Longer Active 07/26/2013 [facility] Metoclopramide 5 MG Oral Tablet [Reglan] 5 mg, 1 tab, Route: PO, Drug form: TAB, ONCE, Dosing Weight 39.545, kg, Start date: 07/26/13 4:52:00, Stop date: 07/26/13 4:52:00Notes: (Same as: Reglan) Take 30 min before meals Inactive 07/26/2013 [facility] Lactulose 667 MG/ML Oral Solution 10 gm, 15 mL, Route: PO, Drug Form: SYRP, Dosing Weight 39.545, kg, Daily, Start date: 07/25/13 16:34:00, Duration: 30 day, Stop date: 08/24/13 9:00:00Notes: (Same as:Chronulac) No Longer Active 07/25/2013 [facility] Tessalon Perles 100 mg, 1 cap, Route: PO, Drug form: CAP, TID, Dosing Weight 39.545, kg, PRN Cough, Start date: 07/25/13 14:52:00, Duration: 30 day, Stop date: 08/24/13 14:51:00Notes: (Same As: Tessalon Perles) "Do Not Crush" No Longer Active 07/25/2013 [facility] Calcium Carbonate 1250 MG / Cholecalciferol 400 UNT Chewable Tablet 1 tab, Route: CHEW, Drug Form: CHEWTAB, Dosing Weight 39.545, kg, BID, NOW, Start date: 07/24/13 9:28:00, Duration: 30 day, Stop date: 08/23/13 9:00:00Notes: (calcium carbonate-vit D 500mg-400unit chew TAB) Same as: Oscal 500+D No Longer Active 07/24/2013 [facility] Magnesium Sulfate 2 gm, 50 mL, Route: IVPB, Drug form: INJ, Q2H, Dosing Weight 39.545, kg, Total dose=6 gm, Start date: 07/24/13 8:00:00, Duration: 3 doses or times, Stop date: 07/24/13 12:00:00 Inactive 07/24/2013 [facility] Lipitor 20 mg, 1 tab, Route: PO, Drug form: TAB, Bedtime, Dosing Weight 39.545, kg, Start date: 07/23/13 21:00:00, Duration: 30 day, Stop date: 08/21/13 21:00:00Notes: (Same As: Lipitor) No Longer Active 07/24/2013 [facility] Thiamine 100 mg, 1 tab, Route: PO, Drug form: TAB, Daily, Dosing Weight 39.545, kg, Start date: 07/23/13 9:00:00, Duration: 30 day, Stop date: 08/21/13 9:00:00Notes: (Same As: Vitamin B1) No Longer Active 07/23/2013 [facility] Folic Acid 1 mg, 1 tab, Route: PO, Drug form: TAB, Daily, Dosing Weight 39.545, kg, Start date: 07/23/13 9:00:00, Duration: 30 day, Stop date: 08/21/13 9:00:00Notes: (Same as: Folvite) No Longer Active 07/23/2013 [facility] Ascorbic Acid / Biotin / Folic Acid / Niacin / pantothenate / pyridoxine / Riboflavin / Thiamine / Vitamin B 12 1 tab, Route: PO, Drug Form: TAB, Dosing Weight 39.545, kg, Daily, Start date: 07/23/13 9:00:00, Duration: 30 day, Stop date: 08/21/13 9:00:00Notes: (Same as:Thera) Take with food. No Longer Active 07/23/2013 [facility] pneumococcal capsular polysaccharide type 1 vaccine / pneumococcal capsular polysaccharide type 10A vaccine / pneumococcal capsular polysaccharide type 11A vaccine / pneumococcal capsular polysaccharide type 12F vaccine / pneumococcal capsular polysacchar 0.5 ml, Route: IM, Drug Form: INJ, Daily, Start date: 07/23/13 9:00:00, Duration: 1 doses or times, Stop date: 07/23/13 9:00:00Notes: (Same as: Pneumovax 23) Refrigerate Inactive 07/23/2013 [facility] Prednisone 5 mg, 1 tab, Route: PO, Drug form: TAB, Daily, Dosing Weight 39.545, kg, Start date: 07/23/13 9:00:00, Duration: 30 day, Stop date: 08/21/13 9:00:00Notes: Take with food. No Longer Active 07/23/2013 [facility] Vitamin B 12 2,000 microgram, 2 tab, Route: PO, Drug form: TAB, Daily, Dosing Weight 39.545, kg, Start date: 07/23/13 9:00:00, Duration: 30 day, Stop date: 08/21/13 9:00:00Notes: (Same As: Vitamin B-12) No Longer Active 07/23/2013 [facility] Aspirin / Calcium Carbonate 81 mg, 1 tab, Route: PO, Drug form: CHEWTAB, Daily, Dosing Weight 39.545, kg, Start date: 07/23/13 9:00:00, Duration: 30 day, Stop date: 08/21/13 9:00:00Notes: Take with food. No Longer Active 07/23/2013 [facility] Sodium Chloride 0.154 MEQ/ML Injectable Solution 1,000 mL, Rate: 100 ml/hr, Infuse over: 10.1 hr, Route: IV, Dosing Weight 39.545 kg, Total Volume: 1,011.2, Start date: 07/22/13 23:33:00, Duration: 10 hr, Stop date: 07/23/13 9:32:00 No Longer Active 07/23/2013 [facility] Enoxaparin 40 mg, 0.4 mL, Route: SUB-Q, Drug form: INJ, [id number], Dosing Weight 39.545, kg, Start date: 07/22/13 23:00:00, Duration: 30 day, Stop date: 08/20/13 23:00:00Notes: (Same as: Lovenox) No Longer Active 07/23/2013 [facility] Albuterol 0.833 MG/ML / Ipratropium [place] 0.167 MG/ML Inhalant Solution [DuoNeb] 3 ml, Route: INHALATION, Drug Form: SOLN, Dosing Weight 39.545, kg, PRN, PRN Respiratory Protocol, Start date: 07/22/13 22:52:00, Duration: 30 day, Stop date: 08/21/13 22:51:00Notes: (Same as: Duoneb) No Longer Active 07/23/2013 [facility] Acetaminophen 325 MG / Hydrocodone Bitartrate 10 MG Oral Tablet 1 tab, Route: PO, Drug Form: TAB, Dosing Weight 39.545, kg, Q4H, PRN Pain Score 4-6, Start date: 07/22/13 22:46:00, Duration: 30 day, Stop date: 08/21/13 22:45:00Notes: Do not exceed 4gm/day of acetaminophen. (Same as: [place] 325/10) No Longer Active 07/23/2013 [facility] Ondansetron 4 mg, 2 mL, Route: IVP, Drug form: INJ, Q8H, Dosing Weight 39.545, kg, PRN Nausea & Vomiting, Start date: 07/22/13 22:46:00, Duration: 30 day, Stop date: 08/21/13 22:45:00Notes: (Same as: Zofran) No Longer Active 07/23/2013 [facility] Morphine 2 mg, 1 mL, Route: IVP, Drug form: INJ, Q3H, Dosing Weight 39.545, kg, PRN Pain, Start date: 07/22/13 22:46:00, Duration: 30 day, Stop date: 08/21/13 22:45:00, pain 7-10Notes: (Same as:MORPhine Sulfate) No Longer Active 07/23/2013 [facility] Acetaminophen 650 mg, 20.3 mL, Route: PO, Drug form: LIQ, Q4H, Dosing Weight 39.545, kg, PRN Fever, Start date: 07/22/13 22:46:00, Duration: 30 day, Stop date: 08/21/13 22:45:00Notes: Max [id number]/day (4 gm/day). (Same as: Tylenol) No Longer Active 07/23/2013 [facility] Acetaminophen 325 MG / Hydrocodone Bitartrate 5 MG Oral Tablet 1 tab, Route: PO, Drug Form: TAB, Dosing Weight 39.545, kg, Q4H, PRN Pain Score 1-3, Start date: 07/22/13 22:46:00, Duration: 30 day, Stop date: 08/21/13 22:45:00Notes: (Same as: [place] 325/5) Do not exceed 4gm/day of acetaminophen. No Longer Active 07/23/2013 [facility] Zofran 4 mg, 2 mL, Route: IVP, Drug form: INJ, ONCE, Dosing Weight 36.364, kg, Priority: STAT, Start date: 07/22/13 19:39:00, Stop date: 07/22/13 19:39:00Notes: (Same as: Zofran) Inactive 07/23/2013 [facility] Morphine 4 mg, 1 mL, Route: IVP, Drug form: INJ, ONCE, Dosing Weight 36.364, kg, Priority: STAT, Start date: 07/22/13 19:39:00, Stop date: 07/22/13 19:39:00Notes: (Same as:MORPhine Sulfate) Inactive 07/23/2013 [facility] Iohexol 86 mL, Route: IVP, Drug Form: SOLN, Dosing Weight 36.364, kg, ONCALL, STAT, Start date: 07/22/13 19:09:00, Duration: 1 doses or times, Dose=2.2ml/kg, Max [id number] -- "To be infused by Radiology Staff ONLY"Special Instructions: Dose=2.2ml/kg, Max [id number]=[id number] -- "To be infused by Radiology Staff ONLY" Inactive 07/23/2013 [facility] Zofran 4 mg, Route: IVP, Drug form: INJ, ONCE, Dosing Weight 39.545, kg, Priority: STAT, Start date: 07/22/13 15:26:00, Stop date: 07/22/13 15:26:00 Inactive 07/22/2013 [facility] Morphine 4 mg, Route: IVP, Drug form: INJ, ONCE, Dosing Weight 39.545, kg, Priority: STAT, Start date: 07/22/13 15:25:00, Stop date: 07/22/13 15:25:00 Inactive 07/22/2013 [facility] Saline Flush 0.9% 5 mL, Route: IVP, Drug Form: INJ, Dosing Weight 39.545, kg, Q8H, PRN Line Flush, Start date: 07/22/13 9:55:00, Duration: 30 day, Stop date: 08/21/13 9:54:00, Administer at least once every 8 hoursSpe cial Instructions: Administer at least once every 8 hoursNotes: (Same as: BD Posiflush) Inactive 07/22/2013 [facility] Zofran 4 mg, 2 mL, Route: IVP, Drug form: INJ, ONCE, Dosing Weight 39.545, kg, Priority: STAT, Start date: 07/22/13 8:55:00, Stop date: 07/22/13 8:55:00Notes: (Same as: Zofran) Inactive 07/22/2013 [facility] Morphine 4 mg, 2 mL, Route: IVP, Drug form: INJ, ONCE, Dosing Weight 39.545, kg, Priority: STAT, Start date: 07/22/13 8:55:00, Stop date: 07/22/13 8:55:00Notes: (Same as:MORPhine Sulfate) Inactive 07/22/2013 [facility] thiamine 100 mg oral tablet 100 mg, 1 tab, PO, Daily, 30 tab, Substitution Allowed, TAB PO Active [facility] 09/14/2012 [facility] potassium chloride 40 mEq, 30 mL, Route: PO, Drug form: LIQ, ONCE, Dosing Weight 42.1, kg, Start date: 09/14/12 12:29:00, Stop date: 09/14/12 12:29:00 PO No Longer Active [facility] 09/14/2012 [facility] metoprolol extended release 25 mg, 1 tab, Route: PO, Drug form: ERTAB, Daily, Start date: 09/14/12 9:00:00, Duration: 30 day, Stop date: 10/13/12 9:00:00 PO No Longer Active [facility] 09/14/2012 [facility] nitroglycerin 0.4 mg sublingual tablet 0.4 mg, 1 tab, Route: SL, Drug form: TAB, Q5Min, PRN Chest Pain, Start date: 09/13/12 20:06:00, Duration: 30 day, Stop date: 10/13/12 20:05:00 SL No Longer Active [facility] 09/14/2012 [facility] atropine 0.5 mg, 5 mL, Route: IVP, Drug form: INJ, PRN, PRN Bradycardia, Start date: 09/13/12 20:06:00, Duration: 30 day, Stop date: 10/13/12 20:05:00 IVP No Longer Active [facility] 09/14/2012 [facility] cyanocobalamin 2,000 microgram, 4 tab, Route: PO, Drug form: TAB, QPM, Dosing Weight 42.1, kg, Start date: 09/13/12 17:00:00, Duration: 30 day, Stop date: 10/12/12 17:00:00 PO No Longer Active [facility] 09/13/2012 [facility] aspirin 81 mg, 1 tab, Route: PO, Drug form: CHEWTAB, Dinner, Dosing Weight 42.1, kg, Start date: 09/13/12 17:00:00, Duration: 30 day, Stop date: 10/12/12 17:00:00 PO No Longer Active [facility] 09/13/2012 [facility] enoxaparin 40 mg, 0.4 mL, Route: SUB-Q, Drug form: INJ, [id number], Dosing Weight 42.1, kg, Start date: 09/13/12 13:00:00, Duration: 30 day, Stop date: 10/12/12 13:00:00 SUB-Q No Longer Active [facility] 09/13/2012 [facility] predniSONE 5 mg, 1 tab, Route: PO, Drug form: TAB, Breakfast, Dosing Weight 42.1, kg, Start date: 09/13/12 13:00:00, Duration: 30 day, Stop date: 10/13/12 8:00:00 PO No Longer Active [facility] 09/13/2012 [facility] multivitamin 1 tab, Route: PO, Drug Form: TAB, Dosing Weight 42.1, kg, Daily, Start date: 09/13/12 13:00:00, Duration: 30 day, Stop date: 10/13/12 9:00:00 PO No Longer Active [facility] 09/13/2012 [facility] thiamine 100 mg, 1 tab, Route: PO, Drug form: TAB, Daily, Dosing Weight 42.1, kg, Start date: 09/13/12 13:00:00, Duration: 30 day, Stop date: 10/13/12 9:00:00 PO No Longer Active [facility] 09/13/2012 [facility] folic acid 1 mg, 1 tab, Route: PO, Drug form: TAB, Daily, Dosing Weight 42.1, kg, Start date: 09/13/12 13:00:00, Duration: 30 day, Stop date: 10/13/12 9:00:00 PO No Longer Active [facility] 09/13/2012 [facility] Tylenol 650 mg, 2 tab, Route: PO, Drug form: TAB, Q6H, Dosing Weight 42.1, kg, PRN Pain, Start date: 09/13/12 12:49:00, Duration: 30 day, Stop date: 10/13/12 12:48:00 PO No Longer Active [facility] 09/13/2012 [facility] [place] 5/325 oral tablet 1 tab, Route: PO, Drug Form: TAB, Dosing Weight 42.1, kg, Q6H, PRN Pain, Start date: 09/13/12 12:49:00, Duration: 30 day, Stop date: 10/13/12 12:48:00 PO No Longer Active [facility] 09/13/2012 [facility] Saline Flush 0.9% 5 ml, Route: IVP, Drug Form: INJ, Dosing Weight 36.364, kg, PRN, PRN Line Flush, Start date: 09/13/12 5:15:00, Duration: 30 day, Stop date: 10/13/12 5:14:00 IVP No Longer Active [place] 09/13/2012 [facility] Dextrose 5% with 0.45% NaCl IV 1,000 mL 1,000 mL, Rate: 125 ml/hr, Infuse over: 8 hr, Route: IV, Dosing Weight 36.364 kg, Total Volume: 1,000, Start date: 09/13/12 5:15:00, Duration: 30 day, Stop date: 10/13/12 5:14:00 IV No Longer Active [place] 09/13/2012 [facility] ondansetron 4 mg, 2 mL, Route: IVP, Drug form: INJ, Q8H, Dosing Weight 36.364, kg, PRN Nausea & Vomiting, Start date: 09/13/12 5:15:00, Duration: 30 day, Stop date: 10/13/12 5:14:00 IVP No Longer Active [place] 09/13/2012 [facility] docusate 100 mg, 1 cap, Route: PO, Drug form: CAP, BID, Dosing Weight 36.364, kg, PRN Constipation, Start date: 09/13/12 5:15:00, Duration: 30 day, Stop date: 10/13/12 5:14:00 PO No Longer Active [place] 09/13/2012 [facility] morphine Sulfate 2 mg, 1 mL, Route: IVP, Drug form: INJ, Q3H, Dosing Weight 36.364, kg, PRN Pain Score 4-6, Start date: 09/13/12 5:15:00, Duration: 30 day, Stop date: 10/13/12 5:14:00 IVP No Longer Active [facility] 09/13/2012 [facility] Sodium Chloride 0.9% (Bolus) IV 1000 mL 1,000 mL, Rate: 1,000 ml/hr, Infuse over: 1 hr, Route: IV, Dosing Weight 36.364 kg, Total Volume: 1,000, Priority: STAT, Start date: 09/13/12 3:41:00, Duration: 1 doses or times, Stop date: 09/13/12 4:40:00, Bolus DoseBolus Dose IV No Longer Active Active [facility] 09/13/2012 [facility] Sodium Chloride 0.9% (Bolus) IV 1000 mL 1,000 mL, Rate: 1,000 ml/hr, Infuse over: 1 hr, Route: IV, Dosing Weight 36.364 kg, Total Volume: 1,000, Priority: STAT, Start date: 09/13/12 0:32:00, Duration: 1 doses or times, Stop date: 09/13/12 1:31:00, Bolus DoseBolus Dose IV No Longer Active [place] 09/13/2012 [facility] ondansetron 4 mg, Route: IVP, ONCE, Dosing Weight 36.364, kg, Priority: STAT, Start date: 09/13/12 0:03:00, Stop date: 09/13/12 0:03:00 IVP No Longer Active [place] 09/13/2012 [facility] Saline Flush 0.9% 5 mL, Route: IVP, Drug Form: INJ, Dosing Weight 36.364, kg, PRN, PRN Line Flush, Start date: 09/13/12 0:03:00, Duration: 30 day, Stop date: 10/13/12 0:02:00 IVP No Longer Active [place] 09/13/2012 [facility] tetanus/diphtheria/pertussis, acel (Tdap) 5 units-2.5 units-18.5 mcg/0.5 mL intramuscular suspensio 0.5 ml, Route: IM, Drug Form: INJ, Dosing Weight 36.364, kg, ONCE, Start date: 09/12/12 22:54:00, Stop date: 09/12/12 22:54:00 IM No Longer Active [place] 09/13/2012 [facility] lidocaine-epi 1%-[id number] 1 ml, Route: SUB-Q, Drug Form: INJ, Dosing Weight 36.364, kg, ONCE, STAT, Start date: 09/12/12 22:54:00, Stop date: 09/12/12 22:54:00 SUB-Q No Longer Active [place] 09/13/2012 [facility] [place] 5/325 oral tablet 1-2 tab, PO, Q4-6H, PRN, 30 tab, Pain, Substitution Allowed, Maintenance PO Active [facility] 10/12/2011 [facility] Lovenox 40 mg, 0.4 mL, Route: SUB-Q, Drug form: INJ, Q24H, kg, Start date: 10/10/11 12:00:00, Duration: 30 day, Stop date: 11/08/11 12:00:00 SUB-Q No Longer Active [facility] 10/10/2011 [facility] Dulcolax Laxative 5 mg, 1 tab, Route: PO, Drug form: ECTAB, Q6H, kg, PRN Constipation, Start date: 10/07/11 10:35:00, Duration: 30 day, Stop date: 11/06/11 10:34:00 PO No Longer Active [facility] 10/07/2011 [facility] Xopenex 0.63 mg, 3 mL, Route: NEB, Drug form: SOLN, RQ4H, PRN Shortness of breath, Priority: Routine, Start date: 10/02/11 14:21:00, Duration: 30 day, Stop date: 11/01/11 14:20:00 NEB No Longer Active [place] 10/02/2011 [facility] Vitamin B1 100 mg, 1 tab, Route: PO, Drug form: TAB, Daily, Start date: 10/02/11 9:00:00, Duration: 30 day, Stop date: 10/31/11 9:00:00 PO No Longer Active [place] 10/02/2011 [facility] predniSONE 5 mg, 1 tab, Route: PO, Drug form: TAB, Daily, Start date: 10/02/11 9:00:00, Duration: 30 day, Stop date: 10/31/11 9:00:00 PO No Longer Active [place] 10/02/2011 [facility] multivitamin 1 tab, Route: PO, Drug Form: TAB, Daily, Start date: 10/02/11 9:00:00, Duration: 30 day, Stop date: 10/31/11 9:00:00 [facility] folic acid 1 mg oral tablet 1 mg, 1 tab, Route: PO, Drug form: TAB, Daily, Start date: 10/02/11 9:00:00, Duration: 30 day, Stop date: 10/31/11 9:00:00 PO No Longer Active [place] 10/02/2011 [facility] predniSONE 5 mg, 1 tab, Route: PO, Drug form: TAB, ONCE, Start date: 10/01/11 18:32:00, Stop date: 10/01/11 18:32:00 PO No Longer Active [facility] 10/01/2011 [facility] Ativan 1 mg, 0.5 mL, Route: IV, Drug form: INJ, Q6H, PRN Agitation, Start date: 10/01/11 18:28:00, Duration: 30 day, Stop date: 10/31/11 18:27:00 IV No Longer Active [place] 10/01/2011 [facility] hydrALAZINE 10 mg, 0.5 mL, Route: IVP, Drug form: INJ, Q6H, PRN Elevated BP, Start date: 10/01/11 18:10:00, Duration: 30 day, Stop date: 10/31/11 18:09:00 IVP No Longer Active [facility] 10/01/2011 [facility] Mucinex 1,200 mg, PO, QID, Substitution Allowed PO Active 10/01/2011 [facility] Vitamin B-12 1000 mcg oral tablet 2,000 microgram, 2 tab, PO, Daily, Substitution Allowed PO Active 10/01/2011 [facility] folic acid 0.8 mg, PO, Daily, Substitution Allowed PO Active 10/01/2011 [facility] aspirin 81 mg, PO, Daily, Substitution Allowed PO Active 10/01/2011 [facility] predniSONE 5 mg oral tablet 5 mg, 1 tab, PO, Daily, Substitution Allowed PO Active [place] 10/01/2011 [facility] metoprolol 25 mg oral tablet 25 mg, PO, Daily, Substitution Allowed PO Active 10/01/2011 [facility] morphine Sulfate 2 mg, 0.2 mL, Route: IVP, Drug form: INJ, Q3H, PRN Pain Score 4-6, Start date: 10/01/11 6:32:00, Stop date: 10/31/11 6:31:00 IVP No Longer Active [facility] 10/01/2011 [facility] ondansetron 4 mg, 2 mL, Route: IVP, Drug form: INJ, Q6H, PRN Nausea & Vomiting, Start date: 10/01/11 6:32:00, Duration: 30 day, Stop date: 10/31/11 6:31:00 IVP No Longer Active [facility] 10/01/2011 [facility] Sodium Chloride 0.9% IV 1,000 mL + folic acid IV 1 mg Daily + thiamine IV 100 mg Daily 1,000 mL, Rate: 100 ml/hr, Infuse over: 10 hr, Route: IV, Dosing Weight 39.091 kg, Total Volume: 1,001.2, Start date: 10/01/11 6:32:00, Duration: 3 day, Stop date: 10/04/11 6:31:00 IV No Longer Active [place] 10/01/2011 [facility] cefazolin + Sodium Chloride 0.9% IV 100 mL 1 gm, Route: IVPB, [id number], Priority: STAT, Start date: 10/01/11 6:32:00, Stop date: 10/30/11 17:00:00 IVPB No Longer Active [facility] 10/01/2011 [facility] morphine Sulfate 2 mg, Route: IVP, ONCE, Start date: 10/01/11 5:55:00, Stop date: 10/01/11 5:55:00 IVP No Longer Active [place] 10/01/2011 [facility] cefazolin 1 gm, Route: IVPB, ONCE, Priority: STAT, Start date: 10/01/11 4:32:00, Stop date: 10/01/11 4:32:00 IVPB No Longer Active [place] 10/01/2011 [facility] lidocaine 1% 1 inj, Route: SUB-Q, ONCE, STAT, Start date: 10/01/11 1:53:00, Stop date: 10/01/11 1:53:00 SUB-Q No Longer Active [place] 10/01/2011 [facility] Sodium Chloride 0.9% (Bolus) IV 500 mL 500 mL, Rate: 500 ml/hr, Infuse over: 1 hr, Route: IV, Dosing Weight 39.091 kg, Total Volume: 500, Bolus Dose, Priority: STAT, Start date: 09/30/11 23:35:00, Duration: 1 doses or times, Stop date: 10/01/11 0:34:00 IV No Longer Active [place] 10/01/2011 [facility] Allergies, Adverse Reactions, Alerts Substance Category Reaction Severity Reaction type Status Date Reported Comments Source Immunizations Immunization Date Given Site Status Last Updated Comments Source diphtheria/pertussis, acel/tetanus adult 03/01/2014 Left deltoid completed [facility] pneumococcal 23-valent vaccine 07/24/2013 [facility] 23-valent [facility] 07/24/2013 [facility] diphtheria/pertussis, acel/tetanus adult 09/13/2012 completed Do [facility] diphtheria/pertussis, acel/tetanus adult 09/13/2012 Left gluteus medius completed Do [facility] ANA Mathias diphtheria/pertussis, acel/tetanus adult 09/13/2012 Left gluteus medius completed Do [facility] Hx pneumococcal vaccine 07/15/2006 completed [facility] Hx pneumococcal vaccine 07/15/2006 Left Arm completed [facility], ANA Mathias Hx pneumococcal vaccine 07/15/2006 Left Arm completed [facility] Results Order Name Results Value Reference Range [...] Activated Clotting Time 213 s 02/05/2016 [facility] HEMATOLOGY POC Activated Clotting Time 253 s 02/05/2016 [facility] HEMATOLOGY POC Activated Clotting Time 325 s 02/05/2016 [facility] BLOOD BANK RESULTS ABO/Rh O POS 02/05/2016 [facility] BLOOD BANK RESULTS Antibody Scrn Negative (02/05/16 6:47 AM) 02/05/2016 [facility] CHEM PANEL Magnesium Lvl 1.7 mg/dL 1.8 - 2.4 02/05/2016 [facility] CHEM PANEL eGFR 83 mL/min/1.73m2 02/05/2016 Result [...] be multiplied by the estimated BMI. [facility] CHEM PANEL CO2 31 meq/L 24 - 32 02/05/2016 [facility] CHEM PANEL Potassium Lvl 3.5 meq/L 3.5 - 5.1 02/05/2016 [facility] CHEM PANEL Calcium Lvl 9.1 mg/dL 8.5 - 10.5 02/05/2016 [facility] CHEM PANEL Chloride Lvl 103 meq/L 95 - 109 02/05/2016 [facility] CHEM PANEL Sodium Lvl 143 meq/L 135 - 145 02/05/2016 [facility] CHEM PANEL Creatinine Lvl 0.73 mg/dL 0.50 - 1.40 02/05/2016 [facility] CHEM PANEL Glucose Lvl 123 mg/dL 70 - 99 02/05/2016 [facility] CHEM PANEL BUN 20 mg/dL 7 - 22 02/05/2016 [facility] CHEM PANEL AGAP 12.5 meq/L 10.0 - 20.0 02/05/2016 [facility] CHEM PANEL Phosphorus 3.7 mg/dL 2.5 - 4.5 02/05/2016 [facility] HEMATOLOGY PTT 30.5 s 22.9 - 35.8 02/05/2016 [facility] HEMATOLOGY PT 13.0 s 12.0 - 14.7 02/05/2016 [facility] HEMATOLOGY INR 0.96 0.85 - 1.17 02/05/2016 [facility] HEMATOLOGY Segs-Bands # 6.1 K/CMM 1.5 - 8.1 02/05/2016 [facility] HEMATOLOGY Basophils 0.8 % 0.0 - 1.0 02/05/2016 [facility] HEMATOLOGY Eosinophils # 0.2 K/CMM 0.0 - 0.5 02/05/2016 [facility] HEMATOLOGY Monocytes # 0.8 K/CMM 0.0 - 0.8 02/05/2016 [facility] HEMATOLOGY Lymphocytes # 2.9 K/CMM 1.0 - 5.5 02/05/2016 [facility] HEMATOLOGY Lymphocytes 29.1 % 20.0 - 40.0 02/05/2016 [facility] HEMATOLOGY Segs 60.6 % 45.0 - 75.0 02/05/2016 [facility] HEMATOLOGY Eosinophils 1.9 % 0.0 - 4.0 02/05/2016 [facility] HEMATOLOGY Monocytes 7.6 % 2.0 - 12.0 02/05/2016 [facility] HEMATOLOGY Basophils # 0.1 K/CMM 0.0 - 0.2 02/05/2016 [facility] HEMATOLOGY MPV 7.8 fL 7.4 - 10.4 02/05/2016 [facility] HEMATOLOGY MCH 33.2 pg 27.0 - 31.0 02/05/2016 [facility] HEMATOLOGY MCHC 34.0 g/dL 32.0 - 36.0 02/05/2016 [facility] HEMATOLOGY Platelet 319 K/CMM 133 - 450 02/05/2016 [facility] HEMATOLOGY RDW 13.2 % 11.5 - 14.5 02/05/2016 [facility] HEMATOLOGY Hct 37.2 % 36.0 - 48.0 02/05/2016 [facility] HEMATOLOGY MCV 97.5 fL 80.0 - 98.0 02/05/2016 [facility] HEMATOLOGY RBC 3.82 M/CMM 4.20 - 5.40 02/05/2016 [facility] HEMATOLOGY Hgb 12.7 g/dL 12.0 - 16.0 02/05/2016 [facility] HEMATOLOGY WBC 10.0 K/CMM 3.7 - 10.4 02/05/2016 [facility] CHEM PANEL eGFR 93 mL/min/1.73m2 01/30/2016 Result [...] be multiplied by the estimated BMI. [facility] CHEM PANEL Creatinine Lvl 0.57 mg/dL 0.50 - 1.40 01/30/2016 [facility] HEMATOLOGY Hgb 11.4 g/dL 12.0 - 16.0 01/30/2016 [facility] HEMATOLOGY Hct 33.1 % 36.0 - 48.0 01/30/2016 [facility] BLOOD BANK RESULTS Antibody Scrn Negative (01/29/16 7:04 AM) 01/29/2016 [facility] BLOOD BANK RESULTS ABO/Rh O POS 01/29/2016 [facility] CHEM PANEL Phosphorus 3.4 mg/dL 2.5 - 4.5 01/29/2016 [facility] CHEM PANEL Magnesium Lvl 1.5 mg/dL 1.8 - 2.4 01/29/2016 [facility] ELECTROLYTES AGAP 12.4 meq/L 10.0 - 20.0 01/29/2016 [facility] ELECTROLYTES eGFR 84 mL/min/1.73m2 01/29/2016 Result Comment: [...] be multiplied by the estimated BMI. [facility] ELECTROLYTES Calcium Lvl 9.0 mg/dL 8.5 - 10.5 01/29/2016 [facility] ELECTROLYTES CO2 29 meq/L 24 - 32 01/29/2016 [facility] ELECTROLYTES Sodium Lvl 141 meq/L 135 - 145 01/29/2016 [facility] ELECTROLYTES BUN 19 mg/dL 7 - 22 01/29/2016 [facility] ELECTROLYTES Creatinine Lvl 0.72 mg/dL 0.50 - 1.40 01/29/2016 [facility] ELECTROLYTES Potassium Lvl 3.4 meq/L 3.5 - 5.1 01/29/2016 [facility] ELECTROLYTES Chloride Lvl 103 meq/L 95 - 109 01/29/2016 [facility] ELECTROLYTES Glucose Lvl 114 mg/dL 70 - 99 01/29/2016 [facility] HEMATOLOGY MPV 7.7 fL 7.4 - 10.4 01/29/2016 [facility] HEMATOLOGY Platelet 280 K/CMM 133 - 450 01/29/2016 [facility] HEMATOLOGY MCH 33.3 pg 27.0 - 31.0 01/29/2016 [facility] HEMATOLOGY MCV 97.8 fL 80.0 - 98.0 01/29/2016 [facility] HEMATOLOGY Hct 38.8 % 36.0 - 48.0 01/29/2016 [facility] HEMATOLOGY MCHC 34.1 g/dL 32.0 - 36.0 01/29/2016 [facility] HEMATOLOGY RDW 13.3 % 11.5 - 14.5 01/29/2016 [facility] HEMATOLOGY WBC 9.0 K/CMM 3.7 - 10.4 01/29/2016 [facility] HEMATOLOGY Hgb 13.2 g/dL 12.0 - 16.0 01/29/2016 [facility] HEMATOLOGY RBC 3.96 M/CMM 4.20 - 5.40 01/29/2016 [facility] HEMATOLOGY PTT 28.1 s 22.9 - 35.8 01/29/2016 [facility] HEMATOLOGY PT 12.7 s 12.0 - 14.7 01/29/2016 [facility] HEMATOLOGY INR 0.93 0.85 - 1.17 01/29/2016 [facility] HEMATOLOGY Eosinophils 2.2 % 0.0 - 4.0 01/29/2016 [facility] HEMATOLOGY Monocytes 6.5 % 2.0 - 12.0 01/29/2016 [facility] HEMATOLOGY Basophils 0.5 % 0.0 - 1.0 01/29/2016 [facility] HEMATOLOGY Segs-Bands # 5.3 K/CMM 1.5 - 8.1 01/29/2016 [facility] HEMATOLOGY Eosinophils # 0.2 K/CMM 0.0 - 0.5 01/29/2016 [facility] HEMATOLOGY Monocytes # 0.6 K/CMM 0.0 - 0.8 01/29/2016 [facility] HEMATOLOGY Lymphocytes # 2.9 K/CMM 1.0 - 5.5 01/29/2016 [facility] HEMATOLOGY Lymphocytes 32.0 % 20.0 - 40.0 01/29/2016 [facility] HEMATOLOGY Segs 58.8 % 45.0 - 75.0 01/29/2016 [facility] Spine lumbar 2 or 3 views DX [...] IMPRESSION: 1.No acute fracture or malalignment SL: 14 03/31/2014 - - Read by: Cami Emerson MD Dictated Date/time: 03/31/14 20:29 Electronically Signed by: Cami Emerson MD 03/31/14 20:31 FINAL REPORT [facility] Hip wo contrast CT Hip wo contrast [...] 4. Sigmoid colon diverticulosis without diverticulitis SL: 14 03/31/2014 - - Read by: Cami Emerson MD Dictated Date/time: 03/31/14 20:58 Electronically Signed by: Cami Emerson MD 03/31/14 21:08 FINAL REPORT [facility] Brain wo contrast CT Brain wo contrast [...] Dictated Date/time: 02/28/14 23:11 Electronically Signed by: Chilo Burns MD 02/28/14 23:14 FINAL REPORT [facility] Spine cervical wo contrast CT Spine cervical [...] Edi Washburn MD 02/28/14 23:35 FINAL REPORT [facility] Pelvis, 3 views Pelvis, 3 views EXAM: [...] - This report was dictated by a Assistant Project Engineer/Fellow. I have personally reviewed the images as well as the Resident's interpretation and agree with the findings. Read by: Angel Eid MD Resident: Angel Eid MD Dictated Date/time: 07/26/13 15:43 Electronically Signed by: Noel Johnson MD 07/26/13 17:17 FINAL REPORT [facility] Pelvis, 3 views Pelvis, 3 views EXAM: [...] - This report was dictated by a Assistant Project Engineer/Fellow. I have personally reviewed the images as well as the Resident's interpretation and agree with the findings. Read by: Angel Eid MD Resident: Angel Eid MD Dictated Date/time: 07/26/13 15:43 Electronically Signed by: Noel Johnson MD 07/26/13 17:17 FINAL REPORT [facility] IMMUNOLOGY Orestes-Hep C Ab Negative *NA* (07/26/13 6:00 AM) Negative 07/26/2013 [facility] CHEM PANEL Magnesium Lvl 1.9 mg/dL 1.8 - 2.4 07/25/2013 [facility] CHEM PANEL eGFR 98 mL/min/1.73m2 07/25/2013 2Result [...] be multiplied by the estimated BMI. [facility] CHEM PANEL Calcium Lvl 8.5 mg/dL 8.5 - 10.5 07/25/2013 [facility] CHEM PANEL CO2 30 meq/L 24 - 32 07/25/2013 [facility] CHEM PANEL Chloride Lvl 97 meq/L 95 - 109 07/25/2013 [facility] CHEM PANEL Potassium Lvl 3.5 meq/L 3.5 - 5.1 07/25/2013 [facility] CHEM PANEL Sodium Lvl 139 meq/L 135 - 145 07/25/2013 [facility] CHEM PANEL BUN 12 mg/dL 7 - 22 07/25/2013 [facility] CHEM PANEL Creatinine Lvl 0.5 mg/dL 0.5 - 1.4 07/25/2013 [facility] CHEM PANEL Glucose Lvl 70 mg/dL 70 - 99 07/25/2013 4Interpretive Data: Adult reference range values reflect the clinical guidelines of the [place] [employer]. [facility] CHEM PANEL AGAP 15.5 meq/L 10.0 - 20.0 07/25/2013 [facility] HEMATOLOGY Macrocyte 2+ *ABN* (07/25/13 1:07 AM) None Seen 07/25/2013 [facility] HEMATOLOGY Monocytes # 0.8 K/CMM 0.0 - 0.8 07/25/2013 [facility] HEMATOLOGY Segs-Bands # 12.4 K/CMM 1.5 - 8.1 07/25/2013 [facility] HEMATOLOGY Lymphocytes # 1.4 K/CMM 1.0 - 5.5 07/25/2013 [facility] HEMATOLOGY Basophils 0.3 % 0.0 - 1.0 07/25/2013 [facility] HEMATOLOGY Segs 84.6 % 45.0 - 75.0 07/25/2013 [facility] HEMATOLOGY Eosinophils 0.3 % 0.0 - 4.0 07/25/2013 [facility] HEMATOLOGY Monocytes 5.3 % 2.0 - 12.0 07/25/2013 [facility] HEMATOLOGY Lymphocytes 9.5 % 20.0 - 40.0 07/25/2013 [facility] HEMATOLOGY MCHC 33.4 g/dL 32.0 - 36.0 07/25/2013 [facility] HEMATOLOGY Hgb 11.2 g/dL 12.0 - 16.0 07/25/2013 [facility] HEMATOLOGY Hct 33.5 % 36.0 - 48.0 07/25/2013 [facility] HEMATOLOGY RBC 3.22 M/CMM 4.20 - 5.40 07/25/2013 [facility] HEMATOLOGY WBC 14.7 K/CMM 3.7 - 10.4 07/25/2013 [facility] HEMATOLOGY RDW 13.4 % 11.5 - 14.5 07/25/2013 [facility] HEMATOLOGY Platelet 260 K/CMM 133 - 450 07/25/2013 [facility] HEMATOLOGY MPV 8.2 fL 7.4 - 10.4 07/25/2013 [facility] HEMATOLOGY MCV 104.2 fL 81.0 - 99.0 07/25/2013 [facility] HEMATOLOGY MCH 34.8 pg 27.0 - 31.0 07/25/2013 [facility] CHEM PANEL Vitamin D, 25-OH, Total null 30 - 100 07/24/2013 6Interpretive Data: Reference range is based on recommendations in the Endocrine Society Clinical Practice Guideline (J Clin Endocrinol Metab 2011;96:3703-4563) [facility] CHEM PANEL AlkPhos Bone 23.0 ug/L 5.6 - 29.0 07/24/2013 7Result Comment: Test Performed at: [facility] [id number] [place] [address] Gricelda Serna MD, PhD [facility] CHEM PANEL Magnesium Lvl 1.3 mg/dL 1.8 - 2.4 07/24/2013 [facility] CHEM PANEL Phosphorus 3.4 mg/dL 2.5 - 4.5 07/24/2013 [facility] PARATHYROID PROFILE PTH Intact 25.7 pg/mL 11.1 - 79.5 07/24/2013 [facility] THYROID PANEL TSH 2.730 uIU/mL 0.360 - 3.740 07/24/2013 [facility] URINE CHEM U N-Telopeptide (NTx) 69 07/24/2013 8Result Comment: Adult Female Reference Range for Collagen Cross- Linked N-Telopeptide (NTx), Random Urine Premenopausal: 4-64 nmol BCE/mmol creat Results are primarily used for monitoring the response to therapy. A value within the premenopausal reference range does not rule out osteoporosis nor the need for therapy. [facility] URINE CHEM U Creat mg/dL 110 mg/dL 20 - 320 07/24/2013 9Result Comment: Test Performed at: [facility] [id number] [place] [address] Gricelda Serna MD, PhD [facility] HEMATOLOGY Lymphocytes # 1.2 K/CMM 1.0 - 5.5 07/23/2013 [facility] HEMATOLOGY Monocytes # 0.5 K/CMM 0.0 - 0.8 07/23/2013 [facility] HEMATOLOGY Macrocyte 1+ *ABN* (07/22/13 8:24 PM) None Seen 07/23/2013 [facility] HEMATOLOGY Plt Morph Normal (07/22/13 8:24 PM) 07/23/2013 [facility] HEMATOLOGY Segs 84.0 % 45.0 - 75.0 07/23/2013 [facility] HEMATOLOGY Lymphocytes 10.5 % 20.0 - 40.0 07/23/2013 [facility] HEMATOLOGY Eosinophils 0.5 % 0.0 - 4.0 07/23/2013 [facility] HEMATOLOGY Monocytes 4.1 % 2.0 - 12.0 07/23/2013 [facility] HEMATOLOGY Segs-Bands # 9.5 K/CMM 1.5 - 8.1 07/23/2013 [facility] HEMATOLOGY Basophils 0.9 % 0.0 - 1.0 07/23/2013 [facility] HEMATOLOGY Basophils # 0.1 K/CMM 0.0 - 0.2 07/23/2013 [facility] HEMATOLOGY Eosinophils # 0.1 K/CMM 0.0 - 0.5 07/23/2013 [facility] HEMATOLOGY MPV 7.6 fL 7.4 - 10.4 07/23/2013 [facility] HEMATOLOGY Platelet 229 K/CMM 133 - 450 07/23/2013 [facility] HEMATOLOGY RDW 13.0 % 11.5 - 14.5 07/23/2013 [facility] HEMATOLOGY MCH 34.6 pg 27.0 - 31.0 07/23/2013 [facility] HEMATOLOGY MCHC 34.0 g/dL 32.0 - 36.0 07/23/2013 [facility] HEMATOLOGY Hgb 11.3 g/dL 12.0 - 16.0 07/23/2013 [facility] HEMATOLOGY RBC 3.26 M/CMM 4.20 - 5.40 07/23/2013 [facility] HEMATOLOGY MCV 101.7 fL 81.0 - 99.0 07/23/2013 [facility] HEMATOLOGY Hct 33.1 % 36.0 - 48.0 07/23/2013 [facility] HEMATOLOGY WBC 11.4 K/CMM 3.7 - 10.4 07/23/2013 [facility] BLOOD BANK RESULTS Antibody Scrn Negative (07/22/13 8:12 PM) 07/23/2013 [facility] BLOOD BANK RESULTS ABO/Rh O POS 07/23/2013 [facility] CHEM PANEL Lactic Acid Lvl 0.7 mMol/L 0.5 - 2.2 07/23/2013 [facility] ELECTROLYTES AGAP 8.6 meq/L 10.0 - 20.0 07/23/2013 [facility] ELECTROLYTES eGFR 98 mL/min/1.73m2 07/23/2013 3Result Comment: [...] be multiplied by the estimated BMI. [facility] ELECTROLYTES Sodium Lvl 134 meq/L 135 - 145 07/23/2013 [facility] ELECTROLYTES Potassium Lvl 4.6 meq/L 3.5 - 5.1 07/23/2013 1Result Comment: slight hemolysis [facility] ELECTROLYTES Chloride Lvl 100 meq/L 95 - 109 07/23/2013 [facility] ELECTROLYTES CO2 30 meq/L 24 - 32 07/23/2013 [facility] ELECTROLYTES Creatinine Lvl 0.5 mg/dL 0.5 - 1.4 07/23/2013 [facility] ELECTROLYTES Glucose Lvl 95 mg/dL 70 - 99 07/23/2013 5Interpretive Data: Adult reference range values reflect the clinical guidelines of the [place] [employer]. [facility] ELECTROLYTES BUN 15 mg/dL 7 - 22 07/23/2013 [facility] ELECTROLYTES Calcium Lvl 8.3 mg/dL 8.5 - 10.5 07/23/2013 [facility] HEMATOLOGY PTT 28.6 s 22.9 - 35.8 07/23/2013 11Interpretive Data: Heparin Therapeutic Range: 57 - 92 Seconds [facility] HEMATOLOGY PT 11.8 s 12.0 - 14.7 07/23/2013 [facility] HEMATOLOGY INR 0.87 0.85 - 1.17 07/23/2013 10Interpretive Data: RECOMMENDED RANGES FOR PROTIME INR: 2.0-3.0 for most medical and surgical thromboembolic states. 2.5-3.5 for artificial heart valves and recurrent embolism. INR SHOULD BE USED ONLY FOR PATIENTS ON STABLE ANTICOAGULANT THERAPY. [facility] Spine thoracic wo contrast CT Spine thoracic [...] by my measurement. This is new from 2013. There is 3 mm retropulsion at this [...] Moreira MD 07/23/13 09:32 FINAL REPORT [facility] Femur series Femur series EXAM: LEFT KNEE [...] Brooks MD 07/22/13 19:46 FINAL REPORT [facility] Knee 3 views Knee 3 views EXAM: [...] Brooks MD 07/22/13 19:46 FINAL REPORT [facility] Abdomen/Pelvis w IV contrast CT Abdomen/Pelvis w [...] - This report was dictated by a Assistant Project Engineer/Fellow. I have personally reviewed the images as well as the Resident's interpretation and agree with the findings. Read by: Setven Foley MD Resident: Steven Foley MD Dictated Date/time: 07/22/13 20:05 Electronically Signed by: Bita Brooks MD 07/22/13 23:52 FINAL REPORT [facility] Brain wo contrast CT Brain wo contrast CT CT SCAN OF THE BRAIN DATE: 07/22/2013 at 6:54 p.m. Comparison studies: 09/12/2012. CLINICAL INFORMATION: Confusion. TECHNIQUE: Routine axial images of the brain were obtained in the unenhanced mode. FINDINGS: The brain is morphologically normal. Low density encephalomalacia is again noted with the left occipital pole consistent with an old left DREDGE HAND territory infarct. There are no acute hemorrhages [...] No acute intracranial abnormality. 2. Old left DREDGE HAND territory infarct. 3. White matter hypodensity consistent with chronic small vessel ischemic disease. 4. Age-related volume loss. 5. Arterial atherosclerosis. 07/22/2013 - - Read by: Javier Bowers MD Dictated Date/time: 07/23/13 02:08 Electronically Signed by: Javier Bowers MD 07/23/13 02:12 FINAL REPORT [facility] CARDIAC ENZYMES CK MB Index 3.6 0.0 - 2.5 07/22/2013 [facility] CARDIAC ENZYMES Total CK 28 unit/L 12 - 191 07/22/2013 [facility] CARDIAC ENZYMES Troponin-I null 0.00 - 0.40 07/22/2013 [facility] CARDIAC ENZYMES CK MB 1.0 ng/mL 0.5 - 3.6 07/22/2013 [facility] CHEM PANEL eGFR 93 mL/min/1.73m2 07/22/2013 1Result [...] should be multiplied by the estimated BMI. [facility] CHEM PANEL ALT 16 unit/L 0 - 65 07/22/2013 [facility] CHEM PANEL AST 12 unit/L 0 - 37 07/22/2013 [facility] CHEM PANEL Alk Phos 124 unit/L 39 - 136 07/22/2013 [facility] CHEM PANEL B/C Ratio 28 6 - 25 07/22/2013 [facility] CHEM PANEL Globulin 3.7 g/dL 2.0 - 4.0 07/22/2013 [facility] CHEM PANEL A/G Ratio 0.8 0.7 - 1.6 07/22/2013 [facility] CHEM PANEL Bili Total 0.3 mg/dL 0.2 - 1.3 07/22/2013 [facility] CHEM PANEL AGAP 13.0 meq/L 10.0 - 20.0 07/22/2013 [facility] CHEM PANEL Sodium Lvl 135 meq/L 135 - 145 07/22/2013 [facility] CHEM PANEL Calcium Lvl 8.3 mg/dL 8.5 - 10.5 07/22/2013 [facility] CHEM PANEL Total Protein 6.5 g/dL 6.4 - 8.4 07/22/2013 [facility] CHEM PANEL Albumin Lvl 2.8 g/dL 3.5 - 5.0 07/22/2013 [facility] CHEM PANEL CO2 27 meq/L 24 - 32 07/22/2013 [facility] CHEM PANEL Chloride Lvl 99 meq/L 95 - 109 07/22/2013 [facility] CHEM PANEL Potassium Lvl 4.0 meq/L 3.5 - 5.1 07/22/2013 [facility] CHEM PANEL Creatinine Lvl 0.6 mg/dL 0.5 - 1.4 07/22/2013 [facility] CHEM PANEL BUN 17 mg/dL 7 - 22 07/22/2013 [facility] CHEM PANEL Glucose Lvl 81 mg/dL 70 - 99 07/22/2013 2Interpretive Data: Adult reference range values reflect the clinical guidelines of the [place] [employer]. [facility] CHEM PANEL Magnesium Lvl 1.4 mg/dL 1.8 - 2.4 07/22/2013 [facility] CHEM PANEL Phosphorus 3.0 mg/dL 2.5 - 4.5 07/22/2013 [facility] HEMATOLOGY Monocytes # 0.3 K/CMM 0.0 - 0.8 07/22/2013 [facility] HEMATOLOGY Lymphocytes # 1.8 K/CMM 1.0 - 5.5 07/22/2013 [facility] HEMATOLOGY Basophils # 0.0 K/CMM 0.0 - 0.2 07/22/2013 [facility] HEMATOLOGY Eosinophils # 0.0 K/CMM 0.0 - 0.5 07/22/2013 [facility] HEMATOLOGY Segs 80.1 % 45.0 - 75.0 07/22/2013 [facility] Lymphocytes 16.6 % 20.0 - 40.0 07/22/2013 [facility] HEMATOLOGY Eosinophils 0.1 % 0.0 - 4.0 07/22/2013 [facility] HEMATOLOGY Monocytes 2.9 % 2.0 - 12.0 07/22/2013 [facility] HEMATOLOGY Basophils 0.3 % 0.0 - 1.0 07/22/2013 [facility] HEMATOLOGY Segs-Bands # 8.9 K/CMM 1.5 - 8.1 07/22/2013 [facility] HEMATOLOGY WBC 11.2 K/CMM 3.7 - 10.4 07/22/2013 [facility] HEMATOLOGY RBC 3.33 M/CMM 4.20 - 5.40 07/22/2013 [facility] Hgb 11.5 g/dL 12.0 - 16.0 07/22/2013 [facility] HEMATOLOGY RDW 14.2 % 11.5 - 14.5 07/22/2013 [facility] Platelet 292 K/CMM 133 - 450 07/22/2013 [facility] MPV 7.8 fL 7.4 - 10.4 07/22/2013 [facility] Hct 34.6 % 36.0 - 48.0 07/22/2013 [facility] MCV 104.0 fL 81.0 - 99.0 07/22/2013 [facility] MCH 34.5 pg 27.0 - 31.0 07/22/2013 [facility] MCHC 33.2 g/dL 32.0 - 36.0 07/22/2013 [facility] PTT 31.8 s 22.9 - 35.8 07/22/2013 4Interpretive Data: Heparin Therapeutic Range: 57 - 92 Seconds [facility] INR 0.83 0.85 - 1.17 07/22/2013 3Interpretive Data: RECOMMENDED RANGES FOR PROTIME INR: 2.0-3.0 for most medical and surgical thromboembolic states. 2.5-3.5 for artificial heart valves and recurrent embolism. INR SHOULD BE USED ONLY FOR PATIENTS ON STABLE ANTICOAGULANT THERAPY. [facility] PT 11.4 s 12.0 - 14.7 07/22/2013 [facility] Pelvis wo IV contrast CT Pelvis wo [...] 4. Bladder distention. 5. L4-L5 spondylosis. SL: 13 07/22/2013 - - Read by: Naresh Boo MD Dictated Date/time: 07/22/13 11:56 Electronically Signed by: Naresh Boo MD 07/22/13 12:22 FINAL REPORT [facility] Chest 1view Chest 1view PROCEDURE: Chest 1view [...] Naresh Boo MD 07/22/13 10:48 FINAL REPORT [facility] Pelvis AP Pelvis AP PROCEDURE: Pelvis AP [...] Naresh Boo MD 07/22/13 10:47 FINAL REPORT [facility] Hip min 2 views Hip min 2 [...] Naresh Boo MD 07/22/13 10:47 FINAL REPORT [facility] CHEMISTRY AGAP 11.3 meq/L 10.0 - 20.0 09/14/2012 Normal [facility] CHEMISTRY Chloride Lvl 105 meq/L 95 - 109 09/14/2012 Normal [facility] CHEMISTRY Sodium Lvl 142 meq/L 135 - 145 09/14/2012 Normal [facility] CHEMISTRY Potassium Lvl 3.3 meq/L 3.5 - 5.1 09/14/2012 LOW [facility] CHEMISTRY eGFR 89 mL/min/1.73m2 09/14/2012 NA 1Result [...] should be multiplied by the estimated BMI. [facility] CHEMISTRY BUN 8 mg/dL 7 - 22 09/14/2012 Normal [facility] CHEMISTRY Calcium Lvl 7.7 mg/dL 8.5 - 10.5 09/14/2012 LOW [facility] CHEMISTRY Creatinine Lvl 0.7 mg/dL 0.5 - 1.4 09/14/2012 Normal [facility] CHEMISTRY CO2 29 meq/L 24 - 32 09/14/2012 Normal [facility] CHEMISTRY Glucose Lvl 119 mg/dL 70 - 99 09/14/2012 [place] 3Interpretive Data: Adult reference range values reflect the clinical guidelines of the [place] [employer]. [facility] HEMATOLOGY Monocytes # 0.4 K/CMM 0.0 - 0.8 09/14/2012 Normal [facility] HEMATOLOGY Segs-Bands # 3.5 K/CMM 1.5 - 8.1 09/14/2012 Normal [facility] HEMATOLOGY Lymphocytes # 1.7 K/CMM 1.0 - 5.5 09/14/2012 Normal [facility] HEMATOLOGY Eosinophils # 0.1 K/CMM 0.0 - 0.5 09/14/2012 Normal [facility] HEMATOLOGY Basophils # 0.0 K/CMM 0.0 - 0.2 09/14/2012 Normal [facility] HEMATOLOGY Basophils 0.2 % 0.0 - 1.0 09/14/2012 Normal [facility] HEMATOLOGY Segs 60.9 % 45.0 - 75.0 09/14/2012 Normal [facility] HEMATOLOGY Monocytes 7.8 % 2.0 - 12.0 09/14/2012 Normal [facility] HEMATOLOGY Eosinophils 1.0 % 0.0 - 4.0 09/14/2012 Normal [facility] HEMATOLOGY Lymphocytes 30.1 % 20.0 - 40.0 09/14/2012 Normal [facility] HEMATOLOGY MCHC 33.2 g/dL 32.0 - 36.0 09/14/2012 Normal [facility] HEMATOLOGY MCH 35.3 pg 27.0 - 31.0 09/14/2012 HI [facility] HEMATOLOGY Platelet 165 K/CMM 133 - 450 09/14/2012 Normal [facility] HEMATOLOGY RDW 14.4 % 11.5 - 14.5 09/14/2012 Normal [facility] HEMATOLOGY MPV 8.4 fL 7.4 - 10.4 09/14/2012 Normal [facility] HEMATOLOGY Hct 32.1 % 36.0 - 48.0 09/14/2012 LOW [facility] HEMATOLOGY Hgb 10.6 g/dL 12.0 - 16.0 09/14/2012 LOW [facility] HEMATOLOGY MCV 106.5 fL 81.0 - 99.0 09/14/2012 HI [facility] HEMATOLOGY WBC 5.8 K/CMM 3.7 - 10.4 09/14/2012 Normal [facility] HEMATOLOGY RBC 3.01 M/CMM 4.20 - 5.40 09/14/2012 LOW [facility] URINALYSIS UA Urobilinogen 0.2 EU/dL 0.1 - 1.0 09/13/2012 Normal [facility] URINALYSIS UA Blood Negative (09/13/2012 01:50:00) Negative 09/13/2012 Normal [facility] URINALYSIS UA Nitrite Negative (09/13/2012 01:50:00) Negative 09/13/2012 Normal [facility] URINALYSIS UA Leuk Est Negative (09/13/2012 01:50:00) Negative 09/13/2012 Normal [facility] URINALYSIS UA Bili Negative *NA* (09/13/2012 01:50:00) Negative 09/13/2012 NA [facility] URINALYSIS UA pH 6.0 5.0 - 8.0 09/13/2012 Normal [facility] URINALYSIS UA Spec Grav null <=1.030 09/13/2012 NA [facility] URINALYSIS UA Color Yellow *NA* (09/13/2012 01:50:00) Yellow 09/13/2012 NA [facility] URINALYSIS UA Turbidity Clear (09/13/2012 01:50:00) Clear 09/13/2012 Normal [facility] URINALYSIS UA Ketones Negative *NA* (09/13/2012 01:50:00) Negative 09/13/2012 NA [facility] URINALYSIS UA Protein Negative (09/13/2012 01:50:00) Negative 09/13/2012 Normal [facility] URINALYSIS UA Glucose Negative (09/13/2012 01:50:00) Negative 09/13/2012 Normal [facility] CHEMISTRY Sodium Lvl 140 meq/L 135 - 145 09/13/2012 Normal [facility] CHEMISTRY Potassium Lvl 4.6 meq/L 3.5 - 5.1 09/13/2012 Normal [facility] CHEMISTRY Chloride Lvl 103 meq/L 95 - 109 09/13/2012 Normal [facility] CHEMISTRY eGFR 93 mL/min/1.73m2 09/13/2012 NA 2Result [...] should be multiplied by the estimated BMI. [facility] CHEMISTRY Alk Phos 121 unit/L 39 - 136 09/13/2012 Normal [facility] CHEMISTRY ALT 57 unit/L 0 - 65 09/13/2012 Normal [facility] CHEMISTRY BUN 16 mg/dL 7 - 22 09/13/2012 Normal [facility] CHEMISTRY Creatinine Lvl 0.6 mg/dL 0.5 - 1.4 09/13/2012 Normal [facility] CHEMISTRY Calcium Lvl 8.7 mg/dL 8.5 - 10.5 09/13/2012 Normal [facility] CHEMISTRY Glucose Lvl 94 mg/dL 70 - 99 09/13/2012 Normal 4Interpretive Data: Adult reference range values reflect the clinical guidelines of the [place] [employer]. [facility] CHEMISTRY CO2 25 meq/L 24 - 32 09/13/2012 Normal [facility] CHEMISTRY Albumin Lvl 3.8 g/dL 3.5 - 5.0 09/13/2012 Normal [facility] CHEMISTRY AST 59 unit/L 0 - 37 09/13/2012 HI [facility] CHEMISTRY Bili Total 0.6 mg/dL 0.2 - 1.3 09/13/2012 Normal [facility] CHEMISTRY Total Protein 6.7 g/dL 6.4 - 8.4 09/13/2012 Normal [facility] CHEMISTRY B/C Ratio 27 6 - 25 09/13/2012 [facility] CHEMISTRY A/G Ratio 1.3 0.7 - 1.6 09/13/2012 Normal [facility] CHEMISTRY Globulin 2.9 g/dL 2.0 - 4.0 09/13/2012 Normal [facility] CHEMISTRY AGAP 16.6 meq/L 10.0 - 20.0 09/13/2012 Normal [facility] HEMATOLOGY MCH 35.1 pg 27.0 - 31.0 09/13/2012 HI [facility] HEMATOLOGY MCV 104.2 fL 81.0 - 99.0 09/13/2012 HI [facility] HEMATOLOGY RDW 14.5 % 11.5 - 14.5 09/13/2012 Normal [facility] HEMATOLOGY MCHC 33.7 g/dL 32.0 - 36.0 09/13/2012 Normal [facility] HEMATOLOGY Hct 40.8 % 36.0 - 48.0 09/13/2012 Normal [facility] HEMATOLOGY Hgb 13.8 g/dL 12.0 - 16.0 09/13/2012 Normal [facility] HEMATOLOGY RBC 3.92 M/CMM 4.20 - 5.40 09/13/2012 LOW [facility] HEMATOLOGY WBC 6.7 K/CMM 3.7 - 10.4 09/13/2012 Normal [facility] HEMATOLOGY Platelet 254 K/CMM 133 - 450 09/13/2012 Normal [facility] HEMATOLOGY MPV 8.9 fL 7.4 - 10.4 09/13/2012 Normal [facility] HEMATOLOGY PTT 28.7 s 22.9 - 35.8 09/13/2012 Normal 6Interpretive Data: Heparin Therapeutic Range: 57 - 92 Seconds [facility] PT 11.8 s 12.0 - 14.7 09/13/2012 LOW [facility] INR 0.85 0.85 - 1.17 09/13/2012 Normal 5Interpretive Data: RECOMMENDED RANGES FOR PROTIME INR: 2.0-3.0 for most medical and surgical thromboembolic states. 2.5-3.5 for artificial heart valves and recurrent embolism. INR SHOULD BE USED ONLY FOR PATIENTS ON STABLE ANTICOAGULANT THERAPY. [facility] Segs-Bands # 5.2 K/CMM 1.5 - 8.1 09/13/2012 Normal [facility] Lymphocytes # 1.3 K/CMM 1.0 - 5.5 09/13/2012 Normal [facility] Monocytes # 0.1 K/CMM 0.0 - 0.8 09/13/2012 Normal [facility] Eosinophils # 0.0 K/CMM 0.0 - 0.5 09/13/2012 Normal [facility] Segs 78.7 % 45.0 - 75.0 09/13/2012 HI [facility] Monocytes 1.2 % 2.0 - 12.0 09/13/2012 LOW [facility] Lymphocytes 19.7 % 20.0 - 40.0 09/13/2012 LOW [facility] Basophils 0.0 % 0.0 - 1.0 09/13/2012 Normal [facility] Eosinophils 0.4 % 0.0 - 4.0 09/13/2012 Normal [facility] Basophils # 0.0 K/CMM 0.0 - 0.2 09/13/2012 Normal [facility] Chest/Abdomen/Pelvis w contrast CT Chest/Abdomen/Pelvis w contrast [...] Jaden Breaux MD 09/13/12 02:24 FINAL REPORT [facility] Spine lumbar 2 or 3 views Spine lumbar [...] Jaden Breaux MD 09/13/12 00:17 FINAL REPORT [facility] Brain wo contrast CT Brain wo contrast CT CRANIAL [...] Coding: Brain wo contrast CT CPT Code: 70095 SL: 12 Jaden Breaux M.D. 09/12/2012 - - Read by: Jaden Breaux Dictated Date/time: 09/12/12 23:35 Electronically Signed by: Jaden Breaux MD 09/12/12 23:37 FINAL REPORT [facility] Spine cervical wo contrast CT Spine [...] 09/12/2012 - - Read by: Jaden Breaux Date/time: 09/13/12 00:18 Electronically Signed by: Jaden Breaux MD 09/13/12 00:24 FINAL REPORT [facility] HEMATOLOGY Basophils # 0.0 K/CMM 0.0 - 0.2 10/07/2011 Normal [facility] HEMATOLOGY Monocytes # 0.5 K/CMM 0.0 - 0.8 10/07/2011 Normal [facility] HEMATOLOGY Eosinophils # 0.1 K/CMM 0.0 - 0.5 10/07/2011 Normal [facility] HEMATOLOGY Segs-Bands # 2.5 K/CMM 1.5 - 8.1 10/07/2011 Normal [facility] HEMATOLOGY Basophils 0.6 % 0.0 - 1.0 10/07/2011 Normal [facility] HEMATOLOGY Lymphocytes # 2.0 K/CMM 1.0 - 5.5 10/07/2011 Normal [facility] HEMATOLOGY Monocytes 10.1 % 2.0 - 12.0 10/07/2011 Normal [facility] HEMATOLOGY Lymphocytes 38.1 % 20.0 - 40.0 10/07/2011 Normal [facility] HEMATOLOGY Segs 49.5 % 45.0 - 75.0 10/07/2011 Normal [facility] Eosinophils 1.7 % 0.0 - 4.0 10/07/2011 Normal [facility] Platelet 202 K/CMM 133 - 450 10/07/2011 Normal [facility] MPV 7.6 fL 7.4 - 10.4 10/07/2011 Normal [facility] HEMATOLOGY RDW 14.5 % 11.5 - 14.5 10/07/2011 Normal [facility] HEMATOLOGY MCHC 33.5 g/dL 32.0 - 36.0 10/07/2011 Normal [facility] HEMATOLOGY MCH 34.8 pg 27.0 - 31.0 10/07/2011 HI [facility] HEMATOLOGY WBC 5.1 K/CMM 3.7 - 10.4 10/07/2011 Normal [facility] HEMATOLOGY Hct 33.7 % 36.0 - 48.0 10/07/2011 LOW [facility] HEMATOLOGY MCV 104.1 fL 81.0 - 99.0 10/07/2011 HI [facility] HEMATOLOGY RBC 3.24 M/CMM 4.20 - 5.40 10/07/2011 LOW [facility] HEMATOLOGY Hgb 11.3 g/dL 12.0 - 16.0 10/07/2011 LOW [facility] CHEMISTRY AST 21 unit/L 0 - 37 10/03/2011 Normal [facility] CHEMISTRY Bili Total 0.4 mg/dL 0.2 - 1.3 10/03/2011 Normal [facility] CHEMISTRY Alk Phos 62 unit/L 39 - 136 10/03/2011 Normal [facility] CHEMISTRY ALT 17 unit/L 0 - 65 10/03/2011 Normal [facility] CHEMISTRY Total Protein 4.9 g/dL 6.4 - 8.4 10/03/2011 LOW [facility] CHEMISTRY Albumin Lvl 2.4 g/dL 3.5 - 5.0 10/03/2011 LOW [facility] CHEMISTRY Calcium Lvl 7.8 mg/dL 8.5 - 10.5 10/03/2011 LOW [facility] CHEMISTRY Chloride Lvl 102 meq/L 95 - 109 10/03/2011 Normal [facility] CHEMISTRY Potassium Lvl 3.5 meq/L 3.5 - 5.1 10/03/2011 Normal [facility] CHEMISTRY CO2 28 meq/L 24 - 32 10/03/2011 Normal [facility] CHEMISTRY Sodium Lvl 138 meq/L 135 - 145 10/03/2011 Normal [facility] CHEMISTRY Creatinine Lvl 0.5 mg/dL 0.5 - 1.4 10/03/2011 Normal [facility] CHEMISTRY BUN 9 mg/dL 7 - 22 10/03/2011 Normal [facility] CHEMISTRY Glucose Lvl 104 mg/dL 70 - 99 10/03/2011 SC 1Interpretive Data: Adult reference range values reflect the clinical guidelines of the [place] [employer]. [facility] CHEMISTRY A/G Ratio 1.0 0.7 - 1.6 10/03/2011 Normal [facility] CHEMISTRY Globulin 2.5 g/dL 2.0 - 4.0 10/03/2011 Normal [facility] CHEMISTRY B/C Ratio 18 6 - 25 10/03/2011 Normal [facility] CHEMISTRY AGAP 11.5 meq/L 10.0 - 20.0 10/03/2011 Normal [facility] HEMATOLOGY Basophils # 0.0 K/CMM 0.0 - 0.2 10/03/2011 Normal [facility] HEMATOLOGY Eosinophils # 0.0 K/CMM 0.0 - 0.5 10/03/2011 Normal [facility] HEMATOLOGY Monocytes # 0.2 K/CMM 0.0 - 0.8 10/03/2011 Normal [facility] HEMATOLOGY Lymphocytes # 0.8 K/CMM 1.0 - 5.5 10/03/2011 LOW [facility] HEMATOLOGY Segs-Bands # 3.8 K/CMM 1.5 - 8.1 10/03/2011 Normal [facility] HEMATOLOGY Basophils 0.2 % 0.0 - 1.0 10/03/2011 Normal [facility] HEMATOLOGY Eosinophils 1.0 % 0.0 - 4.0 10/03/2011 Normal [facility] HEMATOLOGY Monocytes 3.9 % 2.0 - 12.0 10/03/2011 Normal [facility] HEMATOLOGY Lymphocytes 17.1 % 20.0 - 40.0 10/03/2011 LOW [facility] HEMATOLOGY Segs 77.8 % 45.0 - 75.0 10/03/2011 HI [facility] HEMATOLOGY MPV 7.4 fL 7.4 - 10.4 10/03/2011 Normal [facility] HEMATOLOGY Platelet 153 K/CMM 133 - 450 10/03/2011 Normal [facility] HEMATOLOGY MCH 35.1 pg 27.0 - 31.0 10/03/2011 [facility] HEMATOLOGY RDW 14.4 % 11.5 - 14.5 10/03/2011 Normal [facility] HEMATOLOGY MCHC 33.8 g/dL 32.0 - 36.0 10/03/2011 Normal [facility] HEMATOLOGY Hct 33.9 % 36.0 - 48.0 10/03/2011 LOW [facility] HEMATOLOGY MCV 104.0 fL 81.0 - 99.0 10/03/2011 [facility] HEMATOLOGY Hgb 11.4 g/dL 12.0 - 16.0 10/03/2011 LOW [facility] HEMATOLOGY RBC 3.26 M/CMM 4.20 - 5.40 10/03/2011 LOW [facility] HEMATOLOGY WBC 4.9 K/CMM 3.7 - 10.4 10/03/2011 Normal [facility] CHEMISTRY AGAP 13.9 meq/L 10.0 - 20.0 10/01/2011 Normal [facility] CHEMISTRY CO2 28 meq/L 24 - 32 10/01/2011 Normal [facility] CHEMISTRY Calcium Lvl 8.7 mg/dL 8.5 - 10.5 10/01/2011 Normal [facility] CHEMISTRY BUN 11 mg/dL 7 - 22 10/01/2011 Normal [facility] CHEMISTRY Glucose Lvl 83 mg/dL 70 - 99 10/01/2011 Normal 2Interpretive Data: Adult reference range values reflect the clinical guidelines of the [place] [employer]. [facility] CHEMISTRY Creatinine Lvl 0.7 mg/dL 0.5 - 1.4 10/01/2011 Normal [facility] CHEMISTRY Sodium Lvl 142 meq/L 135 - 145 10/01/2011 Normal [facility] CHEMISTRY Potassium Lvl 3.9 meq/L 3.5 - 5.1 10/01/2011 Normal [facility] CHEMISTRY Chloride Lvl 104 meq/L 95 - 109 10/01/2011 Normal [facility] CHEMISTRY Etoh (%) 0.271 % 10/01/2011 CRIT 4Interpretive Data: Negative Range: <0.003% Toxic Range: >0.25% [facility] CHEMISTRY Ethanol Lvl 271 mg/dL 10/01/2011 CRIT 6Interpretive Data: Negative Range: <3 mg/dL Toxic Range: >250 mg/dL [facility] HEMATOLOGY PTT 26.9 s 22.9 - 35.8 10/01/2011 Normal 8Interpretive Data: Heparin Therapeutic Range: 57 - 92 Seconds [facility] HEMATOLOGY PT 11.3 s 12.0 - 14.7 10/01/2011 LOW [facility] HEMATOLOGY INR 0.80 0.85 - 1.17 10/01/2011 LOW 7Interpretive Data: RECOMMENDED RANGES FOR PROTIME INR: 2.0-3.0 for most medical and surgical thromboembolic states. 2.5-3.5 for artificial heart valves and recurrent embolism. INR SHOULD BE USED ONLY FOR PATIENTS ON STABLE ANTICOAGULANT THERAPY. [facility] HEMATOLOGY WBC 6.7 K/CMM 3.7 - 10.4 10/01/2011 Normal [facility] HEMATOLOGY Hct 39.5 % 36.0 - 48.0 10/01/2011 Normal [facility] HEMATOLOGY MCV 104.8 fL 81.0 - 99.0 10/01/2011 HI [facility] HEMATOLOGY MCH 35.0 pg 27.0 - 31.0 10/01/2011 HI [facility] HEMATOLOGY RBC 3.77 M/CMM 4.20 - 5.40 10/01/2011 LOW [facility] HEMATOLOGY Hgb 13.2 g/dL 12.0 - 16.0 10/01/2011 Normal [facility] HEMATOLOGY MPV 8.1 fL 7.4 - 10.4 10/01/2011 Normal [facility] HEMATOLOGY MCHC 33.4 g/dL 32.0 - 36.0 10/01/2011 Normal [facility] HEMATOLOGY RDW 14.7 % 11.5 - 14.5 10/01/2011 HI [facility] HEMATOLOGY Platelet 188 K/CMM 133 - 450 10/01/2011 Normal [facility] HEMATOLOGY Lymphocytes # 2.6 K/CMM 1.0 - 5.5 10/01/2011 Normal [facility] HEMATOLOGY Segs-Bands # 3.7 K/CMM 1.5 - 8.1 10/01/2011 Normal [facility] HEMATOLOGY Eosinophils # 0.1 K/CMM 0.0 - 0.5 10/01/2011 Normal [facility] HEMATOLOGY Monocytes 4.9 % 2.0 - 12.0 10/01/2011 Normal [facility] HEMATOLOGY Lymphocytes 38.2 % 20.0 - 40.0 10/01/2011 Normal [facility] HEMATOLOGY Monocytes # 0.3 K/CMM 0.0 - 0.8 10/01/2011 Normal [facility] HEMATOLOGY Basophils # 0.0 K/CMM 0.0 - 0.2 10/01/2011 Normal [facility] HEMATOLOGY Basophils 0.3 % 0.0 - 1.0 10/01/2011 Normal [facility] HEMATOLOGY Segs 55.6 % 45.0 - 75.0 10/01/2011 Normal [facility] HEMATOLOGY Eosinophils 1.0 % 0.0 - 4.0 10/01/2011 Normal [facility] Vital Signs Vital Sign Value Date Comments Source Systolic (mm Hg) 125 02/06/2016 [facility] Diastolic (mm Hg) 62 02/06/2016 [facility] Systolic (mm Hg) 111 02/06/2016 [facility] Diastolic (mm Hg) 62 02/06/2016 [facility] Systolic (mm Hg) 120 02/05/2016 [facility] Diastolic (mm Hg) 58 02/05/2016 [facility] Temperature Oral (F) 98.0 F 02/05/2016 [facility] BMI Calculated 20.26 02/05/2016 [facility] Weight 48.636 02/05/2016 [facility] Height 154.94 cm 02/05/2016 [facility] Systolic (mm Hg) 116 01/30/2016 [facility] Diastolic (mm Hg) 59 01/30/2016 [facility] Systolic (mm Hg) 116 01/30/2016 [facility] Diastolic (mm Hg) 61 01/30/2016 [facility] Systolic (mm Hg) 115 01/30/2016 [facility] Diastolic (mm Hg) 55 01/30/2016 [facility] Temperature Oral (F) 98.1 F 01/30/2016 [facility] Height 152.4 cm 01/29/2016 [facility] Weight 46.818 01/29/2016 [facility] BMI Calculated 20.16 01/29/2016 [facility] Heart Rate 74 04/01/2014 [facility] Respitory Rate 18 04/01/2014 [facility] Systolic (mm Hg) 135 04/01/2014 [facility] Diastolic (mm Hg) 82 04/01/2014 [facility] Respitory Rate 18 04/01/2014 [facility] Systolic (mm Hg) 125 04/01/2014 [facility] Diastolic (mm Hg) 69 04/01/2014 [facility] Diastolic (mm Hg) 68 03/31/2014 [facility] Heart Rate 96 03/31/2014 [facility] Respitory Rate 20 03/31/2014 [facility] Temperature Oral (F) 98.4 F 03/31/2014 [facility] Systolic (mm Hg) 109 03/31/2014 [facility] Height 160.02 cm 03/31/2014 [facility] BMI Calculated 15.98 03/31/2014 [facility] Weight 40.909 03/31/2014 [facility] Heart Rate 71 03/01/2014 [facility] Respitory Rate 18 03/01/2014 [facility] Temperature Oral (F) 97.7 F 03/01/2014 [facility] Systolic (mm Hg) 108 03/01/2014 [facility] Diastolic (mm Hg) 66 03/01/2014 [facility] Respitory Rate 18 03/01/2014 [facility] Systolic (mm Hg) 96 03/01/2014 [facility] Diastolic (mm Hg) 60 03/01/2014 [facility] Heart Rate 76 03/01/2014 [facility] Temperature Oral (F) 97.5 F 03/01/2014 [facility] Weight 50 03/01/2014 [facility] BMI Calculated 19.53 03/01/2014 [facility] Height 160.02 cm 03/01/2014 [facility] Diastolic (mm Hg) 62 07/28/2013 [facility] Systolic (mm Hg) 117 07/28/2013 [facility] Heart Rate 101 07/28/2013 [facility] Temperature Oral (F) 98.1 F 07/28/2013 [facility] Respitory Rate 18 07/28/2013 [facility] Systolic (mm Hg) 109 07/27/2013 [facility] Diastolic (mm Hg) 69 07/27/2013 [facility] Heart Rate 86 07/27/2013 [facility] Temperature Oral (F) 98.1 F 07/27/2013 [facility] Respitory Rate 18 07/27/2013 [facility] Heart Rate 80 07/27/2013 [facility] Systolic (mm Hg) 120 07/27/2013 [facility] Respitory Rate 18 07/27/2013 [facility] Diastolic (mm Hg) 71 07/27/2013 [facility] Temperature Oral (F) 97.2 F 07/27/2013 [facility] BMI Calculated 15.44 07/23/2013 [facility] Height 160.02 cm 07/23/2013 [facility] Weight 39.545 07/23/2013 [facility] Weight 36.364 07/22/2013 [facility] Height 160.02 cm 07/22/2013 [facility] BMI Calculated 14.2 07/22/2013 [facility] Temperature Oral (F) 98.7 F 07/22/2013 [facility] Diastolic (mm Hg) 80 07/22/2013 [facility] Respitory Rate 18 07/22/2013 [facility] Heart Rate 87 07/22/2013 [facility] Systolic (mm Hg) 140 07/22/2013 [facility] Respitory Rate 16 07/22/2013 [facility] Heart Rate 89 07/22/2013 [facility] Temperature Oral (F) 98.7 F 07/22/2013 [facility] Systolic (mm Hg) 145 07/22/2013 [facility] Diastolic (mm Hg) 85 07/22/2013 [facility] Heart Rate 95 07/22/2013 [facility] Respitory Rate 16 07/22/2013 [facility] Diastolic (mm Hg) 85 07/22/2013 [facility] Systolic (mm Hg) 138 07/22/2013 [facility] Temperature Oral (F) 98.7 F 07/22/2013 [facility] BMI Calculated 15.44 07/22/2013 [facility] Height 160.02 cm 07/22/2013 [facility] Weight 39.545 07/22/2013 [facility] Heart Rate 71 09/14/2012 [facility] Systolic (mm Hg) 126 09/14/2012 [facility] Respitory Rate 18 09/14/2012 [facility] Diastolic (mm Hg) 72 09/14/2012 [facility] Temperature Oral (F) 97.9 F 09/14/2012 [facility] Respitory Rate 18 09/14/2012 [facility] Systolic (mm Hg) 124 09/14/2012 [facility] Heart Rate 67 09/14/2012 [facility] Diastolic (mm Hg) 69 09/14/2012 [facility] Temperature Oral (F) 97.6 F 09/14/2012 [facility] Respitory Rate 16 09/14/2012 [facility] Systolic (mm Hg) 130 09/14/2012 [facility] Diastolic (mm Hg) 73 09/14/2012 [facility] Heart Rate 65 09/14/2012 [facility] Temperature Oral (F) 98.7 F 09/14/2012 [facility] Weight 42.1 09/13/2012 [facility] Height 160.02 cm 09/13/2012 [facility] Weight 36.364 09/13/2012 [facility] Height 157.48 cm 09/13/2012 [facility] Temperature Oral (F) 97.7 F 10/12/2011 [facility] Heart Rate 75 10/12/2011 [facility] Systolic (mm Hg) 113 10/12/2011 [facility] Diastolic (mm Hg) 71 10/12/2011 [facility] Respitory Rate 18 10/12/2011 [facility] Diastolic (mm Hg) 78 10/12/2011 [facility] Systolic (mm Hg) 127 10/12/2011 [facility] Respitory Rate 18 10/12/2011 [facility] Heart Rate 68 10/12/2011 [facility] Temperature Oral (F) 97.6 F 10/12/2011 [facility] Diastolic (mm Hg) 72 10/12/2011 [facility] Temperature Oral (F) 97.5 F 10/12/2011 [facility] Systolic (mm Hg) 126 10/12/2011 [facility] Respitory Rate 17 10/12/2011 [facility] Heart Rate 66 10/12/2011 [facility] Height 62 10/01/2011 [facility] Weight 35.710 10/01/2011 [facility] Height 157.48 cm 10/01/2011 [facility] Height 160.02 cm 10/01/2011 [facility] Weight 39.091 10/01/2011 [facility] Encounters Location Location Details Encounter Type Encounter Number Reason For Visit Attending Provider ADM Date DC Date Status Source [facility] Inpatient [id number] ICELANDIC BERBEL 10/01/2011 10/12/2011 Active [facility] Outpatient [id number] 185 ICELANDIC BERBEL 10/15/2011 10/15/2011 Active [facility] Inpatient [id number] HYPOTENSION PRETTYO MOUGOURIS 09/13/2012 09/14/2012 Active [facility] [id number] Khang Chamberlainon 07/22/2013 07/22/2013 [facility] Inpatient [id number] Mega Sims Jr 07/22/2013 07/28/2013 [facility] [id number] Angel Jose 03/01/2014 03/01/2014 [facility] [id number] Leilani Sebastian 03/31/2014 04/01/2014 [facility] Bedded Outpatient [id number] Abdirahman Bedolla 01/29/2016 01/30/2016 [facility] Bedded Outpatient [id number] Abdirahman Bedolla 02/05/2016 02/06/2016 [facility] [place] [facility] [id number] Michael Ng 2017 03/05/2017 [facility] [place] Procedures Procedure Code Date Perfomer Comments Source Abdominal hysterectomy [id number] [facility] Abdominal hysterectomy [id number] [facility] [place] Abdominal hysterectomy [id number] [facility]
[2018-01-28 13:46] LABS: BASOPHILS # (AUTO) 0.1 (0.0-0.1); BASOPHILS % 0.2 % (0.0-1.0); EOSINOPHILS # (AUTO) 0.1 (0.0-0.4); EOSINOPHILS % 0.3 % (0.0-6.0); HEMATOCRIT 37.7 % (34.2-44.1); LYMPHOCYTES # (AUTO) 2.2 (1.0-3.2); LYMPHOCYTES % 6.8 % (18.0-39.1); MEAN CORPUSCULAR HEMOGLOBIN 32.7 pg (28-32); MEAN CORPUSCULAR HGB CONC 34.5 g/dL (31-35); MEAN CORPUSCULAR VOLUME 94.7 fL (81-99); MONOCYTES # (AUTO) 1.2 (0.2-0.8); MONOCYTES % 3.9 % (4.4-11.3); NEUTROPHILS # (AUTO) 27.8 (2.1-6.9); NEUTROPHILS % 87.2 % (38.7-80.0); PLATELET COUNT 330 x10e3/uL (140-360); RED BLOOD COUNT 3.98 x10e6/uL (3.6-5.1); RED CELL DISTRIBUTION WIDTH 13.1 % (11.7-14.4)
--- NOTE | 2018-01-28 14:11 | Diagnostic Imaging Report ---
EXAM: XR CHEST 1 VIEW DATE: 01/28/2018 1:24 PM INDICATION: Cough COMPARISON: Chest CT 01/20/2018, no report available FINDINGS: Lines and Tubes: None Heart and Mediastinum: No acute cardiomediastinal findings. Lungs and Pleura: Scattered opacities in the mid and lower lungs with more nodular opacity in the left apex. Bones and Soft Tissues: No acute findings. IMPRESSION: 1. Nodular opacity left apex with scattered opacities in the mid and lower lungs statistically represent an acute infectious/inflammatory process. Underlying malignancy should be considered/correlation with history. Follow-up CT with contrast recommended with consideration of PET/CT if findings persist. Signed by: Dr. Sunil Dow MD on 01/28/2018 2:07 PM
[2018-01-28 14:15] LABS: ALANINE AMINOTRANSFERASE 25 IU/L (0-55); ALBUMIN 3.4 g/dL (3.5-5.0); ALBUMIN/GLOBULIN RATIO 1.3 (0.8-2.0); ALKALINE PHOSPHATASE 58 IU/L (40-150); ANION GAP 18.5 mmol/L (8-16); BLOOD UREA NITROGEN 22 mg/dL (7-26); BUN/CREATININE RATIO 29 (6-25); CALCIUM 9.2 mg/dL (8.4-10.2); CARBON DIOXIDE 25 mmol/L (22-29); CHLORIDE 102 mmol/L (98-107); CREATININE, SERUM 0.75 mg/dL (0.57-1.11); EST GLOMERULAR FILTRATION RATE > 60 ML/MIN (60-); GLUCOSE 94 mg/dL (74-118); POTASSIUM 3.5 mmol/L (3.5-5.1); SODIUM 142 mmol/L (136-145)
[2018-01-28 14:16] LABS: NEUTROPHILS % (MANUAL) 84 % (40-74)
[2018-01-28 14:17] LABS: EOSINOPHILS % (MANUAL) 1 % (0-7); LYMPHOCYTES % (MANUAL) 12 % (19-48); MONOCYTES % (MANUAL) 3 % (3.4-9.0)
[2018-01-28 14:18] LABS: PLATELET ESTIMATE ADEQUATE; PLATELET MORPHOLOGY COMMENT NORMAL; RBC MORPHOLOGY COMMENT NORMAL
[2018-01-28] MEDS ORDERED: ASPIRIN 81 MG CHEW TAB PO ONE (15:00)
[2018-01-28] MEDS ORDERED: VANCOMYCIN HCL 1GM/NS 250 ML BAG IV SCH (15:00)
[2018-01-28] MEDS ORDERED: SODIUM CHLORIDE 0.9% 1000ML 1,000 ML ONE (15:21)
[2018-01-28] MEDS: SODIUM CHLORIDE 0.9% 1000ML 1,000 ML IV SCH ×3 (15:30→21:25)
[2018-01-28 16:22] LABS: CREATINE KINASE 56 IU/L (29-168)
[2018-01-28] MEDS: VANCOMYCIN 1GM/NS 250 ML 250 ML IV SCH (16:45)
[2018-01-28] MEDS: NICOTINE 21 MG/EA PATCH TOP SCH (18:15)
[2018-01-28] MEDS: CEFEPIME HCL 1 GM VIAL IV SCH (18:15)
[2018-01-28 20:30] VITALS: BP 115/60
[2018-01-28 23:41] LABS: CREATINE KINASE 37 IU/L (29-168)
[2018-01-29] VITALS (7 sets, daily range): BP systolic 100–118; BP diastolic 52–71
[2018-01-29 05:27] LABS: CREATINE KINASE 32 IU/L (29-168)
[2018-01-29] MEDS: CEFEPIME HCL 1 GM VIAL IV SCH (06:00)
[2018-01-29] MEDS ORDERED: MEROPENEM 1GM 100 ML IV SCH (10:00)
[2018-01-29] MEDS ORDERED: GUAIFENESIN/CODEINE 10 ML CUP PO PRN (10:00)
[2018-01-29] MEDS ORDERED: ALBUTEROL/IPRATROPIUM 3 ML NEB NEB PRN (10:00)
[2018-01-29] MEDS ORDERED: BENZONATATE 100 MG CAP PO PRN (10:00)
[2018-01-29] MEDS: MEROPENEM 1 GM VIAL IV SCH ×2 (12:54→23:45)
--- NOTE | 2018-01-29 12:57 | Diagnostic Imaging Report ---
EXAMINATION: CT scan of the chest without contrast. TECHNIQUE: Helical CT images of the chest were performed from the lung apices to the level of the adrenal glands. No intravenous contrast was administered none Coronal and sagittal reformatted images were obtained. Dose modulation, iterative reconstruction, and/or weight based adjustment of the mA/kV was utilized to reduce the radiation dose to as low as reasonably achievable. COMPARISON: None. CLINICAL HISTORY:pneumonia DISCUSSION: ABSENCE OF INTRAVENOUS CONTRAST DECREASES SENSITIVITY FOR DETECTION OF FOCAL LESIONS AND VASCULAR PATHOLOGY. LINES/TUBES: None. LUNGS AND AIRWAYS: Emphysematous change. Apical pleural-parenchymal scarring. Again in the left upper lobe, nodular consolidation which has progressed with surrounding bronchiectasis/cystic change. PLEURA: No pneumothorax or pleural effusions. HEART AND MEDIASTINUM: The thyroid gland is normal. Mild vascular calcifications. Heart size normal. LYMPH NODES: There is no mediastinal, hilar or axillary lymphadenopathy. ABDOMEN: Limited contrast-enhanced views of the upper abdomen show no abnormality within the visualized liver, spleen, pancreas, or kidneys. The adrenal glands are normal. BONES AND SOFT TISSUES: No acute bony abnormalities. IMPRESSION: Pulmonary emphysema. Progressive nodular consolidation left upper lobe with adjacent bronchiectasis/cystic change. As previously recommended, follow-up in 3 months. Signed by: Dr. Wicho Parisi M.D. on 01/29/2018 12:53 PM
[2018-01-29] MEDS: ALBUTEROL/IPRATROPIUM 3 ML NEB NEB SCH ×2 (14:00→19:05)
--- NOTE | 2018-01-29 14:13 | Consultation ---
DATE OF CONSULTATION: PULMONARY CONSULTATION REASON FOR CONSULTATION: Shortness of breath. HPI: Ms. Kraus is a 72-year-old female. She was discharged on the 26 of January. She was admitted on January 19, 2018 with shortness of breath and influenza. Patient has a lung nodule on the CT scan, which was measuring around 1 cm on my review. Official report said scarring. I had a detailed discussion with the radiology and they recommended a repeat CAT scan in 3 months, which was discussed with the patient. Patient went home on the and started having shortness of breath next day. She was having wheezing and home health nurse said that she is not doing well as well, so she decided to come to the emergency room. REVIEW OF SYSTEMS GENERAL: Denies any fever or chills. HEAD: Denies any head trauma. ENT: Denies any earache. CVS: Denies any chest pain. RESPIRATORY: Shortness of breath and wheezing. MUSCULOSKELETAL: Denies any arthralgias or myalgias. NEURO: Denies any focal weakness. The rest of the review of systems are negative except as in HPI. PAST MEDICAL HISTORY: Hypertension, hyperlipidemia, coronary artery disease. FAMILY AND SOCIAL HISTORY: She has been a smoker for 45+ years. She drinks 2 to 3 glasses of wine every day. She lives at home. PHYSICAL EXAMINATION VITALS: Temperature 99.1, pulse of 98, blood pressure 118/54, respiratory rate of 18 to 20 per minute, O2 sat 95% on 2 liters. HEENT: Head atraumatic, normocephalic. NECK: Supple. CHEST: Clear now, but reportedly had some wheezing in the emergency room. HEART: S1, S2 audible. ABDOMEN: Soft, nontender. EXTREMITIES: No clubbing, cyanosis, or edema. NEUROLOGICAL: She is awake and alert. Cardiac enzymes were done in the emergency room has been negative. LABS: Sodium 142, potassium 3.5, chloride 102, BUN 22, creatinine 0.75. Chest x-ray, I reviewed the images. Chest x-ray showing increased haziness on the left side and some scarring. ASSESSMENT/PLAN: Ms. Kraus is a 72-year-old female presented with worsening shortness of breath, leukocytosis, hypotension, tachycardia, abnormal chest x-ray likely has new pneumonia which is probably hospital-acquired pneumonia as patient had recent hospitalization. CURRENT PROBLEMS 1. Hospital-acquired pneumonia. Continue the patient on IV vancomycin and meropenem as ordered by Dr. Mayfield. 2. Nebulizer treatment has ordered for COPD exacerbation. 3. Patient has a lung nodule, which I have discussed with her last time as well and she will need to have a followup CT in 3 months. If the nodule is increasing in size, she will need biopsy. 4. Lovenox subcu for DVT prophylaxis. 5. Oxygen as needed to keep the O2 sat more than or equal to 92%. 6. She has been a smoker. Counseled her to stop smoking and she has been trying to do that. Thank you for this consult. Job#: [id number] KAPIL
[2018-01-29] MEDS: BENZONATATE 100 MG CAP PO SCH ×2 (15:30→21:15)
[2018-01-29] MEDS: NICOTINE 21 MG/EA PATCH TOP SCH (16:59)
[2018-01-29] MEDS: VANCOMYCIN 1GM/NS 250 ML 250 ML IV SCH (16:59)
[2018-01-29] MEDS: ENOXAPARIN 30 MG/0.3 ML SYR SC SCH (16:59)
[2018-01-29] MEDS: ATORVASTATIN 20 MG TAB PO SCH (21:15)
[2018-01-30] VITALS (8 sets, daily range): BP systolic 112–149; BP diastolic 57–80
[2018-01-30] MEDS: ALBUTEROL/IPRATROPIUM 3 ML NEB NEB SCH ×4 (01:20→20:10)
[2018-01-30 04:55] LABS: BASOPHILS % 0.2 % (0.0-1.0); EOSINOPHILS # (AUTO) 0.2 (0.0-0.4); EOSINOPHILS % 0.9 % (0.0-6.0); HEMATOCRIT 29.2 % (34.2-44.1); HEMOGLOBIN 9.7 g/dL (12.0-16.0); LYMPHOCYTES # (AUTO) 2.3 (1.0-3.2); LYMPHOCYTES % 13.9 % (18.0-39.1); MEAN CORPUSCULAR HEMOGLOBIN 32.6 pg (28-32); MEAN CORPUSCULAR HGB CONC 33.2 g/dL (31-35); MONOCYTES # (AUTO) 0.7 (0.2-0.8); MONOCYTES % 4.3 % (4.4-11.3); NEUTROPHILS # (AUTO) 13.3 (2.1-6.9); PLATELET COUNT 246 x10e3/uL (140-360); RED BLOOD COUNT 2.98 x10e6/uL (3.6-5.1); RED CELL DISTRIBUTION WIDTH 13.4 % (11.7-14.4)
[2018-01-30 05:15] LABS: ANION GAP 12.5 mmol/L (8-16); BLOOD UREA NITROGEN 18 mg/dL (7-26); BUN/CREATININE RATIO 29 (6-25); CALCIUM 8.4 mg/dL (8.4-10.2); CARBON DIOXIDE 23 mmol/L (22-29); CHLORIDE 105 mmol/L (98-107); CREATININE, SERUM 0.63 mg/dL (0.57-1.11); EST GLOMERULAR FILTRATION RATE > 60 ML/MIN (60-); GLUCOSE 99 mg/dL (74-118); POTASSIUM 3.5 mmol/L (3.5-5.1); SODIUM 137 mmol/L (136-145)
[2018-01-30] MEDS: CHOLECALCIFEROL PO SCH (09:00)
[2018-01-30] MEDS: ASPIRIN 81 MG CHEW TAB PO SCH (09:36)
[2018-01-30] MEDS: CLOPIDOGREL BISULFATE 75 MG TAB PO SCH (09:36)
[2018-01-30] MEDS: BENZONATATE 100 MG CAP PO SCH ×3 (09:36→21:41)
[2018-01-30] MEDS: MEROPENEM 1 GM VIAL IV SCH ×2 (11:52→23:53)
[2018-01-30] MEDS: ENOXAPARIN 30 MG/0.3 ML SYR SC SCH (17:59)
[2018-01-30] MEDS: VANCOMYCIN 1GM/NS 250 ML 250 ML IV SCH (17:59)
[2018-01-30] MEDS: NICOTINE 21 MG/EA PATCH TOP SCH (17:59)
[2018-01-30] MEDS: ATORVASTATIN 20 MG TAB PO SCH (21:41)
[2018-01-31] VITALS (7 sets, daily range): BP systolic 113–140; BP diastolic 55–85
[2018-01-31] MEDS: ALBUTEROL/IPRATROPIUM 3 ML NEB NEB SCH ×4 (02:10→21:20)
[2018-01-31] MEDS: CLOPIDOGREL BISULFATE 75 MG TAB PO SCH (08:56)
[2018-01-31] MEDS: BENZONATATE 100 MG CAP PO SCH ×3 (08:56→20:44)
[2018-01-31] MEDS: ASPIRIN 81 MG CHEW TAB PO SCH (08:56)
[2018-01-31] MEDS: CHOLECALCIFEROL PO SCH (09:00)
[2018-01-31] MEDS: MEROPENEM 1 GM VIAL IV SCH (10:23)
[2018-01-31] MEDS: ENOXAPARIN 30 MG/0.3 ML SYR SC SCH (16:28)
[2018-01-31] MEDS: NICOTINE 21 MG/EA PATCH TOP SCH (16:28)
[2018-01-31] MEDS: VANCOMYCIN 1GM/NS 250 ML 250 ML IV SCH (16:28)
[2018-01-31] MEDS: ATORVASTATIN 20 MG TAB PO SCH (20:44)
[2018-01-31] MEDS: MEROPENEM 1GM 100 ML IV SCH (20:44)
[2018-02-01] VITALS: BP 119/56
[2018-02-01] MEDS: ALBUTEROL/IPRATROPIUM 3 ML NEB NEB SCH ×3 (01:35→15:35)
[2018-02-01 08:00] VITALS: BP 97/55
[2018-02-01] MEDS: CHOLECALCIFEROL PO SCH (09:00)
[2018-02-01 09:20] VITALS: BP 97/55
[2018-02-01] MEDS: ASPIRIN 81 MG CHEW TAB PO SCH (09:42)
[2018-02-01] MEDS: MEROPENEM 1GM 100 ML IV SCH (09:42)
[2018-02-01] MEDS: BENZONATATE 100 MG CAP PO SCH ×2 (09:42→15:57)
[2018-02-01] MEDS: CLOPIDOGREL BISULFATE 75 MG TAB PO SCH (09:42)
--- NOTE | 2018-02-01 11:10 | Discharge Summary ---
Discharge date is pending long-term acute care bed availability. FINAL DIAGNOSES 1. Healthcare-acquired pneumonia associated with sepsis but no shock. 2. Recurrent acute exacerbation of chronic obstructive pulmonary disease, failed outpatient treatment and previous hospitalization. 3. Leukocytosis. 4. Fever. 5. Hypoxia, [id number] respiratory insufficiency. SUMMARY: This 72-year-old female was recently discharged home on the . She came back into the hospital on January 28 because she was not able to breathe. White cell count went up to 31.8 thousand. The patient has fever. Her blood pressure is stable, but she is with increasing shortness of breath and required multiple nebulizer treatments. She is diagnosed with sepsis, pneumonia, tachycardia, fever and increased WBC associated with also acute exacerbation of COPD. She does have [id number] hypoxia secondary to respiratory insufficiency from her pulmonary problems. A CT scan showed bilateral upper lobe infiltrates. The patient also had a lung nodule as well. She was having significant wheezing on rehospitalization. The patient continued with treatment. The patient continued to have problems especially with increase in walking. She will require meropenem IV antibiotic and continue with treatment. The patient is a good candidate for long-term acute care given her medical debility and deconditioning due to prolonged hospitalization. Patient is stable. She will transfer to [place] today when it is available. Medication reconciliation is done when the patient will be transferred. ILDEFONSO SCHAFFER MD Job#: [id number]
[2018-02-01 12:00] VITALS: BP 120/62
[2018-02-01] MEDS: NICOTINE 21 MG/EA PATCH TOP SCH (15:57)
[2018-02-01] MEDS: ENOXAPARIN 30 MG/0.3 ML SYR SC SCH (15:57)
[2018-02-01] MEDS: VANCOMYCIN 1GM/NS 250 ML 250 ML IV SCH (15:57)
[2018-02-01 16:00] VITALS: BP 115/59
== END 2018-02-01 19:09 | DRG 871 ==
LOC: ER 13:17 → ERHOLD 14:46 → OBSVTOIN 18:02 → IMCU 20:13 → MED/SURG3 01-30 14:17
PROVIDERS: ADMIT Internal Medicine; ATTEND Internal Medicine
DX: A41.9 Sepsis, unspecified organism (principal); J18.9 Pneumonia, unspecified organism; J44.1 Chronic obstructive pulmonary disease with (acute) exacerbation; R09.02 Hypoxemia; I10 Essential (primary) hypertension; E78.5 Hyperlipidemia, unspecified; I25.10 Atherosclerotic heart disease of native coronary artery without angina pectoris; F17.200 Nicotine dependence, unspecified, uncomplicated; R00.0 Tachycardia, unspecified; R91.1 Solitary pulmonary nodule
CPT/HCPCS: 36415; 71045; 71250; 80048; 80053; 80202; 82550; 82553; 82948; 84484; 85025; 87040; 94640; 96374; 96376; 99284; J0692; J1650; J2185; J3370; J7030

== ENCOUNTER → 2018-03-23 | Outpatient (RCR) | payer MEDICARE, OTHER | LOC: PT 03-09 14:53 | PROVIDERS: ATTEND Specialist | DX: M25.551 Pain in right hip (principal); M16.11 Unilateral primary osteoarthritis, right hip ==

== ENCOUNTER 2018-04-12 16:00 | Outpatient (RCR) | payer MEDICARE, OTHER | END 2018-04-20 | LOC: PT 16:00 | PROVIDERS: ATTEND Specialist | DX: M16.11 Unilateral primary osteoarthritis, right hip (principal); M25.551 Pain in right hip; M62.81 Muscle weakness (generalized) | CPT/HCPCS: 97139 ==

== ENCOUNTER 2018-05-04 15:00 | Outpatient (RCR) | payer MEDICARE, OTHER | END 2018-05-21 | LOC: PT 15:00 | PROVIDERS: ATTEND Specialist | DX: M25.551 Pain in right hip (principal); M16.11 Unilateral primary osteoarthritis, right hip | CPT/HCPCS: 97139 ==

== ENCOUNTER → 2018-06-16 | Outpatient (CLI) | payer MEDICARE, OTHER ==
--- NOTE | 2018-06-16 16:47 | Diagnostic Imaging Report ---
EXAMINATION: CT of the chest without contrast TECHNIQUE: Spiral CT images of the chest were performed from the lung apices through the level of the adrenal glands without IV or oral contrast material. Coronal and sagittal reformations were accomplished. Technique modification was utilized to maintain the lowest dose possible from the patient. DLP: 188.27 mGy-cm COMPARISON: 01/29/2018 CLINICAL HISTORY: Evaluation of abnormal chest findings and follow-up of the opacity in the left apex. DISCUSSION: Lungs: Diffuse emphysematous changes are again noted. Nodularity and opacity in the left apex is again identified. There is associated bronchiectasis and cystic change. Overall opacity appears diminished compared to the prior study with some retraction and progressive scarring. No new lesions are identified. Follow-up study in 6 months is recommended to ascertain progressive clearing. Airways: <The major airways are clear.> Pleura: <There is no evidence of pleural effusion or pneumothorax.> Heart and mediastinum: <The heart and the mediastinum are normal.> Thoracic aortic calcification is present. Abdomen: <The visualized parts of the upper abdomen are unremarkable.> Bones and soft tissues: Degenerative changes of the spine. The soft tissues appear unremarkable. IMPRESSION: 1. Resolving left apical inflammatory process. 2. Interval follow-up chest CT in 6 months recommended. Signed by: Dr. Christopher Reddy DO on 06/16/2018 4:44 PM
== END ==
LOC: CT 13:28
PROVIDERS: ATTEND Internal Medicine
DX: R91.8 Other nonspecific abnormal finding of lung field (principal)
CPT/HCPCS: 71250

== ENCOUNTER → 2018-10-19 | Day surgery (SDC) | payer MEDICARE, OTHER ==
[~2018-10-19] MED LIST changes: +CITRACAL + D E1 EACH PO; +HYOSCYAMINE 0.125 MG TAB ONE; +LIDOCAINE HCL 2% LOCAL INJ 5 ML SDV VIAL INJ ONE; +MIDAZOLAM HCL 2 MG/2 ML VIAL ONE; +MUCINEX600 MG PO; +PANTOPRAZOLE SO40 MG PO; +PROPOFOL IV EMULSION 10 MG/ML 20 ML VIAL ONE; +SUPER B COMPLE1 EACH PO; +VITAMIN E PO; +[UNRECOGNIZED DRUG - OTHER] PO; +vitamin d3 PO
--- OUTSIDE RECORDS SUMMARY | 2018-10-19 11:00 | XMS REPORT | Continuity of Care Document ---
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.25---ATHEROSCL Active 01/21/2016 [facility] Discharge Diagnosis: Acute hip pain 03/31/2014 04/02/2014 [facility] PAIN Active 03/31/2014 [facility] Discharge Diagnosis: Fall 02/28/2014 03/03/2014 [facility] Discharge Diagnosis: Nasal laceration 02/28/2014 03/03/2014 [facility] FALL Active 02/28/2014 [facility] PELVIC FRACUTRE W/ACETABULAR INVOLVEMENT Active 07/22/2013 [facility] HYPOTENSION Active 09/12/2012 [facility] RIB FX W/ PNEUMOTHORAX, ACUTE ALCOHOL INTOXICATION Active 09/30/2011 [facility] HEAD LACERATION Active 09/30/2011 [facility] 185 Active 09/22/2011 [facility] Malignant essential hypertension (disorder) Active Problem 06/10/2017 [facility] Arth[facility] ([facility]order) Resolved Problem 06/10/2017 [facility] Chronic obstructive lung disease (disorder) Resolved Problem 06/10/2017 [facility] Degeneration of intervertebral disc (disorder) Active Problem 06/10/2017 [facility] Dizziness (finding) Resolved Problem 06/10/2017 [facility] Fracture of femur (disorder) Resolved Problem 06/10/2017 rt 5years ago [facility], [facility] [place] History of - psoriasis (context-dependent category) Active Problem 06/10/2017 [facility], [facility] [place] Hypertensive disorder, systemic arterial (disorder) Resolved Problem 06/10/2017 [facility], [facility] [place] Low back pain (disorder) Active Problem 06/10/2017 [facility], [facility] [place] Absence seizure (disorder) Resolved Problem 06/10/2017 [facility], [facility] [place] Pneumothorax (disorder) Active Problem 06/10/2017 [facility], [facility] [place] Transient ischemic attack (disorder) Active Problem 06/10/2017 [facility] [place] Accelerated essential hypertension Active Problem 09/16/2012 [facility] COPD - Chronic obstructive pulmonary disease Active Problem 09/16/2012 [facility] Fracture Active Problem 09/16/2012 [facility] Pneumothorax Active Problem 09/16/2012 [facility] Atherosclerosis (morphologic abnormality) Active Problem 04/02/2014 [facility], [facility] Fracture (morphologic abnormality) Active Problem 04/02/2014 [facility] Atherosclerosis Active Problem 09/16/2012 [facility] Degenerative disc disease Active Problem 09/16/2012 [facility] History of - psoriasis Active Problem 09/16/2012 [facility] Hypertension Resolved Problem 09/16/2012 [facility] Low back pain Active Problem 09/16/2012 [facility] TIA Active Problem 09/16/2012 [facility] FX EIGHT/MORE RIB-CLOSED Active [facility] NONE Active [facility] HYPOTENSION NEC Active [facility] PELVIC FRACTURE NEC-CLOS Active [facility] Medications Medication Details Route Status Patient Instructions Ordering Provider Order Date Source Folic Acid 0.8 mg, 2 tab, Route: PO, Drug form: TAB, Daily, Dosing Weight 48.636, kg, Start date: 02/06/16 9:00:00 HAND UMBRELLA TIPPER, Duration: 30 day, Stop date: 03/06/16 9:00:00 HAND UMBRELLA TIPPER Inactive 02/06/2016 [facility] Esomeprazole 40 mg, 1 cap, Route: PO, Drug form: ECCAP, Daily, Dosing Weight 48.636, kg, Start date: 02/06/16 9:00:00 HAND UMBRELLA TIPPER, Duration: 30 day, Stop date: 03/06/16 9:00:00 CSTNotes: (Same as: NexIUM) "Do Not Crush" Non-Formulary Inactive 02/06/2016 [facility] Vitamin B 12 2,000 microgram, 2 tab, Route: PO, Drug form: TAB, Daily, Dosing Weight 48.636, kg, Start date: 02/06/16 9:00:00 HAND UMBRELLA TIPPER, Duration: 30 day, Stop date: 03/06/16 9:00:00 CSTNotes: (Same As: Vitamin B-12) Inactive 02/06/2016 [facility] Plavix 75 mg, 1 tab, Route: PO, Drug form: TAB, Daily, Dosing Weight 48.636, kg, Start date: 02/06/16 9:00:00 HAND UMBRELLA TIPPER, Duration: 30 day, Stop date: 03/06/16 9:00:00 CSTNotes: (Same As: Plavix) Inactive 02/06/2016 [facility] Aspirin 81 mg, 1 tab, Route: PO, Drug form: ECTAB, Daily, Dosing Weight 48.636, kg, Start date: 02/06/16 9:00:00 HAND UMBRELLA TIPPER, Duration: 30 day, Stop date: 03/06/16 9:00:00 CSTNotes: Do not crush or chew. (Same As: Ecotrin) Inactive 02/06/2016 [facility] atorvastatin 40 mg, 1 tab, Route: PO, Drug form: TAB, Bedtime, Dosing Weight 48.636, kg, Start date: 02/05/16 21:00:00 HAND UMBRELLA TIPPER, Duration: 30 day, Stop date: 03/05/16 21:00:00 CSTNotes: (Same as: Lipitor) No Longer Active 02/06/2016 [facility] Saline Flush 0.9% 10 ml, Route: IVP, Drug Form: INJ, Dosing Weight 48.636, kg, Q12H, Start date: 02/05/16 21:00:00 HAND UMBRELLA TIPPER, Duration: 30 day, Stop date: 03/06/16 9:00:00 CSTNotes: (Same as: BD Posiflush) No Longer Active 02/06/2016 [facility] Saline Flush 0.9% 10 ml, Route: IVP, Drug Form: INJ, Dosing Weight 48.636, kg, PRN, PRN Line Flush, Start date: 02/05/16 14:05:00 HAND UMBRELLA TIPPER, Duration: 30 day, Stop date: 03/06/16 14:04:00 CSTNotes: (Same as: BD Posiflush) No Longer Active 02/05/2016 [facility] Nitroglycerin 0.4 mg, 1 tab, Route: SL, Drug form: TAB, Q5Min, Dosing Weight 48.636, kg, PRN Chest Pain, Start date: 02/05/16 14:05:00 HAND UMBRELLA TIPPER, Duration: 3 doses or times, Stop date: Limited # of timesNotes: (Same as: Nitroquick, Nitrostat) "Do Not Crush" Sublingual tablet No Longer Active 02/05/2016 [facility] Acetaminophen 325 MG / Hydrocodone Bitartrate 5 MG Oral Tablet 1 tab, Route: PO, Drug Form: TAB, Dosing Weight 48.636, kg, Q4H, PRN Pain Score 4-6, Start date: 02/05/16 14:05:00 HAND UMBRELLA TIPPER, Duration: 30 day, Stop date: 03/06/16 14:04:00 CSTNotes: (Same as: Lennon 325/5) Do not exceed 4gm/day of acetaminophen. No Longer Active 02/05/2016 [facility] Morphine 2 mg, 1 mL, Route: IVP, Drug form: INJ, Q2H, Dosing Weight 48.636, kg, PRN Pain Score 4-6, Start date: 02/05/16 14:05:00 HAND UMBRELLA TIPPER, Duration: 30 day, Stop date: 03/06/16 14:04:00 CSTNotes: (Same as:MORPhine Sulfate) No Longer Active 02/05/2016 [facility] Sodium Chloride 0.154 MEQ/ML Injectable Solution 250 mL, Infuse Over: 1 hr, Route: IV, ONCALL, Priority: Routine, Dosing Weight 48.636 kg, Start date: 02/05/16 9:00:00 HAND UMBRELLA TIPPER, Duration: 1 doses or times Inactive 02/05/2016 [facility] Sodium Chloride 0.154 MEQ/ML Injectable Solution 750 mL, Rate: 75 ml/hr, Infuse over: 10 hr, Route: IV, Dosing Weight 48.636 kg, Total Volume: 750, Start date: 02/05/16 8:39:00 HAND UMBRELLA TIPPER, Duration: 24 hr, Stop date: 02/06/16 8:38:00 HAND UMBRELLA TIPPER No Longer Active 02/05/2016 [facility] Prednisone 2.5 mg, 1 tab, Route: PO, Drug form: TAB, Daily, Dosing Weight 46.818, kg, Start date: 01/30/16 9:00:00 HAND UMBRELLA TIPPER, Duration: 30 day, Stop date: 02/28/16 9:00:00 CSTNotes: Take with food. Inactive 01/30/2016 [facility] Vitamin B 12 2,000 microgram, 2 tab, Route: PO, Drug form: TAB, Daily, Dosing Weight 46.818, kg, Start date: 01/30/16 9:00:00 HAND UMBRELLA TIPPER, Duration: 30 day, Stop date: 02/28/16 9:00:00 CSTNotes: (Same As: Vitamin B-12) Inactive 01/30/2016 [facility] Folic Acid 0.8 mg, 2 tab, Route: PO, Drug form: TAB, Daily, Dosing Weight 46.818, kg, Start date: 01/30/16 9:00:00 HAND UMBRELLA TIPPER, Duration: 30 day, Stop date: 02/28/16 9:00:00 HAND UMBRELLA TIPPER Inactive 01/30/2016 [facility] Esomeprazole 40 mg, Route: PO, Drug form: ECCAP, Daily, Dosing Weight 46.818, kg, Start date: 01/30/16 9:00:00 HAND UMBRELLA TIPPER, Duration: 30 day, Stop date: 02/28/16 9:00:00 HAND UMBRELLA TIPPER No Longer Active 01/30/2016 [facility] Plavix 75 mg, 1 tab, Route: PO, Drug form: TAB, Daily, Dosing Weight 46.818, kg, Start date: 01/30/16 9:00:00 HAND UMBRELLA TIPPER, Duration: 30 day, Stop date: 02/28/16 9:00:00 CSTNotes: (Same As: Plavix) Inactive 01/30/2016 [facility] Aspirin 81 mg, 1 tab, Route: PO, Drug form: CHEWTAB, Daily, Dosing Weight 46.818, kg, Start date: 01/30/16 9:00:00 HAND UMBRELLA TIPPER, Duration: 30 day, Stop date: 02/28/16 9:00:00 CSTNotes: Take with food. Inactive 01/30/2016 [facility] atorvastatin 40 mg, 1 tab, Route: PO, Drug form: TAB, Bedtime, Dosing Weight 46.818, kg, Start date: 01/29/16 21:00:00 HAND UMBRELLA TIPPER, Duration: 30 day, Stop date: 02/27/16 21:00:00 CSTNotes: (Same as: Lipitor) No Longer Active 01/30/2016 [facility] Docusate Sodium 100 MG Oral Capsule 100 mg, 1 cap, Route: PO, Drug form: CAP, Q12H, Dosing Weight 46.818, kg, Start date: 01/29/16 21:00:00 HAND UMBRELLA TIPPER, Duration: 30 day, Stop date: 02/28/16 9:00:00 CSTNotes: (Same as: Colace) (Do Not Crush) No Longer Active 01/30/2016 [facility] Protonix 40 mg, 1 tab, Route: PO, Drug form: ECTAB, Before Dinner, Start date: 01/29/16 16:30:00 HAND UMBRELLA TIPPER, Duration: 30 day, Stop date: 02/27/16 16:30:00 CSTNotes: Tablet should not be chewed or crushed. (Same as: Protonix) No Longer Active 01/29/2016 [facility] Nitroglycerin 0.4 mg, 1 tab, Route: SL, Drug form: TAB, Q5Min, Dosing Weight 46.818, kg, PRN Chest Pain, Start date: 01/29/16 10:49:00 HAND UMBRELLA TIPPER, Duration: 3 doses or times, Stop date: 01/29/16 17:00:00 CSTNotes: (Same as:Nitroquick, Nitrostat) "Do Not Crush" Sublingual tablet Inactive 01/29/2016 [facility] Ondansetron 4 mg, 1 tab, Route: PO, Drug form: TAB, Q8H, Dosing Weight 46.818, kg, PRN Nausea & Vomiting, Start date: 01/29/16 10:49:00 HAND UMBRELLA TIPPER, Duration: 30 day, Stop date: 02/28/16 10:48:00 CSTNotes: (Same as: Zofran) No Longer Active 01/29/2016 [facility] Sodium Chloride 0.154 MEQ/ML Injectable Solution 750 mL, Rate: 75 ml/hr, Infuse over: 10 hr, Route: IV, Dosing Weight 46.818 kg, Total Volume: 750, Start date: 01/29/16 10:49:00 HAND UMBRELLA TIPPER, Duration: 10 hr, Stop date: 01/29/16 20:48:00 HAND UMBRELLA TIPPER Inactive 01/29/2016 [facility] Esomeprazole 40 MG Enteric Coated Capsule 40 mg=1 cap, PO, Daily, # 90 cap, 0 Refill(s) Active 01/29/2016 [facility] clopidogrel 75 MG Oral Tablet [Plavix] 75 mg=1 tab, PO, Daily, # 90 tab, 0 Refill(s) Active 01/29/2016 [facility] predniSONE 2.5 mg oral tablet 2.5 mg=1 tab, PO, Daily, # 10 tab, 0 Refill(s) Active 01/29/2016 [facility] gabapentin 100 MG Oral Capsule 100 mg=1 cap, PO, PRN, 0 Refill(s) Active 01/29/2016 [facility] 1 ML denosumab 60 MG/ML Prefilled Syringe [Prolia] 60 mg=1 mL, SUB-Q, ONCE, Repeat every 6 months, # 1 mL, 0 Refill(s) Active 01/29/2016 [facility] atorvastatin 40 mg oral tablet 40 mg=1 tab, PO, Bedtime, # 90 tab, 1 Refill(s) Active 01/29/2016 [facility] sodium chloride 0.9% 1000 ml INJ 1,000 mL 1,000 mL, Rate: 75 ml/hr, Infuse over: 13.3 hr, Route: IV, Dosing Weight 46.818 kg, Total Volume: 1,000, Start date: 01/29/16 6:44:00 HAND UMBRELLA TIPPER, Duration: 30 day, Stop date: 02/28/16 6:43:00 HAND UMBRELLA TIPPER No Longer Active 01/29/2016 [facility] Tramadol 50 mg, 1 tab, Route: PO, Drug form: TAB, ONCE, Dosing Weight 40.909, kg, > 50 kg, Priority: STAT, Start date: 03/31/14 21:50:00, Stop date: 03/31/14 21:50:00Notes: Not to exceed 400mg/day. ([facility] Inactive 04/01/2014 [facility] tramadol hydrochloride 50 MG Oral Tablet 50 mg=1 tab, PO, Q4H, as needed for pain, # 24 tab, 0 Refill(s) Active 04/01/2014 [facility] Acetaminophen 325 MG / Hydrocodone Bitartrate 10 MG Oral Tablet [Lennon 10/325] 1 tab, Route: PO, Drug Form: TAB, Dosing Weight 40.909, kg, ONCE, STAT, Start date: 03/31/14 20:30:00, Stop date: 03/31/14 20:30:00 Inactive 04/01/2014 [facility] Tylenol 650 mg, 2 tab, Route: PO, Drug form: TAB, ONCE, Dosing Weight 50, kg, Priority: STAT, Start date: 02/28/14 22:39:00, Stop date: 02/28/14 22:39:00Notes: Do not exceed 4 gm/day. (Same as: Tylenol) Inactive 03/01/2014 [facility] thiamine 100 mg oral tablet 100 mg=1 tab, PO, Daily, # 7 tab, 0 Refill(s) Active 07/27/2013 [facility] Vitamin D 50,000 intl units oral capsule 50,000 IntlUnit=1 cap, PO, qWeek, # 8 cap, 0 Refill(s) Active 07/27/2013 [facility] Calcium Carbonate 1250 MG / Cholecalciferol 400 UNT Chewable Tablet 1 tab, CHEW, BID, # 60 tab, 0 Refill(s) Active 07/27/2013 [facility] benzonatate 100 mg oral capsule 100 mg=1 cap, PO, TID, Cough, # 15 cap, 0 Refill(s) Active 07/27/2013 [facility] atorvastatin 20 mg oral tablet 20 mg=1 tab, PO, Bedtime, # 30 tab, 0 Refill(s) Active 07/27/2013 [facility] Albuterol 0.833 MG/ML / Ipratropium Hubbard 0.167 MG/ML Inhalant Solution [DuoNeb] 3 mL, INHALATION, PRN, Respiratory Protocol, # 90 mL, 0 Refill(s) Active 07/27/2013 [facility] Acetaminophen 325 MG / Hydrocodone Bitartrate 5 MG Oral Tablet 1 tab, PO, Q4H, Pain Score 1-3, # 24 tab, 0 Refill(s) Active 07/27/2013 [facility] Acetaminophen 325 MG / Hydrocodone Bitartrate 10 MG Oral Tablet 1 tab, PO, Q4H, Pain Score 4-6, # 24 tab, 0 Refill(s) Active 07/27/2013 [facility] Vitamin D 50,000 IntlUnit, 1 cap, Route: PO, Drug form: CAP, QThu, Dosing Weight 39.545, kg, Start date: 07/27/13 8:00:00, Duration: 30 day, Stop date: 08/23/13 9:00:00Notes: (Same as: Vitamin D) "Do Not Crush" Inactive 07/27/2013 [facility] molasses 240 mL, Route: MI, Drug Form: SYRP, Dosing Weight 39.545, kg, ONCE, Milk of Molasses Enema, Start date: 07/26/13 15:15:00, Duration: 1 doses or times, Stop date: 07/26/13 15:15:00Notes: (Same as:Mola sses) Inactive 07/26/2013 [facility] Vitamin D 50,000 IntlUnit, 1 cap, Route: PO, Drug form: CAP, Daily, Dosing Weight 39.545, kg, Start date: 07/26/13 9:00:00, Duration: 30 day, Stop date: 08/24/13 9:00:00Notes: (Same as: Vitamin D) "Do Not Crush" No Longer Active 07/26/2013 [facility] sennosides, [facility] 8.6 mg, 1 tab, Route: PO, Drug Form: TAB, Dosing Weight 39.545, kg, BID, Start date: 07/26/13 9:00:00, Duration: 30 day, Stop date: 08/24/13 17:00:00Notes: (Same as: Senokot) No Longer Active 07/26/2013 [facility] Glycerin 1610 MG Rectal Suppository 1 supp, Route: MI, Drug Form: SUPP, Dosing Weight 39.545, kg, Daily, PRN Constipation, Start date: 07/26/13 4:52:00, Duration: 30 day, Stop date: 08/25/13 4:51:00 No Longer Active 07/26/2013 [facility] Metoclopramide 5 MG Oral Tablet [Reglan] 5 mg, 1 tab, Route: PO, Drug form: TAB, ONCE, Dosing Weight 39.545, kg, Start date: 07/26/13 4:52:00, Stop date: 07/26/13 4:52:00Notes: (Same as: Reglan) Take 30 min before meals Inactive 07/26/2013 [facility] Lactulose 667 MG/ML Oral Solution 10 gm, 15 mL, Route: PO, Drug Form: SYRP, Dosing Weight 39.545, kg, Daily, Start date: 07/25/13 16:34:00, Duration: 30 day, Stop date: 08/24/13 9:00:00Notes: (Same as:Chronulac) No Longer Active 07/25/2013 [facility] Tessalon Perles 100 mg, 1 cap, Route: PO, Drug form: CAP, TID, Dosing Weight 39.545, kg, PRN Cough, Start date: 07/25/13 14:52:00, Duration: 30 day, Stop date: 08/24/13 14:51:00Notes: (Same As: Tessalon Perles) "Do Not Crush" No Longer Active 07/25/2013 [facility] Calcium Carbonate 1250 MG / Cholecalciferol 400 UNT Chewable Tablet 1 tab, Route: CHEW, Drug Form: CHEWTAB, Dosing Weight 39.545, kg, BID, NOW, Start date: 07/24/13 9:28:00, Duration: 30 day, Stop date: 08/23/13 9:00:00Notes: (calcium carbonate-vit D 500mg-400unit chew TAB) Same as: Oscal 500+D No Longer Active 07/24/2013 [facility] Magnesium Sulfate 2 gm, 50 mL, Route: IVPB, Drug form: INJ, Q2H, Dosing Weight 39.545, kg, Total dose=6 gm, Start date: 07/24/13 8:00:00, Duration: 3 doses or times, Stop date: 07/24/13 12:00:00 Inactive 07/24/2013 [facility] Lipitor 20 mg, 1 tab, Route: PO, Drug form: TAB, Bedtime, Dosing Weight 39.545, kg, Start date: 07/23/13 21:00:00, Duration: 30 day, Stop date: 08/21/13 21:00:00Notes: (Same As: Lipitor) No Longer Active 07/24/2013 [facility] Thiamine 100 mg, 1 tab, Route: PO, Drug form: TAB, Daily, Dosing Weight 39.545, kg, Start date: 07/23/13 9:00:00, Duration: 30 day, Stop date: 08/21/13 9:00:00Notes: (Same As: Vitamin B1) No Longer Active 07/23/2013 [facility] Folic Acid 1 mg, 1 tab, Route: PO, Drug form: TAB, Daily, Dosing Weight 39.545, kg, Start date: 07/23/13 9:00:00, Duration: 30 day, Stop date: 08/21/13 9:00:00Notes: (Same as: Folvite) No Longer Active 07/23/2013 [facility] Ascorbic Acid / Biotin / Folic Acid / Niacin / pantothenate / pyridoxine / Riboflavin / Thiamine / Vitamin B 12 1 tab, Route: PO, Drug Form: TAB, Dosing Weight 39.545, kg, Daily, Start date: 07/23/13 9:00:00, Duration: 30 day, Stop date: 08/21/13 9:00:00Notes: (Same as:Thera) Take with food. No Longer Active 07/23/2013 [facility] pneumococcal capsular polysaccharide type 1 vaccine / pneumococcal capsular polysaccharide type 10A vaccine / pneumococcal capsular polysaccharide type 11A vaccine / pneumococcal capsular polysaccharide type 12F vaccine / pneumococcal capsular polysacchar 0.5 ml, Route: IM, Drug Form: INJ, Daily, Start date: 07/23/13 9:00:00, Duration: 1 doses or times, Stop date: 07/23/13 9:00:00Notes: (Same as: Pneumovax 23) Refrigerate Inactive 07/23/2013 [facility] Prednisone 5 mg, 1 tab, Route: PO, Drug form: TAB, Daily, Dosing Weight 39.545, kg, Start date: 07/23/13 9:00:00, Duration: 30 day, Stop date: 08/21/13 9:00:00Notes: Take with food. No Longer Active 07/23/2013 [facility] Vitamin B 12 2,000 microgram, 2 tab, Route: PO, Drug form: TAB, Daily, Dosing Weight 39.545, kg, Start date: 07/23/13 9:00:00, Duration: 30 day, Stop date: 08/21/13 9:00:00Notes: (Same As: Vitamin B-12) No Longer Active 07/23/2013 [facility] Aspirin / Calcium Carbonate 81 mg, 1 tab, Route: PO, Drug form: CHEWTAB, Daily, Dosing Weight 39.545, kg, Start date: 07/23/13 9:00:00, Duration: 30 day, Stop date: 08/21/13 9:00:00Notes: Take with food. No Longer Active 07/23/2013 [facility] Sodium Chloride 0.154 MEQ/ML Injectable Solution 1,000 mL, Rate: 100 ml/hr, Infuse over: 10.1 hr, Route: IV, Dosing Weight 39.545 kg, Total Volume: 1,011.2, Start date: 07/22/13 23:33:00, Duration: 10 hr, Stop date: 07/23/13 9:32:00 No Longer Active 07/23/2013 [facility] Enoxaparin 40 mg, 0.4 mL, Route: SUB-Q, Drug form: INJ, [id number], Dosing Weight 39.545, kg, Start date: 07/22/13 23:00:00, Duration: 30 day, Stop date: 08/20/13 23:00:00Notes: (Same as: Lovenox) No Longer Active 07/23/2013 [facility] Albuterol 0.833 MG/ML / Ipratropium Hubbard 0.167 MG/ML Inhalant Solution [DuoNeb] 3 ml, Route: INHALATION, Drug Form: SOLN, Dosing Weight 39.545, kg, PRN, PRN Respiratory Protocol, Start date: 07/22/13 22:52:00, Duration: 30 day, Stop date: 08/21/13 22:51:00Notes: (Same as: Duoneb) No Longer Active 07/23/2013 [facility] Acetaminophen 325 MG / Hydrocodone Bitartrate 10 MG Oral Tablet 1 tab, Route: PO, Drug Form: TAB, Dosing Weight 39.545, kg, Q4H, PRN Pain Score 4-6, Start date: 07/22/13 22:46:00, Duration: 30 day, Stop date: 08/21/13 22:45:00Notes: Do not exceed 4gm/day of acetaminophen. (Same as: Lennon 325/10) No Longer Active 07/23/2013 [facility] Ondansetron 4 mg, 2 mL, Route: IVP, Drug form: INJ, Q8H, Dosing Weight 39.545, kg, PRN Nausea & Vomiting, Start date: 07/22/13 22:46:00, Duration: 30 day, Stop date: 08/21/13 22:45:00Notes: (Same as: Zofran) No Longer Active 07/23/2013 [facility] Morphine 2 mg, 1 mL, Route: IVP, Drug form: INJ, Q3H, Dosing Weight 39.545, kg, PRN Pain, Start date: 07/22/13 22:46:00, Duration: 30 day, Stop date: 08/21/13 22:45:00, pain 7-10Notes: (Same as:MORPhine Sulfate) No Longer Active 07/23/2013 [facility] Acetaminophen 650 mg, 20.3 mL, Route: PO, Drug form: LIQ, Q4H, Dosing Weight 39.545, kg, PRN Fever, Start date: 07/22/13 22:46:00, Duration: 30 day, Stop date: 08/21/13 22:45:00Notes: Max [id number]/day (4 gm/day). (Same as: Tylenol) No Longer Active 07/23/2013 [facility] Acetaminophen 325 MG / Hydrocodone Bitartrate 5 MG Oral Tablet 1 tab, Route: PO, Drug Form: TAB, Dosing Weight 39.545, kg, Q4H, PRN Pain Score 1-3, Start date: 07/22/13 22:46:00, Duration: 30 day, Stop date: 08/21/13 22:45:00Notes: (Same as: Lennon 325/5) Do not exceed 4gm/day of acetaminophen. No Longer Active 07/23/2013 [facility] Zofran 4 mg, 2 mL, Route: IVP, Drug form: INJ, ONCE, Dosing Weight 36.364, kg, Priority: STAT, Start date: 07/22/13 19:39:00, Stop date: 07/22/13 19:39:00Notes: (Same as: Zofran) Inactive 07/23/2013 [facility] Morphine 4 mg, 1 mL, Route: IVP, Drug form: INJ, ONCE, Dosing Weight 36.364, kg, Priority: STAT, Start date: 07/22/13 19:39:00, Stop date: 07/22/13 19:39:00Notes: (Same as:MORPhine Sulfate) Inactive 07/23/2013 [facility] Iohexol 86 mL, Route: IVP, Drug Form: SOLN, Dosing Weight 36.364, kg, ONCALL, STAT, Start date: 07/22/13 19:09:00, Duration: 1 doses or times, Dose=2.2ml/kg, Max qfrg=[id number] -- "To be infused by Radiology Staff ONLY"Special Instructions: Dose=2.2ml/kg, Max riug=823gm -- "To be infused by Radiology Staff ONLY" Inactive 07/23/2013 [facility] Zofran 4 mg, Route: IVP, Drug form: INJ, ONCE, Dosing Weight 39.545, kg, Priority: STAT, Start date: 07/22/13 15:26:00, Stop date: 07/22/13 15:26:00 Inactive 07/22/2013 [facility] Morphine 4 mg, Route: IVP, Drug form: INJ, ONCE, Dosing Weight 39.545, kg, Priority: STAT, Start date: 07/22/13 15:25:00, Stop date: 07/22/13 15:25:00 Inactive 07/22/2013 [facility] Saline Flush 0.9% 5 mL, Route: IVP, Drug Form: INJ, Dosing Weight 39.545, kg, Q8H, PRN Line Flush, Start date: 07/22/13 9:55:00, Duration: 30 day, Stop date: 08/21/13 9:54:00, Administer at least once every 8 hoursSpe cial Instructions: Administer at least once every 8 hoursNotes: (Same as: BD Posiflush) Inactive 07/22/2013 [facility] Zofran 4 mg, 2 mL, Route: IVP, Drug form: INJ, ONCE, Dosing Weight 39.545, kg, Priority: STAT, Start date: 07/22/13 8:55:00, Stop date: 07/22/13 8:55:00Notes: (Same as: Zofran) Inactive 07/22/2013 [facility] Morphine 4 mg, 2 mL, Route: IVP, Drug form: INJ, ONCE, Dosing Weight 39.545, kg, Priority: STAT, Start date: 07/22/13 8:55:00, Stop date: 07/22/13 8:55:00Notes: (Same as:MORPhine Sulfate) Inactive 07/22/2013 [facility] thiamine 100 mg oral tablet 100 mg, 1 tab, PO, Daily, 30 tab, Substitution Allowed, TAB PO Active [facility] 09/14/2012 [facility] potassium chloride 40 mEq, 30 mL, Route: PO, Drug form: LIQ, ONCE, Dosing Weight 42.1, kg, Start date: 09/14/12 12:29:00, Stop date: 09/14/12 12:29:00 PO No Longer Active [facility] 09/14/2012 [facility] metoprolol extended release 25 mg, 1 tab, Route: PO, Drug form: ERTAB, Daily, Start date: 09/14/12 9:00:00, Duration: 30 day, Stop date: 10/13/12 9:00:00 PO No Longer Active [facility] 09/14/2012 [facility] nitroglycerin 0.4 mg sublingual tablet 0.4 mg, 1 tab, Route: SL, Drug form: TAB, Q5Min, PRN Chest Pain, Start date: 09/13/12 20:06:00, Duration: 30 day, Stop date: 10/13/12 20:05:00 SL No Longer Active [facility] 09/14/2012 [facility] atropine 0.5 mg, 5 mL, Route: IVP, Drug form: INJ, PRN, PRN Bradycardia, Start date: 09/13/12 20:06:00, Duration: 30 day, Stop date: 10/13/12 20:05:00 IVP No Longer Active [facility] 09/14/2012 [facility] cyanocobalamin 2,000 microgram, 4 tab, Route: PO, Drug form: TAB, QPM, Dosing Weight 42.1, kg, Start date: 09/13/12 17:00:00, Duration: 30 day, Stop date: 10/12/12 17:00:00 PO No Longer Active [facility] 09/13/2012 [facility] aspirin 81 mg, 1 tab, Route: PO, Drug form: CHEWTAB, Dinner, Dosing Weight 42.1, kg, Start date: 09/13/12 17:00:00, Duration: 30 day, Stop date: 10/12/12 17:00:00 PO No Longer Active [facility] 09/13/2012 [facility] enoxaparin 40 mg, 0.4 mL, Route: SUB-Q, Drug form: INJ, [id number], Dosing Weight 42.1, kg, Start date: 09/13/12 13:00:00, Duration: 30 day, Stop date: 10/12/12 13:00:00 SUB-Q No Longer Active [facility] 09/13/2012 [facility] predniSONE 5 mg, 1 tab, Route: PO, Drug form: TAB, Breakfast, Dosing Weight 42.1, kg, Start date: 09/13/12 13:00:00, Duration: 30 day, Stop date: 10/13/12 8:00:00 PO No Longer Active [facility] 09/13/2012 [facility] multivitamin 1 tab, Route: PO, Drug Form: TAB, Dosing Weight 42.1, kg, Daily, Start date: 09/13/12 13:00:00, Duration: 30 day, Stop date: 10/13/12 9:00:00 PO No Longer Active [facility] 09/13/2012 [facility] thiamine 100 mg, 1 tab, Route: PO, Drug form: TAB, Daily, Dosing Weight 42.1, kg, Start date: 09/13/12 13:00:00, Duration: 30 day, Stop date: 10/13/12 9:00:00 PO No Longer Active [facility] 09/13/2012 [facility] folic acid 1 mg, 1 tab, Route: PO, Drug form: TAB, Daily, Dosing Weight 42.1, kg, Start date: 09/13/12 13:00:00, Duration: 30 day, Stop date: 10/13/12 9:00:00 PO No Longer Active [facility] 09/13/2012 [facility] Tylenol 650 mg, 2 tab, Route: PO, Drug form: TAB, Q6H, Dosing Weight 42.1, kg, PRN Pain, Start date: 09/13/12 12:49:00, Duration: 30 day, Stop date: 10/13/12 12:48:00 PO No Longer Active [facility] 09/13/2012 [facility] Lennon 5/325 oral tablet 1 tab, Route: PO, Drug Form: TAB, Dosing Weight 42.1, kg, Q6H, PRN Pain, Start date: 09/13/12 12:49:00, Duration: 30 day, Stop date: 10/13/12 12:48:00 PO No Longer Active [facility]ir 09/13/2012 [facility] Saline Flush 0.9% 5 ml, Route: IVP, Drug Form: INJ, Dosing Weight 36.364, kg, PRN, PRN Line Flush, Start date: 09/13/12 5:15:00, Duration: 30 day, Stop date: 10/13/12 5:14:00 IVP No Longer Active [facility] 09/13/2012 [facility] Dextrose 5% with 0.45% NaCl IV 1,000 mL 1,000 mL, Rate: 125 ml/hr, Infuse over: 8 hr, Route: IV, Dosing Weight 36.364 kg, Total Volume: 1,000, Start date: 09/13/12 5:15:00, Duration: 30 day, Stop date: 10/13/12 5:14:00 IV No Longer Active [facility] 09/13/2012 [facility] ondansetron 4 mg, 2 mL, Route: IVP, Drug form: INJ, Q8H, Dosing Weight 36.364, kg, PRN Nausea & Vomiting, Start date: 09/13/12 5:15:00, Duration: 30 day, Stop date: 10/13/12 5:14:00 IVP No Longer Active [facility] 09/13/2012 [facility] docusate 100 mg, 1 cap, Route: PO, Drug form: CAP, BID, Dosing Weight 36.364, kg, PRN Constipation, Start date: 09/13/12 5:15:00, Duration: 30 day, Stop date: 10/13/12 5:14:00 PO No Longer Active [facility] 09/13/2012 [facility] morphine Sulfate 2 mg, 1 mL, Route: IVP, Drug form: INJ, Q3H, Dosing Weight 36.364, kg, PRN Pain Score 4-6, Start date: 09/13/12 5:15:00, Duration: 30 day, Stop date: 10/13/12 5:14:00 IVP No Longer Active [facility] 09/13/2012 [facility] Sodium Chloride 0.9% (Bolus) IV 1000 mL 1,000 mL, Rate: 1,000 ml/hr, Infuse over: 1 hr, Route: IV, Dosing Weight 36.364 kg, Total Volume: 1,000, Priority: STAT, Start date: 09/13/12 3:41:00, Duration: 1 doses or times, Stop date: 09/13/12 4:40:00, Bolus DoseBolus Dose IV No Longer Active [facility] 09/13/2012 [facility] Sodium Chloride 0.9% (Bolus) IV 1000 mL 1,000 mL, Rate: 1,000 ml/hr, Infuse over: 1 hr, Route: IV, Dosing Weight 36.364 kg, Total Volume: 1,000, Priority: STAT, Start date: 09/13/12 0:32:00, Duration: 1 doses or times, Stop date: 09/13/12 1:31:00, Bolus DoseBolus Dose IV No Longer Active [facility] 09/13/2012 [facility] ondansetron 4 mg, Route: IVP, ONCE, Dosing Weight 36.364, kg, Priority: STAT, Start date: 09/13/12 0:03:00, Stop date: 09/13/12 0:03:00 IVP No Longer Active [facility] 09/13/2012 [facility] Saline Flush 0.9% 5 mL, Route: IVP, Drug Form: INJ, Dosing Weight 36.364, kg, PRN, PRN Line Flush, Start date: 09/13/12 0:03:00, Duration: 30 day, Stop date: 10/13/12 0:02:00 IVP No Longer Active [facility] 09/13/2012 [facility] tetanus/diphtheria/pertussis, acel (Tdap) 5 units-2.5 units-18.5 mcg/0.5 mL intramuscular suspensio 0.5 ml, Route: IM, Drug Form: INJ, Dosing Weight 36.364, kg, ONCE, Start date: 09/12/12 22:54:00, Stop date: 09/12/12 22:54:00 IM No Longer Active [facility] 09/13/2012 [facility] lidocaine-epi 1%-1:[id number] 1 ml, Route: SUB-Q, Drug Form: INJ, Dosing Weight 36.364, kg, ONCE, STAT, Start date: 09/12/12 22:54:00, Stop date: 09/12/12 22:54:00 SUB-Q No Longer Active [facility] 09/13/2012 [facility] Lennon 5/325 oral tablet 1-2 tab, PO, Q4-6H, PRN, 30 tab, Pain, Substitution Allowed, Maintenance PO Active [facility] 10/12/2011 [facility] Lovenox 40 mg, 0.4 mL, Route: SUB-Q, Drug form: INJ, Q24H, kg, Start date: 10/10/11 12:00:00, Duration: 30 day, Stop date: 11/08/11 12:00:00 SUB-Q No Longer Active [facility] 10/10/2011 [facility] Dulcolax Laxative 5 mg, 1 tab, Route: PO, Drug form: ECTAB, Q6H, kg, PRN Constipation, Start date: 10/07/11 10:35:00, Duration: 30 day, Stop date: 11/06/11 10:34:00 PO No Longer Active [facility] 10/07/2011 [facility] Xopenex 0.63 mg, 3 mL, Route: NEB, Drug form: SOLN, RQ4H, PRN Shortness of breath, Priority: Routine, Start date: 10/02/11 14:21:00, Duration: 30 day, Stop date: 11/01/11 14:20:00 NEB No Longer Active [facility] 10/02/2011 [facility] Vitamin B1 100 mg, 1 tab, Route: PO, Drug form: TAB, Daily, Start date: 10/02/11 9:00:00, Duration: 30 day, Stop date: 10/31/11 9:00:00 PO No Longer Active [facility] 10/02/2011 [facility] predniSONE 5 mg, 1 tab, Route: PO, Drug form: TAB, Daily, Start date: 10/02/11 9:00:00, Duration: 30 day, Stop date: 10/31/11 9:00:00 [facility] multivitamin 1 tab, Route: PO, Drug Form: TAB, Daily, Start date: 10/02/11 9:00:00, Duration: 30 day, Stop date: 10/31/11 9:00:00 PO No Longer Active [facility] 10/02/2011 [facility] folic acid 1 mg oral tablet 1 mg, 1 tab, Route: PO, Drug form: TAB, Daily, Start date: 10/02/11 9:00:00, Duration: 30 day, Stop date: 10/31/11 9:00:00 PO [facility] predniSONE 5 mg, 1 tab, Route: PO, Drug form: TAB, ONCE, Start date: 10/01/11 18:32:00, Stop date: 10/01/11 18:32:00 PO No Longer Active [facility] 10/01/2011 [facility] Ativan 1 mg, 0.5 mL, Route: IV, Drug form: INJ, Q6H, PRN Agitation, Start date: 10/01/11 18:28:00, Duration: 30 day, Stop date: 10/31/11 18:27:00 IV No Longer Active [facility] 10/01/2011 [facility] hydrALAZINE 10 mg, 0.5 mL, Route: IVP, Drug form: INJ, Q6H, PRN Elevated BP, Start date: 10/01/11 18:10:00, Duration: 30 day, Stop date: 10/31/11 18:09:00 IVP No Longer Active [facility] 10/01/2011 [facility] Mucinex 1,200 mg, PO, QID, Substitution Allowed PO Active 10/01/2011 [facility] Vitamin B-12 1000 mcg oral tablet 2,000 microgram, 2 tab, PO, Daily, Substitution Allowed PO Active 10/01/2011 [facility] folic acid 0.8 mg, PO, Daily, Substitution Allowed PO Active 10/01/2011 [facility] aspirin 81 mg, PO, Daily, Substitution Allowed PO Active 10/01/2011 [facility] predniSONE 5 mg oral tablet 5 mg, 1 tab, PO, Daily, Substitution Allowed PO Active [facility] 10/01/2011 [facility] metoprolol 25 mg oral tablet 25 mg, PO, Daily, Substitution Allowed PO Active 10/01/2011 [facility] morphine Sulfate 2 mg, 0.2 mL, Route: IVP, Drug form: INJ, Q3H, PRN Pain Score 4-6, Start date: 10/01/11 6:32:00, Stop date: 10/31/11 6:31:00 IVP No Longer Active [facility] 10/01/2011 [facility] ondansetron 4 mg, 2 mL, Route: IVP, Drug form: INJ, Q6H, PRN Nausea & Vomiting, Start date: 10/01/11 6:32:00, Duration: 30 day, Stop date: 10/31/11 6:31:00 IVP No Longer Active [facility] 10/01/2011 [facility] Sodium Chloride 0.9% IV 1,000 mL + folic acid IV 1 mg Daily + thiamine IV 100 mg Daily 1,000 mL, Rate: 100 ml/hr, Infuse over: 10 hr, Route: IV, Dosing Weight 39.091 kg, Total Volume: 1,001.2, Start date: 10/01/11 6:32:00, Duration: 3 day, Stop date: 10/04/11 6:31:00 IV No Longer Active [facility] 10/01/2011 [facility] cefazolin + Sodium Chloride 0.9% IV 100 mL 1 gm, Route: IVPB, ABXQ8H, Priority: STAT, Start date: 10/01/11 6:32:00, Stop date: 10/30/11 17:00:00 IVPB No Longer Active [facility] 10/01/2011 [facility] morphine Sulfate 2 mg, Route: IVP, ONCE, Start date: 10/01/11 5:55:00, Stop date: 10/01/11 5:55:00 IVP No Longer Active [facility] 10/01/2011 [facility] cefazolin 1 gm, Route: IVPB, ONCE, Priority: STAT, Start date: 10/01/11 4:32:00, Stop date: 10/01/11 4:32:00 IVPB No Longer Active [facility] 10/01/2011 [facility] lidocaine 1% 1 inj, Route: SUB-Q, ONCE, STAT, Start date: 10/01/11 1:53:00, Stop date: 10/01/11 1:53:00 SUB-Q No Longer Active [facility] 10/01/2011 [facility] Sodium Chloride 0.9% (Bolus) IV 500 mL 500 mL, Rate: 500 ml/hr, Infuse over: 1 hr, Route: IV, Dosing Weight 39.091 kg, Total Volume: 500, Bolus Dose, Priority: STAT, Start date: 09/30/11 23:35:00, Duration: 1 doses or times, Stop date: 10/01/11 0:34:00 IV No Longer Active [facility] 10/01/2011 [facility] Allergies, Adverse Reactions, Alerts No Known Medication Allergies Immunizations Immunization Date Given Site Status Last Updated Comments Source diphtheria/pertussis, acel/tetanus adult 03/01/2014 Left deltoid completed Best [facility], [facility] Math[facility] pneumococcal 23-valent vaccine 07/24/2013 Left deltoid completed Abanobi [facility], [facility] diphtheria/pertussis, acel/tetanus adult 09/13/2012 Left gluteus medius completed Do [facility], [facility] diphtheria/pertussis, acel/tetanus adult 09/13/2012 completed Do [facility] Hx pneumococcal vaccine 07/15/2006 Left Arm completed [facility]15[facility] completed [employer] Results Order Name Results Value Reference Range Date Interpretation Comments Source HEMATOLOGY POC Activated Clotting Time 213 02/05/2016 [facility] HEMATOLOGY POC Activated Clotting Time 253 02/05/2016 [facility] HEMATOLOGY POC Activated Clotting Time 325 02/05/2016 [facility] BLOOD BANK RESULTS ABO/Rh O POS 02/05/2016 [facility] BLOOD BANK RESULTS Antibody Scrn Negative (02/05/16 6:47 AM) 02/05/2016 [facility] CHEM PANEL Magnesium Lvl 1.7 1.8 - 2.4 02/05/2016 [facility] CHEM PANEL eGFR 83 02/05/2016 Result Comment: The eGFR is calculated [...] should be multiplied by the estimated BMI. [facility] CHEM PANEL CO2 31 24 - 32 02/05/2016 [facility] CHEM PANEL Potassium Lvl 3.5 3.5 - 5.1 02/05/2016 [facility] CHEM PANEL Calcium Lvl 9.1 8.5 - 10.5 02/05/2016 [facility] CHEM PANEL Chloride Lvl 103 95 - 109 02/05/2016 [facility] CHEM PANEL Sodium Lvl 143 135 - 145 02/05/2016 [facility] CHEM PANEL Creatinine Lvl 0.73 0.50 - 1.40 02/05/2016 [facility] CHEM PANEL Glucose Lvl 123 70 - 99 02/05/2016 [facility] CHEM PANEL BUN 20 7 - 22 02/05/2016 [facility] CHEM PANEL AGAP 12.5 10.0 - 20.0 02/05/2016 [facility] CHEM PANEL Phosphorus 3.7 2.5 - 4.5 02/05/2016 [facility] HEMATOLOGY PTT 30.5 22.9 - 35.8 02/05/2016 [facility] HEMATOLOGY PT 13.0 12.0 - 14.7 02/05/2016 [facility] HEMATOLOGY INR 0.96 0.85 - 1.17 02/05/2016 [facility] HEMATOLOGY Segs-Bands # 6.1 1.5 - 8.1 02/05/2016 [facility] HEMATOLOGY Basophils 0.8 0.0 - 1.0 02/05/2016 [facility] HEMATOLOGY Eosinophils # 0.2 0.0 - 0.5 02/05/2016 [facility] HEMATOLOGY Monocytes # 0.8 0.0 - 0.8 02/05/2016 [facility] HEMATOLOGY Lymphocytes # 2.9 1.0 - 5.5 02/05/2016 [facility] HEMATOLOGY Lymphocytes 29.1 20.0 - 40.0 02/05/2016 [facility] HEMATOLOGY Segs 60.6 45.0 - 75.0 02/05/2016 [facility] HEMATOLOGY Eosinophils 1.9 0.0 - 4.0 02/05/2016 [facility] HEMATOLOGY Monocytes 7.6 2.0 - 12.0 02/05/2016 [facility] HEMATOLOGY Basophils # 0.1 0.0 - 0.2 02/05/2016 [facility] HEMATOLOGY MPV 7.8 7.4 - 10.4 02/05/2016 [facility] HEMATOLOGY MCH 33.2 27.0 - 31.0 02/05/2016 [facility] HEMATOLOGY MCHC 34.0 32.0 - 36.0 02/05/2016 [facility] HEMATOLOGY Platelet 319 133 - 450 02/05/2016 [facility] HEMATOLOGY RDW 13.2 11.5 - 14.5 02/05/2016 [facility] HEMATOLOGY Hct 37.2 36.0 - 48.0 02/05/2016 [facility] HEMATOLOGY MCV 97.5 80.0 - 98.0 02/05/2016 [facility] HEMATOLOGY RBC 3.82 4.20 - 5.40 02/05/2016 [facility] HEMATOLOGY Hgb 12.7 12.0 - 16.0 02/05/2016 [facility] HEMATOLOGY WBC 10.0 3.7 - 10.4 02/05/2016 [facility] CHEM PANEL eGFR 93 01/30/2016 Result Comment: The eGFR is calculated [...] should be multiplied by the estimated BMI. [facility] CHEM PANEL Creatinine Lvl 0.57 0.50 - 1.40 01/30/2016 [facility] HEMATOLOGY Hgb 11.4 12.0 - 16.0 01/30/2016 [facility] HEMATOLOGY Hct 33.1 36.0 - 48.0 01/30/2016 [facility] BLOOD BANK RESULTS Antibody Scrn Negative (01/29/16 7:04 AM) 01/29/2016 [facility] BLOOD BANK RESULTS ABO/Rh O POS 01/29/2016 [facility] CHEM PANEL Phosphorus 3.4 2.5 - 4.5 01/29/2016 [facility] CHEM PANEL Magnesium Lvl 1.5 1.8 - 2.4 01/29/2016 [facility] ELECTROLYTES AGAP 12.4 10.0 - 20.0 01/29/2016 [facility] ELECTROLYTES eGFR 84 01/29/2016 Result Comment: The eGFR is calculated [...] should be multiplied by the estimated BMI. [facility] ELECTROLYTES Calcium Lvl 9.0 8.5 - 10.5 01/29/2016 [facility] ELECTROLYTES CO2 29 24 - 32 01/29/2016 [facility] ELECTROLYTES Sodium Lvl 141 135 - 145 01/29/2016 [facility] ELECTROLYTES BUN 19 7 - 22 01/29/2016 [facility] ELECTROLYTES Creatinine Lvl 0.72 0.50 - 1.40 01/29/2016 [facility] ELECTROLYTES Potassium Lvl 3.4 3.5 - 5.1 01/29/2016 [facility] ELECTROLYTES Chloride Lvl 103 95 - 109 01/29/2016 [facility] ELECTROLYTES Glucose Lvl 114 70 - 99 01/29/2016 [facility] HEMATOLOGY MPV 7.7 7.4 - 10.4 01/29/2016 [facility] HEMATOLOGY Platelet 280 133 - 450 01/29/2016 [facility] HEMATOLOGY MCH 33.3 27.0 - 31.0 01/29/2016 [facility] HEMATOLOGY MCV 97.8 80.0 - 98.0 01/29/2016 [facility] HEMATOLOGY Hct 38.8 36.0 - 48.0 01/29/2016 [facility] HEMATOLOGY MCHC 34.1 32.0 - 36.0 01/29/2016 [facility] HEMATOLOGY RDW 13.3 11.5 - 14.5 01/29/2016 [facility] HEMATOLOGY WBC 9.0 3.7 - 10.4 01/29/2016 [facility] HEMATOLOGY Hgb 13.2 12.0 - 16.0 01/29/2016 [facility] HEMATOLOGY RBC 3.96 4.20 - 5.40 01/29/2016 [facility] HEMATOLOGY PTT 28.1 22.9 - 35.8 01/29/2016 [facility] HEMATOLOGY PT 12.7 12.0 - 14.7 01/29/2016 [facility] HEMATOLOGY INR 0.93 0.85 - 1.17 01/29/2016 [facility] HEMATOLOGY Eosinophils 2.2 0.0 - 4.0 01/29/2016 [facility] HEMATOLOGY Monocytes 6.5 2.0 - 12.0 01/29/2016 [facility] HEMATOLOGY Basophils 0.5 0.0 - 1.0 01/29/2016 [facility] HEMATOLOGY Segs-Bands # 5.3 1.5 - 8.1 01/29/2016 [facility] HEMATOLOGY Eosinophils # 0.2 0.0 - 0.5 01/29/2016 [facility] HEMATOLOGY Monocytes # 0.6 0.0 - 0.8 01/29/2016 [facility] HEMATOLOGY Lymphocytes # 2.9 1.0 - 5.5 01/29/2016 [facility] HEMATOLOGY Lymphocytes 32.0 20.0 - 40.0 01/29/2016 [facility] HEMATOLOGY Segs 58.8 45.0 - 75.0 01/29/2016 [facility] IMMUNOLOGY [place]-Hep C Ab Negative *NA* (07/26/13 6:00 AM) Negative 07/26/2013 [facility] CHEM PANEL Magnesium Lvl 1.9 1.8 - 2.4 07/25/2013 [facility] CHEM PANEL eGFR 98 07/25/2013 <sup>2</sup>Result Comment: The eGFR is calculated using the CKD-EPI formula. In most young, healthy individuals the eGFR will be >90 mL/min/1.73m2. The eGFR declines with age. An eGFR of 60-89 may be normal in some populations, particularly the elderly, for whom the CKD-EPI formula has not been extensively validated. Use of the eGFR is not recommended in the following populations:& lt;br/>
Individuals with unstable creatinine concentrations, including patients [...] should be multiplied by the estimated BMI. [facility] CHEM PANEL Calcium Lvl 8.5 8.5 - 10.5 07/25/2013 [facility] CHEM PANEL CO2 30 24 - 32 07/25/2013 [facility] CHEM PANEL Chloride Lvl 97 95 - 109 07/25/2013 [facility] CHEM PANEL Potassium Lvl 3.5 3.5 - 5.1 07/25/2013 [facility] CHEM PANEL Sodium Lvl 139 135 - 145 07/25/2013 [facility] CHEM PANEL BUN 12 7 - 22 07/25/2013 [facility] CHEM PANEL Creatinine Lvl 0.5 0.5 - 1.4 07/25/2013 [facility] CHEM PANEL Glucose Lvl 70 70 - 99 07/25/2013 <sup>4</sup>Interpretive Data: Adult reference range values reflect the clinical guidelines
of the [place] [employer]. [facility] CHEM PANEL AGAP 15.5 10.0 - 20.0 07/25/2013 [facility] HEMATOLOGY Macrocyte 2+ *ABN* (07/25/13 1:07 AM) None Seen 07/25/2013 [facility] HEMATOLOGY Monocytes # 0.8 0.0 - 0.8 07/25/2013 [facility] HEMATOLOGY Segs-Bands # 12.4 1.5 - 8.1 07/25/2013 [facility] HEMATOLOGY Lymphocytes # 1.4 1.0 - 5.5 07/25/2013 [facility] HEMATOLOGY Basophils 0.3 0.0 - 1.0 07/25/2013 [facility] HEMATOLOGY Segs 84.6 45.0 - 75.0 07/25/2013 [facility] HEMATOLOGY Eosinophils 0.3 0.0 - 4.0 07/25/2013 [facility] HEMATOLOGY Monocytes 5.3 2.0 - 12.0 07/25/2013 [facility] HEMATOLOGY Lymphocytes 9.5 20.0 - 40.0 07/25/2013 [facility] HEMATOLOGY MCHC 33.4 32.0 - 36.0 07/25/2013 [facility] HEMATOLOGY Hgb 11.2 12.0 - 16.0 07/25/2013 [facility] HEMATOLOGY Hct 33.5 36.0 - 48.0 07/25/2013 [facility] HEMATOLOGY RBC 3.22 4.20 - 5.40 07/25/2013 [facility] HEMATOLOGY WBC 14.7 3.7 - 10.4 07/25/2013 [facility] HEMATOLOGY RDW 13.4 11.5 - 14.5 07/25/2013 [facility] HEMATOLOGY Platelet 260 133 - 450 07/25/2013 [facility] HEMATOLOGY MPV 8.2 7.4 - 10.4 07/25/2013 [facility] HEMATOLOGY MCV 104.2 81.0 - 99.0 07/25/2013 [facility] HEMATOLOGY MCH 34.8 27.0 - 31.0 07/25/2013 [facility] CHEM PANEL Vitamin D, 25-OH, Total <13 30 - 100 07/24/2013 <sup>6</sup>Interpretive Data: Reference range is based on recommendations in the Endocrine
Society Clinical Practice Guideline (J Clin Endocrinol Metab
2010;96:7241-1561) [facility] CHEM PANEL AlkPhos Bone 23.0 5.6 - 29.0 07/24/2013 <sup>7</sup>Result Comment: Test Performed at:
[facility]
[address] [place] [address]
[place] [address] Gricelda Serna MD, PhD [facility] CHEM PANEL Magnesium Lvl 1.3 1.8 - 2.4 07/24/2013 [facility] CHEM PANEL Phosphorus 3.4 2.5 - 4.5 07/24/2013 [facility] PARATHYROID PROFILE PTH Intact 25.7 11.1 - 79.5 07/24/2013 [facility] THYROID PANEL TSH 2.730 0.360 - 3.740 07/24/2013 [facility] URINE CHEM U N-Telopeptide (NTx) 69 07/24/2013 <sup>8</sup>Result Comment:
Adult Female Reference Range for Collagen Cross-
Linked N-Telopeptide (NTx), Random Urine

Premenopausal: 4-64 nmol BCE/mmol creat

Results are primarily used for monitoring the
response to therapy. A value within the
premenopausal reference range does not rule out
osteoporosis nor the need for therapy. [facility] URINE CHEM U Creat mg/dL 110 20 - 320 07/24/2013 <sup>9</sup>Result Comment: Test Performed at:
[facility]
[address] [place] [address]
[place] [address] Gricelda Serna MD, PhD [facility] HEMATOLOGY Lymphocytes # 1.2 1.0 - 5.5 07/23/2013 [facility] HEMATOLOGY Monocytes # 0.5 0.0 - 0.8 07/23/2013 [facility] HEMATOLOGY Macrocyte 1+ *ABN* (07/22/13 8:24 PM) None Seen 07/23/2013 [facility] HEMATOLOGY Plt Morph Normal (07/22/13 8:24 PM) 07/23/2013 [facility] HEMATOLOGY Segs 84.0 45.0 - 75.0 07/23/2013 [facility] HEMATOLOGY Lymphocytes 10.5 20.0 - 40.0 07/23/2013 [facility] HEMATOLOGY Eosinophils 0.5 0.0 - 4.0 07/23/2013 [facility] HEMATOLOGY Monocytes 4.1 2.0 - 12.0 07/23/2013 [facility] HEMATOLOGY Segs-Bands # 9.5 1.5 - 8.1 07/23/2013 [facility] HEMATOLOGY Basophils 0.9 0.0 - 1.0 07/23/2013 [facility] HEMATOLOGY Basophils # 0.1 0.0 - 0.2 07/23/2013 [facility] HEMATOLOGY Eosinophils # 0.1 0.0 - 0.5 07/23/2013 [facility] HEMATOLOGY MPV 7.6 7.4 - 10.4 07/23/2013 [facility] HEMATOLOGY Platelet 229 133 - 450 07/23/2013 [facility] HEMATOLOGY RDW 13.0 11.5 - 14.5 07/23/2013 [facility] HEMATOLOGY MCH 34.6 27.0 - 31.0 07/23/2013 [facility] HEMATOLOGY MCHC 34.0 32.0 - 36.0 07/23/2013 [facility] HEMATOLOGY Hgb 11.3 12.0 - 16.0 07/23/2013 [facility] HEMATOLOGY RBC 3.26 4.20 - 5.40 07/23/2013 [facility] HEMATOLOGY MCV 101.7 81.0 - 99.0 07/23/2013 [facility] HEMATOLOGY Hct 33.1 36.0 - 48.0 07/23/2013 [facility] HEMATOLOGY WBC 11.4 3.7 - 10.4 07/23/2013 [facility] BLOOD BANK RESULTS Antibody Scrn Negative (07/22/13 8:12 PM) 07/23/2013 [facility] BLOOD BANK RESULTS ABO/Rh O POS 07/23/2013 [facility] CHEM PANEL Lactic Acid Lvl 0.7 0.5 - 2.2 07/23/2013 [facility] ELECTROLYTES AGAP 8.6 10.0 - 20.0 07/23/2013 [facility] ELECTROLYTES eGFR 98 07/23/2013 <sup>3</sup>Result Comment: The eGFR is calculated using the CKD-EPI formula. In most young, healthy individuals the eGFR will be >90 mL/min/1.73m2. The eGFR declines with age. An eGFR of 60-89 may be normal in some populations, particularly the elderly, for whom the CKD-EPI formula has not been extensively validated. Use of the eGFR is not recommended in the following populations:& lt;br/>
Individuals with unstable creatinine concentrations, including patients [...] should be multiplied by the estimated BMI. [facility] ELECTROLYTES Sodium Lvl 134 135 - 145 07/23/2013 [facility] ELECTROLYTES Potassium Lvl 4.6 3.5 - 5.1 07/23/2013 <sup>1</sup>Result Comment: slight hemolysis [facility] ELECTROLYTES Chloride Lvl 100 95 - 109 07/23/2013 [facility] ELECTROLYTES CO2 30 24 - 32 07/23/2013 [facility] ELECTROLYTES Creatinine Lvl 0.5 0.5 - 1.4 07/23/2013 [facility] ELECTROLYTES Glucose Lvl 95 70 - 99 07/23/2013 <sup>5</sup>Interpretive Data: Adult reference range values reflect the clinical guidelines
of the [place] [employer]. [facility] ELECTROLYTES BUN 15 7 - 22 07/23/2013 [facility] ELECTROLYTES Calcium Lvl 8.3 8.5 - 10.5 07/23/2013 [facility] HEMATOLOGY PTT 28.6 22.9 - 35.8 07/23/2013 <sup>11</sup>Interpretive Data: Heparin Therapeutic Range: 57 - 92 Seconds [facility] HEMATOLOGY PT 11.8 12.0 - 14.7 07/23/2013 [facility] HEMATOLOGY INR 0.87 0.85 - 1.17 07/23/2013 <sup>10</sup>Interpretive Data: RECOMMENDED RANGES FOR PROTIME INR:
2.0-3.0 for most medical and surgical thromboembolic states.
2.5-3.5 for artificial heart valves and recurrent embolism.

INR SHOULD BE USED ONLY FOR PATIENTS ON STABLE ANTICOAGULANT THERAPY. [facility] CARDIAC ENZYMES CK MB Index 3.6 0.0 - 2.5 07/22/2013 [facility] CARDIAC ENZYMES Total CK 28 12 - 191 07/22/2013 [facility] CARDIAC ENZYMES Troponin-I <0.02 0.00 - 0.40 07/22/2013 [facility] CARDIAC ENZYMES CK MB 1.0 0.5 - 3.6 07/22/2013 [facility] CHEM PANEL eGFR 93 07/22/2013 <sup>1</sup>Result Comment: The eGFR is calculated using the CKD-EPI formula. In most young, healthy individuals the eGFR will be >90 mL/min/1.73m2. The eGFR declines with age. An eGFR of 60-89 may be normal in some populations, particularly the elderly, for whom the CKD-EPI formula has not been extensively validated. Use of the eGFR is not recommended in the following populations:& lt;br/>
Individuals with unstable creatinine concentrations, including patients [...] should be multiplied by the estimated BMI. [facility] CHEM PANEL ALT 16 0 - 65 07/22/2013 [facility] CHEM PANEL AST 12 0 - 37 07/22/2013 [facility] CHEM PANEL Alk Phos 124 39 - 136 07/22/2013 [facility] CHEM PANEL B/C Ratio 28 6 - 25 07/22/2013 [facility] CHEM PANEL Globulin 3.7 2.0 - 4.0 07/22/2013 [facility] CHEM PANEL A/G Ratio 0.8 0.7 - 1.6 07/22/2013 [facility] CHEM PANEL Bili Total 0.3 0.2 - 1.3 07/22/2013 [facility] CHEM PANEL AGAP 13.0 10.0 - 20.0 07/22/2013 [facility] CHEM PANEL Sodium Lvl 135 135 - 145 07/22/2013 [facility] CHEM PANEL Calcium Lvl 8.3 8.5 - 10.5 07/22/2013 [facility] CHEM PANEL Total Protein 6.5 6.4 - 8.4 07/22/2013 [facility] CHEM PANEL Albumin Lvl 2.8 3.5 - 5.0 07/22/2013 [facility] CHEM PANEL CO2 27 24 - 32 07/22/2013 [facility] CHEM PANEL Chloride Lvl 99 95 - 109 07/22/2013 [facility] CHEM PANEL Potassium Lvl 4.0 3.5 - 5.1 07/22/2013 [facility] CHEM PANEL Creatinine Lvl 0.6 0.5 - 1.4 07/22/2013 [facility] CHEM PANEL BUN 17 7 - 22 07/22/2013 [facility] CHEM PANEL Glucose Lvl 81 70 - 99 07/22/2013 <sup>2</sup>Interpretive Data: Adult reference range values reflect the clinical guidelines
of the [place] [employer]. [facility] CHEM PANEL Magnesium Lvl 1.4 1.8 - 2.4 07/22/2013 [facility] CHEM PANEL Phosphorus 3.0 2.5 - 4.5 07/22/2013 [facility] HEMATOLOGY Monocytes # 0.3 0.0 - 0.8 07/22/2013 [facility] HEMATOLOGY Lymphocytes # 1.8 1.0 - 5.5 07/22/2013 [facility] HEMATOLOGY Basophils # 0.0 0.0 - 0.2 07/22/2013 [facility] HEMATOLOGY Eosinophils # 0.0 0.0 - 0.5 07/22/2013 [facility] HEMATOLOGY Segs 80.1 45.0 - 75.0 07/22/2013 [facility] HEMATOLOGY Lymphocytes 16.6 20.0 - 40.0 07/22/2013 [facility] HEMATOLOGY Eosinophils 0.1 0.0 - 4.0 07/22/2013 [facility] HEMATOLOGY Monocytes 2.9 2.0 - 12.0 07/22/2013 [facility] HEMATOLOGY Basophils 0.3 0.0 - 1.0 07/22/2013 [facility] HEMATOLOGY Segs-Bands # 8.9 1.5 - 8.1 07/22/2013 [facility] HEMATOLOGY WBC 11.2 3.7 - 10.4 07/22/2013 [facility] HEMATOLOGY RBC 3.33 4.20 - 5.40 07/22/2013 [facility] HEMATOLOGY Hgb 11.5 12.0 - 16.0 07/22/2013 [facility] HEMATOLOGY RDW 14.2 11.5 - 14.5 07/22/2013 [facility] HEMATOLOGY Platelet 292 133 - 450 07/22/2013 [facility] MPV 7.8 7.4 - 10.4 07/22/2013 [facility] Hct 34.6 36.0 - 48.0 07/22/2013 [facility] MCV 104.0 81.0 - 99.0 07/22/2013 [facility] MCH 34.5 27.0 - 31.0 07/22/2013 [facility] MCHC 33.2 32.0 - 36.0 07/22/2013 [facility] PTT 31.8 22.9 - 35.8 07/22/2013 <sup>4</sup>Interpretive Data: Heparin Therapeutic Range: 57 - 92 Seconds [facility] INR 0.83 0.85 - 1.17 07/22/2013 <sup>3</sup>Interpretive Data: RECOMMENDED RANGES FOR PROTIME INR:
2.0-3.0 for most medical and surgical thromboembolic states.
2.5-3.5 for artificial heart valves and recurrent embolism.

INR SHOULD BE USED ONLY FOR PATIENTS ON STABLE ANTICOAGULANT THERAPY. [facility] HEMATOLOGY PT 11.4 12.0 - 14.7 07/22/2013 [facility] CHEMISTRY AGAP 11.3 10.0 - 20.0 09/14/2012 Normal [facility] CHEMISTRY Chloride Lvl 105 95 - 109 09/14/2012 Normal [facility] CHEMISTRY Sodium Lvl 142 135 - 145 09/14/2012 Normal [facility] CHEMISTRY Potassium Lvl 3.3 3.5 - 5.1 09/14/2012 LOW [facility] CHEMISTRY eGFR 89 09/14/2012 NA <sup>1</sup>Result Comment: The eGFR is calculated using the CKD-EPI formula. In most young, healthy individuals the eGFR will be >90 mL/min/1.73m2. The eGFR declines with age. An eGFR of 60-89 may be normal in some populations, particularly the elderly, for whom the CKD-EPI formula has not been extensively validated. Use of the eGFR is not recommended in the following populations:& lt;br/>
Individuals with unstable creatinine concentrations, including patients [...] should be multiplied by the estimated BMI. [facility] CHEMISTRY BUN 8 7 - 22 09/14/2012 Normal [facility] CHEMISTRY Calcium Lvl 7.7 8.5 - 10.5 09/14/2012 LOW [facility] CHEMISTRY Creatinine Lvl 0.7 0.5 - 1.4 09/14/2012 Normal [facility] CHEMISTRY CO2 29 24 - 32 09/14/2012 Normal [facility] CHEMISTRY Glucose Lvl 119 70 - 99 09/14/2012 [facility] <sup>3</sup>Interpretive Data: Adult reference range values reflect the clinical guidelines
of the [place] [employer]. [facility] HEMATOLOGY Monocytes # 0.4 0.0 - 0.8 09/14/2012 Normal [facility] HEMATOLOGY Segs-Bands # 3.5 1.5 - 8.1 09/14/2012 Normal [facility] HEMATOLOGY Lymphocytes # 1.7 1.0 - 5.5 09/14/2012 Normal [facility] HEMATOLOGY Eosinophils # 0.1 0.0 - 0.5 09/14/2012 Normal [facility] HEMATOLOGY Basophils # 0.0 0.0 - 0.2 09/14/2012 Normal [facility] HEMATOLOGY Basophils 0.2 0.0 - 1.0 09/14/2012 Normal [facility] HEMATOLOGY Segs 60.9 45.0 - 75.0 09/14/2012 Normal [facility] HEMATOLOGY Monocytes 7.8 2.0 - 12.0 09/14/2012 Normal [facility] HEMATOLOGY Eosinophils 1.0 0.0 - 4.0 09/14/2012 Normal [facility] HEMATOLOGY Lymphocytes 30.1 20.0 - 40.0 09/14/2012 Normal [facility] HEMATOLOGY MCHC 33.2 32.0 - 36.0 09/14/2012 Normal [facility] HEMATOLOGY MCH 35.3 27.0 - 31.0 09/14/2012 HI [facility] HEMATOLOGY Platelet 165 133 - 450 09/14/2012 Normal [facility] HEMATOLOGY RDW 14.4 11.5 - 14.5 09/14/2012 Normal [facility] HEMATOLOGY MPV 8.4 7.4 - 10.4 09/14/2012 Normal [facility] HEMATOLOGY Hct 32.1 36.0 - 48.0 09/14/2012 LOW [facility] HEMATOLOGY Hgb 10.6 12.0 - 16.0 09/14/2012 LOW [facility] HEMATOLOGY MCV 106.5 81.0 - 99.0 09/14/2012 HI [facility] HEMATOLOGY WBC 5.8 3.7 - 10.4 09/14/2012 Normal [facility] HEMATOLOGY RBC 3.01 4.20 - 5.40 09/14/2012 LOW [facility] URINALYSIS UA Urobilinogen 0.2 0.1 - 1.0 09/13/2012 Normal [facility] URINALYSIS UA Blood Negative (09/13/2012 01:50:00) Negative 09/13/2012 Normal [facility] URINALYSIS UA Nitrite Negative (09/13/2012 01:50:00) Negative 09/13/2012 Normal [facility] URINALYSIS UA Leuk Est Negative (09/13/2012 01:50:00) Negative 09/13/2012 Normal [facility] URINALYSIS UA Bili Negative *NA* (09/13/2012 01:50:00) Negative 09/13/2012 NA [facility] URINALYSIS UA pH 6.0 5.0 - 8.0 09/13/2012 Normal [facility] URINALYSIS UA Spec Grav <=1.005 <=1.030 09/13/2012 NA [facility] URINALYSIS UA Color Yellow *NA* (09/13/2012 01:50:00) Yellow 09/13/2012 NA [facility] URINALYSIS UA Turbidity Clear (09/13/2012 01:50:00) Clear 09/13/2012 Normal [facility] URINALYSIS UA Ketones Negative *NA* (09/13/2012 01:50:00) Negative 09/13/2012 [facility] URINALYSIS UA Protein Negative (09/13/2012 01:50:00) Negative 09/13/2012 Normal [facility] URINALYSIS UA Glucose Negative (09/13/2012 01:50:00) Negative 09/13/2012 Normal [facility] CHEMISTRY Sodium Lvl 140 135 - 145 09/13/2012 Normal [facility] CHEMISTRY Potassium Lvl 4.6 3.5 - 5.1 09/13/2012 Normal [facility] CHEMISTRY Chloride Lvl 103 95 - 109 09/13/2012 Normal [facility] CHEMISTRY eGFR 93 09/13/2012 NA <sup>2</sup>Result Comment: The eGFR is calculated using the CKD-EPI formula. In most young, healthy individuals the eGFR will be >90 mL/min/1.73m2. The eGFR declines with age. An eGFR of 60-89 may be normal in some populations, particularly the elderly, for whom the CKD-EPI formula has not been extensively validated. Use of the eGFR is not recommended in the following populations:& lt;br/>
Individuals with unstable creatinine concentrations, including patients [...] should be multiplied by the estimated BMI. [facility] CHEMISTRY Alk Phos 121 39 - 136 09/13/2012 Normal [facility] CHEMISTRY ALT 57 0 - 65 09/13/2012 Normal [facility] CHEMISTRY BUN 16 7 - 22 09/13/2012 Normal [facility] CHEMISTRY Creatinine Lvl 0.6 0.5 - 1.4 09/13/2012 Normal [facility] CHEMISTRY Calcium Lvl 8.7 8.5 - 10.5 09/13/2012 Normal [facility] CHEMISTRY Glucose Lvl 94 70 - 99 09/13/2012 Normal <sup>4</sup>Interpretive Data: Adult reference range values reflect the clinical guidelines
of the [place] [employer]. [facility] CHEMISTRY CO2 25 24 - 32 09/13/2012 Normal [facility] CHEMISTRY Albumin Lvl 3.8 3.5 - 5.0 09/13/2012 Normal [facility] CHEMISTRY AST 59 0 - 37 09/13/2012 HI [facility] CHEMISTRY Bili Total 0.6 0.2 - 1.3 09/13/2012 Normal [facility] CHEMISTRY Total Protein 6.7 6.4 - 8.4 09/13/2012 Normal [facility] CHEMISTRY B/C Ratio 27 6 - 25 09/13/2012 [facility] CHEMISTRY A/G Ratio 1.3 0.7 - 1.6 09/13/2012 Normal [facility] CHEMISTRY Globulin 2.9 2.0 - 4.0 09/13/2012 Normal [facility] CHEMISTRY AGAP 16.6 10.0 - 20.0 09/13/2012 Normal [facility] HEMATOLOGY MCH 35.1 27.0 - 31.0 09/13/2012 [facility] HEMATOLOGY MCV 104.2 81.0 - 99.0 09/13/2012 [facility] HEMATOLOGY RDW 14.5 11.5 - 14.5 09/13/2012 Normal [facility] HEMATOLOGY MCHC 33.7 32.0 - 36.0 09/13/2012 Normal [facility] HEMATOLOGY Hct 40.8 36.0 - 48.0 09/13/2012 Normal [facility] HEMATOLOGY Hgb 13.8 12.0 - 16.0 09/13/2012 Normal [facility] HEMATOLOGY RBC 3.92 4.20 - 5.40 09/13/2012 LOW [facility] HEMATOLOGY WBC 6.7 3.7 - 10.4 09/13/2012 Normal [facility] HEMATOLOGY Platelet 254 133 - 450 09/13/2012 Normal [facility] MPV 8.9 7.4 - 10.4 09/13/2012 Normal [facility] PTT 28.7 22.9 - 35.8 09/13/2012 Normal <sup>6</sup>Interpretive Data: Heparin Therapeutic Range: 57 - 92 Seconds [facility] PT 11.8 12.0 - 14.7 09/13/2012 LOW [facility] INR 0.85 0.85 - 1.17 09/13/2012 Normal <sup>5</sup>Interpretive Data: RECOMMENDED RANGES FOR PROTIME INR:
2.0-3.0 for most medical and surgical thromboembolic states.
2.5-3.5 for artificial heart valves and recurrent embolism.

INR SHOULD BE USED ONLY FOR PATIENTS ON STABLE ANTICOAGULANT THERAPY. [facility] HEMATOLOGY Segs-Bands # 5.2 1.5 - 8.1 09/13/2012 Normal [facility] HEMATOLOGY Lymphocytes # 1.3 1.0 - 5.5 09/13/2012 Normal [facility] HEMATOLOGY Monocytes # 0.1 0.0 - 0.8 09/13/2012 Normal [facility] HEMATOLOGY Eosinophils # 0.0 0.0 - 0.5 09/13/2012 Normal [facility] HEMATOLOGY Segs 78.7 45.0 - 75.0 09/13/2012 HI [facility] HEMATOLOGY Monocytes 1.2 2.0 - 12.0 09/13/2012 LOW [facility] HEMATOLOGY Lymphocytes 19.7 20.0 - 40.0 09/13/2012 LOW [facility] HEMATOLOGY Basophils 0.0 0.0 - 1.0 09/13/2012 Normal [facility] HEMATOLOGY Eosinophils 0.4 0.0 - 4.0 09/13/2012 Normal [facility] HEMATOLOGY Basophils # 0.0 0.0 - 0.2 09/13/2012 [facility] HEMATOLOGY Basophils # 0.0 0.0 - 0.2 10/07/2011 [facility] HEMATOLOGY Monocytes # 0.5 0.0 - 0.8 10/07/2011 [facility] HEMATOLOGY Eosinophils # 0.1 0.0 - 0.5 10/07/2011 [facility] HEMATOLOGY Segs-Bands # 2.5 1.5 - 8.1 10/07/2011 [facility] HEMATOLOGY Basophils 0.6 0.0 - 1.0 10/07/2011 [facility] HEMATOLOGY Lymphocytes # 2.0 1.0 - 5.5 10/07/2011 [facility] HEMATOLOGY Monocytes 10.1 2.0 - 12.0 10/07/2011 [facility] HEMATOLOGY Lymphocytes 38.1 20.0 - 40.0 10/07/2011 [facility] HEMATOLOGY Segs 49.5 45.0 - 75.0 10/07/2011 [facility] HEMATOLOGY Eosinophils 1.7 0.0 - 4.0 10/07/2011 [facility] HEMATOLOGY Platelet 202 133 - 450 10/07/2011 [facility] HEMATOLOGY MPV 7.6 7.4 - 10.4 10/07/2011 [facility] HEMATOLOGY RDW 14.5 11.5 - 14.5 10/07/2011 [facility] HEMATOLOGY MCHC 33.5 32.0 - 36.0 10/07/2011 [facility] HEMATOLOGY MCH 34.8 27.0 - 31.0 10/07/2011 [facility] HEMATOLOGY WBC 5.1 3.7 - 10.4 10/07/2011 [facility] HEMATOLOGY Hct 33.7 36.0 - 48.0 10/07/2011 [facility] HEMATOLOGY MCV 104.1 81.0 - 99.0 10/07/2011 [facility] HEMATOLOGY RBC 3.24 4.20 - 5.40 10/07/2011 [facility] HEMATOLOGY Hgb 11.3 12.0 - 16.0 10/07/2011 [facility] CHEMISTRY AST 21 0 - 37 10/03/2011 Normal [facility] CHEMISTRY Bili Total 0.4 0.2 - 1.3 10/03/2011 [facility] CHEMISTRY Alk Phos 62 39 - 136 10/03/2011 [facility] CHEMISTRY ALT 17 0 - 65 10/03/2011 Normal [facility] CHEMISTRY Total Protein 4.9 6.4 - 8.4 10/03/2011 LOW [facility] CHEMISTRY Albumin Lvl 2.4 3.5 - 5.0 10/03/2011 LOW [facility] CHEMISTRY Calcium Lvl 7.8 8.5 - 10.5 10/03/2011 LOW [facility] CHEMISTRY Chloride Lvl 102 95 - 109 10/03/2011 Normal [facility] CHEMISTRY Potassium Lvl 3.5 3.5 - 5.1 10/03/2011 [facility] CHEMISTRY CO2 28 24 - 32 10/03/2011 Normal [facility] CHEMISTRY Sodium Lvl 138 135 - 145 10/03/2011 Normal [facility] CHEMISTRY Creatinine Lvl 0.5 0.5 - 1.4 10/03/2011 Normal [facility] CHEMISTRY BUN 9 7 - 22 10/03/2011 Normal [facility] CHEMISTRY Glucose Lvl 104 70 - 99 10/03/2011 HI <sup>1</sup>Interpretive Data: Adult reference range values reflect the clinical guidelines
of the [place] [employer]. [facility] CHEMISTRY A/G Ratio 1.0 0.7 - 1.6 10/03/2011 Normal [facility] CHEMISTRY Globulin 2.5 2.0 - 4.0 10/03/2011 Normal [facility] CHEMISTRY B/C Ratio 18 6 - 25 10/03/2011 Normal [facility] CHEMISTRY AGAP 11.5 10.0 - 20.0 10/03/2011 Normal [facility] HEMATOLOGY Basophils # 0.0 0.0 - 0.2 10/03/2011 Normal [facility] HEMATOLOGY Eosinophils # 0.0 0.0 - 0.5 10/03/2011 Normal [facility] HEMATOLOGY Monocytes # 0.2 0.0 - 0.8 10/03/2011 Normal [facility] HEMATOLOGY Lymphocytes # 0.8 1.0 - 5.5 10/03/2011 LOW [facility] HEMATOLOGY Segs-Bands # 3.8 1.5 - 8.1 10/03/2011 Normal [facility] HEMATOLOGY Basophils 0.2 0.0 - 1.0 10/03/2011 Normal [facility] HEMATOLOGY Eosinophils 1.0 0.0 - 4.0 10/03/2011 Normal [facility] HEMATOLOGY Monocytes 3.9 2.0 - 12.0 10/03/2011 Normal [facility] HEMATOLOGY Lymphocytes 17.1 20.0 - 40.0 10/03/2011 LOW [facility] HEMATOLOGY Segs 77.8 45.0 - 75.0 10/03/2011 HI [facility] HEMATOLOGY MPV 7.4 7.4 - 10.4 10/03/2011 Normal [facility] HEMATOLOGY Platelet 153 133 - 450 10/03/2011 Normal [facility] HEMATOLOGY MCH 35.1 27.0 - 31.0 10/03/2011 [facility] HEMATOLOGY RDW 14.4 11.5 - 14.5 10/03/2011 Normal [facility] HEMATOLOGY MCHC 33.8 32.0 - 36.0 10/03/2011 Normal [facility] HEMATOLOGY Hct 33.9 36.0 - 48.0 10/03/2011 LOW [facility] HEMATOLOGY MCV 104.0 81.0 - 99.0 10/03/2011 [facility] HEMATOLOGY Hgb 11.4 12.0 - 16.0 10/03/2011 LOW [facility] HEMATOLOGY RBC 3.26 4.20 - 5.40 10/03/2011 LOW [facility] HEMATOLOGY WBC 4.9 3.7 - 10.4 10/03/2011 Normal [facility] CHEMISTRY AGAP 13.9 10.0 - 20.0 10/01/2011 Normal [facility] CHEMISTRY CO2 28 24 - 32 10/01/2011 Normal [facility] CHEMISTRY Calcium Lvl 8.7 8.5 - 10.5 10/01/2011 Normal [facility] CHEMISTRY BUN 11 7 - 22 10/01/2011 Normal [facility] CHEMISTRY Glucose Lvl 83 70 - 99 10/01/2011 Normal <sup>2</sup>Interpretive Data: Adult reference range values reflect the clinical guidelines
of the [place] [employer]. [facility] CHEMISTRY Creatinine Lvl 0.7 0.5 - 1.4 10/01/2011 Normal [facility] CHEMISTRY Sodium Lvl 142 135 - 145 10/01/2011 Normal [facility] CHEMISTRY Potassium Lvl 3.9 3.5 - 5.1 10/01/2011 Normal [facility] CHEMISTRY Chloride Lvl 104 95 - 109 10/01/2011 Normal [facility] CHEMISTRY Etoh (%) 0.271 10/01/2011 CRIT <sup>3</sup>Result Comment: Critical Result(s) called to Joanna at 10/01/2011 01:15:13 CDT by tatiana. Read back OK.
<sup>4</sup>Interpretive Data: Negative Range: <0.003%
Toxic Range: >0.25% [facility] CHEMISTRY Ethanol Lvl 271 10/01/2011 CRIT <sup>5</sup>Result Comment: Critical Result(s) called jerri Bingham at 10/01/2011 01:14:53 CDT by tatiana. Read back OK.
<sup>6</sup>Interpretive Data: Negative Range: <3 mg/dL
Toxic Range: >250 mg/dL [facility] PTT 26.9 22.9 - 35.8 10/01/2011 Normal <sup>8</sup>Interpretive Data: Heparin Therapeutic Range: 57 - 92 Seconds [facility] PT 11.3 12.0 - 14.7 10/01/2011 LOW [facility] INR 0.80 0.85 - 1.17 10/01/2011 LOW <sup>7</sup>Interpretive Data: RECOMMENDED RANGES FOR PROTIME INR:
2.0-3.0 for most medical and surgical thromboembolic states.
2.5-3.5 for artificial heart valves and recurrent embolism.

INR SHOULD BE USED ONLY FOR PATIENTS ON STABLE ANTICOAGULANT THERAPY. [facility] HEMATOLOGY WBC 6.7 3.7 - 10.4 10/01/2011 Normal [facility] Hct 39.5 36.0 - 48.0 10/01/2011 Normal [facility] [facility] MCV 104.8 81.0 - 99.0 10/01/2011 [facility] MCH 35.0 27.0 - 31.0 10/01/2011 [facility] RBC 3.77 4.20 - 5.40 10/01/2011 LOW [facility] Hgb 13.2 12.0 - 16.0 10/01/2011 Normal [facility] MPV 8.1 7.4 - 10.4 10/01/2011 Normal [facility] MCHC 33.4 32.0 - 36.0 10/01/2011 Normal [facility] RDW 14.7 11.5 - 14.5 10/01/2011 [facility] HEMATOLOGY Platelet 188 133 - 450 10/01/2011 Normal [facility] Lymphocytes # 2.6 1.0 - 5.5 10/01/2011 Normal [facility] Segs-Bands # 3.7 1.5 - 8.1 10/01/2011 Normal [facility] Eosinophils # 0.1 0.0 - 0.5 10/01/2011 Normal [facility] HEMATOLOGY Monocytes 4.9 2.0 - 12.0 10/01/2011 Normal [facility] Lymphocytes 38.2 20.0 - 40.0 10/01/2011 Normal [facility] HEMATOLOGY Monocytes # 0.3 0.0 - 0.8 10/01/2011 Normal [facility] HEMATOLOGY Basophils # 0.0 0.0 - 0.2 10/01/2011 Normal [facility] HEMATOLOGY Basophils 0.3 0.0 - 1.0 10/01/2011 Normal [facility] HEMATOLOGY Segs 55.6 45.0 - 75.0 10/01/2011 Normal [facility] HEMATOLOGY Eosinophils 1.0 0.0 - 4.0 10/01/2011 Normal [facility] Pathology Reports No Data Provided for This Section Diagnostic Reports Report Value Date Source Pelvis w/wo contrast MRI Exam: MRI pelvis [...] No ventral or inguinal hernias identified. 2017 [facility] [place] Spine lumbar 2 or 3 views DX [...] 1.No acute fracture or malalignment SL: 03/31/2014 [facility] Hip contrast CT EXAM: CT Hip without contrast [...] Sigmoid colon diverticulosis without diverticulitis SL: 03/31/2014 [facility] Brain contrast CT CT Head no Contrast: COMPARISON: [...] from previous study of 07/22/2013 SL:13 02/28/2014 [facility] Spine cervical wo contrast CT CT CERVICAL [...] apices. IMPRESSION: Negative cervical spine. SL:17 02/28/2014 [facility] Pelvis, 3 views EXAM: Pelvis, 3 views [...] and left inferior pubic ramus fractures. 07/26/2013 [facility] Pelvis, 3 views EXAM: Pelvis, 3 views [...] and left inferior pubic ramus fractures. 07/26/2013 [facility] Spine thoracic wo contrast CT EXAM: CT [...] loss and 3 mm retropulsion, new from 2012. No additional acute bony abnormality identified. 07/22/2013 [facility] Femur series EXAM: LEFT KNEE 3 VIEWS [...] total hip arthroplasty. 6. Advanced atherosclerosis. 07/22/2013 [facility] Knee 3 views EXAM: LEFT KNEE 3 [...] total hip arthroplasty. 6. Advanced atherosclerosis. 07/22/2013 [facility] Abdomen/Pelvis w IV contrast CT EXAM: CT [...] aorta and in an aortoiliac distribution. 07/22/2013 [facility] Brain wo contrast CT CT SCAN OF THE BRAIN DATE: 07/22/2013 at 6:54 p.m. Comparison studies: 09/12/2012. CLINICAL INFORMATION: Confusion. TECHNIQUE: Routine axial images of the brain were obtained in the unenhanced mode. FINDINGS: The brain is morphologically normal. 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 There are no acute hemorrhages [...] No acute intracranial abnormality. 2. 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 3. White matter hypodensity consistent with chronic small vessel ischemic disease. 4. Age-related volume loss. 5. Arterial atherosclerosis. 07/22/2013 [facility] Pelvis wo IV contrast CT PROCEDURE: Pelvis [...] Bladder distention. 5. L4-L5 spondylosis. SL: 07/22/2013 [facility] Pelvis AP PROCEDURE: Pelvis AP REASON FOR [...] Dr. Hernandez at 10:46 a.m. SL: 07/22/2013 [facility] Chest 1view PROCEDURE: Chest 1view REASON FOR [...] Dr. Hernandez at 10:46 a.m. SL: 07/22/2013 [facility] Hip min 2 views PROCEDURE: Hip min [...] Dr. Hernandez at 10:46 a.m. SL: 07/22/2013 [facility] Chest/Abdomen/Pelvis w contrast CT I.. CT SCAN [...] noted. SL: 12 Jaden Breaux M.D. 09/13/2012 [facility] Spine lumbar 2 or 3 views LUMBAR [...] 5. Left hip prosthesis is noted. SL: Hemal Breaux M.D. 09/12/2012 [facility] Spine cervical wo contrast CT CT of [...] 2. Degenerative changes as described above. SL: Hemal Breaux M.D. 09/12/2012 [facility] Brain wo contrast CT CRANIAL CT without [...] Coding: Brain wo contrast CT CPT Code: 50763 SL: 12 Jaden Breaux M.D. 09/12/2012 [facility] Consultation Notes No Data Provided for This Section Discharge Summaries No Data Provided for This Section History and Physicals No Data Provided for This Section Vital Signs Vital Sign Value Date Comments Source Systolic (mm Hg) 125 02/06/2016 [facility] Diastolic (mm Hg) 62 02/06/2016 [facility] Systolic (mm Hg) 111 02/06/2016 [facility] Diastolic (mm Hg) 62 02/06/2016 [facility] Systolic (mm Hg) 120 02/05/2016 [facility] Diastolic (mm Hg) 58 02/05/2016 [facility] Temperature Oral (F) 98.0 F 02/05/2016 [facility] BMI Calculated 20.26 02/05/2016 [facility] Weight 48.636 02/05/2016 [facility] Height 154.94 cm 02/05/2016 [facility] Systolic (mm Hg) 116 01/30/2016 [facility] Diastolic (mm Hg) 59 01/30/2016 [facility] Systolic (mm Hg) 116 01/30/2016 [facility] Diastolic (mm Hg) 61 01/30/2016 [facility] Systolic (mm Hg) 115 01/30/2016 [facility] Diastolic (mm Hg) 55 01/30/2016 [facility] Temperature Oral (F) 98.1 F 01/30/2016 [facility] Height 152.4 cm 01/29/2016 [facility] Weight 46.818 01/29/2016 [facility] BMI Calculated 20.16 01/29/2016 [facility] Heart Rate 74 04/01/2014 [facility] Respitory Rate 18 04/01/2014 [facility] Systolic (mm Hg) 135 04/01/2014 [facility] Diastolic (mm Hg) 82 04/01/2014 [facility] Respitory Rate 18 04/01/2014 [facility] Systolic (mm Hg) 125 04/01/2014 [facility] Diastolic (mm Hg) 69 04/01/2014 [facility] Diastolic (mm Hg) 68 03/31/2014 [facility] Heart Rate 96 03/31/2014 [facility] Respitory Rate 20 03/31/2014 [facility] Temperature Oral (F) 98.4 F 03/31/2014 [facility] Systolic (mm Hg) 109 03/31/2014 [facility] Height 160.02 cm 03/31/2014 [facility] BMI Calculated 15.98 03/31/2014 [facility] Weight 40.909 03/31/2014 [facility] Heart Rate 71 03/01/2014 [facility] Respitory Rate 18 03/01/2014 [facility] Temperature Oral (F) 97.7 F 03/01/2014 [facility] Systolic (mm Hg) 108 03/01/2014 [facility] Diastolic (mm Hg) 66 03/01/2014 [facility] Respitory Rate 18 03/01/2014 [facility] Systolic (mm Hg) 96 03/01/2014 [facility] Diastolic (mm Hg) 60 03/01/2014 [facility] Heart Rate 76 03/01/2014 [facility] Temperature Oral (F) 97.5 F 03/01/2014 [facility] Weight 50 03/01/2014 [facility] BMI Calculated 19.53 03/01/2014 [facility] Height 160.02 cm 03/01/2014 [facility] Diastolic (mm Hg) 62 07/28/2013 [facility] Systolic (mm Hg) 117 07/28/2013 [facility] Heart Rate 101 07/28/2013 [facility] Temperature Oral (F) 98.1 F 07/28/2013 [facility] Respitory Rate 18 07/28/2013 [facility] Systolic (mm Hg) 109 07/27/2013 [facility] Diastolic (mm Hg) 69 07/27/2013 [facility] Heart Rate 86 07/27/2013 [facility] Temperature Oral (F) 98.1 F 07/27/2013 [facility] Respitory Rate 18 07/27/2013 [facility] Heart Rate 80 07/27/2013 [facility] Systolic (mm Hg) 120 07/27/2013 [facility] Respitory Rate 18 07/27/2013 [facility] Diastolic (mm Hg) 71 07/27/2013 [facility] Temperature Oral (F) 97.2 F 07/27/2013 [facility] BMI Calculated 15.44 07/23/2013 [facility] Height 160.02 cm 07/23/2013 [facility] Weight 39.545 07/23/2013 [facility] Weight 36.364 07/22/2013 [facility] Height 160.02 cm 07/22/2013 [facility] BMI Calculated 14.2 07/22/2013 [facility] Temperature Oral (F) 98.7 F 07/22/2013 [facility] Diastolic (mm Hg) 80 07/22/2013 [facility] Respitory Rate 18 07/22/2013 [facility] Heart Rate 87 07/22/2013 [facility] Systolic (mm Hg) 140 07/22/2013 [facility] Respitory Rate 16 07/22/2013 [facility] Heart Rate 89 07/22/2013 [facility] Temperature Oral (F) 98.7 F 07/22/2013 [facility] Systolic (mm Hg) 145 07/22/2013 [facility] Diastolic (mm Hg) 85 07/22/2013 [facility] Heart Rate 95 07/22/2013 [facility] Respitory Rate 16 07/22/2013 [facility] Diastolic (mm Hg) 85 07/22/2013 [facility] Systolic (mm Hg) 138 07/22/2013 [facility] Temperature Oral (F) 98.7 F 07/22/2013 [facility] BMI Calculated 15.44 07/22/2013 [facility] Height 160.02 cm 07/22/2013 [facility] Weight 39.545 07/22/2013 [facility] Heart Rate 71 09/14/2012 [facility] Systolic (mm Hg) 126 09/14/2012 [facility] Respitory Rate 18 09/14/2012 [facility] Diastolic (mm Hg) 72 09/14/2012 [facility] Temperature Oral (F) 97.9 F 09/14/2012 [facility] Respitory Rate 18 09/14/2012 [facility] Systolic (mm Hg) 124 09/14/2012 [facility] Heart Rate 67 09/14/2012 [facility] Diastolic (mm Hg) 69 09/14/2012 [facility] Temperature Oral (F) 97.6 F 09/14/2012 [facility] Respitory Rate 16 09/14/2012 [facility] Systolic (mm Hg) 130 09/14/2012 [facility] Diastolic (mm Hg) 73 09/14/2012 [facility] Heart Rate 65 09/14/2012 [facility] Temperature Oral (F) 98.7 F 09/14/2012 [facility] Weight 42.1 09/13/2012 [facility] Height 160.02 cm 09/13/2012 [facility] Weight 36.364 09/13/2012 [facility] Height 157.48 cm 09/13/2012 [facility] Temperature Oral (F) 97.7 F 10/12/2011 [facility] Heart Rate 75 10/12/2011 [facility] Systolic (mm Hg) 113 10/12/2011 [facility] Diastolic (mm Hg) 71 10/12/2011 [facility] Respitory Rate 18 10/12/2011 [facility] Diastolic (mm Hg) 78 10/12/2011 [facility] Systolic (mm Hg) 127 10/12/2011 [facility] Respitory Rate 18 10/12/2011 [facility] Heart Rate 68 10/12/2011 [facility] Temperature Oral (F) 97.6 F 10/12/2011 [facility] Diastolic (mm Hg) 72 10/12/2011 [facility] Temperature Oral (F) 97.5 F 10/12/2011 [facility] Systolic (mm Hg) 126 10/12/2011 [facility] Respitory Rate 17 10/12/2011 [facility] Heart Rate 66 10/12/2011 [facility] Height 62 10/01/2011 [facility] Weight 35.710 10/01/2011 [facility] Height 157.48 cm 10/01/2011 [facility] Height 160.02 cm 10/01/2011 [facility] Weight 39.091 10/01/2011 [facility] Encounters Location Location Details Encounter Type Encounter Number Reason For Visit Attending Provider ADM Date DC Date Status Source [facility] Inpatient [id number] AUSTRALIAN BERBEL 10/01/2011 10/12/2011 Discharged [facility] Outpatient [id number] 185 AUSTRALIAN BERBEL 10/15/2011 10/15/2011 Active [facility] Inpatient [id number] HYPOTENSION TASO MOUGOURIS 09/13/2012 09/14/2012 Active [facility] [id number] Khang Arceotison 07/22/2013 07/22/2013 [facility] Inpatient [id number] Mega Sims Jr 07/22/2013 07/28/2013 [facility] [id number] Angel Jose 03/01/2014 03/01/2014 [facility] [id number] Leilani Cortes 03/31/2014 04/01/2014 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 Third [...] OPERATORS: Interventional cardiology attending: Graeme Still Interventional professor of theatre: Sherif Pagan ACCESS: 6 [place] left femoral artery Pre-Procedure Diagnosis: Lifestyle limiting [...] local anesthesia. Utilizing modified Seldinger technique, 6 [place] sheath was placed into the left femoral artery utilizing a micropuncture kit - under ultrasound guidance. IV heparin was given for anticoagulation. Next a 4 [place] JUSTINE catheter was advanced into the descending aorta, right common iliac artery was engaged and was advanced into the right SFA. Then 4 [place] JUSTINE was advanced into the distal right common femoral artery and angiogram was obtained with runoff to the foot. Next a 6 [place] JUSTINE catheter was exchanged over the wire into the 6 [place] 55 cm long sheath (both note 6 Tu[place] multipurpose catheter was also utilized for additional [...] artery. Then 2.5 x 20 mm cross [id number] balloon was used to predilate 95% mid [...] femoral sheath was exchanged into the 6 [place] arrow flex short sheath and left lower extremity arterial angiogram was obtained via the sheath. Then the sheath was sutured in place. It will be removed in the metallurgy laboratory technician holding area once ACT is [...] and performed critical portions of the procedure. 01/30/2016 [facility] Extracted from:Title: Ortho Progress Note Author: Viet Oglesby MD [...] monitor this patient while in house Addendum by Viet Oglesby MD on 07/27/2013 11:[address] Valverde 7-10 days after discharge. Extracted from:Title: [facility] Author: Mahamed Edwards DO Date: 07/22/13 [...] Patient is largely non-comopliant with medications PE: Vitals Tmp(F) Tmp(C) Ttype BP MAP Pulse RR SpO2 FIO2 ETCO2 07/22 19:23 ---- ---- ---- 154/83 --- 100 18 100 2.0L/m --- 07/22 19:02 ---- ---- ---- 140/78 --- 87 18 99 --- --- 07/22 17:42 ---- ---- ---- 127/69 88 82 18 100 --- --- 07/22 17:16 ---- ---- ---- 135/80 --- 94 18 99 --- --- 07/22 16:32 98.0 36.67 oral 129/82 --- 96 18 97 --- --- 24 Hr Tmax: 98.0F (36.67c) at 07/22 16:32 24 Hr Tmin: 98.0F (36.67c) at 07/22 16:32 36 Hr Tmax: 98.0F (36.67c) at 07/22 16:32 36 Hr Tmin: 98.0F (36.67c) at 07/22 16:32 [...] to psoriatic arthritis 36hr Labs 07/23 2023 WBC 11.4 H RBC 3.26 L Hgb 11.3 L Hct 33.1 L MCV 101.7 H MCH 34.6 H MCHC 34.0 RDW 13.0 Platelet 229 MPV 7.6 Segs 84.0 H Monocytes 4.1 Lymphocytes 10.5 L Eosinophils 0.5 Basophils 0.9 Segs-Bands # 9.5 H Lymphocytes # 1.2 Monocytes # 0.5 Eosinophils # 0.1 Basophils # 0.1 Plt Morph Normal Macrocyte 1+ 07/23 2011 ABO/Rh O POS Antibody Scrn Negative 07/22 2010 Temp [place] 37.0 pH [place] 7.36 pCO2 [place] 53 H pO2 [place] 66 H HCO3 [place] 30 H BE [place] 3 H O2 Sat [place] 91.9 H 07/22 2010 Glucose Lvl 95 BUN 15 Creatinine Lvl 0.5 Sodium Lvl 134 L Potassium Lvl 4.6 Chloride Lvl 100 CO2 30 AGAP 8.6 L Calcium Lvl 8.3 L eGFR 98 Lactic Acid Lvl 0.7 PT 11.8 L INR 0.87 PTT 28.6 There are reticulonodular opacities in the left [...] 3 [place] MHUTS is primary. Please page [phone] with any further questions. Addendum by Mahamed Edwards DO on 07/22/2013 23:40 Weight loss - outpatient PAP / mammogram Addendum by Mega Clarke MD on 07/23/2013 14:18 I have seen and examined the patient. I agree with the history, physical, and plan as stated below by Dr. Edwards. Patient has a pathological fracture likely secondary to osteoporosis. Will order bone turnover markers. Patient will likely need calcium and vitamin D. Non operative per ortho. PT/OT. Pain control. 07/28/2013 [facility] Plan of Care No Data Provided for This Section Social History Social History Date Source Social History TypeResponse Alcohol Current, Frequency: Daily. Smoking Status Current every day smoker; Type: Cigarettes; Ready to change: No; Concerns about tobacco use in household: No; Exposure to Tobacco Smoke None; Cigarette Smoking Last 365 Days Yes; Reg Smoking Cessation Counseling Yes; Total pack years: 365; 1 entered on: 02/05/16 11 pack/day 07/23/2013 [facility] Social History TypeResponse Alcohol Use: Current, Frequency: Daily Smoking Status Current every day smoker, Type: Cigarettes, Exposure to Tobacco Smoke None, Cigarette Smoking Last 365 Days Yes, Reg Smoking Cessation Counseling Yes1 11 pack/day 07/23/2013 [facility] Social History TypeResponse Alcohol Current, Frequency: Daily. Smoking Status Current every day smoker; Type: Cigarettes; Total pack years: 365; Ready to change: No; Concerns about tobacco use in household: No; Exposure to Tobacco Smoke None; Cigarette Smoking Last 365 Days Yes; Reg Smoking Cessation Counseling Yes1 11 pack/day 07/23/2013 [facility] Family History No Data Provided for This Section Advance Directives No Data Provided for This Section Functional Status No Data Provided for This Section
[2018-10-19 12:25] LABS: BASOPHILS # (AUTO) 0.1 (0.0-0.1); BASOPHILS % 0.5 % (0.0-1.0); EOSINOPHILS # (AUTO) 0.2 (0.0-0.4); EOSINOPHILS % 2.4 % (0.0-6.0); HEMATOCRIT 39.4 % (34.2-44.1); HEMOGLOBIN 12.8 g/dL (12.0-16.0); LYMPHOCYTES # (AUTO) 2.3 (1.0-3.2); LYMPHOCYTES % 24.5 % (18.0-39.1); MEAN CORPUSCULAR HEMOGLOBIN 31.3 pg (28-32); MEAN CORPUSCULAR HGB CONC 32.5 g/dL (31-35); MEAN CORPUSCULAR VOLUME 96.3 fL (81-99); MONOCYTES # (AUTO) 0.6 (0.2-0.8); MONOCYTES % 6.8 % (4.4-11.3); NEUTROPHILS # (AUTO) 6.2 (2.1-6.9); NEUTROPHILS % 65.4 % (38.7-80.0); PLATELET COUNT 308 x10e3/uL (140-360); RED BLOOD COUNT 4.09 x10e6/uL (3.6-5.1); RED CELL DISTRIBUTION WIDTH 13.8 % (11.7-14.4)
--- NOTE | 2018-10-19 18:11 | Operative Report ---
DATE OF PROCEDURE: 10/19/2018 SURGEON: Michael Ng MD PROCEDURES: EGD with esophageal dilatation and biopsies and a colonoscopy with polypectomy. INDICATIONS FOR EGD: Dysphagia. INDICATIONS FOR COLONOSCOPY: Surveillance colonoscopy, personal history of colon polyps. MEDICATIONS: The patient was done under MAC, please see anesthesiologist's note. PROCEDURE IN DETAIL: With the patient in lateral decubitus position, the flexible fiberoptic Olympus gastroscope was introduced into the esophagus under direct visualization without any difficulty. There was some patchy erythema noted in distal esophagus. A mild stricture was noted at the GE junction that was dilated to size 52-[place] Mason. The scope was then advanced with ease into the stomach traversing a small sliding hiatal hernia. Mucosa overlying the antrum and the body revealed some patchy intense erythema and moderate edema, and biopsies were obtained and sent to stain for H. pylori. Pylorus was intubated with ease and the scope was advanced all the way to the second portion of the duodenum. The scope was then withdrawn slowly and biopsies were obtained from the second portion to rule out sprue. There was a prominent fold noted in the proximal and second portion that was biopsied. The scope was then withdrawn back into the stomach and retroflexed, and mucosa overlying the fundus and the cardia appeared to be within normal limits. The scope was then straightened out, it was subsequently withdrawn, and the patient tolerated the procedure well. IMPRESSION: 1. Distal esophagitis. 2. Mild stricture at GE junction dilated to size 52-[place] Mason. 3. Small sliding hiatal hernia. 4. Gastritis, biopsied, biopsies sent to stain for Helicobacter pylori. 5. Prominent fold proximal second portion biopsied. 6. Rule out sprue. PLAN: Follow up histology. Continue Protonix 40 mg one p.o. before meals b.i.d. The patient was then turned around and after adequate lubrication of the anal canal, a flexible fiberoptic Olympus colonoscope was inserted into the rectum with ease and advanced all the way to the cecum. Prep overall was suboptimal primarily in the left colon. The scope was then withdrawn slowly whatever was visualized the mucosa overlying the cecum, ascending colon, and transverse colon grossly appeared to be within normal limits. One polyp was removed per cold snare polypectomy from the descending colon. Diverticulosis was prominent in the left colon. Five polyps were removed per the hot biopsy forceps from the rectum. The scope was then retroflexed into the distal rectum and small internal hemorrhoids were noted, none of which was actively bleeding. The scope was then straightened out, it was subsequently withdrawn, and the patient tolerated the procedure well. IMPRESSION: 1. Suboptimal prep. 2. Descending colon polyp removed per cold snare polypectomy. 3. Diverticulosis. 4. Rectal polyps x5, hot biopsied. 5. Internal hemorrhoids, none actively bleeding. PLAN: Follow up histology. Initiate high-fiber, low-fat diet. Initiate high-fiber supplement. The patient might benefit from a followup colonoscopy in 3 to 5 years. Michael Ng MD [facility] /[id number] cc: Corie Forbes MD
== END | disposition home or self-care (01) ==
LOC: OR 10:55
PROVIDERS: ATTEND Internal Medicine Gastroenterology
DX: R13.10 Dysphagia, unspecified (principal); K29.80 Duodenitis without bleeding; J44.9 Chronic obstructive pulmonary disease, unspecified; K21.9 Gastro-esophageal reflux disease without esophagitis; Z86.010 Personal history of colon polyps; K20.9 Esophagitis, unspecified; K22.2 Esophageal obstruction; K44.9 Diaphragmatic hernia without obstruction or gangrene; K29.70 Gastritis, unspecified, without bleeding; K63.5 Polyp of colon; K57.30 Diverticulosis of large intestine without perforation or abscess without bleeding; K62.1 Rectal polyp; K64.8 Other hemorrhoids; K31.9 Disease of stomach and duodenum, unspecified
CPT/HCPCS: 36415; 43239; 43450; 45384; 45385; 85025; 88305; 88312; 93005; J2001; J2250; J2704; 45378

== ENCOUNTER 2019-01-20 13:34 | Emergency (ER) | payer MEDICARE, OTHER ==
[~2019-01-20] VITALS: Ht 157.5 cm; Wt 49.4 kg
[~2019-01-20 13:34] MED LIST changes: -HYOSCYAMINE 0.125 MG TAB ONE; -LIDOCAINE HCL 2% LOCAL INJ 5 ML SDV VIAL INJ ONE; -MIDAZOLAM HCL 2 MG/2 ML VIAL ONE; -PROPOFOL IV EMULSION 10 MG/ML 20 ML VIAL ONE
--- NOTE | 2019-01-20 14:24 | NUR ---
PATIENT TO ROOM 8
[2019-01-20] MEDS ORDERED: TRAMADOL HCL 50 MG TAB PO NR (14:45)
--- NOTE | 2019-01-20 16:52 | Diagnostic Imaging Report ---
EXAMINATION: CHEST SINGLE (NOT PORTABLE) COMPARISON: CTA chest 06/16/2018 INDICATION: Fall 2 days ago ^r/o fx ^[id number] ^[id number] DISCUSSION: Frontal view of the chest obtained at 1544 hours. HEART AND MEDIASTINUM: The heart is normal in size. The aorta is tortuous with calcifications in the arch LINES: None. LUNGS: Diffuse hyperinflation consistent with COPD/emphysema. Left upper lobe reticulation corresponds to spiculated nodules and pleural-parenchymal thickening on CT. No new findings in either lung. Pulmonary vascular markings are normal PLEURA: No pleural effusion or pneumothorax. BONES AND SOFT TISSUES: No evidence of fracture or dislocation. Degenerative changes of the spine are stable.. The soft tissues are normal. IMPRESSION: No acute traumatic pathology by x-ray. Emphysema. Stable left upper lobe reticulation Signed by: Dr. Carlito Dillard MD on 01/20/2019 4:49 PM
--- NOTE | 2019-01-20 16:54 | Diagnostic Imaging Report ---
Clavicle CPT code: 65492 INDICATION: Trauma TECHNIQUE: 2 images of the right clavicle obtained. COMPARISON: Chest x-ray 1544 hours FINDINGS: The clavicle is intact with degenerative changes of the AC joint. No widening of the AC joint. The acromion and proximal humerus are intact. Mild remodeling of the humeral head is suggestive of rotator cuff pathology. Visualized portion of the scapula is normal. Visualized ribs are intact. IMPRESSION: No evidence of clavicular fracture or dislocation. Signed by: Dr. Carliot Dillard MD on 01/20/2019 4:51 PM
--- NOTE | 2019-01-20 17:06 | Diagnostic Imaging Report ---
CT BRAIN WO HISTORY: Fall COMPARISON: Head CT 06/01/2015 Technique: Noncontrast axial scans were obtained from skull base to the vertex. Coronal and sagittal reconstructions obtained from the axial data. One or more of the following dose reduction techniques were used: Automated exposure control, adjustment of the mA and/or kV according to patient size, and/or utilization of iterative reconstruction technique. DISCUSSION: Scalp/Skull: Unremarkable. Brain sulci: Mildly prominent. Ventricles: Compensatory dilatation. Extra-axial spaces: No masses or fluid collections. Carotid and vertebral artery calcifications are present. Parenchyma: Mild to moderate bilateral deep white matter hypodensity is likely chronic microvascular ischemic change. 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 Old small cortical infarct is also seen in the left posterior cerebellum. Old small left lateral thalamic lacunar infarct is also seen. Otherwise, no masses, hemorrhage, or large vascular territory acute infarct. Dural sinuses: No abnormal densities. Sellar/Suprasellar region: Intact. Skull base: Intact. Incidental findings: None. IMPRESSION: 1. No acute intracranial abnormalities. 2. Mild to moderate supratentorial chronic microvascular ischemic change. Generalized cerebral volume loss. 3. 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 Signed by: Dr. Filemon Perez M.D. on 01/20/2019 5:03 PM
--- NOTE | 2019-01-20 17:11 | Diagnostic Imaging Report ---
CT CERVICAL SPINE WO HISTORY: Fall COMPARISON: Concurrent head CT TECHNIQUE: CT of the cervical spine without contrast. Sagittal and coronal reformations were created. One or more of the following dose reduction techniques were used: Automated exposure control, adjustment of the mA and/or kV according to patient size, and/or utilization of iterative reconstruction technique. FINDINGS: Cervical lordosis is straightened. There is no significant scoliosis. No fractures, compression deformity, or destructive osseous lesions are seen. The craniocervical junction is intact. No gross spinal canal masses are seen. The paravertebral and paraspinal soft tissues are unremarkable. Mild to moderate multilevel spondylosis is most prominent at C5-C6 and C6-C7. Prominent multilevel bilateral facet arthrosis is present, left greater than right; there is associated grade 1 anterolisthesis of C4 on C5. At least mild canal stenosis at C5-C6 and C6-C7 is due to posterior disc osteophyte complexes. Mild atlantoaxial arthrosis is present as well. There is scarring in the lung apices. Subtle linear opacities in the trachea may be due to retained secretions. Mild bilateral carotid bulb calcified plaque is present. IMPRESSION: 1. No acute osseous abnormalities. 2. Mild to moderate multilevel spondylosis, most prominent at C5-C6 and C6-C7. Signed by: Dr. Filemon Perez M.D. on 01/20/2019 5:08 PM
--- NOTE | 2019-01-20 17:15 | Diagnostic Imaging Report ---
CT MAXIO FAC/PARANAS WO HISTORY: Fall COMPARISON: Report from facial CT dated 11/15/2016; concurrent cervical spine CT TECHNIQUE: Axial CT images through the face were obtained without contrast. Coronal/sagittal reformations were created. One or more of the following dose reduction techniques were used: Automated exposure control, adjustment of the mA and/or kV according to patient size, and/or utilization of iterative reconstruction technique. DISCUSSION: Mildly displaced bilateral nasal bone fractures are age indeterminate. No other acute fracture is seen. No destructive osseous lesions are seen. The orbits are intact. Intraorbital contents are grossly unremarkable. Mild scattered paranasal sinus mucosal thickening is present. IMPRESSION: Age indeterminate, mildly displaced bilateral nasal bone fractures. No other acute osseous abnormalities. Signed by: Dr. Filemon Perez M.D. on 01/20/2019 5:11 PM
== END 2019-01-20 17:30 | disposition home or self-care (01) ==
LOC: ER 13:34
DX: S02.2XXA Fracture of nasal bones, initial encounter for closed fracture (principal); S00.83XA Contusion of other part of head, initial encounter; R51 Headache; S20.211A Contusion of right front wall of thorax, initial encounter; W06.XXXA Fall from bed, initial encounter; Y93.84 Activity, sleeping; Y92.003 Bedroom of unspecified non-institutional (private) residence as the place of occurrence of the external cause; I10 Essential (primary) hypertension; I25.10 Atherosclerotic heart disease of native coronary artery without angina pectoris; J44.9 Chronic obstructive pulmonary disease, unspecified; K21.9 Gastro-esophageal reflux disease without esophagitis; E78.5 Hyperlipidemia, unspecified
CPT/HCPCS: 70450; 70486; 71045; 72125; 99284

== ENCOUNTER → 2019-04-19 | Outpatient (CLI) | payer MEDICARE, OTHER ==
--- NOTE | 2019-04-23 08:52 | Diagnostic Imaging Report ---
#[id number] - [facility] : 04/19/2019 Comparison is made to exam dated: 03/21/2019 mammogram - [facility]. Color flow and real-time ultrasound were performed on the right breast. Clay scale images of the real-time examination were reviewed. No abnormalities were seen sonographically in the right breast. IMPRESSION: NEGATIVE There is no sonographic evidence of malignancy. A 1 year screening mammogram and an ultrasound is recommended. BILLY evans/milagros:04/20/2019 12:52:08 Certified Hearing Instrument Dispenser: JEANNINE NUÑEZ [facility], [facility] letter sent: Normal Exam Ultrasound BI-RADS: 1 Negative
--- NOTE | 2019-04-23 08:52 | Diagnostic Imaging Report ---
#[id number] - [facility] ULTRASOUND OF THE LEFT BREAST : 04/19/2019 Comparison is made to exam dated: 03/21/2019 mammogram - [facility]. Color flow and real-time ultrasound were performed on the left breast. Clay scale images of the real-time examination were reviewed. No abnormalities were seen sonographically in the left breast. IMPRESSION: NEGATIVE There is no sonographic evidence of malignancy. A 1 year screening mammogram and an ultrasound is recommended. BILLY evans/milagros:04/20/2019 12:51:45 Ingot Car Operator: JEANNINE NUÑEZ [facility], [facility] letter sent: Normal Exam Ultrasound BI-RADS: 1 Negative
== END ==
LOC: US 14:07
PROVIDERS: ATTEND Internal Medicine
DX: R92.2 Inconclusive mammogram (principal)

== ENCOUNTER → 2020-02-08 | Outpatient (CLI) | payer MEDICARE, OTHER | LOC: CT 13:49 | PROVIDERS: ATTEND Internal Medicine | DX: R91.8 Other nonspecific abnormal finding of lung field (principal) | CPT/HCPCS: 71250 ==

== ENCOUNTER 2020-02-17 09:21 | Emergency (ER) | payer MEDICARE, OTHER ==
[~2020-02-17] VITALS: Ht 157.5 cm; Wt 49.4 kg
[2020-02-17 10:25] LABS: BASOPHILS # (AUTO) 0.1 (0.0-0.1); BASOPHILS % 0.7 % (0.0-1.0); EOSINOPHILS # (AUTO) 0.2 (0.0-0.4); EOSINOPHILS % 1.6 % (0.0-6.0); HEMATOCRIT 32.9 % (34.2-44.1); HEMOGLOBIN 10.9 g/dL (12.0-16.0); LYMPHOCYTES # (AUTO) 2.2 (1.0-3.2); LYMPHOCYTES % 18.7 % (18.0-39.1); MEAN CORPUSCULAR HGB CONC 33.1 g/dL (31-35); MEAN CORPUSCULAR VOLUME 96.5 fL (81-99); MONOCYTES # (AUTO) 1.1 (0.2-0.8); MONOCYTES % 9.5 % (4.4-11.3); NEUTROPHILS # (AUTO) 8.3 (2.1-6.9); PLATELET COUNT 295 x10e3/uL (140-360); RED BLOOD COUNT 3.41 x10e6/uL (3.6-5.1); RED CELL DISTRIBUTION WIDTH 17.2 % (11.7-14.4)
[2020-02-17 10:51] LABS: ALANINE AMINOTRANSFERASE 12 IU/L (0-55); ALBUMIN 3.7 g/dL (3.5-5.0); ALBUMIN/GLOBULIN RATIO 1.4 (0.8-2.0); ALKALINE PHOSPHATASE 65 IU/L (40-150); BLOOD UREA NITROGEN 20 mg/dL (7-26); BUN/CREATININE RATIO 31 (6-25); CALCIUM 8.7 mg/dL (8.4-10.2); CARBON DIOXIDE 26 mmol/L (22-29); CHLORIDE 100 mmol/L (98-107); CREATININE, SERUM 0.65 mg/dL (0.57-1.11); EST GLOMERULAR FILTRATION RATE > 60 ML/MIN (60-); GLUCOSE 111 mg/dL (74-118); SODIUM 140 mmol/L (136-145)
[2020-02-17 13:23] LABS: CLARITY,URINE CLEAR (CLEAR); COLOR,URINE YELLOW (YELLOW)
[2020-02-17 13:24] LABS: LEUKOCYTE ESTERASE ,URINE NEGATIVE (NEGATIVE); NITRITE,URINE NEGATIVE (NEGATIVE); PROTEIN,URINE DIPSTICK 1+ (NEGATIVE)
[2020-02-17 13:25] LABS: KETONES,URINE 2+ (NEGATIVE); URINE UROBILINOGEN 0.2 mg/dL (0.2 - 1)
[2020-02-17 13:29] LABS: BACTERIA,URINE RARE /HPF; EPITHELIAL CELLS,URINE FEW /LPF; RBC,URINE 21-50 /HPF (0-5)
[2020-02-17] MEDS ORDERED: KEFLEX500 MG PO (13:32)
[2020-02-17 14:05] VITALS: BP 138/58
== END 2020-02-17 14:05 | disposition home or self-care (01) ==
LOC: ER 09:45
DX: S52.022A Displaced fracture of olecranon process without intraarticular extension of left ulna, initial encounter for closed fracture (principal); I10 Essential (primary) hypertension; J44.9 Chronic obstructive pulmonary disease, unspecified; I25.10 Atherosclerotic heart disease of native coronary artery without angina pectoris; E78.5 Hyperlipidemia, unspecified; W19.XXXA Unspecified fall, initial encounter; Z79.02 Long term (current) use of antithrombotics/antiplatelets; Z79.82 Long term (current) use of aspirin; Z87.891 Personal history of nicotine dependence
CPT/HCPCS: 36415; 70450; 71045; 72125; 72170; 80053; 81001; 84484; 85025; 93005; 99284

== ENCOUNTER 2020-10-17 14:00 | Outpatient (RCR) | payer MEDICARE, OTHER ==
[~2020-10-17 14:00] MED LIST changes: +KEFLEX500 MG PO
== END 2020-10-21 ==
LOC: PT 14:00
PROVIDERS: ATTEND Family Medicine Sports Medicine
DX: R53.1 Weakness (principal); R26.89 Other abnormalities of gait and mobility; M25.551 Pain in right hip; M70.61 Trochanteric bursitis, right hip; M76.01 Gluteal tendinitis, right hip

== ENCOUNTER 2020-11-17 13:59 | Outpatient (RCR) | payer MEDICARE, OTHER | END 2020-11-20 | LOC: PT 13:59 | PROVIDERS: ATTEND Family Medicine Sports Medicine | DX: M70.61 Trochanteric bursitis, right hip (principal); M76.01 Gluteal tendinitis, right hip; M25.551 Pain in right hip; R26.89 Other abnormalities of gait and mobility ==

== ENCOUNTER 2020-12-19 13:51 | Outpatient (RCR) | payer MEDICARE, OTHER | END 2020-12-21 | LOC: PT 13:51 | PROVIDERS: ATTEND Family Medicine Sports Medicine | DX: M70.61 Trochanteric bursitis, right hip (principal); M25.551 Pain in right hip; M76.01 Gluteal tendinitis, right hip; R26.89 Other abnormalities of gait and mobility; R53.1 Weakness | CPT/HCPCS: 97139 ==

== ENCOUNTER 2021-01-19 13:00 | Outpatient (RCR) | payer MEDICARE, OTHER | END 2021-01-20 | LOC: PT 13:00 | PROVIDERS: ATTEND Family Medicine Sports Medicine | DX: M25.551 Pain in right hip (principal); M70.61 Trochanteric bursitis, right hip; M76.01 Gluteal tendinitis, right hip; R53.1 Weakness; R26.89 Other abnormalities of gait and mobility | CPT/HCPCS: 97139 ==

== ENCOUNTER → 2021-02-20 | Outpatient (RCR) | payer MEDICARE, OTHER | LOC: PT 01-23 14:06 | PROVIDERS: ATTEND Family Medicine Sports Medicine | DX: M25.551 Pain in right hip (principal); M70.61 Trochanteric bursitis, right hip; M76.01 Gluteal tendinitis, right hip; R53.1 Weakness; R26.89 Other abnormalities of gait and mobility ==

== ENCOUNTER 2021-03-20 14:00 | Outpatient (RCR) | payer MEDICARE, OTHER | END 2021-03-23 | LOC: PT 14:00 | PROVIDERS: ATTEND Family Medicine Sports Medicine | DX: R26.89 Other abnormalities of gait and mobility (principal); M25.551 Pain in right hip; M70.61 Trochanteric bursitis, right hip; M76.01 Gluteal tendinitis, right hip | CPT/HCPCS: 97139 ==

== ENCOUNTER 2021-04-10 14:00 | Outpatient (RCR) | payer MEDICARE, OTHER | END 2021-04-20 | LOC: PT 14:00 | PROVIDERS: ATTEND Family Medicine Sports Medicine | DX: M25.551 Pain in right hip (principal); M70.61 Trochanteric bursitis, right hip; M76.01 Gluteal tendinitis, right hip; R53.1 Weakness; R26.89 Other abnormalities of gait and mobility ==

== ENCOUNTER 2021-09-15 15:51 | Outpatient (RCR) | payer MEDICARE, OTHER | END 2021-09-20 | LOC: PT 15:51 | PROVIDERS: ATTEND Orthopaedic Surgery | DX: M25.552 Pain in left hip (principal) ==

== ENCOUNTER → 2021-10-21 | Outpatient (RCR) | payer MEDICARE, OTHER | LOC: PT 09-21 10:23 | PROVIDERS: ATTEND Orthopaedic Surgery | DX: M25.552 Pain in left hip (principal) ==

== ENCOUNTER 2021-10-24 01:05 | Inpatient (IN) | payer MEDICARE, OTHER ==
[~2021-10-24] VITALS: Ht 157.5 cm; Wt 49.4 kg
[2021-10-24 01:53] LABS: BASOPHILS # (AUTO) 0.1 (0.0-0.1); BASOPHILS % 0.3 % (0.0-1.0); EOSINOPHILS % 0.1 % (0.0-6.0); HEMATOCRIT 36.8 % (34.2-44.1); LYMPHOCYTES # (AUTO) 1.5 (1.0-3.2); LYMPHOCYTES % 5.5 % (18.0-39.1); MEAN CORPUSCULAR HEMOGLOBIN 30.4 pg (28-32); MEAN CORPUSCULAR HGB CONC 32.6 g/dL (31-35); MEAN CORPUSCULAR VOLUME 93.2 fL (81-99); MONOCYTES # (AUTO) 1.1 (0.2-0.8); MONOCYTES % 3.9 % (4.4-11.3); NEUTROPHILS # (AUTO) 24.9 (2.1-6.9); NEUTROPHILS % 89.2 % (38.7-80.0); PLATELET COUNT 349 x10e3/uL (140-360); RED BLOOD COUNT 3.95 x10e6/uL (3.6-5.1); RED CELL DISTRIBUTION WIDTH 17.6 % (11.7-14.4)
[2021-10-24 02:11] LABS: ALBUMIN 3.2 g/dL (3.5-5.0); ALBUMIN/GLOBULIN RATIO 0.9 (0.8-2.0); ANION GAP 17.5 mmol/L (8-16); CALCIUM 8.7 mg/dL (8.4-10.2); CREATININE, SERUM 0.72 mg/dL (0.57-1.11); POTASSIUM 3.5 mmol/L (3.5-5.1)
[2021-10-24 02:17] LABS: CREATINE KINASE MB 0.8 ng/mL (0-5.0)
[2021-10-24] MEDS ORDERED: ACETAMINOPHEN 325 MG TAB PO PRN (06:45)
[2021-10-24] MEDS ORDERED: ACETAMINOPHEN 325 MG TAB ONE (06:49)
[2021-10-24] MEDS ORDERED: ENOXAPARIN SOD INJ 40 MG/0.4 ML SYR SC SCH (09:45)
[2021-10-24] MEDS ORDERED: ALBUTEROL SULFATE HFA 8GM INHALATION AEROSOL INH PRN (10:00)
[2021-10-24] MEDS ORDERED: REMDESIVIR 200MG 200 MG in SODIUM CHLORIDE 0.9% 100 ML IV ONE (10:00)
[2021-10-24] MEDS: PANTOPRAZOLE SOD 40 MG TABEC PO SCH (10:00)
[2021-10-24] MEDS: CEFTRIAXONE 2 GM in SODIUM CHLORIDE 0.9% 100 ML IV SCH (10:00)
[2021-10-24] MEDS: APIXAB 2.5 MG TABLET PO SCH ×2 (10:00→17:07)
[2021-10-24] MEDS ORDERED: SLOW-MAG64 MG PO (12:04)
[2021-10-24] MEDS ORDERED: GABAPENTIN300 MG PO (12:04)
[2021-10-24] MEDS ORDERED: ULTRAM50 MG PO (12:04)
[2021-10-24] MEDS ORDERED: FOLIC ACID0.8 MG (12:04)
[2021-10-24] MEDS ORDERED: CYMBALTA30 MG (12:04)
[2021-10-24] MEDS ORDERED: ZOLPIDEM TARTRAT5 MG PO (12:05)
[2021-10-24] MEDS ORDERED: ONDANSETRON HCL INJ 2MG/ML 2ML 2 MG/ML VIAL IV PRN (12:30)
[2021-10-24] MEDS: IPRATROPIUM BROMIDE INHALER 12.9 GM INH INH SCH ×2 (12:48→19:10)
[2021-10-24] MEDS: ALBUTEROL SULFATE HFA 8GM INHALATION AEROSOL INH SCH ×2 (12:48→19:10)
[2021-10-24] MEDS: CHOLECALCIFEROL 1,000 UNIT TAB PO SCH (13:29)
[2021-10-24 14:47] VITALS: BP 120/63
[2021-10-24 15:56] VITALS: BP 129/55
[2021-10-24] MEDS ORDERED: DEXAMETHASONE SOD PHOS 10 MG/1 ML VIAL IV SCH (17:00)
[2021-10-24] MEDS: ASCORBIC ACID 500 MG TAB PO SCH (17:07)
[2021-10-24 20:00] VITALS: BP 116/57
[2021-10-25] VITALS: BP 123/56
[2021-10-25] MEDS: IPRATROPIUM BROMIDE INHALER 12.9 GM INH INH SCH ×4 (01:20→19:00)
[2021-10-25] MEDS: ALBUTEROL SULFATE HFA 8GM INHALATION AEROSOL INH SCH ×4 (01:20→19:00)
[2021-10-25 04:00] VITALS: BP 106/58
[2021-10-25 06:08] LABS: BASOPHILS % 0.1 % (0.0-1.0); HEMATOCRIT 32.8 % (34.2-44.1); HEMOGLOBIN 10.8 g/dL (12.0-16.0); LYMPHOCYTES # (AUTO) 0.8 (1.0-3.2); LYMPHOCYTES % 3.8 % (18.0-39.1); MEAN CORPUSCULAR HEMOGLOBIN 30.6 pg (28-32); MEAN CORPUSCULAR HGB CONC 32.9 g/dL (31-35); MEAN CORPUSCULAR VOLUME 92.9 fL (81-99); MONOCYTES # (AUTO) 0.3 (0.2-0.8); MONOCYTES % 1.4 % (4.4-11.3); NEUTROPHILS # (AUTO) 20.5 (2.1-6.9); NEUTROPHILS % 93.8 % (38.7-80.0); PLATELET COUNT 343 x10e3/uL (140-360); RED BLOOD COUNT 3.53 x10e6/uL (3.6-5.1); RED CELL DISTRIBUTION WIDTH 17.2 % (11.7-14.4)
[2021-10-25 06:26] LABS: ALBUMIN 2.7 g/dL (3.5-5.0); ALBUMIN/GLOBULIN RATIO 0.7 (0.8-2.0); ANION GAP 17.8 mmol/L (8-16); CALCIUM 8.4 mg/dL (8.4-10.2); CREATININE, SERUM 0.62 mg/dL (0.57-1.11); POTASSIUM 3.8 mmol/L (3.5-5.1)
[2021-10-25] MEDS: PANTOPRAZOLE SOD 40 MG TABEC PO SCH ×2 (07:31→17:16)
[2021-10-25 08:16] VITALS: BP 116/62
[2021-10-25 09:03] LABS: LYMPHOCYTES % (MANUAL) 1 % (19-48); MONOCYTES % (MANUAL) 1 % (3.4-9.0); NEUTROPHILS % (MANUAL) 98 % (40-74); PLATELET ESTIMATE ADEQUATE; PLATELET MORPHOLOGY COMMENT NORMAL; RBC MORPHOLOGY COMMENT NORMAL
[2021-10-25] MEDS: APIXAB 2.5 MG TABLET PO SCH ×2 (09:20→17:16)
[2021-10-25] MEDS: ASCORBIC ACID 500 MG TAB PO SCH ×2 (09:20→17:16)
[2021-10-25] MEDS: CEFTRIAXONE 2 GM in SODIUM CHLORIDE 0.9% 100 ML IV SCH (09:20)
[2021-10-25] MEDS: CHOLECALCIFEROL 1,000 UNIT TAB PO SCH (09:20)
[2021-10-25] MEDS ORDERED: NICOTINE 21 MG/EA PATCH TOP PRN (11:45)
[2021-10-25] MEDS: REMDESIVIR 100MG 100 MG in SODIUM CHLORIDE 0.9% 100 ML IV SCH (14:00)
[2021-10-25 16:36] VITALS: BP 117/68
[2021-10-25] MEDS: DEXAMETHASONE SOD PHOS 10 MG/1 ML VIAL IV SCH (17:16)
[2021-10-25 17:59] VITALS: BP 117/68
[2021-10-25 20:00] VITALS: BP 116/66
[2021-10-26] VITALS (8 sets, daily range): BP systolic 108–140; BP diastolic 57–70
[2021-10-26] MEDS: ALBUTEROL SULFATE HFA 8GM INHALATION AEROSOL INH SCH ×4 (01:20→18:13)
[2021-10-26] MEDS: IPRATROPIUM BROMIDE INHALER 12.9 GM INH INH SCH ×4 (01:20→18:13)
[2021-10-26 05:47] LABS: BASOPHILS % 0.2 % (0.0-1.0); HEMOGLOBIN 10.2 g/dL (12.0-16.0); LYMPHOCYTES # (AUTO) 1.1 (1.0-3.2); LYMPHOCYTES % 6.4 % (18.0-39.1); MEAN CORPUSCULAR HEMOGLOBIN 30.4 pg (28-32); MEAN CORPUSCULAR VOLUME 89.6 fL (81-99); MONOCYTES # (AUTO) 0.3 (0.2-0.8); NEUTROPHILS # (AUTO) 14.8 (2.1-6.9); PLATELET COUNT 411 x10e3/uL (140-360); RED BLOOD COUNT 3.35 x10e6/uL (3.6-5.1); RED CELL DISTRIBUTION WIDTH 17.3 % (11.7-14.4)
[2021-10-26 06:10] LABS: ANION GAP 14.8 mmol/L (8-16); CALCIUM 8.3 mg/dL (8.4-10.2); CREATININE, SERUM 0.59 mg/dL (0.57-1.11); POTASSIUM 3.8 mmol/L (3.5-5.1)
[2021-10-26] MEDS: PANTOPRAZOLE SOD 40 MG TABEC PO SCH ×2 (09:15→16:02)
[2021-10-26] MEDS: CHOLECALCIFEROL 1,000 UNIT TAB PO SCH (09:16)
[2021-10-26] MEDS: CEFTRIAXONE 2 GM in SODIUM CHLORIDE 0.9% 100 ML IV SCH (09:16)
[2021-10-26] MEDS: ASCORBIC ACID 500 MG TAB PO SCH ×2 (09:16→16:02)
[2021-10-26] MEDS: APIXAB 2.5 MG TABLET PO SCH ×2 (09:16→16:02)
[2021-10-26] MEDS ORDERED: DOCUSATE SODIUM 100 MG CAP PO PRN (13:30)
[2021-10-26] MEDS: REMDESIVIR 100MG 100 MG in SODIUM CHLORIDE 0.9% 100 ML IV SCH (14:38)
[2021-10-26] MEDS: DEXAMETHASONE SOD PHOS 10 MG/1 ML VIAL IV SCH (16:02)
[2021-10-27] VITALS (7 sets, daily range): BP systolic 121–137; BP diastolic 52–86
[2021-10-27] MEDS: ALBUTEROL SULFATE HFA 8GM INHALATION AEROSOL INH SCH ×4 (00:50→19:10)
[2021-10-27] MEDS: IPRATROPIUM BROMIDE INHALER 12.9 GM INH INH SCH ×4 (00:50→19:10)
[2021-10-27 06:37] LABS: BASOPHILS % 0.2 % (0.0-1.0); HEMATOCRIT 30.4 % (34.2-44.1); HEMOGLOBIN 9.9 g/dL (12.0-16.0); LYMPHOCYTES # (AUTO) 1.8 (1.0-3.2); LYMPHOCYTES % 17.5 % (18.0-39.1); MEAN CORPUSCULAR HEMOGLOBIN 30.3 pg (28-32); MEAN CORPUSCULAR HGB CONC 32.6 g/dL (31-35); MONOCYTES # (AUTO) 0.6 (0.2-0.8); MONOCYTES % 5.9 % (4.4-11.3); NEUTROPHILS # (AUTO) 7.5 (2.1-6.9); NEUTROPHILS % 75.5 % (38.7-80.0); PLATELET COUNT 372 x10e3/uL (140-360); RED BLOOD COUNT 3.27 x10e6/uL (3.6-5.1); RED CELL DISTRIBUTION WIDTH 17.7 % (11.7-14.4)
[2021-10-27] MEDS: APIXAB 2.5 MG TABLET PO SCH ×2 (09:08→17:05)
[2021-10-27] MEDS: ASCORBIC ACID 500 MG TAB PO SCH ×2 (09:08→17:05)
[2021-10-27] MEDS: CHOLECALCIFEROL 1,000 UNIT TAB PO SCH (09:08)
[2021-10-27] MEDS: CEFTRIAXONE 2 GM in SODIUM CHLORIDE 0.9% 100 ML IV SCH (09:08)
[2021-10-27] MEDS: PANTOPRAZOLE SOD 40 MG TABEC PO SCH ×2 (09:08→17:05)
[2021-10-27] MEDS: DEXAMETHASONE 4 MG TAB PO SCH (10:54)
[2021-10-27] MEDS: REMDESIVIR 100MG 100 MG in SODIUM CHLORIDE 0.9% 100 ML IV SCH (10:55)
[2021-10-27] MEDS ORDERED: ONDANSETRON HCL 4 MG ORAL DISINTEGRATING TAB PO PRN (19:30)
[2021-10-28] VITALS: BP 165/98
[2021-10-28] MEDS: IPRATROPIUM BROMIDE INHALER 12.9 GM INH INH SCH ×3 (01:40→10:44)
[2021-10-28] MEDS: ALBUTEROL SULFATE HFA 8GM INHALATION AEROSOL INH SCH ×3 (01:40→10:43)
[2021-10-28 04:00] VITALS: BP 125/48
[2021-10-28] MEDS ORDERED: REMDESIVIR 100MG 100 MG in SODIUM CHLORIDE 0.9% 100 ML IV SCH (08:00)
[2021-10-28 08:29] VITALS: BP 146/76
[2021-10-28 09:00] VITALS: BP 146/76
[2021-10-28] MEDS: CEFTRIAXONE 2 GM in SODIUM CHLORIDE 0.9% 100 ML IV SCH (09:00)
[2021-10-28] MEDS: APIXAB 2.5 MG TABLET PO SCH (09:56)
[2021-10-28] MEDS: CHOLECALCIFEROL 1,000 UNIT TAB PO SCH (09:56)
[2021-10-28] MEDS: DEXAMETHASONE 4 MG TAB PO SCH (09:56)
[2021-10-28] MEDS: ASCORBIC ACID 500 MG TAB PO SCH (09:56)
[2021-10-28] MEDS: PANTOPRAZOLE SOD 40 MG TABEC PO SCH (09:56)
[2021-10-28 11:08] VITALS: BP 131/58
== END 2021-10-28 12:34 | disposition home or self-care (01) | DRG 177 ==
LOC: ER 01:20 → ERHOLD 02:34 → MED/SURG2 14:50
PROVIDERS: ADMIT Internal Medicine; ATTEND Internal Medicine
PROC: 8E0ZXY6 Isolation (ICD-10-PCS; principal; 2021-10-24)
PROC: XW033E5 Introduction of Remdesivir Anti-infective into Peripheral Vein, Percutaneous Approach, New Technology Group 5 (ICD-10-PCS; 2021-10-24)
DX: U07.1 COVID-19 (principal); J12.82 Pneumonia due to coronavirus disease 2019; J15.9 Unspecified bacterial pneumonia; J96.01 Acute respiratory failure with hypoxia; J44.0 Chronic obstructive pulmonary disease with (acute) lower respiratory infection; J44.1 Chronic obstructive pulmonary disease with (acute) exacerbation; R09.02 Hypoxemia; F17.200 Nicotine dependence, unspecified, uncomplicated; G62.9 Polyneuropathy, unspecified; M19.90 Unspecified osteoarthritis, unspecified site
CPT/HCPCS: 36415; 71045; 71250; 80048; 80053; 82550; 82553; 83880; 84484; 85025; 87070; 87205; 93005; 94664; 94760; 94799; 99284; J0248; J0456; J0696; J1100; J1650; J2405; J7050

== ENCOUNTER 2021-11-16 14:00 | Outpatient (RCR) | payer MEDICARE, OTHER ==
[~2021-11-16 14:00] MED LIST changes: +CYMBALTA30 MG; +FOLIC ACID0.8 MG; +GABAPENTIN300 MG PO; +SLOW-MAG64 MG PO; +ULTRAM50 MG PO; +ZOLPIDEM TARTRAT5 MG PO
== END 2021-11-20 ==
LOC: PT 14:00
PROVIDERS: ATTEND Orthopaedic Surgery
DX: S72.115D Nondisplaced fracture of greater trochanter of left femur, subsequent encounter for closed fracture with routine healing (principal); M62.81 Muscle weakness (generalized); R26.2 Difficulty in walking, not elsewhere classified; M25.652 Stiffness of left hip, not elsewhere classified; Z91.81 History of falling

== ENCOUNTER 2021-11-30 15:41 | Emergency (ER) | payer MEDICARE, OTHER ==
[~2021-11-30] VITALS: Ht 157.5 cm; Wt 49.4 kg
[2021-11-30 16:48] LABS: BASOPHILS # (AUTO) 0.1 (0.0-0.1); BASOPHILS % 0.5 % (0.0-1.0); EOSINOPHILS # (AUTO) 0.1 (0.0-0.4); EOSINOPHILS % 0.5 % (0.0-6.0); HEMATOCRIT 33.4 % (34.2-44.1); HEMOGLOBIN 10.7 g/dL (12.0-16.0); LYMPHOCYTES # (AUTO) 1.9 (1.0-3.2); LYMPHOCYTES % 17.4 % (18.0-39.1); MEAN CORPUSCULAR HEMOGLOBIN 30.1 pg (28-32); MEAN CORPUSCULAR VOLUME 93.8 fL (81-99); MONOCYTES # (AUTO) 0.4 (0.2-0.8); MONOCYTES % 3.7 % (4.4-11.3); NEUTROPHILS # (AUTO) 8.6 (2.1-6.9); PLATELET COUNT 311 x10e3/uL (140-360); RED BLOOD COUNT 3.56 x10e6/uL (3.6-5.1); RED CELL DISTRIBUTION WIDTH 17.1 % (11.7-14.4)
[2021-11-30 16:57] LABS: INR 0.8; PROTHROMBIN TIME 11.8 seconds (11.9-14.5)
[2021-11-30 16:58] LABS: PARTIAL THROMBOPLASTIN TIME 31.4 seconds (23.8-35.5)
[2021-11-30 17:04] LABS: ALBUMIN 3.6 g/dL (3.5-5.0); ALBUMIN/GLOBULIN RATIO 1.1 (0.8-2.0); CALCIUM 9.2 mg/dL (8.4-10.2); CREATININE, SERUM 0.7 mg/dL (0.57-1.11)
[2021-11-30] MEDS ORDERED: IOPAMIDOL 370 MG/ML 100 ML INFUS..BTL INJ ONE (17:49)
[2021-11-30] MEDS ORDERED: SODIUM CHLORIDE 0.9% 100 ML ONE (17:49)
[2021-11-30] MEDS ORDERED: HEPARIN SOD (PORCINE) 5,000 UNIT/ML VIAL IV ONE (19:00)
[2021-11-30] MEDS ORDERED: HEPARIN 25,000 UNIT 900 UNIT in DEXTROSE 5% 250ML 250 ML IV SCH (19:00)
== END 2021-11-30 20:55 | disposition other institution (70) ==
LOC: ER 15:50
DX: I73.9 Peripheral vascular disease, unspecified (principal); I70.92 Chronic total occlusion of artery of the extremities
CPT/HCPCS: 36415; 73706; 80053; 85025; 85610; 85730; 93926; 99284; J1644; J7050; Q9967

== ENCOUNTER 2022-05-23 22:49 | Emergency (ER) | payer MEDICARE, OTHER ==
[~2022-05-23] VITALS: Ht 154.9 cm; Wt 47.2 kg
[2022-05-23] MEDS ORDERED: SODIUM CHLORIDE 0.9% 1000ML 1,000 ML IV ONE (23:15)
[2022-05-23 23:24] LABS: BASOPHILS # (AUTO) 0.1 (0.0-0.1); BASOPHILS % 0.5 % (0.0-1.0); EOSINOPHILS # (AUTO) 0.1 (0.0-0.4); EOSINOPHILS % 0.7 % (0.0-6.0); HEMATOCRIT 36.8 % (34.2-44.1); HEMOGLOBIN 12.2 g/dL (12.0-16.0); LYMPHOCYTES # (AUTO) 3.4 (1.0-3.2); LYMPHOCYTES % 17.9 % (18.0-39.1); MEAN CORPUSCULAR HEMOGLOBIN 31.5 pg (28-32); MEAN CORPUSCULAR HGB CONC 33.2 g/dL (31-35); MEAN CORPUSCULAR VOLUME 95.1 fL (81-99); MONOCYTES # (AUTO) 1.2 (0.2-0.8); MONOCYTES % 6.2 % (4.4-11.3); NEUTROPHILS # (AUTO) 14.1 (2.1-6.9); NEUTROPHILS % 74.1 % (38.7-80.0); PLATELET COUNT 369 x10e3/uL (140-360); RED BLOOD COUNT 3.87 x10e6/uL (3.6-5.1); RED CELL DISTRIBUTION WIDTH 14.8 % (11.7-14.4)
[2022-05-23] MEDS ORDERED: IOPAMIDOL 370 MG/ML 100 ML INFUS..BTL INJ ONE (23:34)
[2022-05-23 23:36] LABS: ALBUMIN 3.6 g/dL (3.5-5.0); ALBUMIN/GLOBULIN RATIO 1.2 (0.8-2.0); ANION GAP 15.3 mmol/L (8-16); CALCIUM 9.1 mg/dL (8.4-10.2); CREATININE, SERUM 0.71 mg/dL (0.57-1.11); POTASSIUM 4.3 mmol/L (3.5-5.1)
[2022-05-24 03:22] VITALS: BP 153/80; PULSE 96; RESP 17; TEMP 98.5; O2SAT 99
== END 2022-05-24 03:27 | disposition other institution (70) ==
LOC: ER 22:56
DX: K04.7 Periapical abscess without sinus (principal); K12.2 Cellulitis and abscess of mouth; M27.2 Inflammatory conditions of jaws; I10 Essential (primary) hypertension; J44.9 Chronic obstructive pulmonary disease, unspecified; K21.9 Gastro-esophageal reflux disease without esophagitis; E78.5 Hyperlipidemia, unspecified; Z20.822 Contact with and (suspected) exposure to COVID-19
CPT/HCPCS: 36415; 70487; 80053; 83605; 85025; 87040; 99284; J2543; J7030; Q9967; U0002

== ENCOUNTER 2023-01-25 13:48 | Inpatient (IN) | payer MEDICARE, OTHER ==
[~2023-01-25] VITALS: Ht 157.5 cm; Wt 50.8 kg
[2023-01-25] MEDS ORDERED: ALBUTEROL/IPRATROPIUM 3 ML NEB NEB ONE (14:30)
[2023-01-25 14:36] VITALS: PULSE 84; RESP 18; O2SAT 94
[2023-01-25] MEDS ORDERED: SODIUM CHLORIDE FLUSH 10 ML SYR INJ PRN (14:45)
[2023-01-25 14:55] LABS: BASOPHILS # (AUTO) 0.1 (0.0-0.1); BASOPHILS % 0.4 % (0.0-1.0); EOSINOPHILS # (AUTO) 0.2 (0.0-0.4); EOSINOPHILS % 1.8 % (0.0-6.0); HEMATOCRIT 33.7 % (34.2-44.1); HEMOGLOBIN 10.8 g/dL (12.0-16.0); LYMPHOCYTES # (AUTO) 1.8 (1.0-3.2); MEAN CORPUSCULAR VOLUME 87.3 fL (81-99); MONOCYTES # (AUTO) 0.7 (0.2-0.8); MONOCYTES % 5.8 % (4.4-11.3); NEUTROPHILS # (AUTO) 8.4 (2.1-6.9); NEUTROPHILS % 75.2 % (38.7-80.0); PLATELET COUNT 455 x10e3/uL (140-360); RED BLOOD COUNT 3.86 x10e6/uL (3.6-5.1); RED CELL DISTRIBUTION WIDTH 16.9 % (11.7-14.4)
[2023-01-25 15:28] LABS: INFLUENZAE A&B ANTIGEN (RAPID) NEGATIVE (NEGATIVE)
[2023-01-25 15:41] LABS: TROPONIN I 0.008 ng/mL (0-0.300)
[2023-01-25 15:56] LABS: STREPTOCOCCUS GRP A ANTIGEN NEGATIVE (NEGATIVE)
[2023-01-25 17:00] VITALS: BP 127/87; PULSE 84; RESP 18; TEMP 98.3; O2SAT 95
[2023-01-25 18:49] VITALS: BP 127/87; PULSE 84; RESP 18; TEMP 98.3; O2SAT 95
[2023-01-25 19:55] VITALS: PULSE 84; RESP 18; O2SAT 95
[2023-01-25 20:00] VITALS: BP 123/59; PULSE 97; RESP 20; TEMP 99.1; O2SAT 95
[2023-01-26] VITALS (10 sets, daily range): BP systolic 120–128; BP diastolic 59–70; PULSE 89–118; RESP 17–22; TEMP 97.4–98.1; O2SAT 93–99
[2023-01-26 06:08] LABS: BASOPHILS % 0.3 % (0.0-1.0); EOSINOPHILS # (AUTO) 0.2 (0.0-0.4); EOSINOPHILS % 2.1 % (0.0-6.0); HEMATOCRIT 30.2 % (34.2-44.1); HEMOGLOBIN 9.7 g/dL (12.0-16.0); LYMPHOCYTES # (AUTO) 1.7 (1.0-3.2); MEAN CORPUSCULAR HEMOGLOBIN 27.8 pg (28-32); MEAN CORPUSCULAR HGB CONC 32.1 g/dL (31-35); MEAN CORPUSCULAR VOLUME 86.5 fL (81-99); MONOCYTES # (AUTO) 0.8 (0.2-0.8); MONOCYTES % 8.3 % (4.4-11.3); NEUTROPHILS # (AUTO) 6.5 (2.1-6.9); NEUTROPHILS % 70.2 % (38.7-80.0); PLATELET COUNT 412 x10e3/uL (140-360); RED BLOOD COUNT 3.49 x10e6/uL (3.6-5.1); RED CELL DISTRIBUTION WIDTH 16.9 % (11.7-14.4)
[2023-01-26 06:36] LABS: ANION GAP 15.3 mmol/L (8-16); CALCIUM 9.2 mg/dL (8.4-10.2); CREATININE, SERUM 0.71 mg/dL (0.57-1.11)
[2023-01-26 06:37] LABS: POTASSIUM 3.3 mmol/L (3.5-5.1)
[2023-01-26 06:55] LABS: CREATINE KINASE 39 IU/L (29-168)
[2023-01-26 07:04] LABS: TROPONIN I < 0.001 ng/mL (0-0.300)
[2023-01-26 08:02] LABS: BILIRUBIN,URINE NEGATIVE (NEGATIVE); CLARITY,URINE CLEAR (CLEAR); COLOR,URINE YELLOW (YELLOW); GLUCOSE, URINE 1+ (NEGATIVE); KETONES,URINE NEGATIVE (NEGATIVE); LEUKOCYTE ESTERASE ,URINE NEGATIVE (NEGATIVE); NITRITE,URINE NEGATIVE (NEGATIVE); PH,URINE 7 (5 - 7); PROTEIN,URINE DIPSTICK NEGATIVE (NEGATIVE); URINE UROBILINOGEN 0.2 mg/dL (0.2 - 1)
[2023-01-26] MEDS ORDERED: ALBUTEROL/IPRATROPIUM 3 ML NEB NEB PRN (08:15)
[2023-01-26] MEDS ORDERED: BENZONATATE 100 MG CAP PO PRN (08:15)
[2023-01-26 08:28] LABS: BACTERIA,URINE MODERATE /HPF; EPITHELIAL CELLS,URINE FEW /LPF; RBC,URINE 0-5 /HPF (0-5); YEAST,URINE MODERATE
[2023-01-26] MEDS ORDERED: METHYLPREDNISOLONE SOD SUCC 40 MG/ML VIAL 1ML IV SCH (09:00)
[2023-01-26] MEDS ORDERED: POTASSIUM CHLORIDE 20 MEQ TAB CR PO PRN (09:15)
[2023-01-26] MEDS ORDERED: ALBUTEROL/IPRATROPIUM 3 ML NEB NEB SCH (09:15)
[2023-01-26] MEDS: METHYLPREDNISOLONE SOD SUCC 40 MG/ML VIAL 1ML IV SCH ×2 (09:58→18:44)
[2023-01-26] MEDS: CLOPIDOGREL BISULFATE 75 MG TAB PO SCH (09:59)
[2023-01-26] MEDS: DULOXETINE HCL 30 MG DELAYED RELEASE PO SCH (09:59)
[2023-01-26] MEDS: GUAIFENESIN 600 MG TAB PO SCH ×2 (09:59→16:20)
[2023-01-26] MEDS: MAGNESIUM OXIDE 400 MG TAB PO SCH (09:59)
[2023-01-26] MEDS: BENZONATATE 100 MG CAP PO SCH ×3 (10:00→22:19)
[2023-01-26] MEDS: ASPIRIN 81 MG CHEW TAB PO SCH (10:00)
[2023-01-26] MEDS: PANTOPRAZOLE SOD 40 MG TABEC PO SCH ×2 (10:00→16:20)
[2023-01-26] MEDS: ALBUTEROL/IPRATROPIUM 3 ML NEB NEB SCH ×3 (10:47→19:33)
[2023-01-26] MEDS ORDERED: TRAMADOL HCL 50 MG TAB PO PRN (11:15)
[2023-01-26] MEDS ORDERED: TRAMADOL HCL 50 MG TAB PO SCH (12:00)
[2023-01-26] MEDS: ENOXAPARIN 30 MG/0.3 ML SYR SC SCH (16:20)
[2023-01-26 18:49] LABS: CREATINE KINASE 32 IU/L (29-168)
[2023-01-26 18:55] LABS: TROPONIN I < 0.001 ng/mL (0-0.300)
[2023-01-26] MEDS: ATORVASTATIN 40 MG TAB PO SCH (22:19)
[2023-01-27] VITALS (13 sets, daily range): BP systolic 101–153; BP diastolic 56–71; PULSE 88–110; RESP 17–24; TEMP 97.7–99.1; O2SAT 90–99
[2023-01-27] MEDS: ALBUTEROL/IPRATROPIUM 3 ML NEB NEB SCH ×4 (01:35→19:54)
[2023-01-27] MEDS: METHYLPREDNISOLONE SOD SUCC 40 MG/ML VIAL 1ML IV SCH ×3 (01:57→16:27)
[2023-01-27] MEDS: MAGNESIUM OXIDE 400 MG TAB PO SCH (08:15)
[2023-01-27] MEDS: DULOXETINE HCL 30 MG DELAYED RELEASE PO SCH (08:15)
[2023-01-27] MEDS: BENZONATATE 100 MG CAP PO SCH ×3 (08:15→21:21)
[2023-01-27] MEDS: CLOPIDOGREL BISULFATE 75 MG TAB PO SCH (08:15)
[2023-01-27] MEDS: PANTOPRAZOLE SOD 40 MG TABEC PO SCH ×2 (08:15→16:27)
[2023-01-27] MEDS: GUAIFENESIN 600 MG TAB PO SCH ×2 (08:15→16:27)
[2023-01-27] MEDS: ASPIRIN 81 MG CHEW TAB PO SCH (08:15)
[2023-01-27] MEDS: B COMPLEX WITH VITAMIN C PO SCH (09:00)
[2023-01-27] MEDS: ENOXAPARIN 30 MG/0.3 ML SYR SC SCH (16:27)
[2023-01-27] MEDS: ATORVASTATIN 40 MG TAB PO SCH (21:21)
[2023-01-28] VITALS (12 sets, daily range): BP systolic 127–158; BP diastolic 62–88; PULSE 84–96; RESP 17–20; TEMP 97.5–98.8; O2SAT 95–98
[2023-01-28] MEDS: ALBUTEROL/IPRATROPIUM 3 ML NEB NEB SCH ×4 (01:12→19:56)
[2023-01-28] MEDS: METHYLPREDNISOLONE SOD SUCC 40 MG/ML VIAL 1ML IV SCH ×3 (02:27→17:50)
[2023-01-28 06:06] LABS: BASOPHILS % 0.1 % (0.0-1.0); HEMATOCRIT 29.8 % (34.2-44.1); HEMOGLOBIN 9.6 g/dL (12.0-16.0); LYMPHOCYTES # (AUTO) 1.4 (1.0-3.2); LYMPHOCYTES % 7.8 % (18.0-39.1); MEAN CORPUSCULAR HEMOGLOBIN 27.9 pg (28-32); MEAN CORPUSCULAR HGB CONC 32.2 g/dL (31-35); MEAN CORPUSCULAR VOLUME 86.6 fL (81-99); MONOCYTES # (AUTO) 0.6 (0.2-0.8); NEUTROPHILS # (AUTO) 16.1 (2.1-6.9); PLATELET COUNT 462 x10e3/uL (140-360); RED BLOOD COUNT 3.44 x10e6/uL (3.6-5.1); RED CELL DISTRIBUTION WIDTH 17.3 % (11.7-14.4)
[2023-01-28 06:32] LABS: CALCIUM 9.1 mg/dL (8.4-10.2); CREATININE, SERUM 0.7 mg/dL (0.57-1.11)
[2023-01-28 07:01] LABS: WHITE BLOOD COUNT 18.29 x10e3/uL (4.8-10.8)
[2023-01-28 07:33] LABS: MAGNESIUM 1.6 MG/DL (1.3-2.1); PHOSPHORUS 2.8 MG/DL (2.3-4.7)
[2023-01-28] MEDS: PANTOPRAZOLE SOD 40 MG TABEC PO SCH ×2 (08:35→17:50)
[2023-01-28] MEDS: DULOXETINE HCL 30 MG DELAYED RELEASE PO SCH (08:35)
[2023-01-28] MEDS: BENZONATATE 100 MG CAP PO SCH ×3 (08:36→20:17)
[2023-01-28] MEDS: MAGNESIUM OXIDE 400 MG TAB PO SCH (08:36)
[2023-01-28] MEDS: CLOPIDOGREL BISULFATE 75 MG TAB PO SCH (08:36)
[2023-01-28] MEDS: GUAIFENESIN 600 MG TAB PO SCH ×2 (08:36→17:50)
[2023-01-28] MEDS: ASPIRIN 81 MG CHEW TAB PO SCH (08:36)
[2023-01-28] MEDS: B COMPLEX WITH VITAMIN C PO SCH (08:37)
[2023-01-28] MEDS ORDERED: AZITHROMYCIN 250 MG TAB PO SCH (09:30)
[2023-01-28] MEDS: ENOXAPARIN 30 MG/0.3 ML SYR SC SCH (17:50)
[2023-01-28] MEDS: ATORVASTATIN 40 MG TAB PO SCH (20:17)
[2023-01-29] VITALS (12 sets, daily range): BP systolic 119–158; BP diastolic 65–78; PULSE 78–99; RESP 16–22; TEMP 97.7–98.1; O2SAT 91–97
[2023-01-29] MEDS: ALBUTEROL/IPRATROPIUM 3 ML NEB NEB SCH ×4 (01:36→20:09)
[2023-01-29] MEDS: METHYLPREDNISOLONE SOD SUCC 40 MG/ML VIAL 1ML IV SCH (04:28)
[2023-01-29] MEDS: B COMPLEX WITH VITAMIN C PO SCH (09:00)
[2023-01-29] MEDS: PANTOPRAZOLE SOD 40 MG TABEC PO SCH ×2 (09:45→17:39)
[2023-01-29] MEDS: GUAIFENESIN 600 MG TAB PO SCH ×2 (09:45→17:39)
[2023-01-29] MEDS: ASPIRIN 81 MG CHEW TAB PO SCH (09:45)
[2023-01-29] MEDS: CLOPIDOGREL BISULFATE 75 MG TAB PO SCH (09:45)
[2023-01-29] MEDS: DULOXETINE HCL 30 MG DELAYED RELEASE PO SCH (09:45)
[2023-01-29] MEDS: MAGNESIUM OXIDE 400 MG TAB PO SCH (09:45)
[2023-01-29] MEDS: BENZONATATE 100 MG CAP PO SCH ×3 (09:46→20:28)
[2023-01-29] MEDS: ENOXAPARIN 30 MG/0.3 ML SYR SC SCH (17:40)
[2023-01-29] MEDS: ATORVASTATIN 40 MG TAB PO SCH (20:28)
[2023-01-30] VITALS (10 sets, daily range): BP systolic 115–148; BP diastolic 59–76; PULSE 81–93; RESP 17–19; TEMP 97.9–98.6; O2SAT 91–96
[2023-01-30] MEDS: ALBUTEROL/IPRATROPIUM 3 ML NEB NEB SCH ×5 (01:47→20:06)
[2023-01-30 06:28] LABS: BASOPHILS % 0.1 % (0.0-1.0); EOSINOPHILS # (AUTO) 0.1 (0.0-0.4); EOSINOPHILS % 0.4 % (0.0-6.0); HEMATOCRIT 32.8 % (34.2-44.1); HEMOGLOBIN 10.3 g/dL (12.0-16.0); LYMPHOCYTES # (AUTO) 4.4 (1.0-3.2); LYMPHOCYTES % 32.3 % (18.0-39.1); MEAN CORPUSCULAR HEMOGLOBIN 27.2 pg (28-32); MEAN CORPUSCULAR HGB CONC 31.4 g/dL (31-35); MEAN CORPUSCULAR VOLUME 86.8 fL (81-99); MONOCYTES # (AUTO) 1.2 (0.2-0.8); MONOCYTES % 8.9 % (4.4-11.3); NEUTROPHILS # (AUTO) 7.8 (2.1-6.9); NEUTROPHILS % 57.5 % (38.7-80.0); PLATELET COUNT 427 x10e3/uL (140-360); RED BLOOD COUNT 3.78 x10e6/uL (3.6-5.1); RED CELL DISTRIBUTION WIDTH 17.2 % (11.7-14.4); WHITE BLOOD COUNT 13.53 x10e3/uL (4.8-10.8)
[2023-01-30] MEDS ORDERED: METHYLPREDNISOLONE SOD SUCC 40 MG/ML VIAL 1ML IV SCH (07:30)
[2023-01-30] MEDS: B COMPLEX WITH VITAMIN C PO SCH (09:00)
[2023-01-30] MEDS: ASPIRIN 81 MG CHEW TAB PO SCH (09:05)
[2023-01-30] MEDS: PANTOPRAZOLE SOD 40 MG TABEC PO SCH ×2 (09:05→17:17)
[2023-01-30] MEDS: MAGNESIUM OXIDE 400 MG TAB PO SCH (09:05)
[2023-01-30] MEDS: BENZONATATE 100 MG CAP PO SCH ×3 (09:06→22:32)
[2023-01-30] MEDS: GUAIFENESIN 600 MG TAB PO SCH ×2 (09:06→17:17)
[2023-01-30] MEDS: CLOPIDOGREL BISULFATE 75 MG TAB PO SCH (09:06)
[2023-01-30] MEDS: DULOXETINE HCL 30 MG DELAYED RELEASE PO SCH (09:06)
[2023-01-30 11:23] LABS: PLATELET ESTIMATE SLIGHTLY INCREASED
[2023-01-30 11:24] LABS: PLATELET MORPHOLOGY COMMENT NORMAL
[2023-01-30] MEDS: ENOXAPARIN 30 MG/0.3 ML SYR SC SCH (17:17)
[2023-01-30] MEDS: ATORVASTATIN 40 MG TAB PO SCH (22:32)
[2023-01-31] VITALS: BP 115/60; PULSE 87; RESP 17; TEMP 98; O2SAT 97
[2023-01-31] MEDS: ALBUTEROL/IPRATROPIUM 3 ML NEB NEB SCH (01:38)
[2023-01-31 04:00] VITALS: BP 141/72; PULSE 88; RESP 18; TEMP 98.7; O2SAT 98
[2023-01-31 06:37] VITALS: PULSE 96; RESP 20; O2SAT 95
[2023-01-31 08:07] VITALS: BP 130/76; PULSE 96; RESP 17; TEMP 97.7; O2SAT 96
[2023-01-31 08:21] VITALS: BP 130/76; PULSE 82; RESP 17; TEMP 97.7; O2SAT 96
[2023-01-31] MEDS: BENZONATATE 100 MG CAP PO SCH (09:38)
[2023-01-31] MEDS: PANTOPRAZOLE SOD 40 MG TABEC PO SCH (09:38)
[2023-01-31] MEDS: CLOPIDOGREL BISULFATE 75 MG TAB PO SCH (09:38)
[2023-01-31] MEDS: GUAIFENESIN 600 MG TAB PO SCH (09:38)
[2023-01-31] MEDS: DULOXETINE HCL 30 MG DELAYED RELEASE PO SCH (09:38)
[2023-01-31] MEDS: ASPIRIN 81 MG CHEW TAB PO SCH (09:38)
[2023-01-31] MEDS: MAGNESIUM OXIDE 400 MG TAB PO SCH (09:38)
== END 2023-01-31 12:01 | disposition home or self-care (01) | DRG 190 ==
LOC: ER 13:53 → ERHOLD 14:34 → MED/SURG 16:59
PROVIDERS: ADMIT Internal Medicine; ATTEND Internal Medicine
DX: J44.0 Chronic obstructive pulmonary disease with (acute) lower respiratory infection (principal); J18.9 Pneumonia, unspecified organism; J44.1 Chronic obstructive pulmonary disease with (acute) exacerbation; R00.1 Bradycardia, unspecified; R53.81 Other malaise; F17.200 Nicotine dependence, unspecified, uncomplicated; K21.9 Gastro-esophageal reflux disease without esophagitis; E78.5 Hyperlipidemia, unspecified; I10 Essential (primary) hypertension; M19.90 Unspecified osteoarthritis, unspecified site; R09.02 Hypoxemia; J84.10 Pulmonary fibrosis, unspecified; F41.9 Anxiety disorder, unspecified; F32.A Depression, unspecified; I73.9 Peripheral vascular disease, unspecified; Z79.899 Other long term (current) drug therapy; Z20.822 Contact with and (suspected) exposure to COVID-19
CPT/HCPCS: 36415; 71046; 71250; 80048; 81001; 82550; 83518; 83735; 84100; 84484; 85025; 87040; 87070; 87086; 87205; 87400; 93005; 94799; 99284; J0696; J1650; J2920; J7050; U0002

== ENCOUNTER 2023-09-19 15:48 | Outpatient (RCR) | payer MEDICARE, OTHER | END 2023-09-21 | LOC: PT 15:48 | PROVIDERS: ATTEND Family Medicine Sports Medicine | DX: M25.552 Pain in left hip (principal) ==

== ENCOUNTER 2023-10-18 15:00 | Outpatient (RCR) | payer MEDICARE, OTHER | END 2023-10-22 | LOC: PT 15:00 | PROVIDERS: ATTEND Family Medicine Sports Medicine | DX: M25.552 Pain in left hip (principal) ==

== ENCOUNTER 2023-11-15 15:00 | Outpatient (RCR) | payer MEDICARE, OTHER | END 2023-11-21 | LOC: PT 15:00 | PROVIDERS: ATTEND Family Medicine Sports Medicine | DX: M25.552 Pain in left hip (principal) ==

== ENCOUNTER 2023-12-09 14:47 | Outpatient (RCR) | payer MEDICARE, OTHER | END 2023-12-22 | LOC: PT 14:47 | PROVIDERS: ATTEND Family Medicine Sports Medicine | DX: M25.552 Pain in left hip (principal) ==

== ENCOUNTER 2023-12-23 13:37 | Outpatient (RCR) | payer MEDICARE, OTHER | END 2024-01-21 | LOC: PT 13:37 | PROVIDERS: ATTEND Family Medicine Sports Medicine | DX: M25.552 Pain in left hip (principal) ==